=== PATIENT | female | born 1950 | race Two or more races ===

== ENCOUNTER 2017-09-06 08:00 | Emergency (ER) | payer SELFPAY ==
[2017-09-06] MEDS: IPRATRPIUM/ALBUTEROL 0.5/2.5MG 3 ML NEBU. NEB (09:14)
[2017-09-06] MEDS: predniSONE 20 MG TABLET PO (09:33)
== END 2017-09-06 09:36 | disposition home or self-care (01) ==
LOC: ER 09:36
DX: J20.9 Acute bronchitis, unspecified (principal); J45.909 Unspecified asthma, uncomplicated
CPT/HCPCS: 71046; 94640; 99285-25; J7512; J7620

== ENCOUNTER 2017-10-27 05:28 | Emergency (ER) | payer SELFPAY ==
[2017-10-27] MEDS: predniSONE 10 MG TABLET PO (06:15)
[2017-10-27] MEDS: IPRATRPIUM/ALBUTEROL 0.5/2.5MG 3 ML NEBU. NEB ×2 (06:28→07:46)
== END 2017-10-27 09:20 | disposition home or self-care (01) ==
LOC: ER 09:20
DX: J45.909 Unspecified asthma, uncomplicated (principal)
CPT/HCPCS: 71046; 94640; 99284; J7512; J7620

== ENCOUNTER 2017-11-21 09:33 | Emergency (ER) | payer SELFPAY ==
[2017-11-21 09:59] LABS: ADD MAN DIFF? NO
[2017-11-21] MEDS: methylPREDNISolone SOD SUCC PF 125 MG/2 ML VIAL. IV (10:04)
[2017-11-21 10:13] LABS: ANION GAP 9 (6-14); BLOOD UREA NITROGEN 22 mg/dL (7-20); BUN/CREATININE RATIO 24 (6-20); CALCIUM 8.7 mg/dL (8.5-10.1); CARBON DIOXIDE 30 mmol/L (21-32); CHLORIDE 103 mmol/L (98-107); CREATININE 0.9 mg/dL (0.6-1.0); GFR 62.1; GLUCOSE 157 mg/dL (70-99); POTASSIUM 3.5 mmol/L (3.5-5.1); SODIUM 142 mmol/L (136-145)
[2017-11-21 10:19] LABS: ALBUMIN 3.4 g/dL (3.4-5.0); ALBUMIN/GLOBULIN RATIO 0.8 (1.0-1.7); ALK PHOS 110 U/L (46-116); ALT (SGPT) 25 U/L (14-59); AST (SGOT) 23 U/L (15-37); TOTAL BILIRUBIN 0.3 mg/dL (0.2-1.0); TOTAL PROTEIN 7.8 g/dL (6.4-8.2)
[2017-11-21 10:20] LABS: BASO % 0 % (0-3); EOS # 0.6 x10^3/uL (0.0-0.7); EOS % 9 % (0-3); HEMATOCRIT 44.5 % (36.0-47.0); HEMOGLOBIN 14.6 g/dL (12.0-15.5); LYMPH # 1.2 x10^3/uL (1.0-4.8); LYMPH % 20 % (24-48); MEAN CORPUSCULAR HEMOGLOBIN 27 pg (25-35); MEAN CORPUSCULAR HGB CONC 33 g/dL (31-37); MEAN CORPUSCULAR VOLUME 82 fL (79-100); MONO # 0.3 x10^3/uL (0.0-1.1); MONO % 5 % (0-9); NEUT # 3.9 x10^3uL (1.8-7.7); NEUT % 66 % (31-73); PLATELET COUNT 284 x10^3/uL (140-400); RED BLOOD COUNT 5.42 x10^6/uL (3.50-5.40); RED CELL DISTRIBUTION WIDTH 14.4 % (11.5-14.5)
[2017-11-21 10:22] LABS: TROPONINI < 0.017 ng/mL (0.000-0.055)
[2017-11-21 10:25] LABS: CKMB INDEX 1.7 % (0-4); CKMB MASS 1.8 ng/mL (0.0-3.6); CREATINE KINASE 109 U/L (26-192)
[2017-11-21 10:31] LABS: BILIRUBIN,URINE NEGATIVE (NEG); CLARITY,URINE CLEAR; COLOR,URINE YELLOW; GLUCOSE,URINE NEGATIVE (NEG); NITRITE,URINE NEGATIVE (NEG); PROTEIN,URINE NEGATIVE (NEG-TRACE); UROBILINOGEN,URINE 0.2 mg/dL (0.2 mg/dL)
[2017-11-21 10:46] LABS: BACTERIA,URINE 0 /HPF (0-FEW); SQUAMOUS EPITHELIAL CELL,UR MOD /LPF
[2017-11-21] MEDS: IPRATRPIUM/ALBUTEROL 0.5/2.5MG 3 ML NEBU. NEB (11:49)
== END 2017-11-21 12:30 | disposition home or self-care (01) ==
LOC: ER 12:30
DX: J45.909 Unspecified asthma, uncomplicated (principal); J02.9 Acute pharyngitis, unspecified
CPT/HCPCS: 36415; 71045; 80053; 81001; 82553; 84484; 85025; 93005; 94640; 96374; 99285-25; J2930; J7620

== ENCOUNTER 2017-12-06 13:16 | Emergency (ER) | payer SELFPAY ==
[2017-12-06] MEDS: ACETAMINOPHEN 500 MG TABLET PO (14:31)
[2017-12-06 14:32] LABS: BASO % 0 % (0-3); EOS # 0.1 x10^3/uL (0.0-0.7); EOS % 1 % (0-3); HEMATOCRIT 43.3 % (36.0-47.0); HEMOGLOBIN 14.2 g/dL (12.0-15.5); LYMPH # 1.1 x10^3/uL (1.0-4.8); LYMPH % 7 % (24-48); MEAN CORPUSCULAR HEMOGLOBIN 27 pg (25-35); MEAN CORPUSCULAR HGB CONC 33 g/dL (31-37); MEAN CORPUSCULAR VOLUME 82 fL (79-100); MONO % 7 % (0-9); NEUT # 12.6 x10^3uL (1.8-7.7); NEUT % 85 % (31-73); PLATELET COUNT 279 x10^3/uL (140-400); RED BLOOD COUNT 5.28 x10^6/uL (3.50-5.40); RED CELL DISTRIBUTION WIDTH 13.9 % (11.5-14.5); WHITE BLOOD COUNT 14.7 x10^3/uL (4.0-11.0)
[2017-12-06 14:37] LABS: ADD MAN DIFF? YES
[2017-12-06 14:53] LABS: ANION GAP 8 (6-14); BLOOD UREA NITROGEN 18 mg/dL (7-20); CALCIUM 8.8 mg/dL (8.5-10.1); CARBON DIOXIDE 30 mmol/L (21-32); CHLORIDE 101 mmol/L (98-107); CREATININE 1.2 mg/dL (0.6-1.0); GFR 44.5; GLUCOSE 159 mg/dL (70-99); POTASSIUM 3.7 mmol/L (3.5-5.1); SODIUM 139 mmol/L (136-145)
[2017-12-06 15:01] LABS: LACTIC ACID 2.3 mmol/L (0.4-2.0)
[2017-12-06 15:01] LABS: BACTERIA,URINE MODERATE /HPF (0-FEW); BILIRUBIN,URINE NEGATIVE (NEG); CLARITY,URINE HAZY; COLOR,URINE YELLOW; GLUCOSE,URINE NEGATIVE (NEG); NITRITE,URINE POSITIVE (NEG); PROTEIN,URINE 100 mg/dL (NEG-TRACE); RBC,URINE OCC /HPF (0-2); SQUAMOUS EPITHELIAL CELL,UR FEW /LPF; WBC,URINE TNTC /HPF (0-4)
[2017-12-06 15:02] LABS: TROPONINI < 0.017 ng/mL (0.000-0.055)
[2017-12-06] MEDS: IPRATRPIUM/ALBUTEROL 0.5/2.5MG 3 ML NEBU. NEB (15:20)
[2017-12-06 15:41] LABS: PROCALCITONIN 0.12 ng/mL (0.00-0.10)
[2017-12-06 15:53] LABS: % LYMPHS 6 % (24-48); % MONOS 4 % (0-10); % SEGS 90 % (35-66)
[2017-12-06 15:58] LABS: PLT ESTIMATE ADEQUATE (ADEQUATE)
[2017-12-06 17:08] LABS: BILIRUBIN,URINE NEGATIVE (NEG); CLARITY,URINE CLOUDY; COLOR,URINE YELLOW; GLUCOSE,URINE NEGATIVE (NEG)
[2017-12-06 17:09] LABS: NITRITE,URINE POSITIVE (NEG); PROTEIN,URINE 100 mg/dL (NEG-TRACE)
[2017-12-06] MEDS: IV NORMAL SALINE 1000ML BAG 1,000 ML IV (17:20)
[2017-12-06 17:22] LABS: BACTERIA,URINE MODERATE /HPF (0-FEW); WBC,URINE TNTC /HPF (0-4)
[2017-12-06] MEDS: PHENAZOPYRIDINE 200 MG TABLET. PO (17:37)
[2017-12-06] MEDS: predniSONE 20 MG TABLET PO (17:38)
== END 2017-12-06 17:55 | disposition home or self-care (01) ==
LOC: ER 13:16
DX: N39.0 Urinary tract infection, site not specified (principal); R50.9 Fever, unspecified; R11.0 Nausea; R10.30 Lower abdominal pain, unspecified; J45.909 Unspecified asthma, uncomplicated
CPT/HCPCS: 36415; 71046; 80048; 81001; 83605; 84145; 84484; 85007; 85025; 87040; 87086; 87186; 94640; 99285-25; J7030; J7512; J7620; Q0111

== ENCOUNTER 2018-04-14 20:20 | Inpatient (IN) | payer SELFPAY ==
[~2018-04-14] VITALS: Ht 149.9 cm; Wt 74.4 kg
[~2018-04-14 20:20] MED LIST: AZIT250T6 PO; CEPH-264 PO; LEVO750T31 PO; PRED-220 PO; PRED20TA PO; PRED50TA PO; PROAIR HFA8.5 GM INH; VENTOLIN HFA18 GM INH
--- NOTE | 2018-04-14 21:30 | PHYS DOC ---
Past Medical History Past Medical History: Asthma, Bronchitis Past Surgical History: No Surgical History Alcohol Use: None Drug Use: None Adult General Chief Complaint Chief Complaint: ABDOMINAL PAIN HPI HPI Patient is a 67 year old Female who presents with upper abdomen and chest feeling tight and she states she has some shortness of air. She denies any chest pain. She does have a history of asthma and she has been having a cough recently with yellow sputum. She's been having use her inhaler at home. She denies any fevers but states that she's been having hot and cold chills. She denies any nausea, vomiting, diarrhea. Patient states she had a soft bowel movement today. Patient has been eating and drinking but doesn't drink she's been drinking enough fluids. She is allergic to no known drug allergies. She has a history of asthma and GERD. Her only medication is an albuterol inhaler. Heart rate is 92, 144/62, 95% on room air, 20 respirations. Alert and oriented. Review of Systems Review of Systems Constitutional: Denies fever or chills [] Eyes: Denies change in visual acuity, redness, or eye pain [] HENT: Denies nasal congestion or sore throat [] Respiratory: Denies cough or shortness of breath [] Cardiovascular: No additional information not addressed in HPI [] GI: Denies abdominal pain, nausea, vomiting, bloody stools or diarrhea [] : Denies dysuria or hematuria [] Musculoskeletal: Denies back pain or joint pain [] Integument: Denies rash or skin lesions [] Neurologic: Denies headache, focal weakness or sensory changes [] Endocrine: Denies polyuria or polydipsia [] All other systems were reviewed and found to be within normal limits, except as documented in this note. Current Medications Current Medications Current Medications Medications (Trade) Dose Ordered Sig/Nhan Start Time Stop Time Status Last Admin Dose Admin Acetaminophen (Tylenol) 650 mg PRN Q4HRS PRN 04/15/18 00:30 04/16/18 00:29 UNV Albuterol/ Ipratropium (Duoneb) 3 ml 1X ONCE 04/14/18 21:45 04/14/18 21:46 DC 04/14/18 21:52 3 ML Azithromycin (Zithromax) 500 mg 1X ONCE 04/15/18 00:30 04/15/18 00:31 UNV Ceftriaxone Sodium 50 ml @ 100 mls/hr 1X ONCE 04/15/18 00:30 04/15/18 00:59 UNV Info (CONTRAST GIVEN -- Rx MONITORING) 1 each PRN DAILY PRN 04/14/18 23:15 04/16/18 23:14 Iohexol (Omnipaque 300 Mg/ml) 75 ml 1X ONCE 04/14/18 23:30 04/14/18 23:31 DC 04/14/18 23:17 75 ML Ondansetron HCl (Zofran) 4 mg PRN Q8HRS PRN 04/15/18 00:30 04/16/18 00:29 UNV Sodium Chloride 500 ml @ 500 mls/hr 1X ONCE 04/14/18 22:00 04/14/18 22:59 DC 04/14/18 21:51 500 MLS/HR Allergies Allergies Allergies Coded Allergies Type Severity Reaction Last Updated Verified No Known Drug Allergies 01/27/16 No Physical Exam Physical Exam Constitutional: Well developed, well nourished, no acute distress, non-toxic appearance. [] HENT: Normocephalic, atraumatic, bilateral external ears normal, oropharynx moist, no oral exudates, nose normal. [] Eyes: PERRLA, EOMI, conjunctiva normal, no discharge. [] Neck: Normal range of motion, no tenderness, supple, no stridor. [] Cardiovascular:Heart rate regular rhythm, no murmur [] Lungs & Thorax: Bilateral breath sounds clear to auscultation [] Abdomen: Bowel sounds normal, soft, no tenderness, no masses, no pulsatile masses. [] Skin: Warm, dry, no erythema, no rash. [] Back: No tenderness, no CVA tenderness. [] Extremities: No tenderness, no cyanosis, no clubbing, ROM intact, no edema. [] Neurologic: Alert and oriented X 3, normal motor function, normal sensory function, no focal deficits noted. [] Psychologic: Affect normal, judgement normal, mood normal. [] Current Patient Data Vital Signs Vital Signs Date Time Temp Pulse Resp B/P (MAP) Pulse Ox O2 Delivery O2 Flow Rate FiO2 04/14/18 22:30 88 18 125/69 (87) 99 04/14/18 21:54 Room Air 04/14/18 21:00 98.2 98.2 Lab Values Laboratory Tests Test 04/14/18 21:44 04/14/18 22:30 White Blood Count 15.1 x10^3/uL (4.0-11.0) H Red Blood Count 5.32 x10^6/uL (3.50-5.40) Hemoglobin 14.3 g/dL (12.0-15.5) Hematocrit 43.3 % (36.0-47.0) Mean Corpuscular Volume 81 fL (79-100) Mean Corpuscular Hemoglobin 27 pg (25-35) Mean Corpuscular Hemoglobin Concent 33 g/dL (31-37) Red Cell Distribution Width 13.4 % (11.5-14.5) Platelet Count 269 x10^3/uL (140-400) Neutrophils (%) (Auto) 87 % (31-73) H Lymphocytes (%) (Auto) 5 % (24-48) L Monocytes (%) (Auto) 6 % (0-9) Eosinophils (%) (Auto) 1 % (0-3) Basophils (%) (Auto) 0 % (0-3) Neutrophils # (Auto) 13.1 x10^3uL (1.8-7.7) H Lymphocytes # (Auto) 0.8 x10^3/uL (1.0-4.8) L Monocytes # (Auto) 0.9 x10^3/uL (0.0-1.1) Eosinophils # (Auto) 0.2 x10^3/uL (0.0-0.7) Basophils # (Auto) 0.1 x10^3/uL (0.0-0.2) Segmented Neutrophils % 83 % (35-66) H Band Neutrophils % 4 % (0-9) Lymphocytes % 7 % (24-48) L Monocytes % 6 % (0-10) Platelet Estimate Adequate (ADEQUATE) Urine Collection Type Unknown Urine Color Yellow Urine Clarity Clear Urine pH 5.5 Urine Specific [place] 1.020 Urine Protein 30 mg/dL (NEG-TRACE) Urine Glucose (UA) 100 mg/dL (NEG) Urine Ketones (Stick) Negative mg/dL (NEG) Urine Blood Large (NEG) Urine Nitrite Positive (NEG) Urine Bilirubin Negative (NEG) Urine Urobilinogen Dipstick 0.2 mg/dL (0.2 mg/dL) Urine Leukocyte Esterase Moderate (NEG) Urine RBC 1-2 /HPF (0-2) Urine WBC 11-20 /HPF (0-4) Urine Squamous Epithelial Cells Few /LPF Urine Bacteria Many /HPF (0-FEW) Urine Mucus Slight /LPF Sodium Level 141 mmol/L (136-145) Potassium Level 3.8 mmol/L (3.5-5.1) Chloride Level 104 mmol/L (98-107) Carbon Dioxide Level 29 mmol/L (21-32) Anion Gap 8 (6-14) Blood Urea Nitrogen 16 mg/dL (7-20) Creatinine 0.9 mg/dL (0.6-1.0) Estimated GFR (Cockcroft-Gault) 62.1 BUN/Creatinine Ratio 18 (6-20) Glucose Level 119 mg/dL (70-99) H Calcium Level 8.9 mg/dL (8.5-10.1) Total Bilirubin 0.5 mg/dL (0.2-1.0) Aspartate Amino Transferase (AST) 25 U/L (15-37) Alanine Aminotransferase (ALT) 29 U/L (14-59) Alkaline Phosphatase 119 U/L (46-116) H Total Protein 7.7 g/dL (6.4-8.2) Albumin 3.0 g/dL (3.4-5.0) L Albumin/Globulin Ratio 0.6 (1.0-1.7) L Lipase 78 U/L (73-393) Laboratory Tests 04/14/18 21:44 Laboratory Tests 04/14/18 22:30 EKG EKG Sinus rhythm and no STEMI Interpretation Time: [address] Oliveira Radiology/Procedures Radiology/Procedures Chest x-ray Impressions: [facility] [address] [place] [address] IMAGING REPORT Signed PATIENT: MARLEY TUCKER ACCOUNT: [id number] : 1950 LOCATION: ER AGE: 67 SEX: F EXAM STATUS: REG ER ORD. PHYSICIAN: HOLLIE DESAI APRN REASON: cough PROCEDURE: CHEST PA & LATERAL EXAM: Chest, 2 views. HISTORY: Cough and short of breath. COMPARISON: 12/06/2017 FINDINGS: 2 views of the chest are obtained. There is bilateral lower lobe atelectasis or interstitial infiltrate superimposed on emphysema. There is no pleural effusion or pneumothorax. The heart is normal in size. IMPRESSION: Bilateral lower lobe atelectasis or interstitial infiltrate superimposed on emphysema. Electronically signed by: Skye Kincaid MD (04/14/2018 9:41 PM) [facility] DICTATED and SIGNED BY: SKYE KINCAID MD DATE: 04/14/182139 [facility] [address] [place] [address] IMAGING REPORT Signed PATIENT: MARLEY TUCKER ACCOUNT: [id number] : 1950 LOCATION: ER AGE: 67 SEX: F EXAM STATUS: REG ER ORD. PHYSICIAN: HOLLIE DESAI APRN REASON: diffuse abdominal pain and tenderness PROCEDURE: CT ABD PELV W/ IV CONTRST ONLY EXAM: Abdomen and pelvis CT with intravenous contrast. HISTORY: Pain. TECHNIQUE: Computed tomographic images of the abdomen and pelvis were obtained following the administration of 75 cc Omnipaque 300 intravenous contrast. Multiplanar reformatting was performed. *One or more of the following individualized dose reduction techniques were utilized for this examination: 1. Automated exposure control. 2. Adjustment of the mA and/or kV according to patient size. 3. Use of iterative reconstruction technique. COMPARISON: None. FINDINGS: Evaluation of the lower thorax demonstrates bilateral lower lobe atelectasis and pleural parenchymal scarring. There is central and lower lobe bronchial wall thickening likely due to the sequela of bronchitis. There is a calcified renal within the medial left lower lobe. There are few small nodular opacities within the left lower lobe, the largest of which measures 8 mm. There is a 1.4 cm hypodense lesion within the left hepatic lobe. There are few smaller hypodense lesions within the right hepatic lobe. These are too small to characterize. The gallbladder, pancreas, spleen and adrenal glands are unremarkable. There are few small renal cysts, some which are too small to characterize. There is no appendicitis. There is no bowel obstruction. There is distal colonic diverticulosis without evidence of diverticulitis. The uterus, ovaries and bladder are unremarkable. There is no lymphadenopathy. There is no suspicious osseous lesion. IMPRESSION: 1. Colonic diverticulosis without convincing diverticulitis. 2. Several hypodense lesions within the liver, the largest of which measures 1.4 cm within the left hepatic lobe. In the absence of known malignancy, these are likely cysts. The possibly of superimposed hemangiomas is not excluded. 3. Small renal cysts. 4. Bilateral lower lobe pleural plaque and intimal scarring and atelectasis. There is bronchial wall thickening likely due to the sequela of bronchitis. There are few small pulmonary nodules which may also be postinfectious or postinflammatory, the largest of which measures 8 mm within the left lower lobe. Follow-up can be performed according to Fleischner Society criteria. Fleischner Society recommendations (Radiology 2005; 237; 395-400): In a low risk patient: <4mm - No follow up required. >4-6mm- 12 month follow up, if unchanged, no further follow up. >6-8mm- 6-12 month follow up, then at 18-24 months if no change. >8mm- 3, 9, 24 month follow up or consideration of PET/CT. In a high risk patient: <4mm - 12 month follow up, if unchanged then no further follow up. >4-6mm- 6-12 month follow up, then at 18-24 months if no change. >6-8mm- 3-6 month follow up, then at 9-12 months and 24 months if no change >8mm- Same as for low risk patient. Electronically signed by: Skye Kincaid MD (04/14/2018 11:26 PM) [facility] DICTATED and SIGNED BY: SKYE KINCAID MD DATE: 04/14/18 3247 Course & Med Decision Making Course & Med Decision Making Patient is a 67 year old Female who presents with upper abdomen and chest feeling tight and she states she has some shortness of air. She denies any chest pain. She does have a history of asthma and she has been having a cough recently with yellow sputum. She's been having use her inhaler at home. She denies any fevers but states that she's been having hot and cold chills. She denies any nausea, vomiting, diarrhea. Patient states she had a soft bowel movement today. Patient has been eating and drinking but doesn't drink she's been drinking enough fluids. She is allergic to no known drug allergies. She has a history of asthma and GERD. Her only medication is an albuterol inhaler. Heart rate is 92, 144/62, 95% on room air, 20 respirations. Alert and oriented. Skin is pink warm and dry. Her daughters at bedside. Lungs are clear to pull lobes but seem diminished in lower lobes bilaterally. Heart rate is regular without murmur. EKG shows sinus rhythm and no STEMI. She is neurologically intact. Chest x-ray shows Bilateral lower lobe atelectasis or interstitial infiltrate superimposed on emphysema. CT abdomen pelvis shows 1. Colonic diverticulosis without convincing diverticulitis. 2. Several hypodense lesions within the liver, the largest of which measures 1.4 cm within the left hepatic lobe. In the absence of known malignancy, these are likely cysts. The possibly of superimposed hemangiomas is not excluded.3. Small renal cysts.4. Bilateral lower lobe pleural plaque and intimal scarring and atelectasis. There is bronchial wall thickening likely due to the sequela of bronchitis. There are few small pulmonary nodules which may also be postinfectious or postinflammatory, the largest of which measures 8 mm within the left lower lobe. Follow-up can be performed according to Fleischner Society criteria. Patient was taken on a desats study and she went down to 85% when walking. Patient to be admitted to the hospital for COPD and a uric tract infection. No draw blood cultures and lactic acid. She will be started on azithromycin and Rocephin. [] Dragon Disclaimer Dragon Disclaimer This electronic medical record was generated, in whole or in part, using a voice recognition dictation system. Departure Departure Impression: Primary Impression: Urinary tract infection Additional Impression: COPD (chronic obstructive pulmonary disease) Disposition: 01 HOME, SELF-CARE Admitting Physician: Eduardo Lopez Condition: STABLE Referrals: UNKNOWN PCP NAME (PCP) Problem Qualifiers Primary Impression: Urinary tract infection Urinary tract infection type: site unspecified Hematuria presence: with hematuria Qualified Codes: N39.0 - Urinary tract infection, site not specified ; R31.9 - Hematuria, unspecified Additional Impression: COPD (chronic obstructive pulmonary disease) COPD type: unspecified COPD Qualified Codes: J44.9 - Chronic obstructive pulmonary disease, unspecified BAFUS,HOLLIE M CT SCAN TECHNICIAN Apr 14, 2018 21:30
--- NOTE | 2018-04-14 21:44 | RAD ---
EXAM: Chest, 2 views. HISTORY: Cough and short of breath. COMPARISON: 12/06/2017 FINDINGS: 2 views of the chest are obtained. There is bilateral lower lobe atelectasis or interstitial infiltrate superimposed on emphysema. There is no pleural effusion or pneumothorax. The heart is normal in size. IMPRESSION: Bilateral lower lobe atelectasis or interstitial infiltrate superimposed on emphysema. Electronically signed by: Skye Spain MD (04/14/2018 9:41 PM) [facility]
[2018-04-14] MEDS ORDERED: IPRATRPIUM/ALBUTEROL 0.5/2.5MG 3 ML NEBU. NEB ONE (21:45)
[2018-04-14] MEDS ORDERED: IV NORMAL SALINE 500ML BAG 500 ML IV ONE (22:00)
[2018-04-14 22:09] LABS: BASO # 0.1 x10^3/uL (0.0-0.2); BASO % 0 % (0-3); BILIRUBIN,URINE NEGATIVE (NEG); CLARITY,URINE CLEAR; COLOR,URINE YELLOW; EOS # 0.2 x10^3/uL (0.0-0.7); EOS % 1 % (0-3); HEMATOCRIT 43.3 % (36.0-47.0); HEMOGLOBIN 14.3 g/dL (12.0-15.5); LYMPH # 0.8 x10^3/uL (1.0-4.8); LYMPH % 5 % (24-48); MEAN CORPUSCULAR HEMOGLOBIN 27 pg (25-35); MEAN CORPUSCULAR HGB CONC 33 g/dL (31-37); MEAN CORPUSCULAR VOLUME 81 fL (79-100); MONO # 0.9 x10^3/uL (0.0-1.1); MONO % 6 % (0-9); NEUT # 13.1 x10^3uL (1.8-7.7); NEUT % 87 % (31-73); NITRITE,URINE POSITIVE (NEG); PH,URINE 5.5; PLATELET COUNT 269 x10^3/uL (140-400); PROTEIN,URINE 30 mg/dL (NEG-TRACE); RED BLOOD COUNT 5.32 x10^6/uL (3.50-5.40); RED CELL DISTRIBUTION WIDTH 13.4 % (11.5-14.5); UROBILINOGEN,URINE 0.2 mg/dL (0.2 mg/dL); WHITE BLOOD COUNT 15.1 x10^3/uL (4.0-11.0)
[2018-04-14 22:15] LABS: BACTERIA,URINE MANY /HPF (0-FEW); SQUAMOUS EPITHELIAL CELL,UR FEW /LPF
[2018-04-14 22:37] LABS: % BANDS 4 % (0-9); % LYMPHS 7 % (24-48); % MONOS 6 % (0-10); % SEGS 83 % (35-66); PLT ESTIMATE ADEQUATE (ADEQUATE)
[2018-04-14 22:46] LABS: CALCIUM 8.9 mg/dL (8.5-10.1); CREATININE 0.9 mg/dL (0.6-1.0); GFR 62.1; POTASSIUM 3.8 mmol/L (3.5-5.1)
[2018-04-14 22:52] LABS: ALBUMIN/GLOBULIN RATIO 0.6 (1.0-1.7); TOTAL BILIRUBIN 0.5 mg/dL (0.2-1.0); TOTAL PROTEIN 7.7 g/dL (6.4-8.2)
[2018-04-14] MEDS ORDERED: CONTRAST GIVEN. MC PRN (23:15)
--- NOTE | 2018-04-14 23:29 | RAD ---
EXAM: Abdomen and pelvis CT with intravenous contrast. HISTORY: Pain. TECHNIQUE: Computed tomographic images of the abdomen and pelvis were obtained following the administration of 75 cc Omnipaque 300 intravenous contrast. Multiplanar reformatting was performed. *One or more of the following individualized dose reduction techniques were utilized for this examination: 1. Automated exposure control. 2. Adjustment of the mA and/or kV according to patient size. 3. Use of iterative reconstruction technique. COMPARISON: None. FINDINGS: Evaluation of the lower thorax demonstrates bilateral lower lobe atelectasis and pleural parenchymal scarring. There is central and lower lobe bronchial wall thickening likely due to the sequela of bronchitis. There is a calcified renal within the medial left lower lobe. There are few small nodular opacities within the left lower lobe, the largest of which measures 8 mm. There is a 1.4 cm hypodense lesion within the left hepatic lobe. There are few smaller hypodense lesions within the right hepatic lobe. These are too small to characterize. The gallbladder, pancreas, spleen and adrenal glands are unremarkable. There are few small renal cysts, some which are too small to characterize. There is no appendicitis. There is no bowel obstruction. There is distal colonic diverticulosis without evidence of diverticulitis. The uterus, ovaries and bladder are unremarkable. There is no lymphadenopathy. There is no suspicious osseous lesion. IMPRESSION: 1. Colonic diverticulosis without convincing diverticulitis. 2. Several hypodense lesions within the liver, the largest of which measures 1.4 cm within the left hepatic lobe. In the absence of known malignancy, these are likely cysts. The possibly of superimposed hemangiomas is not excluded. 3. Small renal cysts. 4. Bilateral lower lobe pleural plaque and intimal scarring and atelectasis. There is bronchial wall thickening likely due to the sequela of bronchitis. There are few small pulmonary nodules which may also be postinfectious or postinflammatory, the largest of which measures 8 mm within the left lower lobe. Follow-up can be performed according to Fleischner Society criteria. Fleischner Society recommendations (Radiology 2005; 237; 395-400): In a low risk patient: <4mm - No follow up required. >4-6mm- 12 month follow up, if unchanged, no further follow up. >6-8mm- 6-12 month follow up, then at 18-24 months if no change. >8mm- 3, 9, 24 month follow up or consideration of PET/CT. In a high risk patient: <4mm - 12 month follow up, if unchanged then no further follow up. >4-6mm- 6-12 month follow up, then at 18-24 months if no change. >6-8mm- 3-6 month follow up, then at 9-12 months and 24 months if no change >8mm- Same as for low risk patient. Electronically signed by: Skye Spain MD (04/14/2018 11:26 PM) [facility]
[2018-04-14] MEDS ORDERED: IOHEXOL 300 MG/ML 100ML VIAL. IV ONE (23:30)
[2018-04-15] MEDS ORDERED: NITR100C62 PO (00:02)
[2018-04-15] MEDS ORDERED: PRED50TA PO (00:03)
[2018-04-15] MEDS ORDERED: ACETAMINOPHEN 325 MG TABLET. PO PRN (00:30)
[2018-04-15] MEDS ORDERED: ONDANSETRON PF 4 MG/2 ML VIAL. IV PRN (00:30)
[2018-04-15] MEDS ORDERED: AZITHROMYCIN 250 MG TABLET. PO ONE (01:00)
[2018-04-15] MEDS ORDERED: methylPREDNISolone SOD SUCC PF 125 MG/2 ML VIAL. IV ONE (01:00)
--- NOTE | 2018-04-15 01:49 | EKG ---
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
[2018-04-15 01:59] VITALS: BP 114/71
[2018-04-15 07:40] VITALS: BP 116/61
[2018-04-15] MEDS ORDERED: predniSONE 10 MG TABLET PO ONE (09:30)
[2018-04-15] MEDS ORDERED: cefTRIAXone IV Push 1 GM VIAL. IVP ONE ×2 (09:45→21:00)
--- NOTE | 2018-04-15 10:23 | PDOC1 ---
History and Physical Date of Admission Date of Admission DATE: 04/15/18 TIME: 10:22 Identification/Chief Complaint Chief Complaint SEEN IN er presents with upper abdomen and chest feeling tight and she states she has some shortness of air. She denies any chest pain. She does have a history of asthma and she has been having a cough recently with yellow sputum. using inhaler at home. She denies any fevers but states that she's been having hot and cold chills. She denies any nausea, vomiting, diarrhea sHE DOES SMOKE DAILY, IS FROM [facility], DAUGHTER IS GOOD HISTORIAN Past Medical History Past Medical History Past Medical History Past Medical History: Asthma, Bronchitis Past Surgical History: No Surgical History Alcohol Use: None Drug Use: None Hepatobiliary: Other Past Surgical History Past Surgical History: No pertinent history Family History Family History: High Cholestrol Social History Smoke: 1 pack per day ALCOHOL: none Drugs: None Current Problem List Problem List Problems Medical Problems: (1) Acute bronchitis Status: Acute (2) COPD (chronic obstructive pulmonary disease) Status: Acute (3) Urinary tract infection Status: Acute Current Medications Current Medications Current Medications Sodium Chloride 500 ml @ 500 mls/hr 1X ONCE IV Last administered on at 21:51; Start 04/14/18 at 22:00; Stop 04/14/18 at 22:59; Status DC Albuterol/ Ipratropium (Duoneb) 3 ml 1X ONCE NEB Last administered on at 21:52; Start 04/14/18 at 21:45; Stop 04/14/18 at 21:46; Status DC Iohexol (Omnipaque 300 Mg/ml) 75 ml 1X ONCE IV Last administered on 04/14/18at 23:17; Start 04/14/18 at 23:30; Stop 04/14/18 at 23:31; Status DC Info (CONTRAST GIVEN -- Rx MONITORING) 1 each PRN DAILY PRN MC SEE COMMENTS; Start 04/14/18 at 23:15; Stop 04/16/18 at 23:14 Azithromycin (Zithromax) 500 mg 1X ONCE PO Last administered on 04/15/18at 01: 49; Start 04/15/18 at 01:00; Stop 04/15/18 at 01:01; Status DC Ceftriaxone Sodium 50 ml @ 100 mls/hr 1X ONCE IV Last administered on at 01:49; Start 04/15/18 at 01:00; Stop 04/15/18 at 01:29; Status DC Ondansetron HCl (Zofran) 4 mg PRN Q8HRS PRN IV NAUSEA/VOMITING 1ST CHOICE; Start 04/15/18 at 00:30; Stop 04/16/18 at 00:29 Acetaminophen (Tylenol) 650 mg PRN Q4HRS PRN PO FEVER; Start 04/15/18 at 00:30 ; Stop 04/16/18 at 00:29 Methylprednisolone Sodium Succinate (SOLU-Medrol 125MG VIAL) 125 mg 1X ONCE IV Last administered on 04/15/18at 00:35; Start 04/15/18 at 01:00; Stop 04/15/18 at 01:01; Status DC Prednisone (Prednisone) 30 mg 1X ONCE PO ; Start 04/15/18 at 09:30; Stop at 09:31; Status DC Prednisone (Prednisone) 30 mg DAILY PO ; Start 04/16/18 at 09:00 Ceftriaxone Sodium 50 ml @ 100 mls/hr 1X ONCE IV ; Start 04/15/18 at 09:30; Stop 04/15/18 at 09:59; Status Cancel Azithromycin (Zithromax) 250 mg DAILY PO ; Start 04/15/18 at 10:00 Ceftriaxone Sodium (Rocephin) 1 gm ONCE ONCE IVP ; Start 04/15/18 at 09:45; Stop 04/15/18 at 09:45; Status DC Ceftriaxone Sodium (Rocephin) 1 gm ONCE ONCE IVP ; Start 04/15/18 at 21:00; Stop 04/15/18 at 21:01 Lactobacillus Rhamnosus (Culturelle) 1 cap BID PO ; Start 04/15/18 at 21:00 Active Scripts Active Prednisone 50 Mg Tablet 1 Tab PO DAILY Levaquin (Levofloxacin) 750 Mg Tablet 1 Tab PO DAILY Azithromycin Tablet (Azithromycin) 250 Mg Tablet 1 Pkg PO UD Proair Hfa Inhaler (Albuterol Sulfate) 8.5 Gm Hfa.aer.ad 1 Puff INH PRN Q6HRS PRN Prednisone 20 Mg Tablet 2 Tab PO DAILY 5 Days Keflex (Cephalexin) 500 Mg Capsule 1 Cap PO TID Prednisone 50 Mg Tablet 1 Tab PO DAILY Proair Hfa Inhaler (Albuterol Sulfate) 8.5 Gm Hfa.aer.ad 1 Puff INH PRN Q6HRS PRN 10 Days Proair Hfa Inhaler (Albuterol Sulfate) 8.5 Gm Hfa.aer.ad 2 Puff INH Q4-6HRS PRN 2 Days Azithromycin Tablet (Azithromycin) 250 Mg Tablet 1 Pkg PO UD Prednisone (Prednisone) 10 Mg Tablet 50 Mg PO DAILY Ventolin Hfa Inhaler (Albuterol Sulfate) 18 Gm Hfa.aer.ad 2 Puff INH Q4HRS PRN Allergies Allergies: Coded Allergies: No Known Drug Allergies (Unverified , 01/27/16) ROS Review of System Review of Systems Review of Systems Constitutional: Denies fever or chills [] Eyes: Denies change in visual acuity, redness, or eye pain [] HENT: Denies nasal congestion or sore throat [] Respiratory: Denies cough or shortness of breath [] Cardiovascular: No additional information not addressed in HPI [] GI: Denies abdominal pain, nausea, vomiting, bloody stools or diarrhea [] : Denies dysuria or hematuria [] Musculoskeletal: Denies back pain or joint pain [] Integument: Denies rash or skin lesions [] Neurologic: Denies headache, focal weakness or sensory changes [] Endocrine: Denies polyuria or polydipsia [] 14 pt systems were reviewed and found to be within normal limits, except as documented . Respiratory: YES: Cough, Shortness of breath Physical Exam Physical Exam Physical Exam Physical Exam Constitutional: Well developed, well nourished, no acute distress, non-toxic appearance. [] HENT: Normocephalic, atraumatic, bilateral external ears normal, oropharynx moist, no oral exudates, nose normal. [] Eyes: PERRLA, EOMI, conjunctiva normal, no discharge. [] Neck: Normal range of motion, no tenderness, supple, no stridor. [] Cardiovascular:Heart rate regular rhythm, no murmur [] Lungs & Thorax: Bilateral breath sounds clear to auscultation [] Abdomen: Bowel sounds normal, soft, no tenderness, no masses, no pulsatile masses. [] Skin: Warm, dry, no erythema, no rash. [] Back: No tenderness, no CVA tenderness. [] Extremities: No tenderness, no cyanosis, no clubbing, ROM intact, no edema. [] Neurologic: Alert and oriented X 3, normal motor function, normal sensory function, no focal deficits noted. [] Psychologic: Affect normal, judgement normal, mood normal. [] General: Alert, Oriented X3, Cooperative HEENT: Atraumatic Heart: RRR Breasts: Not examined Abdomen: Normal bowel sounds, Soft Rectal Exam: not examined Extremities: No clubbing, No cyanosis, No edema Neuro: Cranial nerves 3-12 NL Psych/Mental Status: Mental status NL Vitals Vitals Vital Signs Date Time Temp Pulse Resp B/P (MAP) Pulse Ox O2 Delivery O2 Flow Rate FiO2 04/15/18 07:40 98.1 71 18 116/61 (79) 97 Nasal Cannula 2.0 98.1 Labs Labs Laboratory Tests Test 04/14/18 21:44 04/14/18 22:30 04/15/18 00:55 White Blood Count 15.1 x10^3/uL (4.0-11.0) Red Blood Count 5.32 x10^6/uL (3.50-5.40) Hemoglobin 14.3 g/dL (12.0-15.5) Hematocrit 43.3 % (36.0-47.0) Mean Corpuscular Volume 81 fL (79-100) Mean Corpuscular Hemoglobin 27 pg (25-35) Mean Corpuscular Hemoglobin Concent 33 g/dL (31-37) Red Cell Distribution Width 13.4 % (11.5-14.5) Platelet Count 269 x10^3/uL (140-400) Neutrophils (%) (Auto) 87 % (31-73) Lymphocytes (%) (Auto) 5 % (24-48) Monocytes (%) (Auto) 6 % (0-9) Eosinophils (%) (Auto) 1 % (0-3) Basophils (%) (Auto) 0 % (0-3) Neutrophils # (Auto) 13.1 x10^3uL (1.8-7.7) Lymphocytes # (Auto) 0.8 x10^3/uL (1.0-4.8) Monocytes # (Auto) 0.9 x10^3/uL (0.0-1.1) Eosinophils # (Auto) 0.2 x10^3/uL (0.0-0.7) Basophils # (Auto) 0.1 x10^3/uL (0.0-0.2) Segmented Neutrophils % 83 % (35-66) Band Neutrophils % 4 % (0-9) Lymphocytes % 7 % (24-48) Monocytes % 6 % (0-10) Platelet Estimate Adequate (ADEQUATE) Urine Collection Type Unknown Urine Color Yellow Urine Clarity Clear Urine pH 5.5 Urine Specific [place] 1.020 Urine Protein 30 mg/dL (NEG-TRACE) Urine Glucose (UA) 100 mg/dL (NEG) Urine Ketones (Stick) Negative mg/dL (NEG) Urine Blood Large (NEG) Urine Nitrite Positive (NEG) Urine Bilirubin Negative (NEG) Urine Urobilinogen Dipstick 0.2 mg/dL (0.2 mg/dL) Urine Leukocyte Esterase Moderate (NEG) Urine RBC 1-2 /HPF (0-2) Urine WBC 11-20 /HPF (0-4) Urine Squamous Epithelial Cells Few /LPF Urine Bacteria Many /HPF (0-FEW) Urine Mucus Slight /LPF Sodium Level 141 mmol/L (136-145) Potassium Level 3.8 mmol/L (3.5-5.1) Chloride Level 104 mmol/L (98-107) Carbon Dioxide Level 29 mmol/L (21-32) Anion Gap 8 (6-14) Blood Urea Nitrogen 16 mg/dL (7-20) Creatinine 0.9 mg/dL (0.6-1.0) Estimated GFR (Cockcroft-Gault) 62.1 BUN/Creatinine Ratio 18 (6-20) Glucose Level 119 mg/dL (70-99) Calcium Level 8.9 mg/dL (8.5-10.1) Total Bilirubin 0.5 mg/dL (0.2-1.0) Aspartate Amino Transf (AST/SGOT) 25 U/L (15-37) Alanine Aminotransferase (ALT/SGPT) 29 U/L (14-59) Alkaline Phosphatase 119 U/L (46-116) Total Protein 7.7 g/dL (6.4-8.2) Albumin 3.0 g/dL (3.4-5.0) Albumin/Globulin Ratio 0.6 (1.0-1.7) Lipase 78 U/L (73-393) Lactic Acid Level 1.2 mmol/L (0.4-2.0) Laboratory Tests Test 04/14/18 21:44 04/14/18 22:30 04/15/18 00:55 White Blood Count 15.1 x10^3/uL (4.0-11.0) Red Blood Count 5.32 x10^6/uL (3.50-5.40) Hemoglobin 14.3 g/dL (12.0-15.5) Hematocrit 43.3 % (36.0-47.0) Mean Corpuscular Volume 81 fL (79-100) Mean Corpuscular Hemoglobin 27 pg (25-35) Mean Corpuscular Hemoglobin Concent 33 g/dL (31-37) Red Cell Distribution Width 13.4 % (11.5-14.5) Platelet Count 269 x10^3/uL (140-400) Neutrophils (%) (Auto) 87 % (31-73) Lymphocytes (%) (Auto) 5 % (24-48) Monocytes (%) (Auto) 6 % (0-9) Eosinophils (%) (Auto) 1 % (0-3) Basophils (%) (Auto) 0 % (0-3) Neutrophils # (Auto) 13.1 x10^3uL (1.8-7.7) Lymphocytes # (Auto) 0.8 x10^3/uL (1.0-4.8) Monocytes # (Auto) 0.9 x10^3/uL (0.0-1.1) Eosinophils # (Auto) 0.2 x10^3/uL (0.0-0.7) Basophils # (Auto) 0.1 x10^3/uL (0.0-0.2) Segmented Neutrophils % 83 % (35-66) Band Neutrophils % 4 % (0-9) Lymphocytes % 7 % (24-48) Monocytes % 6 % (0-10) Platelet Estimate Adequate (ADEQUATE) Urine Collection Type Unknown Urine Color Yellow Urine Clarity Clear Urine pH 5.5 Urine Specific [place] 1.020 Urine Protein 30 mg/dL (NEG-TRACE) Urine Glucose (UA) 100 mg/dL (NEG) Urine Ketones (Stick) Negative mg/dL (NEG) Urine Blood Large (NEG) Urine Nitrite Positive (NEG) Urine Bilirubin Negative (NEG) Urine Urobilinogen Dipstick 0.2 mg/dL (0.2 mg/dL) Urine Leukocyte Esterase Moderate (NEG) Urine RBC 1-2 /HPF (0-2) Urine WBC 11-20 /HPF (0-4) Urine Squamous Epithelial Cells Few /LPF Urine Bacteria Many /HPF (0-FEW) Urine Mucus Slight /LPF Sodium Level 141 mmol/L (136-145) Potassium Level 3.8 mmol/L (3.5-5.1) Chloride Level 104 mmol/L (98-107) Carbon Dioxide Level 29 mmol/L (21-32) Anion Gap 8 (6-14) Blood Urea Nitrogen 16 mg/dL (7-20) Creatinine 0.9 mg/dL (0.6-1.0) Estimated GFR (Cockcroft-Gault) 62.1 BUN/Creatinine Ratio 18 (6-20) Glucose Level 119 mg/dL (70-99) Calcium Level 8.9 mg/dL (8.5-10.1) Total Bilirubin 0.5 mg/dL (0.2-1.0) Aspartate Amino Transf (AST/SGOT) 25 U/L (15-37) Alanine Aminotransferase (ALT/SGPT) 29 U/L (14-59) Alkaline Phosphatase 119 U/L (46-116) Total Protein 7.7 g/dL (6.4-8.2) Albumin 3.0 g/dL (3.4-5.0) Albumin/Globulin Ratio 0.6 (1.0-1.7) Lipase 78 U/L (73-393) Lactic Acid Level 1.2 mmol/L (0.4-2.0) Images Images PROCEDURE: CT CHEST WO CONTRAST CT chest without contrast 04/15/2018 CLINICAL INDICATION: Pneumonia. COMPARISON: Chest radiograph 04/14/2018, CT chest 01/27/2016 TECHNIQUE: Multiple CT images of the chest were obtained without contrast. *One or more of the following individualized dose reduction techniques were utilized for this examination: 1. Automated exposure control. 2. Adjustment of the mA and/or kV according to patient size. 3. Use of iterative reconstruction technique. FINDINGS: Heart size is normal without significant pericardial effusion. The thoracic aorta is normal in caliber with trace calcified atheromatous disease. No axillary, mediastinal or obvious hilar lymphadenopathy, though the evaluation is somewhat limited in the absence of intravenous contrast. There is a basilar predominant emphysema. Mild bibasilar bronchiolectasis with scattered areas of bronchiolar mucus impaction and tree-in-bud opacities. There is a stable noncalcified pulmonary nodule in the posterior left lower lobe measuring 0.6 cm without significant change since January 27, 2016 examination. Stable subpleural nodular opacity in the lateral right middle lobe measuring 1.0 cm series 3/image 47. There is stable linear scarring in the bilateral lower lobes. No new noncalcified pulmonary nodule. Chronic mild T11 compression deformity. There are no destructive osseous lesions. Limited images of the upper abdomen: 2 stable hepatic hypodensities and a stable left renal hypodensity. IMPRESSION: 1. Stable bibasilar bronchiolectasis, mucoid impaction and tree-in-bud opacities consistent with chronic infectious/inflammatory etiology. 2. Stable left lower lobe and right middle lobe noncalcified pulmonary nodules since the 27/06/2015. 3. Moderate bibasilar predominant emphysema. EXAM: Abdomen and pelvis CT with intravenous contrast. HISTORY: Pain. TECHNIQUE: Computed tomographic images of the abdomen and pelvis were obtained following the administration of 75 cc Omnipaque 300 intravenous contrast. Multiplanar reformatting was performed. *One or more of the following individualized dose reduction techniques were utilized for this examination: 1. Automated exposure control. 2. Adjustment of the mA and/or kV according to patient size. 3. Use of iterative reconstruction technique. COMPARISON: None. FINDINGS: Evaluation of the lower thorax demonstrates bilateral lower lobe atelectasis and pleural parenchymal scarring. There is central and lower lobe bronchial wall thickening likely due to the sequela of bronchitis. There is a calcified renal within the medial left lower lobe. There are few small nodular opacities within the left lower lobe, the largest of which measures 8 mm. There is a 1.4 cm hypodense lesion within the left hepatic lobe. There are few smaller hypodense lesions within the right hepatic lobe. These are too small to characterize. The gallbladder, pancreas, spleen and adrenal glands are unremarkable. There are few small renal cysts, some which are too small to characterize. There is no appendicitis. There is no bowel obstruction. There is distal colonic diverticulosis without evidence of diverticulitis. The uterus, ovaries and bladder are unremarkable. There is no lymphadenopathy. There is no suspicious osseous lesion. IMPRESSION: 1. Colonic diverticulosis without convincing diverticulitis. 2. Several hypodense lesions within the liver, the largest of which measures 1.4 cm within the left hepatic lobe. In the absence of known malignancy, these are likely cysts. The possibly of superimposed hemangiomas is not excluded. 3. Small renal cysts. 4. Bilateral lower lobe pleural plaque and intimal scarring and atelectasis. There is bronchial wall thickening likely due to the sequela of bronchitis. There are few small pulmonary nodules which may also be postinfectious or postinflammatory, the largest of which measures 8 mm within the left lower lobe. Follow-up can be performed according to Fleischner Society criteria. Fleischner Society recommendations (Radiology 2005; 237; 395-400): In a low risk patient: <4mm - No follow up required. >4-6mm- 12 month follow up, if unchanged, no further follow up. >6-8mm- 6-12 month follow up, then at 18-24 months if no change. >8mm- 3, 9, 24 month follow up or consideration of PET/CT. In a high risk patient: <4mm - 12 month follow up, if unchanged then no further follow up. >4-6mm- 6-12 month follow up, then at 18-24 months if no change. >6-8mm- 3-6 month follow up, then at 9-12 months and 24 months if no change >8mm- Same as for low risk patient. Electronically signed by: Skye Spain MD (04/14/2018 11:26 PM) [facility] VTE Prophylaxis Ordered VTE Prophylaxis Devices: Yes VTE Pharmacological Prophylaxi: Yes Assessment/Plan Assessment/Plan Impression: Urinary tract infection COPD (chronic obstructive pulmonary disease) exac, acute Stable bibasilar bronchiolectasis, mucoid impaction and tree-in-bud opacities consistent with chronic infectious/inflammatory etiology. Stable left lower lobe and right middle lobe noncalcified pulmonary nodules since the 27/06/2015. Moderate bibasilar predominant emphysema. acute hypoxic resp failure morbid obesity sirs plan o2 support iv antibiotics duonebs qid sq lovenox dvt prophylaxis gi prophylaxis URINE CULTURE education on smoking cessation provided BAL DIANA MD Apr 15, 2018 10:23
[2018-04-15 11:10] VITALS: BP 133/69
[2018-04-15] MEDS: AZITHROMYCIN 250 MG TABLET. PO SCH (11:50)
--- NOTE | 2018-04-15 11:54 | RAD ---
CT chest without contrast 04/15/2018 CLINICAL INDICATION: Pneumonia. COMPARISON: Chest radiograph 04/14/2018, CT chest 01/27/2016 TECHNIQUE: Multiple CT images of the chest were obtained without contrast. *One or more of the following individualized dose reduction techniques were utilized for this examination: 1. Automated exposure control. 2. Adjustment of the mA and/or kV according to patient size. 3. Use of iterative reconstruction technique. FINDINGS: Heart size is normal without significant pericardial effusion. The thoracic aorta is normal in caliber with trace calcified atheromatous disease. No axillary, mediastinal or obvious hilar lymphadenopathy, though the evaluation is somewhat limited in the absence of intravenous contrast. There is a basilar predominant emphysema. Mild bibasilar bronchiolectasis with scattered areas of bronchiolar mucus impaction and tree-in-bud opacities. There is a stable noncalcified pulmonary nodule in the posterior left lower lobe measuring 0.6 cm without significant change since January 27, 2016 examination. Stable subpleural nodular opacity in the lateral right middle lobe measuring 1.0 cm series 3/image 47. There is stable linear scarring in the bilateral lower lobes. No new noncalcified pulmonary nodule. Chronic mild T11 compression deformity. There are no destructive osseous lesions. Limited images of the upper abdomen: 2 stable hepatic hypodensities and a stable left renal hypodensity. IMPRESSION: 1. Stable bibasilar bronchiolectasis, mucoid impaction and tree-in-bud opacities consistent with chronic infectious/inflammatory etiology. 2. Stable left lower lobe and right middle lobe noncalcified pulmonary nodules since the 27/06/2015. 3. Moderate bibasilar predominant emphysema. Electronically signed by: Joey Dunn MD (04/15/2018 11:51 AM) [id number]
[2018-04-15] MEDS ORDERED: ENOXAPARIN 40 MG/0.4 ML SYRINGE. SQ SCH (13:00)
--- NOTE | 2018-04-15 13:19 | CONS ---
DATE OF CONSULTATION: 04/15/2018 ATTENDING PHYSICIAN: Dr. Berger. REASON FOR CONSULTATION: The patient seen in pulmonary consultation at the request of Dr. Berger for abnormal chest x-ray. HISTORY OF PRESENT ILLNESS: The patient is a 67-year-old non-Croatian speaking individual who presented with abdominal pain and chest discomfort. Her [id number] translated. She has a history of asthma; smoker, quit in 1969. In the past 12 months, she has been treated for acute bronchitis x 1 at [facility] [place]. She does use bronchodilators at home. She quit tobacco in 1969. She has a cough productive of yellow sputum. No fever or chills. Chest x-ray revealed some ill-defined infiltrates in the bases. She had a CT chest dated back to 2015, which I reviewed, there was an ill-defined infiltrates back then. PAST MEDICAL HISTORY: COPD with an asthma component; otherwise, no other significant past medical history. MEDICATIONS: Her medication list from [facility] [place] was reviewed. Apparently, she goes to [facility] to obtain her medications. Medication list was reviewed. She was on Zithromax, Levaquin, albuterol and prednisone taper. REVIEW OF SYSTEMS: As indicated above. Otherwise, no fever, chills, night sweats. PHYSICAL EXAMINATION: GENERAL: The patient was in no respiratory distress. VITAL SIGNS: Stable. O2 saturation was greater than 92%, currently on 2 liters. HEENT: Eyes, the sclerae were nonicteric. NECK: Jugular venous distention was not elevated. No lymphadenopathy. CHEST: Full expansion. LUNGS: Crackles throughout both lung garcia with no expiratory wheeze. CARDIOVASCULAR: Regular rate and rhythm with S1, S2, no S3. ABDOMEN: Soft, nontender, nondistended. EXTREMITIES: No clubbing, cyanosis or edema. LABORATORY DATA: White count was elevated. Hemoglobin and hematocrit were noted. Electrolytes were noted. Albumin was low. Chest x-ray as indicated above. IMPRESSION: 1. Acute exacerbation of chronic obstructive pulmonary disease. 2. Possible pneumonia, gram-negative. 3. Abnormal chest x-ray. 4. Previously abnormal CT chest. 5. Tobacco dependence, in remission. PLAN: 1. We will continue current IV antibiotics and steroids. 2. CT chest. 3. We will review CT and make further recommendations. KAVON GAMBINO MD DR: Manuel JOB#: [id number] / [id number]
[2018-04-15] MEDS ORDERED: IPRATRPIUM/ALBUTEROL 0.5/2.5MG 3 ML NEBU. ONE (14:29)
[2018-04-15] MEDS: IPRATRPIUM/ALBUTEROL 0.5/2.5MG 3 ML NEBU. NEB SCH ×2 (15:05→19:22)
[2018-04-15 15:21] VITALS: BP 151/80
[2018-04-15 19:45] VITALS: BP 104/58
[2018-04-15] MEDS ORDERED: cefTRIAXone IV Push 1 GM VIAL. IVP SCH (21:00)
[2018-04-15] MEDS: LACTOBACILLUS RHAMNOSUS GG 1 CAPSULE. PO SCH (21:10)
[2018-04-15 23:20] VITALS: BP 124/68
[2018-04-16 03:13] VITALS: BP 102/62
[2018-04-16 03:59] LABS: BASO % 0 % (0-3); EOS % 0 % (0-3); HEMATOCRIT 40.7 % (36.0-47.0); HEMOGLOBIN 13.4 g/dL (12.0-15.5); LYMPH % 8 % (24-48); MEAN CORPUSCULAR HEMOGLOBIN 27 pg (25-35); MEAN CORPUSCULAR HGB CONC 33 g/dL (31-37); MEAN CORPUSCULAR VOLUME 81 fL (79-100); MONO # 0.7 x10^3/uL (0.0-1.1); MONO % 5 % (0-9); NEUT # 11.5 x10^3uL (1.8-7.7); NEUT % 87 % (31-73); PLATELET COUNT 275 x10^3/uL (140-400); RED BLOOD COUNT 5.01 x10^6/uL (3.50-5.40); RED CELL DISTRIBUTION WIDTH 13.4 % (11.5-14.5); WHITE BLOOD COUNT 13.2 x10^3/uL (4.0-11.0)
[2018-04-16 04:20] LABS: ALBUMIN 2.6 g/dL (3.4-5.0); ALBUMIN/GLOBULIN RATIO 0.6 (1.0-1.7); CALCIUM 9.2 mg/dL (8.5-10.1); CREATININE 0.9 mg/dL (0.6-1.0); GFR 62.1; POTASSIUM 3.4 mmol/L (3.5-5.1); TOTAL BILIRUBIN 0.1 mg/dL (0.2-1.0)
[2018-04-16 07:00] VITALS: BP 119/70
[2018-04-16] MEDS: IPRATRPIUM/ALBUTEROL 0.5/2.5MG 3 ML NEBU. NEB SCH ×2 (07:03→10:42)
[2018-04-16] MEDS ORDERED: PANTOPRAZOLE 40 MG TABLET.DR. PO SCH (07:30)
--- NOTE | 2018-04-16 08:36 | PDOC ---
PULMONARY PROGRESS NOTES Subjective PT BETTER THRU INTERPRET Vitals Vital Signs Date Time Temp Pulse Resp B/P (MAP) Pulse Ox O2 Delivery O2 Flow Rate FiO2 04/16/18 07:05 96 Nasal Cannula 2.0 04/16/18 07:00 97.7 83 16 119/70 (86) 97.7 Lungs: Crackles Cardiovascular: S1, S2 Abdomen: Soft Neuro Exam: Alert Extremities: No Edema Skin: Warm Labs Laboratory Tests Test 04/14/18 21:44 04/14/18 22:30 04/15/18 00:55 04/16/18 03:00 White Blood Count 15.1 x10^3/uL (4.0-11.0) 13.2 x10^3/uL (4.0-11.0) Red Blood Count 5.32 x10^6/uL (3.50-5.40) 5.01 x10^6/uL (3.50-5.40) Hemoglobin 14.3 g/dL (12.0-15.5) 13.4 g/dL (12.0-15.5) Hematocrit 43.3 % (36.0-47.0) 40.7 % (36.0-47.0) Mean Corpuscular Volume 81 fL (79-100) 81 fL (79-100) Mean Corpuscular Hemoglobin 27 pg (25-35) 27 pg (25-35) Mean Corpuscular Hemoglobin Concent 33 g/dL (31-37) 33 g/dL (31-37) Red Cell Distribution Width 13.4 % (11.5-14.5) 13.4 % (11.5-14.5) Platelet Count 269 x10^3/uL (140-400) 275 x10^3/uL (140-400) Neutrophils (%) (Auto) 87 % (31-73) 87 % (31-73) Lymphocytes (%) (Auto) 5 % (24-48) 8 % (24-48) Monocytes (%) (Auto) 6 % (0-9) 5 % (0-9) Eosinophils (%) (Auto) 1 % (0-3) 0 % (0-3) Basophils (%) (Auto) 0 % (0-3) 0 % (0-3) Neutrophils # (Auto) 13.1 x10^3uL (1.8-7.7) 11.5 x10^3uL (1.8-7.7) Lymphocytes # (Auto) 0.8 x10^3/uL (1.0-4.8) 1.0 x10^3/uL (1.0-4.8) Monocytes # (Auto) 0.9 x10^3/uL (0.0-1.1) 0.7 x10^3/uL (0.0-1.1) Eosinophils # (Auto) 0.2 x10^3/uL (0.0-0.7) 0.0 x10^3/uL (0.0-0.7) Basophils # (Auto) 0.1 x10^3/uL (0.0-0.2) 0.0 x10^3/uL (0.0-0.2) Segmented Neutrophils % 83 % (35-66) Band Neutrophils % 4 % (0-9) Lymphocytes % 7 % (24-48) Monocytes % 6 % (0-10) Platelet Estimate Adequate (ADEQUATE) Urine Collection Type Unknown Urine Color Yellow Urine Clarity Clear Urine pH 5.5 Urine Specific [place] 1.020 Urine Protein 30 mg/dL (NEG-TRACE) Urine Glucose (UA) 100 mg/dL (NEG) Urine Ketones (Stick) Negative mg/dL (NEG) Urine Blood Large (NEG) Urine Nitrite Positive (NEG) Urine Bilirubin Negative (NEG) Urine Urobilinogen Dipstick 0.2 mg/dL (0.2 mg/dL) Urine Leukocyte Esterase Moderate (NEG) Urine RBC 1-2 /HPF (0-2) Urine WBC 11-20 /HPF (0-4) Urine Squamous Epithelial Cells Few /LPF Urine Bacteria Many /HPF (0-FEW) Urine Mucus Slight /LPF Sodium Level 141 mmol/L (136-145) 141 mmol/L (136-145) Potassium Level 3.8 mmol/L (3.5-5.1) 3.4 mmol/L (3.5-5.1) Chloride Level 104 mmol/L (98-107) 105 mmol/L (98-107) Carbon Dioxide Level 29 mmol/L (21-32) 24 mmol/L (21-32) Anion Gap 8 (6-14) 12 (6-14) Blood Urea Nitrogen 16 mg/dL (7-20) 23 mg/dL (7-20) Creatinine 0.9 mg/dL (0.6-1.0) 0.9 mg/dL (0.6-1.0) Estimated GFR (Cockcroft-Gault) 62.1 62.1 BUN/Creatinine Ratio 18 (6-20) 26 (6-20) Glucose Level 119 mg/dL (70-99) 198 mg/dL (70-99) Calcium Level 8.9 mg/dL (8.5-10.1) 9.2 mg/dL (8.5-10.1) Total Bilirubin 0.5 mg/dL (0.2-1.0) 0.1 mg/dL (0.2-1.0) Aspartate Amino Transf (AST/SGOT) 25 U/L (15-37) 22 U/L (15-37) Alanine Aminotransferase (ALT/SGPT) 29 U/L (14-59) 30 U/L (14-59) Alkaline Phosphatase 119 U/L (46-116) 112 U/L (46-116) Total Protein 7.7 g/dL (6.4-8.2) 7.0 g/dL (6.4-8.2) Albumin 3.0 g/dL (3.4-5.0) 2.6 g/dL (3.4-5.0) Albumin/Globulin Ratio 0.6 (1.0-1.7) 0.6 (1.0-1.7) Lipase 78 U/L (73-393) Lactic Acid Level 1.2 mmol/L (0.4-2.0) Laboratory Tests Test 04/16/18 03:00 White Blood Count 13.2 x10^3/uL (4.0-11.0) Red Blood Count 5.01 x10^6/uL (3.50-5.40) Hemoglobin 13.4 g/dL (12.0-15.5) Hematocrit 40.7 % (36.0-47.0) Mean Corpuscular Volume 81 fL (79-100) Mean Corpuscular Hemoglobin 27 pg (25-35) Mean Corpuscular Hemoglobin Concent 33 g/dL (31-37) Red Cell Distribution Width 13.4 % (11.5-14.5) Platelet Count 275 x10^3/uL (140-400) Neutrophils (%) (Auto) 87 % (31-73) Lymphocytes (%) (Auto) 8 % (24-48) Monocytes (%) (Auto) 5 % (0-9) Eosinophils (%) (Auto) 0 % (0-3) Basophils (%) (Auto) 0 % (0-3) Neutrophils # (Auto) 11.5 x10^3uL (1.8-7.7) Lymphocytes # (Auto) 1.0 x10^3/uL (1.0-4.8) Monocytes # (Auto) 0.7 x10^3/uL (0.0-1.1) Eosinophils # (Auto) 0.0 x10^3/uL (0.0-0.7) Basophils # (Auto) 0.0 x10^3/uL (0.0-0.2) Sodium Level 141 mmol/L (136-145) Potassium Level 3.4 mmol/L (3.5-5.1) Chloride Level 105 mmol/L (98-107) Carbon Dioxide Level 24 mmol/L (21-32) Anion Gap 12 (6-14) Blood Urea Nitrogen 23 mg/dL (7-20) Creatinine 0.9 mg/dL (0.6-1.0) Estimated GFR (Cockcroft-Gault) 62.1 BUN/Creatinine Ratio 26 (6-20) Glucose Level 198 mg/dL (70-99) Calcium Level 9.2 mg/dL (8.5-10.1) Total Bilirubin 0.1 mg/dL (0.2-1.0) Aspartate Amino Transf (AST/SGOT) 22 U/L (15-37) Alanine Aminotransferase (ALT/SGPT) 30 U/L (14-59) Alkaline Phosphatase 112 U/L (46-116) Total Protein 7.0 g/dL (6.4-8.2) Albumin 2.6 g/dL (3.4-5.0) Albumin/Globulin Ratio 0.6 (1.0-1.7) Medications Active Scripts Medications Dose Route/Sig Max Daily Dose Days Date Category Prednisone 50 Mg Tablet 1 Tab PO DAILY 12/06/17 Rx Levaquin (Levofloxacin) 750 Mg Tablet 1 Tab PO DAILY 12/06/17 Rx Azithromycin Tablet (Azithromycin) 250 Mg Tablet 1 Pkg PO UD 11/21/17 Rx Proair Hfa Inhaler (Albuterol Sulfate) 8.5 Gm Hfa.aer.ad 1 Puff INH PRN Q6HRS PRN 11/21/17 Rx Prednisone 20 Mg Tablet 2 Tab PO DAILY 5 11/21/17 Rx Keflex (Cephalexin) 500 Mg Capsule 1 Cap PO TID 10/27/17 Rx Prednisone 50 Mg Tablet 1 Tab PO DAILY 10/27/17 Rx Proair Hfa Inhaler (Albuterol Sulfate) 8.5 Gm Hfa.aer.ad 1 Puff INH PRN Q6HRS PRN 10 10/27/17 Rx Proair Hfa Inhaler (Albuterol Sulfate) 8.5 Gm Hfa.aer.ad 2 Puff INH Q4-6HRS PRN 2 09/06/17 Rx Azithromycin Tablet (Azithromycin) 250 Mg Tablet 1 Pkg PO UD 09/06/17 Rx Prednisone (Prednisone) 10 Mg Tablet 50 Mg PO DAILY 09/06/17 Rx Ventolin Hfa Inhaler (Albuterol Sulfate) 18 Gm Hfa.aer.ad 2 Puff INH Q4HRS PRN 01/27/16 Rx Impression . IMPRESSION: 1. Acute exacerbation of chronic obstructive pulmonary disease. 2. Possible pneumonia, gram-negative. 3. Abnormal chest x-ray. 4. Previously abnormal CT chest. 5. Tobacco dependence, in remission. IMPRESSION: 1. Stable bibasilar bronchiolectasis, mucoid impaction and tree-in-bud opacities consistent with chronic infectious/inflammatory etiology. 2. Stable left lower lobe and right middle lobe noncalcified pulmonary nodules since the 27/06/2015. 3. Moderate bibasilar predominant emphysema. Plan . HOME ON DOXY AND PRED FOLLOW UP AT PULMONARY CLINIC THANKS D/W KAVON JUNG MD Apr 16, 2018 08:36
[2018-04-16] MEDS ORDERED: predniSONE 20 MG TABLET PO SCH (09:00)
[2018-04-16] MEDS: LACTOBACILLUS RHAMNOSUS GG 1 CAPSULE. PO SCH (10:15)
[2018-04-16] MEDS: AZITHROMYCIN 250 MG TABLET. PO SCH (10:15)
[2018-04-16 11:00] VITALS: BP 131/70
--- NOTE | 2018-04-16 11:51 | PDOC ---
PROGRESS NOTES History of Present Illness History of Present Illness Assessment/Plan Assessment/Plan Impression: Urinary tract infection COPD (chronic obstructive pulmonary disease) exac, acute Stable bibasilar bronchiolectasis, mucoid impaction and tree-in-bud opacities consistent with chronic infectious/inflammatory etiology. Stable left lower lobe and right middle lobe noncalcified pulmonary nodules since the 27/06/2015. Moderate bibasilar predominant emphysema. acute hypoxic resp failure morbid obesity sirs plan o2 support po antibiotics doxy and prednisone duonebs qid sq lovenox dvt prophylaxis d/c gi prophylaxis URINE CULTURE education on smoking cessation provided f/u [facility] Vitals Vitals Vital Signs Date Time Temp Pulse Resp B/P (MAP) Pulse Ox O2 Delivery O2 Flow Rate FiO2 04/16/18 11:00 98.1 69 20 131/70 (90) 95 Nasal Cannula 2.0 98.1 Physical Exam General: Alert, Oriented X3, Cooperative, No acute distress Heart: Regular rate, Normal S1 Lungs: Clear, Crackles Abdomen: Normal bowel sounds, Soft, No tenderness, No hepatosplenomegaly Extremities: No clubbing, No cyanosis, No edema Skin: No significant lesion Labs LABS Laboratory Tests Test 04/16/18 03:00 White Blood Count 13.2 x10^3/uL (4.0-11.0) Red Blood Count 5.01 x10^6/uL (3.50-5.40) Hemoglobin 13.4 g/dL (12.0-15.5) Hematocrit 40.7 % (36.0-47.0) Mean Corpuscular Volume 81 fL (79-100) Mean Corpuscular Hemoglobin 27 pg (25-35) Mean Corpuscular Hemoglobin Concent 33 g/dL (31-37) Red Cell Distribution Width 13.4 % (11.5-14.5) Platelet Count 275 x10^3/uL (140-400) Neutrophils (%) (Auto) 87 % (31-73) Lymphocytes (%) (Auto) 8 % (24-48) Monocytes (%) (Auto) 5 % (0-9) Eosinophils (%) (Auto) 0 % (0-3) Basophils (%) (Auto) 0 % (0-3) Neutrophils # (Auto) 11.5 x10^3uL (1.8-7.7) Lymphocytes # (Auto) 1.0 x10^3/uL (1.0-4.8) Monocytes # (Auto) 0.7 x10^3/uL (0.0-1.1) Eosinophils # (Auto) 0.0 x10^3/uL (0.0-0.7) Basophils # (Auto) 0.0 x10^3/uL (0.0-0.2) Sodium Level 141 mmol/L (136-145) Potassium Level 3.4 mmol/L (3.5-5.1) Chloride Level 105 mmol/L (98-107) Carbon Dioxide Level 24 mmol/L (21-32) Anion Gap 12 (6-14) Blood Urea Nitrogen 23 mg/dL (7-20) Creatinine 0.9 mg/dL (0.6-1.0) Estimated GFR (Cockcroft-Gault) 62.1 BUN/Creatinine Ratio 26 (6-20) Glucose Level 198 mg/dL (70-99) Calcium Level 9.2 mg/dL (8.5-10.1) Total Bilirubin 0.1 mg/dL (0.2-1.0) Aspartate Amino Transf (AST/SGOT) 22 U/L (15-37) Alanine Aminotransferase (ALT/SGPT) 30 U/L (14-59) Alkaline Phosphatase 112 U/L (46-116) Total Protein 7.0 g/dL (6.4-8.2) Albumin 2.6 g/dL (3.4-5.0) Albumin/Globulin Ratio 0.6 (1.0-1.7) Assessment and Plan Assessmemt and Plan Problems Medical Problems: (1) Acute bronchitis Status: Acute (2) COPD (chronic obstructive pulmonary disease) Status: Acute (3) Urinary tract infection Status: Acute Comment Review of Relevant I have reviewed the following items floyd (where applicable) has been applied. Labs Laboratory Tests Test 04/14/18 21:44 04/14/18 22:30 04/15/18 00:55 04/16/18 03:00 White Blood Count 15.1 x10^3/uL (4.0-11.0) 13.2 x10^3/uL (4.0-11.0) Red Blood Count 5.32 x10^6/uL (3.50-5.40) 5.01 x10^6/uL (3.50-5.40) Hemoglobin 14.3 g/dL (12.0-15.5) 13.4 g/dL (12.0-15.5) Hematocrit 43.3 % (36.0-47.0) 40.7 % (36.0-47.0) Mean Corpuscular Volume 81 fL (79-100) 81 fL (79-100) Mean Corpuscular Hemoglobin 27 pg (25-35) 27 pg (25-35) Mean Corpuscular Hemoglobin Concent 33 g/dL (31-37) 33 g/dL (31-37) Red Cell Distribution Width 13.4 % (11.5-14.5) 13.4 % (11.5-14.5) Platelet Count 269 x10^3/uL (140-400) 275 x10^3/uL (140-400) Neutrophils (%) (Auto) 87 % (31-73) 87 % (31-73) Lymphocytes (%) (Auto) 5 % (24-48) 8 % (24-48) Monocytes (%) (Auto) 6 % (0-9) 5 % (0-9) Eosinophils (%) (Auto) 1 % (0-3) 0 % (0-3) Basophils (%) (Auto) 0 % (0-3) 0 % (0-3) Neutrophils # (Auto) 13.1 x10^3uL (1.8-7.7) 11.5 x10^3uL (1.8-7.7) Lymphocytes # (Auto) 0.8 x10^3/uL (1.0-4.8) 1.0 x10^3/uL (1.0-4.8) Monocytes # (Auto) 0.9 x10^3/uL (0.0-1.1) 0.7 x10^3/uL (0.0-1.1) Eosinophils # (Auto) 0.2 x10^3/uL (0.0-0.7) 0.0 x10^3/uL (0.0-0.7) Basophils # (Auto) 0.1 x10^3/uL (0.0-0.2) 0.0 x10^3/uL (0.0-0.2) Segmented Neutrophils % 83 % (35-66) Band Neutrophils % 4 % (0-9) Lymphocytes % 7 % (24-48) Monocytes % 6 % (0-10) Platelet Estimate Adequate (ADEQUATE) Urine Collection Type Unknown Urine Color Yellow Urine Clarity Clear Urine pH 5.5 Urine Specific [place] 1.020 Urine Protein 30 mg/dL (NEG-TRACE) Urine Glucose (UA) 100 mg/dL (NEG) Urine Ketones (Stick) Negative mg/dL (NEG) Urine Blood Large (NEG) Urine Nitrite Positive (NEG) Urine Bilirubin Negative (NEG) Urine Urobilinogen Dipstick 0.2 mg/dL (0.2 mg/dL) Urine Leukocyte Esterase Moderate (NEG) Urine RBC 1-2 /HPF (0-2) Urine WBC 11-20 /HPF (0-4) Urine Squamous Epithelial Cells Few /LPF Urine Bacteria Many /HPF (0-FEW) Urine Mucus Slight /LPF Sodium Level 141 mmol/L (136-145) 141 mmol/L (136-145) Potassium Level 3.8 mmol/L (3.5-5.1) 3.4 mmol/L (3.5-5.1) Chloride Level 104 mmol/L (98-107) 105 mmol/L (98-107) Carbon Dioxide Level 29 mmol/L (21-32) 24 mmol/L (21-32) Anion Gap 8 (6-14) 12 (6-14) Blood Urea Nitrogen 16 mg/dL (7-20) 23 mg/dL (7-20) Creatinine 0.9 mg/dL (0.6-1.0) 0.9 mg/dL (0.6-1.0) Estimated GFR (Cockcroft-Gault) 62.1 62.1 BUN/Creatinine Ratio 18 (6-20) 26 (6-20) Glucose Level 119 mg/dL (70-99) 198 mg/dL (70-99) Calcium Level 8.9 mg/dL (8.5-10.1) 9.2 mg/dL (8.5-10.1) Total Bilirubin 0.5 mg/dL (0.2-1.0) 0.1 mg/dL (0.2-1.0) Aspartate Amino Transf (AST/SGOT) 25 U/L (15-37) 22 U/L (15-37) Alanine Aminotransferase (ALT/SGPT) 29 U/L (14-59) 30 U/L (14-59) Alkaline Phosphatase 119 U/L (46-116) 112 U/L (46-116) Total Protein 7.7 g/dL (6.4-8.2) 7.0 g/dL (6.4-8.2) Albumin 3.0 g/dL (3.4-5.0) 2.6 g/dL (3.4-5.0) Albumin/Globulin Ratio 0.6 (1.0-1.7) 0.6 (1.0-1.7) Lipase 78 U/L (73-393) Lactic Acid Level 1.2 mmol/L (0.4-2.0) Laboratory Tests Test 04/16/18 03:00 White Blood Count 13.2 x10^3/uL (4.0-11.0) Red Blood Count 5.01 x10^6/uL (3.50-5.40) Hemoglobin 13.4 g/dL (12.0-15.5) Hematocrit 40.7 % (36.0-47.0) Mean Corpuscular Volume 81 fL (79-100) Mean Corpuscular Hemoglobin 27 pg (25-35) Mean Corpuscular Hemoglobin Concent 33 g/dL (31-37) Red Cell Distribution Width 13.4 % (11.5-14.5) Platelet Count 275 x10^3/uL (140-400) Neutrophils (%) (Auto) 87 % (31-73) Lymphocytes (%) (Auto) 8 % (24-48) Monocytes (%) (Auto) 5 % (0-9) Eosinophils (%) (Auto) 0 % (0-3) Basophils (%) (Auto) 0 % (0-3) Neutrophils # (Auto) 11.5 x10^3uL (1.8-7.7) Lymphocytes # (Auto) 1.0 x10^3/uL (1.0-4.8) Monocytes # (Auto) 0.7 x10^3/uL (0.0-1.1) Eosinophils # (Auto) 0.0 x10^3/uL (0.0-0.7) Basophils # (Auto) 0.0 x10^3/uL (0.0-0.2) Sodium Level 141 mmol/L (136-145) Potassium Level 3.4 mmol/L (3.5-5.1) Chloride Level 105 mmol/L (98-107) Carbon Dioxide Level 24 mmol/L (21-32) Anion Gap 12 (6-14) Blood Urea Nitrogen 23 mg/dL (7-20) Creatinine 0.9 mg/dL (0.6-1.0) Estimated GFR (Cockcroft-Gault) 62.1 BUN/Creatinine Ratio 26 (6-20) Glucose Level 198 mg/dL (70-99) Calcium Level 9.2 mg/dL (8.5-10.1) Total Bilirubin 0.1 mg/dL (0.2-1.0) Aspartate Amino Transf (AST/SGOT) 22 U/L (15-37) Alanine Aminotransferase (ALT/SGPT) 30 U/L (14-59) Alkaline Phosphatase 112 U/L (46-116) Total Protein 7.0 g/dL (6.4-8.2) Albumin 2.6 g/dL (3.4-5.0) Albumin/Globulin Ratio 0.6 (1.0-1.7) Microbiology 04/15/18 Blood Culture - Preliminary, Resulted NO GROWTH AFTER 1 DAY Medications Current Medications Sodium Chloride 500 ml @ 500 mls/hr 1X ONCE IV Last administered on at 21:51; Start 04/14/18 at 22:00; Stop 04/14/18 at 22:59; Status DC Albuterol/ Ipratropium (Duoneb) 3 ml 1X ONCE NEB Last administered on at 21:52; Start 04/14/18 at 21:45; Stop 04/14/18 at 21:46; Status DC Iohexol (Omnipaque 300 Mg/ml) 75 ml 1X ONCE IV Last administered on 04/14/18at 23:17; Start 04/14/18 at 23:30; Stop 04/14/18 at 23:31; Status DC Info (CONTRAST GIVEN -- Rx MONITORING) 1 each PRN DAILY PRN MC SEE COMMENTS; Start 04/14/18 at 23:15; Stop 04/16/18 at 23:14 Azithromycin (Zithromax) 500 mg 1X ONCE PO Last administered on 04/15/18at 01: 49; Start 04/15/18 at 01:00; Stop 04/15/18 at 01:01; Status DC Ceftriaxone Sodium 50 ml @ 100 mls/hr 1X ONCE IV Last administered on at 01:49; Start 04/15/18 at 01:00; Stop 04/15/18 at 01:29; Status DC Ondansetron HCl (Zofran) 4 mg PRN Q8HRS PRN IV NAUSEA/VOMITING 1ST CHOICE; Start 04/15/18 at 00:30; Stop 04/16/18 at 00:29; Status DC Acetaminophen (Tylenol) 650 mg PRN Q4HRS PRN PO FEVER; Start 04/15/18 at 00:30 ; Stop 04/16/18 at 00:29; Status DC Methylprednisolone Sodium Succinate (SOLU-Medrol 125MG VIAL) 125 mg 1X ONCE IV Last administered on 04/15/18at 00:35; Start 04/15/18 at 01:00; Stop 04/15/18 at 01:01; Status DC Prednisone (Prednisone) 30 mg 1X ONCE PO Last administered on 04/15/18at 11:50 ; Start 04/15/18 at 09:30; Stop 04/15/18 at 09:31; Status DC Prednisone (Prednisone) 30 mg DAILY PO Last administered on 04/16/18at 10:15; Start 04/16/18 at 09:00 Ceftriaxone Sodium 50 ml @ 100 mls/hr 1X ONCE IV ; Start 04/15/18 at 09:30; Stop 04/15/18 at 09:59; Status Cancel Azithromycin (Zithromax) 250 mg DAILY PO Last administered on 04/16/18at 10:15; Start 04/15/18 at 10:00 Ceftriaxone Sodium (Rocephin) 1 gm ONCE ONCE IVP ; Start 04/15/18 at 09:45; Stop 04/15/18 at 09:45; Status DC Ceftriaxone Sodium (Rocephin) 1 gm ONCE ONCE IVP ; Start 04/15/18 at 21:00; Stop 04/15/18 at 21:00; Status DC Lactobacillus Rhamnosus (Culturelle) 1 cap BID PO Last administered on at 10:15; Start 04/15/18 at 21:00 Albuterol/ Ipratropium (Duoneb) 3 ml RTQID NEB Last administered on 04/16/18at 10:42; Start 04/15/18 at 16:00 Levofloxacin/ Dextrose 100 ml @ 100 mls/hr Q24H IV Last administered on at 13:46; Start 04/15/18 at 13:00; Stop 04/15/18 at 15:29; Status DC Pantoprazole Sodium (Protonix) 40 mg DAILYAC PO Last administered on 04/16/18at 10:15; Start 04/16/18 at 07:30 Enoxaparin Sodium (Lovenox 40mg Syringe) 40 mg Q24H SQ Last administered on 04/15/18at 13:46; Start 04/15/18 at 13:00 Albuterol/ Ipratropium (Duoneb) 3 ml STK-MED ONCE .ROUTE ; Start 04/15/18 at 14: 29; Stop 04/15/18 at 14:30; Status DC Ceftriaxone Sodium (Rocephin) 1 gm QHS IVP Last administered on 04/15/18at 21:10 ; Start 04/15/18 at 21:00 Active Scripts Active Prednisone 50 Mg Tablet 1 Tab PO DAILY Levaquin (Levofloxacin) 750 Mg Tablet 1 Tab PO DAILY Azithromycin Tablet (Azithromycin) 250 Mg Tablet 1 Pkg PO UD Proair Hfa Inhaler (Albuterol Sulfate) 8.5 Gm Hfa.aer.ad 1 Puff INH PRN Q6HRS PRN Prednisone 20 Mg Tablet 2 Tab PO DAILY 5 Days Keflex (Cephalexin) 500 Mg Capsule 1 Cap PO TID Prednisone 50 Mg Tablet 1 Tab PO DAILY Proair Hfa Inhaler (Albuterol Sulfate) 8.5 Gm Hfa.aer.ad 1 Puff INH PRN Q6HRS PRN 10 Days Proair Hfa Inhaler (Albuterol Sulfate) 8.5 Gm Hfa.aer.ad 2 Puff INH Q4-6HRS PRN 2 Days Azithromycin Tablet (Azithromycin) 250 Mg Tablet 1 Pkg PO UD Prednisone (Prednisone) 10 Mg Tablet 50 Mg PO DAILY Ventolin Hfa Inhaler (Albuterol Sulfate) 18 Gm Hfa.aer.ad 2 Puff INH Q4HRS PRN Vitals/I & O Vital Sign - Last 24 Hours 04/15/18 04/15/18 04/15/18 11/8/18 15:07 15:21 19:23 19:45 Temp 97.5 97.7 97.5 97.7 Pulse 104 100 Resp 20 16 B/P (MAP) 151/80 (103) 104/58 (73) Pulse Ox 96 97 96 95 O2 Delivery Nasal Cannula Nasal Cannula Nasal Cannula Nasal Cannula O2 Flow Rate 2.0 2.0 2.0 23.0 04/15/18 04/15/18 04/16/18 04/16/18 20:00 23:20 03:13 07:00 Temp 97.9 97.7 97.7 97.9 97.7 97.7 Pulse 93 77 83 Resp 16 20 16 B/P (MAP) 124/68 (86) 102/62 (75) 119/70 (86) Pulse Ox 94 98 94 O2 Delivery Nasal Cannula Nasal Cannula Nasal Cannula Nasal Cannula O2 Flow Rate 2.0 2.0 2.0 2.0 04/16/18 04/16/18 04/16/18 04/16/18 07:05 08:00 10:43 11:00 Temp 98.1 98.1 Pulse 69 Resp 20 B/P (MAP) 131/70 (90) Pulse Ox 96 97 95 O2 Delivery Nasal Cannula Nasal Cannula Room Air Nasal Cannula O2 Flow Rate 2.0 2.0 2.0 Intake and Output 04/15/18 04/15/18 04/16/18 15:00 23:00 07:00 Intake Total 200 ml 200 ml 700 ml Balance 200 ml 200 ml 700 ml BAL DIANA MD Apr 16, 2018 11:51
--- NOTE | 2018-04-16 11:55 | PDOC3 ---
Discharge Summary Date of Admission: Apr 15, 2018 Date of Discharge: Apr 16, 2018 Follow-Up: 3-5 days Admitting Diagnosis comment: Assessment/Plan Assessment/Plan DISCHARGE DIAGNOSIS Urinary tract infection COPD (chronic obstructive pulmonary disease) exac, acute Stable bibasilar bronchiolectasis, mucoid impaction and tree-in-bud opacities consistent with chronic infectious/inflammatory etiology. Stable left lower lobe and right middle lobe noncalcified pulmonary nodules since the 27/06/2015. Moderate emphysema. acute hypoxic resp failure RESOLVED morbid obesity sirs plan o2 support po antibiotics doxy and prednisone duonebs qid sq lovenox dvt prophylaxis d/c gi prophylaxis URINE CULTURE education on smoking cessation provided f/u [facility] Vitals Vitals Vital Signs Date Time Temp Pulse Resp B/P (MAP) Pulse Ox O2 Delivery O2 Flow Rate FiO2 04/16/18 11:00 98.1 69 20 131/70 (90) 95 Nasal Cannula 2.0 98.1 Physical Exam General: Alert, Oriented X3, Cooperative, No acute distress ON ROOM AIR Heart: Regular rate, Normal S1 Lungs: Clear, Crackles Abdomen: Normal bowel sounds, Soft, No tenderness, No hepatosplenomegaly Extremities: No clubbing, No cyanosis, No edema Skin: No significant lesion Labs FINAL DIAGNOSIS Problems Medical Problems: (1) Acute bronchitis Status: Acute (2) COPD (chronic obstructive pulmonary disease) Status: Acute (3) Urinary tract infection Status: Acute Brief Hospital Course Ms. Clement is a 67 old [sex] who presented with [ UTI/ COPD] CONDITION AT DISCHARGE: Improved Discharge Medications Current Medications Sodium Chloride 500 ml @ 500 mls/hr 1X ONCE IV Last administered on at 21:51; Start 04/14/18 at 22:00; Stop 04/14/18 at 22:59; Status DC Albuterol/ Ipratropium (Duoneb) 3 ml 1X ONCE NEB Last administered on at 21:52; Start 04/14/18 at 21:45; Stop 04/14/18 at 21:46; Status DC Iohexol (Omnipaque 300 Mg/ml) 75 ml 1X ONCE IV Last administered on 04/14/18at 23:17; Start 04/14/18 at 23:30; Stop 04/14/18 at 23:31; Status DC Info (CONTRAST GIVEN -- Rx MONITORING) 1 each PRN DAILY PRN MC SEE COMMENTS; Start 04/14/18 at 23:15; Stop 04/16/18 at 23:14 Azithromycin (Zithromax) 500 mg 1X ONCE PO Last administered on 04/15/18at 01: 49; Start 04/15/18 at 01:00; Stop 04/15/18 at 01:01; Status DC Ceftriaxone Sodium 50 ml @ 100 mls/hr 1X ONCE IV Last administered on at 01:49; Start 04/15/18 at 01:00; Stop 04/15/18 at 01:29; Status DC Ondansetron HCl (Zofran) 4 mg PRN Q8HRS PRN IV NAUSEA/VOMITING 1ST CHOICE; Start 04/15/18 at 00:30; Stop 04/16/18 at 00:29; Status DC Acetaminophen (Tylenol) 650 mg PRN Q4HRS PRN PO FEVER; Start 04/15/18 at 00:30 ; Stop 04/16/18 at 00:29; Status DC Methylprednisolone Sodium Succinate (SOLU-Medrol 125MG VIAL) 125 mg 1X ONCE IV Last administered on 04/15/18at 00:35; Start 04/15/18 at 01:00; Stop 04/15/18 at 01:01; Status DC Prednisone (Prednisone) 30 mg 1X ONCE PO Last administered on 04/15/18at 11:50 ; Start 04/15/18 at 09:30; Stop 04/15/18 at 09:31; Status DC Prednisone (Prednisone) 30 mg DAILY PO Last administered on 04/16/18at 10:15; Start 04/16/18 at 09:00 Ceftriaxone Sodium 50 ml @ 100 mls/hr 1X ONCE IV ; Start 04/15/18 at 09:30; Stop 04/15/18 at 09:59; Status Cancel Azithromycin (Zithromax) 250 mg DAILY PO Last administered on 04/16/18at 10:15; Start 04/15/18 at 10:00 Ceftriaxone Sodium (Rocephin) 1 gm ONCE ONCE IVP ; Start 04/15/18 at 09:45; Stop 04/15/18 at 09:45; Status DC Ceftriaxone Sodium (Rocephin) 1 gm ONCE ONCE IVP ; Start 04/15/18 at 21:00; Stop 04/15/18 at 21:00; Status DC Lactobacillus Rhamnosus (Culturelle) 1 cap BID PO Last administered on at 10:15; Start 04/15/18 at 21:00 Albuterol/ Ipratropium (Duoneb) 3 ml RTQID NEB Last administered on 04/16/18at 10:42; Start 04/15/18 at 16:00 Levofloxacin/ Dextrose 100 ml @ 100 mls/hr Q24H IV Last administered on at 13:46; Start 04/15/18 at 13:00; Stop 04/15/18 at 15:29; Status DC Pantoprazole Sodium (Protonix) 40 mg DAILYAC PO Last administered on 04/16/18at 10:15; Start 04/16/18 at 07:30 Enoxaparin Sodium (Lovenox 40mg Syringe) 40 mg Q24H SQ Last administered on 04/15/18at 13:46; Start 04/15/18 at 13:00 Albuterol/ Ipratropium (Duoneb) 3 ml STK-MED ONCE .ROUTE ; Start 04/15/18 at 14: 29; Stop 04/15/18 at 14:30; Status DC Ceftriaxone Sodium (Rocephin) 1 gm QHS IVP Last administered on 04/15/18at 21:10 ; Start 04/15/18 at 21:00 Active Scripts Active Prednisone 50 Mg Tablet 1 Tab PO DAILY Levaquin (Levofloxacin) 750 Mg Tablet 1 Tab PO DAILY Azithromycin Tablet (Azithromycin) 250 Mg Tablet 1 Pkg PO UD Proair Hfa Inhaler (Albuterol Sulfate) 8.5 Gm Hfa.aer.ad 1 Puff INH PRN Q6HRS PRN Prednisone 20 Mg Tablet 2 Tab PO DAILY 5 Days Keflex (Cephalexin) 500 Mg Capsule 1 Cap PO TID Prednisone 50 Mg Tablet 1 Tab PO DAILY Proair Hfa Inhaler (Albuterol Sulfate) 8.5 Gm Hfa.aer.ad 1 Puff INH PRN Q6HRS PRN 10 Days Proair Hfa Inhaler (Albuterol Sulfate) 8.5 Gm Hfa.aer.ad 2 Puff INH Q4-6HRS PRN 2 Days Azithromycin Tablet (Azithromycin) 250 Mg Tablet 1 Pkg PO UD Prednisone (Prednisone) 10 Mg Tablet 50 Mg PO DAILY Ventolin Hfa Inhaler (Albuterol Sulfate) 18 Gm Hfa.aer.ad 2 Puff INH Q4HRS PRN Vital Signs Vital Signs Date Time Temp Pulse Resp B/P (MAP) Pulse Ox O2 Delivery O2 Flow Rate FiO2 04/16/18 11:00 98.1 69 20 131/70 (90) 95 Nasal Cannula 2.0 98.1 Labs Laboratory Tests Test 04/14/18 21:44 04/14/18 22:30 04/15/18 00:55 04/16/18 03:00 White Blood Count 15.1 x10^3/uL (4.0-11.0) 13.2 x10^3/uL (4.0-11.0) Red Blood Count 5.32 x10^6/uL (3.50-5.40) 5.01 x10^6/uL (3.50-5.40) Hemoglobin 14.3 g/dL (12.0-15.5) 13.4 g/dL (12.0-15.5) Hematocrit 43.3 % (36.0-47.0) 40.7 % (36.0-47.0) Mean Corpuscular Volume 81 fL (79-100) 81 fL (79-100) Mean Corpuscular Hemoglobin 27 pg (25-35) 27 pg (25-35) Mean Corpuscular Hemoglobin Concent 33 g/dL (31-37) 33 g/dL (31-37) Red Cell Distribution Width 13.4 % (11.5-14.5) 13.4 % (11.5-14.5) Platelet Count 269 x10^3/uL (140-400) 275 x10^3/uL (140-400) Neutrophils (%) (Auto) 87 % (31-73) 87 % (31-73) Lymphocytes (%) (Auto) 5 % (24-48) 8 % (24-48) Monocytes (%) (Auto) 6 % (0-9) 5 % (0-9) Eosinophils (%) (Auto) 1 % (0-3) 0 % (0-3) Basophils (%) (Auto) 0 % (0-3) 0 % (0-3) Neutrophils # (Auto) 13.1 x10^3uL (1.8-7.7) 11.5 x10^3uL (1.8-7.7) Lymphocytes # (Auto) 0.8 x10^3/uL (1.0-4.8) 1.0 x10^3/uL (1.0-4.8) Monocytes # (Auto) 0.9 x10^3/uL (0.0-1.1) 0.7 x10^3/uL (0.0-1.1) Eosinophils # (Auto) 0.2 x10^3/uL (0.0-0.7) 0.0 x10^3/uL (0.0-0.7) Basophils # (Auto) 0.1 x10^3/uL (0.0-0.2) 0.0 x10^3/uL (0.0-0.2) Segmented Neutrophils % 83 % (35-66) Band Neutrophils % 4 % (0-9) Lymphocytes % 7 % (24-48) Monocytes % 6 % (0-10) Platelet Estimate Adequate (ADEQUATE) Urine Collection Type Unknown Urine Color Yellow Urine Clarity Clear Urine pH 5.5 Urine Specific Padroni 1.020 Urine Protein 30 mg/dL (NEG-TRACE) Urine Glucose (UA) 100 mg/dL (NEG) Urine Ketones (Stick) Negative mg/dL (NEG) Urine Blood Large (NEG) Urine Nitrite Positive (NEG) Urine Bilirubin Negative (NEG) Urine Urobilinogen Dipstick 0.2 mg/dL (0.2 mg/dL) Urine Leukocyte Esterase Moderate (NEG) Urine RBC 1-2 /HPF (0-2) Urine WBC 11-20 /HPF (0-4) Urine Squamous Epithelial Cells Few /LPF Urine Bacteria Many /HPF (0-FEW) Urine Mucus Slight /LPF Sodium Level 141 mmol/L (136-145) 141 mmol/L (136-145) Potassium Level 3.8 mmol/L (3.5-5.1) 3.4 mmol/L (3.5-5.1) Chloride Level 104 mmol/L (98-107) 105 mmol/L (98-107) Carbon Dioxide Level 29 mmol/L (21-32) 24 mmol/L (21-32) Anion Gap 8 (6-14) 12 (6-14) Blood Urea Nitrogen 16 mg/dL (7-20) 23 mg/dL (7-20) Creatinine 0.9 mg/dL (0.6-1.0) 0.9 mg/dL (0.6-1.0) Estimated GFR (Cockcroft-Gault) 62.1 62.1 BUN/Creatinine Ratio 18 (6-20) 26 (6-20) Glucose Level 119 mg/dL (70-99) 198 mg/dL (70-99) Calcium Level 8.9 mg/dL (8.5-10.1) 9.2 mg/dL (8.5-10.1) Total Bilirubin 0.5 mg/dL (0.2-1.0) 0.1 mg/dL (0.2-1.0) Aspartate Amino Transf (AST/SGOT) 25 U/L (15-37) 22 U/L (15-37) Alanine Aminotransferase (ALT/SGPT) 29 U/L (14-59) 30 U/L (14-59) Alkaline Phosphatase 119 U/L (46-116) 112 U/L (46-116) Total Protein 7.7 g/dL (6.4-8.2) 7.0 g/dL (6.4-8.2) Albumin 3.0 g/dL (3.4-5.0) 2.6 g/dL (3.4-5.0) Albumin/Globulin Ratio 0.6 (1.0-1.7) 0.6 (1.0-1.7) Lipase 78 U/L (73-393) Lactic Acid Level 1.2 mmol/L (0.4-2.0) Laboratory Tests Test 04/16/18 03:00 White Blood Count 13.2 x10^3/uL (4.0-11.0) Red Blood Count 5.01 x10^6/uL (3.50-5.40) Hemoglobin 13.4 g/dL (12.0-15.5) Hematocrit 40.7 % (36.0-47.0) Mean Corpuscular Volume 81 fL (79-100) Mean Corpuscular Hemoglobin 27 pg (25-35) Mean Corpuscular Hemoglobin Concent 33 g/dL (31-37) Red Cell Distribution Width 13.4 % (11.5-14.5) Platelet Count 275 x10^3/uL (140-400) Neutrophils (%) (Auto) 87 % (31-73) Lymphocytes (%) (Auto) 8 % (24-48) Monocytes (%) (Auto) 5 % (0-9) Eosinophils (%) (Auto) 0 % (0-3) Basophils (%) (Auto) 0 % (0-3) Neutrophils # (Auto) 11.5 x10^3uL (1.8-7.7) Lymphocytes # (Auto) 1.0 x10^3/uL (1.0-4.8) Monocytes # (Auto) 0.7 x10^3/uL (0.0-1.1) Eosinophils # (Auto) 0.0 x10^3/uL (0.0-0.7) Basophils # (Auto) 0.0 x10^3/uL (0.0-0.2) Sodium Level 141 mmol/L (136-145) Potassium Level 3.4 mmol/L (3.5-5.1) Chloride Level 105 mmol/L (98-107) Carbon Dioxide Level 24 mmol/L (21-32) Anion Gap 12 (6-14) Blood Urea Nitrogen 23 mg/dL (7-20) Creatinine 0.9 mg/dL (0.6-1.0) Estimated GFR (Cockcroft-Gault) 62.1 BUN/Creatinine Ratio 26 (6-20) Glucose Level 198 mg/dL (70-99) Calcium Level 9.2 mg/dL (8.5-10.1) Total Bilirubin 0.1 mg/dL (0.2-1.0) Aspartate Amino Transf (AST/SGOT) 22 U/L (15-37) Alanine Aminotransferase (ALT/SGPT) 30 U/L (14-59) Alkaline Phosphatase 112 U/L (46-116) Total Protein 7.0 g/dL (6.4-8.2) Albumin 2.6 g/dL (3.4-5.0) Albumin/Globulin Ratio 0.6 (1.0-1.7) Allergies Allergies Coded Allergies Type Severity Reaction Last Updated Verified No Known Drug Allergies 01/27/16 No Disposition/Orders: D/C to Home Patient Instructions D/C PLANNING 32 MIN BAL DIANA MD Apr 16, 2018 11:55
--- NOTE | 2018-04-16 11:56 | DISCH ---
DISCHARGE INSTRUCTIONS Condition on Discharge Condition on Discharge: Stable Activity After Discharge Activity Instructions for Disc: Resume previous activity Lifting Instructions after Dis: No heavy lifting, No pulling or pushing Exercise Instruction after Dis: Walk 10 min, 3 x per day Driving Instructions after Dis: Do not drive today Weight Bearing Status after Di: Full weight bearing Diet after Discharge Diet after Discharge: Cardiac Contacting the DRMarixa after DC Call your doctor for: If your condition worsens Warfarin Follow-Up Warfarin Follow UP: NO SMOKING BAL DIANA MD Apr 16, 2018 11:56
[2018-04-16] MEDS ORDERED: [UNRECOGNIZED DRUG - REMARK] MC (11:59)
[2018-04-16] MEDS ORDERED: DOXY100C14 PO (11:59)
[2018-04-16] MEDS ORDERED: PRED20TA PO (12:01)
== END 2018-04-16 13:38 | disposition home or self-care (01) | DRG 189 ==
LOC: ER 20:20 → 6 SOUTH 04-15
PROVIDERS: ADMIT Family Medicine; ATTEND Family Medicine
DX: J96.01 Acute respiratory failure with hypoxia (principal); N39.0 Urinary tract infection, site not specified; J47.0 Bronchiectasis with acute lower respiratory infection; K21.9 Gastro-esophageal reflux disease without esophagitis; E66.01 Morbid (severe) obesity due to excess calories; F17.211 Nicotine dependence, cigarettes, in remission; J43.9 Emphysema, unspecified; J20.9 Acute bronchitis, unspecified; Z68.33 Body mass index [BMI] 33.0-33.9, adult; Z71.6 Tobacco abuse counseling
CPT/HCPCS: 36415; 71046; 71250; 74177; 80053; 81001; 83605; 83690; 85007; 85025; 87040; 87086; 93005; 94640; 94760; 96361; 96374; J0690; J0696; J1650; J1956; J2930; J7040; J7512; J7620; Q0144; Q9967; 99285-25

== ENCOUNTER 2018-06-05 16:58 | Emergency (ER) | payer SELFPAY ==
[~2018-06-05] VITALS: Ht 162.6 cm; Wt 70.3 kg
[~2018-06-05 16:58] MED LIST changes: +ALBU2.5V8 INH; +DOXY100C14 PO; +NITR100C62 PO; -PROAIR HFA8.5 GM INH; +[UNRECOGNIZED DRUG - REMARK] MC
[2018-06-05] MEDS ORDERED: ALBUTEROL SULFATE 2.5 MG/3 ML NEBU. NEB ONE (18:15)
[2018-06-05] MEDS ORDERED: IPRATROPIUM BROMIDE 0.5 MG/2.5 ML NEBU. NEB ONE (18:15)
--- NOTE | 2018-06-05 18:20 | PHYS DOC ---
Past Medical History Past Medical History: Asthma, Bronchitis Past Surgical History: No Surgical History Alcohol Use: None Drug Use: None Adult General Chief Complaint Chief Complaint: SHORTNESS OF BREATH HPI HPI Patient is a 67 year old female who presents with shortness of breath. This started approximately 1-2 days ago. Cough. No fever. No runny nose. No chest discomfort. Her home asthma medicines do not make the symptoms any better. Nothing really seems to make it worse.[] Review of Systems Review of Systems Constitutional: Denies fever or chills [] Eyes: Denies change in visual acuity, redness, or eye pain [] HENT: Denies nasal congestion or sore throat [] Respiratory: See history of present illness[] Cardiovascular: No chest pain or palpitation[] GI: Denies abdominal pain, nausea, vomiting, bloody stools or diarrhea [] : Denies dysuria or hematuria [] Musculoskeletal: Denies back pain or joint pain [] Integument: Denies rash or skin lesions [] Neurologic: Denies headache, focal weakness or sensory changes [] Endocrine: Denies polyuria or polydipsia [] All other systems were reviewed and found to be within normal limits, except as documented in this note. Current Medications Current Medications Current Medications Medications (Trade) Dose Ordered Sig/Nhan Start Time Stop Time Status Last Admin Dose Admin Albuterol Sulfate (Ventolin Neb Soln) 2.5 mg 1X ONCE 06/05/18 18:15 06/05/18 18:19 DC 06/05/18 18:31 2.5 MG Ipratropium [place] (Atrovent) 0.5 mg 1X ONCE 06/05/18 18:15 06/05/18 18:19 DC 06/05/18 18:31 0.5 MG Allergies Allergies Allergies Coded Allergies Type Severity Reaction Last Updated Verified No Known Drug Allergies 01/27/16 No Physical Exam Physical Exam Constitutional: Well developed, well nourished, no acute distress, non-toxic appearance. [] HENT: Normocephalic, atraumatic, bilateral external ears normal, oropharynx moist, no oral exudates, nose normal. [] Eyes: PERRLA, EOMI, conjunctiva normal, no discharge. [] Neck: Normal range of motion, no tenderness, supple, no stridor. [] Cardiovascular:Heart rate regular rhythm, no murmur [] Lungs & Thorax: Inspiratory expiratory wheezes present with decreased air movement[] Abdomen: Bowel sounds normal, soft, no tenderness, no masses, no pulsatile masses. [] Skin: Warm, dry, no erythema, no rash. [] Back: No tenderness, no CVA tenderness. [] Extremities: No tenderness, no cyanosis, no clubbing, ROM intact, no edema. [] Neurologic: Alert and oriented X 3, normal motor function, normal sensory function, no focal deficits noted. [] Psychologic: Affect normal, judgement normal, mood normal. [] Current Patient Data Vital Signs Vital Signs Date Time Temp Pulse Resp B/P (MAP) Pulse Ox O2 Delivery O2 Flow Rate FiO2 06/05/18 18:36 Room Air 06/05/18 17:43 98.1 77 20 139/73 (95) 96 98.1 Lab Values Laboratory Tests Test 06/05/18 18:05 06/05/18 18:15 White Blood Count 8.8 x10^3/uL (4.0-11.0) Red Blood Count 5.44 x10^6/uL (3.50-5.40) H Hemoglobin 14.9 g/dL (12.0-15.5) Hematocrit 44.7 % (36.0-47.0) Mean Corpuscular Volume 82 fL (79-100) Mean Corpuscular Hemoglobin 27 pg (25-35) Mean Corpuscular Hemoglobin Concent 33 g/dL (31-37) Red Cell Distribution Width 14.3 % (11.5-14.5) Platelet Count 269 x10^3/uL (140-400) Neutrophils (%) (Auto) 71 % (31-73) Lymphocytes (%) (Auto) 18 % (24-48) L Monocytes (%) (Auto) 5 % (0-9) Eosinophils (%) (Auto) 5 % (0-3) H Basophils (%) (Auto) 0 % (0-3) Neutrophils # (Auto) 6.3 x10^3uL (1.8-7.7) Lymphocytes # (Auto) 1.6 x10^3/uL (1.0-4.8) Monocytes # (Auto) 0.4 x10^3/uL (0.0-1.1) Eosinophils # (Auto) 0.5 x10^3/uL (0.0-0.7) Basophils # (Auto) 0.0 x10^3/uL (0.0-0.2) Sodium Level 142 mmol/L (136-145) Potassium Level 4.4 mmol/L (3.5-5.1) Chloride Level 104 mmol/L (98-107) Carbon Dioxide Level 27 mmol/L (21-32) Anion Gap 11 (6-14) Blood Urea Nitrogen 20 mg/dL (7-20) Creatinine 0.9 mg/dL (0.6-1.0) Estimated GFR (Cockcroft-Gault) 62.1 BUN/Creatinine Ratio 22 (6-20) H Glucose Level 93 mg/dL (70-99) Calcium Level 9.1 mg/dL (8.5-10.1) Total Bilirubin 0.2 mg/dL (0.2-1.0) Aspartate Amino Transferase (AST) 22 U/L (15-37) Alanine Aminotransferase (ALT) 30 U/L (14-59) Alkaline Phosphatase 120 U/L (46-116) H Troponin I Quantitative < 0.017 ng/mL (0.000-0.055) HW-Oul-B-Type Natriuretic Peptide 30 pg/mL (0-124) Total Protein 7.4 g/dL (6.4-8.2) Albumin 3.4 g/dL (3.4-5.0) Albumin/Globulin Ratio 0.9 (1.0-1.7) L Influenza Type A Antigen Negative (NEGATIVE) Influenza Type B Antigen Negative (NEGATIVE) Laboratory Tests 06/05/18 18:05 Laboratory Tests 06/05/18 18:05 EKG EKG EKG shows a sinus rhythm at 60 bpm, normal axis, QTC of 417 ms, no ST elevations , nonspecific ST-T wave changes.[] Radiology/Procedures Radiology/Procedures Chest x-ray shows no acute features when compared with previous[] Course & Med Decision Making Course & Med Decision Making Pertinent Labs and Imaging studies reviewed. (See chart for details) ED course: Patient arrived, was placed in bed, tolerated exam well. Patient received breathing treatment which significantly improved her lung sounds and patient reported feeling better after the breathing treatment. After the return of lab and imaging findings, these were discussed with the patient and family who voiced understanding. All questions were answered. Patient was discharged in improved condition. Medical decision making: There is no evidence of hypoxia, no evidence of pneumonia, pneumothorax, congestive heart failure, nor acute coronary syndrome.[ ] Dragon Disclaimer Dragon Disclaimer This electronic medical record was generated, in whole or in part, using a voice recognition dictation system. Departure Departure Impression: Primary Impression: COPD (chronic obstructive pulmonary disease) Disposition: 01 HOME, SELF-CARE Condition: GOOD Referrals: UNKNOWN PCP NAME (PCP) Patient Instructions: Chronic Obstructive Pulmonary Disease Exacerbation Additional Instructions: Follow-up with your regular doctor in 2 days. Return to the ER if worsening difficulty breathing or any other concerns. Scripts Azithromycin (ZITHROMAX) 250 Mg Tablet 1 PKG PO UD, #6 TAB Prov: ROCHELLE MAN DO 06/05/18 Ipratropium [place] (ATROVENT HFA) 12.9 Gm Hfa.aer.ad 2 PUFF IH QID, #12.9 GM 0 Refills Prov: ROCHELLE MAN DO 06/05/18 Albuterol Sulfate (VENTOLIN HFA INHALER) 18 Gm Hfa.aer.ad 2 PUFF INH Q4HRS for FOR ASTHMA, #1 INHALER 0 Refills Prov: ROCHELLE MAN DO 06/05/18 Prednisone (PREDNISONE) 50 Mg Tablet 50 MG PO DAILY for 7 Days, #7 TAB Prov: ROCHELLE MAN DO 06/05/18 Problem Qualifiers Primary Impression: COPD (chronic obstructive pulmonary disease) COPD type: COPD with acute exacerbation Qualified Codes: J44.1 - Chronic obstructive pulmonary disease with (acute) exacerbation ROCHELLE MAN DO Jun 05, 2018 18:20
[2018-06-05 18:52] LABS: INFLUENZA A PATIENT NEGATIVE (NEGATIVE); INFLUENZA B PATIENT NEGATIVE (NEGATIVE)
[2018-06-05 19:07] LABS: BASO % 0 % (0-3); EOS # 0.5 x10^3/uL (0.0-0.7); EOS % 5 % (0-3); HEMATOCRIT 44.7 % (36.0-47.0); HEMOGLOBIN 14.9 g/dL (12.0-15.5); LYMPH # 1.6 x10^3/uL (1.0-4.8); LYMPH % 18 % (24-48); MEAN CORPUSCULAR HEMOGLOBIN 27 pg (25-35); MEAN CORPUSCULAR HGB CONC 33 g/dL (31-37); MEAN CORPUSCULAR VOLUME 82 fL (79-100); MONO # 0.4 x10^3/uL (0.0-1.1); MONO % 5 % (0-9); NEUT # 6.3 x10^3uL (1.8-7.7); NEUT % 71 % (31-73); PLATELET COUNT 269 x10^3/uL (140-400); RED BLOOD COUNT 5.44 x10^6/uL (3.50-5.40); RED CELL DISTRIBUTION WIDTH 14.3 % (11.5-14.5); WHITE BLOOD COUNT 8.8 x10^3/uL (4.0-11.0)
[2018-06-05 19:52] LABS: CALCIUM 9.1 mg/dL (8.5-10.1); CREATININE 0.9 mg/dL (0.6-1.0); GFR 62.1; POTASSIUM 4.4 mmol/L (3.5-5.1)
[2018-06-05 19:58] LABS: ALBUMIN 3.4 g/dL (3.4-5.0); ALBUMIN/GLOBULIN RATIO 0.9 (1.0-1.7); TOTAL BILIRUBIN 0.2 mg/dL (0.2-1.0); TOTAL PROTEIN 7.4 g/dL (6.4-8.2)
[2018-06-05] MEDS ORDERED: methylPREDNISolone SOD SUCC PF 125 MG/2 ML VIAL. IV ONE (20:45)
[2018-06-05 20:48] VITALS: BP 124/62
[2018-06-05] MEDS ORDERED: AZIT250T PO (20:51)
[2018-06-05] MEDS ORDERED: PRED50TA PO (20:51)
[2018-06-05] MEDS ORDERED: VENTOLIN HFA18 GM INH (20:51)
[2018-06-05] MEDS ORDERED: ATROVENT HFA12.9 GM IH (20:51)
--- NOTE | 2018-06-05 21:07 | RAD ---
Chest, 2 views, 06/05/2018: HISTORY: Cough, shortness of breath Comparison is made to a study from 04/14/2018. The heart size is normal. Streaky right basilar opacities are unchanged suggesting scarring. No new pulmonary abnormality is seen. There is no evidence of pleural fluid. Mild spurring is present in the spine. IMPRESSION: 1. Unchanged streaky right basilar pulmonary opacities compatible with scarring and/or chronic pneumonitis. 2. No new abnormality is detected. Electronically signed by: Michael Sanz MD (06/05/2018 9:03 PM) [facility]
--- NOTE | 2018-06-07 06:24 | EKG ---
[facility] [address] [place] [address] Test Date: 2018-06-05 Test Time: 18:27:12 Pat Name: MARLEY TUCKER Department: Room: Gender: F Germ Drier: : 1950 Requested By: ROCHELLE MAN Order Number: [id number] Reading MD: Noel Reese Measurements Intervals Mcdonough Rate: 68 P: 54 WA: 160 QRS: 51 QRSD: 88 T: 62 QT: 392 QTc: 417 Interpretive Statements SINUS RHYTHM Electronically Signed On 06-11-2018 15:22:22 [employer]OUNT SUPERVISOR by Noel Reese
== END 2018-06-05 21:16 | disposition home or self-care (01) ==
LOC: ER 16:58
DX: J44.9 Chronic obstructive pulmonary disease, unspecified (principal)
CPT/HCPCS: 36415; 71046; 80053; 83880; 84484; 85025; 87804; 93005; 94640; 96374; 99284; J2930; J7613; J7644

== ENCOUNTER 2018-07-19 05:42 | Emergency (ER) | payer SELFPAY ==
[~2018-07-19] VITALS: Ht 167.6 cm; Wt 70.3 kg
[~2018-07-19 05:42] MED LIST changes: +ATROVENT HFA12.9 GM IH; +AZIT250T PO
[2018-07-19 05:53] VITALS: BP 123/72
[2018-07-19] MEDS ORDERED: IPRATRPIUM/ALBUTEROL 0.5/2.5MG 3 ML NEBU. NEB ONE (06:30)
--- NOTE | 2018-07-19 06:30 | PHYS DOC ---
Past Medical History Past Medical History: Asthma, Bronchitis Past Surgical History: No Surgical History Alcohol Use: None Drug Use: None Adult General Chief Complaint Chief Complaint: Congestion HPI HPI Patient is a 67-year-old female who presents with complaint of body aches, chills and just not feeling well since this morning. Patient has also had a cough and some wheezing. Patient had taken a breathing treatment at home but stated that that did not help. She denies any vomiting or diarrhea. Patient states that she feels like she's been running a fever but is afebrile here. Review of Systems Review of Systems Constitutional: Positive subjective fever and chills [] HENT: Positive congestion[] Respiratory: As of cough and wheezing without shortness of breath [] Cardiovascular: No additional information not addressed in HPI [] GI: Denies abdominal pain, nausea, vomiting or diarrhea [] Musculoskeletal: Positive body aches[] Current Medications Current Medications Current Medications Medications (Trade) Dose Ordered Sig/Nhan Start Time Stop Time Status Last Admin Dose Admin Albuterol/ Ipratropium (Duoneb) 3 ml 1X ONCE 07/19/18 06:30 07/19/18 06:31 DC 07/19/18 06:29 3 ML Allergies Allergies Allergies Coded Allergies Type Severity Reaction Last Updated Verified No Known Drug Allergies 01/27/16 No Physical Exam Physical Exam Constitutional: Well developed, well nourished, no acute distress, non-toxic appearance. [] HENT: Normocephalic, atraumatic, bilateral external ears normal, oropharynx moist, no oral exudates, nose normal. [] Neck: Normal range of motion, no tenderness, supple, no stridor. [] Cardiovascular: Regular rate and rhythm[] Lungs & Thorax: There are fine inspiratory and expiratory wheezes noted to auscultation [] Extremities: No tenderness, no cyanosis, no clubbing, ROM intact, no edema. [] Current Patient Data Vital Signs Vital Signs Date Time Temp Pulse Resp B/P (MAP) Pulse Ox O2 Delivery O2 Flow Rate FiO2 07/19/18 06:30 93 Room Air 07/19/18 05:53 98.1 75 16 123/72 (89) 98.1 Lab Values Laboratory Tests Test 07/19/18 06:26 Influenza Type A Antigen Negative (NEGATIVE) Influenza Type B Antigen Negative (NEGATIVE) EKG EKG [] Radiology/Procedures Radiology/Procedures [] Course & Med Decision Making Course & Med Decision Making Pertinent Labs and Imaging studies reviewed. (See chart for details) [] Dragon Disclaimer Dragon Disclaimer This electronic medical record was generated, in whole or in part, using a voice recognition dictation system. Departure Departure Impression: Primary Impression: Upper respiratory infection Disposition: HOME, SELF-CARE Condition: STABLE Referrals: UNKNOWN PCP NAME (PCP) Patient Instructions: Upper Respiratory Infection, Adult Scripts Azithromycin (ZITHROMAX) 250 Mg Tablet 1 PKG PO UD, #6 TAB Prov: ZACH FELTON Jr. DO 07/19/18 Problem Qualifiers Primary Impression: Upper respiratory infection URI type: unspecified URI Qualified Codes: J06.9 - Acute upper respiratory infection, unspecified ZACH FELTON Jr. DO Jul 19, 2018 06:30
[2018-07-19 07:04] LABS: INFLUENZA A PATIENT NEGATIVE (NEGATIVE); INFLUENZA B PATIENT NEGATIVE (NEGATIVE)
[2018-07-19] MEDS ORDERED: AZIT250T PO (07:34)
== END 2018-07-19 07:41 | disposition home or self-care (01) ==
LOC: MERGE 05:42 → ER 05:42 → UNMERGE 05:42 → ER 07:41
DX: J06.9 Acute upper respiratory infection, unspecified (principal); M79.18 Myalgia, other site; R50.9 Fever, unspecified; J45.909 Unspecified asthma, uncomplicated
CPT/HCPCS: 87804; 94640; 99283; J7620

== ENCOUNTER 2018-08-11 22:24 | Inpatient (IN) | payer SELFPAY ==
[~2018-08-11] VITALS: Ht 157.5 cm; Wt 74.4 kg
[2018-08-11] MEDS ORDERED: IPRATRPIUM/ALBUTEROL 0.5/2.5MG 3 ML NEBU. NEB ONE (23:00)
[2018-08-11] MEDS ORDERED: ALBUTEROL SULFATE 2.5 MG/3 ML NEBU. NEB ONE (23:00)
[2018-08-11] MEDS ORDERED: IV NORMAL SALINE 1000ML BAG 1,000 ML IV ONE (23:00)
[2018-08-11 23:08] LABS: BASO % 0 % (0-3); EOS # 0.3 x10^3/uL (0.0-0.7); EOS % 2 % (0-3); HEMATOCRIT 44.3 % (36.0-47.0); HEMOGLOBIN 14.3 g/dL (12.0-15.5); LYMPH # 1.6 x10^3/uL (1.0-4.8); LYMPH % 13 % (24-48); MEAN CORPUSCULAR HEMOGLOBIN 26 pg (25-35); MEAN CORPUSCULAR HGB CONC 32 g/dL (31-37); MEAN CORPUSCULAR VOLUME 82 fL (79-100); MONO # 0.8 x10^3/uL (0.0-1.1); MONO % 6 % (0-9); NEUT # 10.2 x10^3uL (1.8-7.7); NEUT % 79 % (31-73); PLATELET COUNT 301 x10^3/uL (140-400); RED BLOOD COUNT 5.42 x10^6/uL (3.50-5.40); RED CELL DISTRIBUTION WIDTH 13.8 % (11.5-14.5); WHITE BLOOD COUNT 12.9 x10^3/uL (4.0-11.0)
[2018-08-11] MEDS ORDERED: DEXAMETHASONE SOD PHOS 20 MG/5 ML VIAL. IV ONE (23:15)
[2018-08-11 23:20] LABS: POTASSIUM 3.7 mmol/L (3.5-5.1)
[2018-08-11 23:26] LABS: ALBUMIN 3.2 g/dL (3.4-5.0); ALBUMIN/GLOBULIN RATIO 0.6 (1.0-1.7); TOTAL BILIRUBIN 0.7 mg/dL (0.2-1.0); TOTAL PROTEIN 8.2 g/dL (6.4-8.2)
[2018-08-11] MEDS ORDERED: PIPERACILLIN/TAZOBACTAM 4.5 GM in IV NORMAL SALINE 100ML 100 ML IV ONE (23:45)
[2018-08-11] MEDS ORDERED: ONDANSETRON PF 4 MG/2 ML VIAL. IV PRN (23:45)
[2018-08-12] VITALS (7 sets, daily range): BP systolic 93–125; BP diastolic 51–64
--- NOTE | 2018-08-12 01:02 | PHYS DOC ---
Past Medical History Past Medical History: Asthma Past Surgical History: No Surgical History Smoking: Quit Greater Than 1 Year Alcohol Use: None Drug Use: None Adult General Chief Complaint Chief Complaint: SHORTNESS OF BREATH HPI HPI 67 y/o female with pmh of asthma and former smoking present presents with progressive dyspnea which became worse in the last hour. Denies fever/chills. Denies known trauma. Denies known sick contacts. Denies leg swelling or calve tenderness. Denies history of CAD or PE/DVT. Cardiac risk factors of former smoking. Review of Systems Review of Systems Constitutional: Denies fever or chills [] Eyes: Denies change in visual acuity, redness, or eye pain [] HENT: Reports nasal congestion; denies sore throat [] Respiratory: Reports cough and shortness of breath [] Cardiovascular: Denies chest pain or palpitations GI: Denies abdominal pain, nausea, vomiting, or diarrhea [] : Denies dysuria or hematuria [] Musculoskeletal: Denies back pain or joint pain [] Integument: Denies rash or skin lesions [] Neurologic: Denies headache, focal weakness or sensory changes [] Complete systems were reviewed and found to be within normal limits, except as documented in this note. Current Medications Current Medications Current Medications Medications (Trade) Dose Ordered Sig/Nhan Start Time Stop Time Status Last Admin Dose Admin Albuterol Sulfate (Ventolin Neb Soln) 2.5 mg 1X ONCE 08/11/18 23:00 08/11/18 23:05 DC 08/11/18 23:02 2.5 MG Albuterol/ Ipratropium (Duoneb) 3 ml 1X ONCE 08/11/18 23:00 08/11/18 23:05 DC 08/11/18 23:00 3 ML Dexamethasone Sodium Phosphate (Decadron) 10 mg 1X ONCE 08/11/18 23:15 08/11/18 23:16 DC 08/11/18 23:06 10 MG Ondansetron HCl (Zofran) 4 mg PRN Q8HRS PRN 08/11/18 23:45 08/12/18 23:44 DC Piperacillin Sod/ Tazobactam Sod 4.5 gm/Sodium Chloride 100 ml @ 200 mls/hr 1X ONCE 08/11/18 23:45 08/12/18 00:14 DC 08/12/18 00:16 200 MLS/HR Sodium Chloride 1,000 ml @ 1,000 mls/hr 1X ONCE 08/11/18 23:00 08/11/18 23:59 DC 08/11/18 23:06 1,000 MLS/HR Allergies Allergies Allergies Coded Allergies Type Severity Reaction Last Updated Verified No Known Drug Allergies 08/11/18 No Physical Exam Physical Exam Constitutional: Well developed, well nourished, ill appearing, moderate respiratory distress HENT: Normocephalic, atraumatic, oropharynx moist Eyes: Conjunctiva normal, no discharge. [] Neck: Normal range of motion, no tenderness, supple, no meningeal signs Cardiovascular: Heart rate regular rhythm, no murmur [] Lungs & Thorax: Diminished breath sounds, coarse and expiratory wheezes, moderate distress and increased work of breathing Abdomen: Soft, no tenderness Skin: Warm, dry, no erythema, no rash. [] Back: No tenderness, no CVA tenderness. [] Extremities: No tenderness, ROM intact, no edema. [] Neurologic: Alert and oriented X 3, normal motor function, normal sensory function, no focal deficits noted. [] Psychologic: Affect anxious, judgement normal Current Patient Data Vital Signs Vital Signs Date Time Temp Pulse Resp B/P (MAP) Pulse Ox O2 Delivery O2 Flow Rate FiO2 08/11/18 23:34 88 22 123/58 (79) 97 Nasal Cannula 2.0 08/11/18 22:24 98.7 98.7 Lab Values Laboratory Tests Test 08/11/18 22:40 White Blood Count 12.9 x10^3/uL (4.0-11.0) H Red Blood Count 5.42 x10^6/uL (3.50-5.40) H Hemoglobin 14.3 g/dL (12.0-15.5) Hematocrit 44.3 % (36.0-47.0) Mean Corpuscular Volume 82 fL (79-100) Mean Corpuscular Hemoglobin 26 pg (25-35) Mean Corpuscular Hemoglobin Concent 32 g/dL (31-37) Red Cell Distribution Width 13.8 % (11.5-14.5) Platelet Count 301 x10^3/uL (140-400) Neutrophils (%) (Auto) 79 % (31-73) H Lymphocytes (%) (Auto) 13 % (24-48) L Monocytes (%) (Auto) 6 % (0-9) Eosinophils (%) (Auto) 2 % (0-3) Basophils (%) (Auto) 0 % (0-3) Neutrophils # (Auto) 10.2 x10^3uL (1.8-7.7) H Lymphocytes # (Auto) 1.6 x10^3/uL (1.0-4.8) Monocytes # (Auto) 0.8 x10^3/uL (0.0-1.1) Eosinophils # (Auto) 0.3 x10^3/uL (0.0-0.7) Basophils # (Auto) 0.0 x10^3/uL (0.0-0.2) D-Dimer (Jesusita) 0.43 ug/mlFEU (0.00-0.50) Sodium Level 140 mmol/L (136-145) Potassium Level 3.7 mmol/L (3.5-5.1) Chloride Level 102 mmol/L (98-107) Carbon Dioxide Level 30 mmol/L (21-32) Anion Gap 8 (6-14) Blood Urea Nitrogen 21 mg/dL (7-20) H Creatinine 1.0 mg/dL (0.6-1.0) Estimated GFR (Cockcroft-Gault) 55.0 BUN/Creatinine Ratio 21 (6-20) H Glucose Level 131 mg/dL (70-99) H Lactic Acid Level 1.5 mmol/L (0.4-2.0) Calcium Level 9.0 mg/dL (8.5-10.1) Total Bilirubin 0.7 mg/dL (0.2-1.0) Aspartate Amino Transferase (AST) 24 U/L (15-37) Alanine Aminotransferase (ALT) 34 U/L (14-59) Alkaline Phosphatase 123 U/L (46-116) H Creatine Kinase 93 U/L (26-192) Creatine Kinase MB (Mass) 0.9 ng/mL (0.0-3.6) Creatine Kinase MB Relative Index 1.0 % (0-4) Troponin I Quantitative < 0.017 ng/mL (0.000-0.055) ZH-Yoc-Y-Type Natriuretic Peptide 78 pg/mL (0-124) Total Protein 8.2 g/dL (6.4-8.2) Albumin 3.2 g/dL (3.4-5.0) L Albumin/Globulin Ratio 0.6 (1.0-1.7) L Laboratory Tests 08/11/18 22:40 Laboratory Tests 08/11/18 22:40 EKG EKG @2234 NSR at 96bpm, NO ST elevation, wandering baseline Radiology/Procedures Radiology/Procedures PROCEDURE: PORTABLE CHEST 1V Single view chest dated 08/11/2018. No comparison available. CLINICAL INDICATION: Dyspnea. FINDINGS: Single upright portable exam performed. Heart and mediastinal contours within normal limits. There are coarsened linear markings throughout both lungs. No consolidation or significant pleural effusion. Blunting of the left costophrenic sulcus. No pneumothorax. IMPRESSION: 1. Diffuse interstitial changes, nonspecific. This could be chronic or related to low-grade. 2. Mild blunting of left costophrenic sulcus could represent a small pleural effusion or chronic pleural thickening. Electronically signed by: Rene Moore MD (08/12/2018 1:49 AM) [facility] [id number] Course & Med Decision Making Course & Med Decision Making Pertinent Labs and Imaging studies reviewed. (See chart for details) Patient with pmh of asthma and former smoking presents with progressive dyspnea over the last day. Increased work of breathing noted. SIRS positive. Patient noted to have initial O2 sat of 89% on RA. Improved with supplemental O2 and respiratory nebs. Labs obtained and posted to chart. Lactic acid WNL. Initial troponin WNL. EKG stable. CXR with some interstitial markings. Concern for possible pneumonia. Empiric antibiotics given. Patient requiring admission for further evaluation and treatment. Discussed with Dr. Fan ( hospitalist) who is in agreement with admit. Discussed findings and plan with patient and family, who acknowledges understanding and agreement. Dragon Disclaimer Dragon Disclaimer This electronic medical record was generated, in whole or in part, using a voice recognition dictation system. Departure Departure Impression: Primary Impression: Pneumonia Additional Impressions: Hypoxia Asthma Disposition: ADMITTED INPATIENT Admitting Physician: Other (RIFFEL) Condition: GUARDED Referrals: NO PCP (PCP) Scripts [Pantoprazole] 40 MG TABLET.DR Pearson Conflict Check 40 MG PO DAILYAC for 30 Days, #30 Prov: MINA FAN MD 08/13/18 Doxycycline Hyclate (DOXYCYCLINE HYCLATE) 100 Mg Tablet 100 MG PO BID for bronchitis for 5 Days, #10 TAB Prov: MINA FAN MD 08/13/18 Critical Care Time Critical care time was 30 minutes which includes time at bedside, spent in discussion of patient's care with specialists and/or family members, with interpretation of laboratory and/or radiological studies and is exclusive of procedures. Problem Qualifiers Primary Impression: Pneumonia Pneumonia type: due to unspecified organism Laterality: unspecified laterality Lung location: unspecified part of lung Qualified Codes: J18.9 - Pneumonia, unspecified organism Additional Impressions: Asthma Asthma severity: moderate Asthma persistence: persistent Asthma complication type: with acute exacerbation Qualified Codes: J45.41 - Moderate persistent asthma with (acute) exacerbation RENE PAUL DO Aug 12, 2018 01:02
[2018-08-12 01:33] LABS: BILIRUBIN,URINE NEGATIVE (NEG); CLARITY,URINE CLEAR; COLOR,URINE YELLOW; NITRITE,URINE POSITIVE (NEG); PH,URINE 6.5; PROTEIN,URINE NEGATIVE (NEG-TRACE); UROBILINOGEN,URINE 0.2 mg/dL (0.2 mg/dL)
[2018-08-12 01:39] LABS: BACTERIA,URINE MANY /HPF (0-FEW); RBC,URINE OCC /HPF (0-2); SQUAMOUS EPITHELIAL CELL,UR MOD /LPF
--- NOTE | 2018-08-12 01:52 | RAD ---
Single view chest dated 08/11/2018. No comparison available. CLINICAL INDICATION: Dyspnea. FINDINGS: Single upright portable exam performed. Heart and mediastinal contours within normal limits. There are coarsened linear markings throughout both lungs. No consolidation or significant pleural effusion. Blunting of the left costophrenic sulcus. No pneumothorax. IMPRESSION: 1. Diffuse interstitial changes, nonspecific. This could be chronic or related to low-grade. 2. Mild blunting of left costophrenic sulcus could represent a small pleural effusion or chronic pleural thickening. Electronically signed by: Rene Moore MD (08/12/2018 1:49 AM) [facility] [id number]
--- NOTE | 2018-08-12 02:34 | NUR ---
Patient arrived on unit at 0130 accompanied by ED RN. Both patient and family member speak only chuukese. According to the ED RN, the family member that speaks ukrainian went home and didn't leave a number to call back. Attempted to use the language line, but apparently there are limited resources for that language. Attempting to communicate basics to orient to bathroom and lights in room. Patient did not trigger sepsis.
--- NOTE | 2018-08-12 06:49 | EKG ---
[facility] [address] [place] [address] Test Date: 2018-08-11 Test Time: 22:34:10 Pat Name: MARLEY TUCKER Department: Room: 112 1 Gender: F Developmental Psychologist: : 1950 Requested By: SHOSHANA PAUL Order Number: [id number] Reading MD: Jerald Valencia MD Measurements Intervals Driscoll Rate: 96 P: 32 RI: 148 QRS: 46 QRSD: 86 T: 0 QT: 362 QTc: 464 Interpretive Statements SINUS RHYTHM NON-SPECIFIC ST/T CHANGES Electronically Signed On 08-12-2018 11:23:38 INFANTRYMAN by Jerald Valencia MD
[2018-08-12] MEDS: IPRATRPIUM/ALBUTEROL 0.5/2.5MG 3 ML NEBU. NEB SCH ×4 (08:36→20:02)
--- NOTE | 2018-08-12 08:50 | NUR ---
Called immigration case worker phone for [facility] patient. I was told "Limited resources for [employer] language and they do not have a immigration case worker at this time." Patient VVS, and is comfortable eating breakfast with family member at bedside.
--- NOTE | 2018-08-12 10:30 | NUR ---
The patient, MARLEY TUCKER, 67 y/o, F admitted by HUMERA YORK MD, was transferred from ICU. Patient given written information regarding hospital policies, unit procedures and contact persons. Report received from EMELINA Dugan Patient is resting comfortably in bed. Call light within reach, bed locked in low position, room assessed for safety risks.
[2018-08-12] MEDS: cefTRIAXone IV Push 1 GM VIAL. IVP SCH (12:51)
--- NOTE | 2018-08-12 16:29 | HP ---
ADMIT DATE: 08/11/2018 CHIEF COMPLAINT: Shortness of breath. HISTORY OF PRESENT ILLNESS: The patient is a pleasant 67-year-old female who speaks little [place] Islander. She put her family member on the phone for translation. Basically, she presented with shortness breath and cough. She has had a history of asthma that has been occurring for several days, worse with moving, better with sitting still, described as irritating, rated 7/10. I discussed the case with ER physician. We are going to admit the patient, give her IV steroids, breathing treatments and antibiotics. She does have pneumonia on chest x-ray. PAST MEDICAL HISTORY: COPD and asthma, previous pneumonia. ALLERGIES: None. FAMILY HISTORY: Diabetes. SOCIAL HISTORY: I do not think she drinks, smokes or take drugs. MEDICATIONS: Reviewed. She is on azithromycin, doxycycline, Atrovent, Ventolin, ProAir and prednisone. REVIEW OF SYSTEMS: GENERAL: No history of weight change, weakness or fevers. SKIN: No bruising, hair changes or rashes. EYES: No blurred, double or loss of vision. NOSE AND THROAT: No history of nosebleeds, hoarseness or sore throat. HEART: No history of palpitations, chest pain or shortness of breath on exertion. LUNGS: She complains of shortness of breath and cough. GASTROINTESTINAL: Denies changes in appetite, nausea, vomiting, diarrhea or constipation. GENITOURINARY: No history of frequency, urgency, hesitancy or nocturia. NEUROLOGIC: Denies history of numbness, tingling, tremor or weakness. PSYCHIATRIC: No history of panic, anxiety or depression. ENDOCRINE: No history of heat or cold intolerance, polyuria or polydipsia. EXTREMITIES: Denies muscle weakness, joint pain, pain on walking or stiffness. PHYSICAL EXAMINATION: VITAL SIGNS: Temperature is afebrile, pulse 80, respirations 18, blood pressure 107/53, O2 sat 93%. GENERAL: She is alert, cooperative. HEART: Normal S1, S2. LUNGS: Mostly clear. ABDOMEN: Soft. EXTREMITIES: No edema. SKIN: No rash. ENDOCRINE: No thyromegaly. LYMPHATICS: No cervical nodes. HEMATOPOIETIC: No bruising. PSYCHIATRIC: She is stable. LABORATORY DATA: White count is 12.9. Electrolytes are pending. Troponin is 0. Chest x-ray shows diffuse interstitial changes. ASSESSMENT AND PLAN: Shortness of breath and abnormal chest x-ray. We will start empiric IV antibiotics, breathing treatments, consult Pulmonary. Continue home medicines. Deep venous thrombosis prophylaxis, physical therapy, occupational therapy. ILIR LUND DO DR: Dusty JOB#: [id number] / [id number]
[2018-08-12] MEDS ORDERED: PANTOPRAZOLE 40 MG TABLET.DR. PO ONE (16:45)
--- NOTE | 2018-08-12 16:46 | PDOC ---
PULMONARY PROGRESS NOTES Vitals Vital Signs Date Time Temp Pulse Resp B/P (MAP) Pulse Ox O2 Delivery O2 Flow Rate FiO2 08/12/18 16:15 95 Room Air 08/12/18 15:00 97.3 101 18 118/60 (79) 97.3 08/11/18 23:34 2.0 Labs Laboratory Tests Test 08/11/18 22:40 08/12/18 01:08 08/12/18 02:45 08/12/18 05:40 White Blood Count 12.9 x10^3/uL (4.0-11.0) Red Blood Count 5.42 x10^6/uL (3.50-5.40) Hemoglobin 14.3 g/dL (12.0-15.5) Hematocrit 44.3 % (36.0-47.0) Mean Corpuscular Volume 82 fL (79-100) Mean Corpuscular Hemoglobin 26 pg (25-35) Mean Corpuscular Hemoglobin Concent 32 g/dL (31-37) Red Cell Distribution Width 13.8 % (11.5-14.5) Platelet Count 301 x10^3/uL (140-400) Neutrophils (%) (Auto) 79 % (31-73) Lymphocytes (%) (Auto) 13 % (24-48) Monocytes (%) (Auto) 6 % (0-9) Eosinophils (%) (Auto) 2 % (0-3) Basophils (%) (Auto) 0 % (0-3) Neutrophils # (Auto) 10.2 x10^3uL (1.8-7.7) Lymphocytes # (Auto) 1.6 x10^3/uL (1.0-4.8) Monocytes # (Auto) 0.8 x10^3/uL (0.0-1.1) Eosinophils # (Auto) 0.3 x10^3/uL (0.0-0.7) Basophils # (Auto) 0.0 x10^3/uL (0.0-0.2) D-Dimer (Jesusita) 0.43 ug/mlFEU (0.00-0.50) Sodium Level 140 mmol/L (136-145) Potassium Level 3.7 mmol/L (3.5-5.1) Chloride Level 102 mmol/L (98-107) Carbon Dioxide Level 30 mmol/L (21-32) Anion Gap 8 (6-14) Blood Urea Nitrogen 21 mg/dL (7-20) Creatinine 1.0 mg/dL (0.6-1.0) Estimated GFR (Cockcroft-Gault) 55.0 BUN/Creatinine Ratio 21 (6-20) Glucose Level 131 mg/dL (70-99) Lactic Acid Level 1.5 mmol/L (0.4-2.0) Calcium Level 9.0 mg/dL (8.5-10.1) Total Bilirubin 0.7 mg/dL (0.2-1.0) Aspartate Amino Transf (AST/SGOT) 24 U/L (15-37) Alanine Aminotransferase (ALT/SGPT) 34 U/L (14-59) Alkaline Phosphatase 123 U/L (46-116) Creatine Kinase 93 U/L (26-192) Creatine Kinase MB (Mass) 0.9 ng/mL (0.0-3.6) Creatine Kinase MB Relative Index 1.0 % (0-4) Troponin I Quantitative < 0.017 ng/mL (0.000-0.055) < 0.017 ng/mL (0.000-0.055) < 0.017 ng/mL (0.000-0.055) AQ-Ifq-O-Type Natriuretic Peptide 78 pg/mL (0-124) Total Protein 8.2 g/dL (6.4-8.2) Albumin 3.2 g/dL (3.4-5.0) Albumin/Globulin Ratio 0.6 (1.0-1.7) Urine Collection Type Unknown Urine Color Yellow Urine Clarity Clear Urine pH 6.5 Urine Specific [place] 1.020 Urine Protein Negative mg/dL (NEG-TRACE) Urine Glucose (UA) Negative mg/dL (NEG) Urine Ketones (Stick) Negative mg/dL (NEG) Urine Blood Moderate (NEG) Urine Nitrite Positive (NEG) Urine Bilirubin Negative (NEG) Urine Urobilinogen Dipstick 0.2 mg/dL (0.2 mg/dL) Urine Leukocyte Esterase Moderate (NEG) Urine RBC Occ /HPF (0-2) Urine WBC 11-20 /HPF (0-4) Urine Squamous Epithelial Cells Mod /LPF Urine Bacteria Many /HPF (0-FEW) Urine Mucus Mod /LPF Laboratory Tests Test 08/11/18 22:40 08/12/18 01:08 08/12/18 02:45 08/12/18 05:40 White Blood Count 12.9 x10^3/uL (4.0-11.0) Red Blood Count 5.42 x10^6/uL (3.50-5.40) Hemoglobin 14.3 g/dL (12.0-15.5) Hematocrit 44.3 % (36.0-47.0) Mean Corpuscular Volume 82 fL (79-100) Mean Corpuscular Hemoglobin 26 pg (25-35) Mean Corpuscular Hemoglobin Concent 32 g/dL (31-37) Red Cell Distribution Width 13.8 % (11.5-14.5) Platelet Count 301 x10^3/uL (140-400) Neutrophils (%) (Auto) 79 % (31-73) Lymphocytes (%) (Auto) 13 % (24-48) Monocytes (%) (Auto) 6 % (0-9) Eosinophils (%) (Auto) 2 % (0-3) Basophils (%) (Auto) 0 % (0-3) Neutrophils # (Auto) 10.2 x10^3uL (1.8-7.7) Lymphocytes # (Auto) 1.6 x10^3/uL (1.0-4.8) Monocytes # (Auto) 0.8 x10^3/uL (0.0-1.1) Eosinophils # (Auto) 0.3 x10^3/uL (0.0-0.7) Basophils # (Auto) 0.0 x10^3/uL (0.0-0.2) D-Dimer (Jesusita) 0.43 ug/mlFEU (0.00-0.50) Sodium Level 140 mmol/L (136-145) Potassium Level 3.7 mmol/L (3.5-5.1) Chloride Level 102 mmol/L (98-107) Carbon Dioxide Level 30 mmol/L (21-32) Anion Gap 8 (6-14) Blood Urea Nitrogen 21 mg/dL (7-20) Creatinine 1.0 mg/dL (0.6-1.0) Estimated GFR (Cockcroft-Gault) 55.0 BUN/Creatinine Ratio 21 (6-20) Glucose Level 131 mg/dL (70-99) Lactic Acid Level 1.5 mmol/L (0.4-2.0) Calcium Level 9.0 mg/dL (8.5-10.1) Total Bilirubin 0.7 mg/dL (0.2-1.0) Aspartate Amino Transf (AST/SGOT) 24 U/L (15-37) Alanine Aminotransferase (ALT/SGPT) 34 U/L (14-59) Alkaline Phosphatase 123 U/L (46-116) Creatine Kinase 93 U/L (26-192) Creatine Kinase MB (Mass) 0.9 ng/mL (0.0-3.6) Creatine Kinase MB Relative Index 1.0 % (0-4) Troponin I Quantitative < 0.017 ng/mL (0.000-0.055) < 0.017 ng/mL (0.000-0.055) < 0.017 ng/mL (0.000-0.055) EF-Vus-S-Type Natriuretic Peptide 78 pg/mL (0-124) Total Protein 8.2 g/dL (6.4-8.2) Albumin 3.2 g/dL (3.4-5.0) Albumin/Globulin Ratio 0.6 (1.0-1.7) Urine Collection Type Unknown Urine Color Yellow Urine Clarity Clear Urine pH 6.5 Urine Specific [place] 1.020 Urine Protein Negative mg/dL (NEG-TRACE) Urine Glucose (UA) Negative mg/dL (NEG) Urine Ketones (Stick) Negative mg/dL (NEG) Urine Blood Moderate (NEG) Urine Nitrite Positive (NEG) Urine Bilirubin Negative (NEG) Urine Urobilinogen Dipstick 0.2 mg/dL (0.2 mg/dL) Urine Leukocyte Esterase Moderate (NEG) Urine RBC Occ /HPF (0-2) Urine WBC 11-20 /HPF (0-4) Urine Squamous Epithelial Cells Mod /LPF Urine Bacteria Many /HPF (0-FEW) Urine Mucus Mod /LPF Medications Active Scripts Medications Dose Route/Sig Max Daily Dose Days Date Category Zithromax (Azithromycin) 250 Mg Tablet 1 Pkg PO UD 07/19/18 Rx Zithromax (Azithromycin) 250 Mg Tablet 1 Pkg PO UD 06/05/18 Rx Atrovent Hfa (Ipratropium [place]) 12.9 Gm Hfa.aer.ad 2 Puff IH QID 06/05/18 Rx Ventolin Hfa Inhaler (Albuterol Sulfate) 18 Gm Hfa.aer.ad 2 Puff INH Q4HRS 06/05/18 Rx Prednisone 50 Mg Tablet 50 Mg PO DAILY 7 06/05/18 Rx Prednisone 20 Mg Tablet 20 Mg PO DAILY 7 04/16/18 Rx Doxycycline Monohydrate 100 Mg Capsule 1 Cap PO BID 10 04/16/18 Rx [CONTRAST GIVEN -- Info Only] 1 EACH Each 1 Each MC PRN DAILY PRN 7 04/16/18 Rx Prednisone 50 Mg Tablet 1 Tab PO DAILY 12/06/17 Rx Azithromycin Tablet (Azithromycin) 250 Mg Tablet 1 Pkg PO UD 11/21/17 Rx Proair Hfa Inhaler (Albuterol Sulfate) 8.5 Gm Hfa.aer.ad 1 Puff INH PRN Q6HRS PRN 11/21/17 Rx Proair Hfa Inhaler (Albuterol Sulfate) 8.5 Gm Hfa.aer.ad 1 Puff INH PRN Q6HRS PRN 10 10/27/17 Rx Proair Hfa Inhaler (Albuterol Sulfate) 8.5 Gm Hfa.aer.ad 2 Puff INH Q4-6HRS PRN 2 09/06/17 Rx Ventolin Hfa Inhaler (Albuterol Sulfate) 18 Gm Hfa.aer.ad 2 Puff INH Q4HRS PRN 01/27/16 Rx Impression . NOTE DICTATED AECOPD GERD D/C IN KAVON CAT MD Aug 12, 2018 16:46
[2018-08-12] MEDS: DOXYCYCLINE HYCLATE 100 MG TABLET PO SCH (20:43)
[2018-08-12] MEDS ORDERED: ACETAMINOPHEN 325 MG TABLET. PO PRN (22:00)
[2018-08-13 03:00] VITALS: BP 105/64
[2018-08-13 04:20] LABS: BASO % 0 % (0-3); EOS % 0 % (0-3); HEMATOCRIT 42.1 % (36.0-47.0); HEMOGLOBIN 13.4 g/dL (12.0-15.5); LYMPH % 7 % (24-48); MEAN CORPUSCULAR HEMOGLOBIN 26 pg (25-35); MEAN CORPUSCULAR HGB CONC 32 g/dL (31-37); MEAN CORPUSCULAR VOLUME 83 fL (79-100); MONO # 0.7 x10^3/uL (0.0-1.1); MONO % 5 % (0-9); NEUT # 12.7 x10^3uL (1.8-7.7); NEUT % 88 % (31-73); PLATELET COUNT 299 x10^3/uL (140-400); RED CELL DISTRIBUTION WIDTH 13.7 % (11.5-14.5); WHITE BLOOD COUNT 14.4 x10^3/uL (4.0-11.0)
[2018-08-13 04:46] LABS: ALBUMIN 3.1 g/dL (3.4-5.0); ALBUMIN/GLOBULIN RATIO 0.7 (1.0-1.7); CALCIUM 9.1 mg/dL (8.5-10.1); POTASSIUM 4.1 mmol/L (3.5-5.1); TOTAL BILIRUBIN 0.2 mg/dL (0.2-1.0); TOTAL PROTEIN 7.6 g/dL (6.4-8.2)
[2018-08-13 07:00] VITALS: BP 102/56
[2018-08-13] MEDS ORDERED: PANTOPRAZOLE 40 MG TABLET.DR. PO SCH (07:30)
--- NOTE | 2018-08-13 07:34 | CONS ---
DATE OF CONSULTATION: 08/12/2018 ATTENDING PHYSICIAN: Dr. Ramirez REASON FOR CONSULTATION: The patient was seen in pulmonary consultation at the request of Dr. Ramirez for increasing shortness of air. HISTORY OF PRESENT ILLNESS: The patient is a non-Greenlandic speaking patient who had family members at the bedside that translated increasing shortness of breath, some reflux symptomatology, cough mostly nonproductive and some wheezing. She does drink lots of caffeinated beverages. She eats close to bedtime. She presented with the above. I was asked to see her in consultation. Chest x-ray revealed no acute infiltrates. The patient has never smoked. The x-ray itself reveals some diffuse interstitial changes. These are chronic. She had a previous CT of the chest, which confirmed the above. PAST MEDICAL AND PAST SURGICAL HISTORY: Otherwise remarkable for COPD with an asthma component and previously abnormal CT of the chest revealing some chronic changes. CURRENT MEDICATION: List was reviewed. REVIEW OF SYSTEMS: As indicated above, otherwise, a 10-point system was reviewed and negative. PHYSICAL EXAMINATION: VITAL SIGNS: Stable. O2 saturation was greater than 92%, currently on room air. LUNGS: With crackles, no wheezes. CARDIOVASCULAR: Regular rate and rhythm with S1, S2, no S3. ABDOMEN: Soft, nontender and nondistended. EXTREMITIES: No clubbing, cyanosis or edema. IMAGING: Chest x-ray revealed chronic changes. LABORATORY DATA: Reviewed. White count was elevated. Electrolytes were noted. ASSESSMENT: 1. Acute exacerbation of chronic obstructive pulmonary disease. 2. Acute nonspecific bronchitis. 3. Chronic interstitial lung disease. 4. Gastroesophageal reflux. PLAN: I went over the above findings with the family. I recommend no caffeine after the noon hour, prednisone taper, discharge home in the a.m. on prednisone taper and doxycycline. I do appreciate the privilege in sharing in the patient's care. KAVON GAMBINO MD DR: DENISSE/tabatha JOB#: [id number] / [id number]
[2018-08-13] MEDS: IPRATRPIUM/ALBUTEROL 0.5/2.5MG 3 ML NEBU. NEB SCH (07:56)
[2018-08-13 09:00] LABS: % BANDS 6 % (0-9); % LYMPHS 12 % (24-48); % MONOS 4 % (0-10); % SEGS 78 % (35-66); PLT ESTIMATE ADEQUATE (ADEQUATE)
[2018-08-13] MEDS ORDERED: predniSONE 20 MG TABLET PO SCH (09:00)
[2018-08-13] MEDS: DOXYCYCLINE HYCLATE 100 MG TABLET PO SCH (09:55)
--- NOTE | 2018-08-13 10:22 | PDOC ---
PULMONARY PROGRESS NOTES Subjective NOT MORE SOA Vitals Vital Signs Date Time Temp Pulse Resp B/P (MAP) Pulse Ox O2 Delivery O2 Flow Rate FiO2 08/13/18 08:01 96 Room Air 08/13/18 07:00 97.5 71 16 102/56 (71) 97.5 Lungs: Clear Cardiovascular: S1 Abdomen: Soft Neuro Exam: Alert Extremities: No Edema Skin: Warm Labs Laboratory Tests Test 08/11/18 22:40 08/12/18 01:08 08/12/18 02:45 08/12/18 05:40 White Blood Count 12.9 x10^3/uL (4.0-11.0) Red Blood Count 5.42 x10^6/uL (3.50-5.40) Hemoglobin 14.3 g/dL (12.0-15.5) Hematocrit 44.3 % (36.0-47.0) Mean Corpuscular Volume 82 fL (79-100) Mean Corpuscular Hemoglobin 26 pg (25-35) Mean Corpuscular Hemoglobin Concent 32 g/dL (31-37) Red Cell Distribution Width 13.8 % (11.5-14.5) Platelet Count 301 x10^3/uL (140-400) Neutrophils (%) (Auto) 79 % (31-73) Lymphocytes (%) (Auto) 13 % (24-48) Monocytes (%) (Auto) 6 % (0-9) Eosinophils (%) (Auto) 2 % (0-3) Basophils (%) (Auto) 0 % (0-3) Neutrophils # (Auto) 10.2 x10^3uL (1.8-7.7) Lymphocytes # (Auto) 1.6 x10^3/uL (1.0-4.8) Monocytes # (Auto) 0.8 x10^3/uL (0.0-1.1) Eosinophils # (Auto) 0.3 x10^3/uL (0.0-0.7) Basophils # (Auto) 0.0 x10^3/uL (0.0-0.2) D-Dimer (Jesusita) 0.43 ug/mlFEU (0.00-0.50) Sodium Level 140 mmol/L (136-145) Potassium Level 3.7 mmol/L (3.5-5.1) Chloride Level 102 mmol/L (98-107) Carbon Dioxide Level 30 mmol/L (21-32) Anion Gap 8 (6-14) Blood Urea Nitrogen 21 mg/dL (7-20) Creatinine 1.0 mg/dL (0.6-1.0) Estimated GFR (Cockcroft-Gault) 55.0 BUN/Creatinine Ratio 21 (6-20) Glucose Level 131 mg/dL (70-99) Lactic Acid Level 1.5 mmol/L (0.4-2.0) Calcium Level 9.0 mg/dL (8.5-10.1) Total Bilirubin 0.7 mg/dL (0.2-1.0) Aspartate Amino Transf (AST/SGOT) 24 U/L (15-37) Alanine Aminotransferase (ALT/SGPT) 34 U/L (14-59) Alkaline Phosphatase 123 U/L (46-116) Creatine Kinase 93 U/L (26-192) Creatine Kinase MB (Mass) 0.9 ng/mL (0.0-3.6) Creatine Kinase MB Relative Index 1.0 % (0-4) Troponin I Quantitative < 0.017 ng/mL (0.000-0.055) < 0.017 ng/mL (0.000-0.055) < 0.017 ng/mL (0.000-0.055) ER-Kgf-X-Type Natriuretic Peptide 78 pg/mL (0-124) Total Protein 8.2 g/dL (6.4-8.2) Albumin 3.2 g/dL (3.4-5.0) Albumin/Globulin Ratio 0.6 (1.0-1.7) Urine Collection Type Unknown Urine Color Yellow Urine Clarity Clear Urine pH 6.5 Urine Specific [place] 1.020 Urine Protein Negative mg/dL (NEG-TRACE) Urine Glucose (UA) Negative mg/dL (NEG) Urine Ketones (Stick) Negative mg/dL (NEG) Urine Blood Moderate (NEG) Urine Nitrite Positive (NEG) Urine Bilirubin Negative (NEG) Urine Urobilinogen Dipstick 0.2 mg/dL (0.2 mg/dL) Urine Leukocyte Esterase Moderate (NEG) Urine RBC Occ /HPF (0-2) Urine WBC 11-20 /HPF (0-4) Urine Squamous Epithelial Cells Mod /LPF Urine Bacteria Many /HPF (0-FEW) Urine Mucus Mod /LPF Test 08/13/18 03:10 White Blood Count 14.4 x10^3/uL (4.0-11.0) Red Blood Count 5.10 x10^6/uL (3.50-5.40) Hemoglobin 13.4 g/dL (12.0-15.5) Hematocrit 42.1 % (36.0-47.0) Mean Corpuscular Volume 83 fL (79-100) Mean Corpuscular Hemoglobin 26 pg (25-35) Mean Corpuscular Hemoglobin Concent 32 g/dL (31-37) Red Cell Distribution Width 13.7 % (11.5-14.5) Platelet Count 299 x10^3/uL (140-400) Neutrophils (%) (Auto) 88 % (31-73) Lymphocytes (%) (Auto) 7 % (24-48) Monocytes (%) (Auto) 5 % (0-9) Eosinophils (%) (Auto) 0 % (0-3) Basophils (%) (Auto) 0 % (0-3) Neutrophils # (Auto) 12.7 x10^3uL (1.8-7.7) Lymphocytes # (Auto) 1.0 x10^3/uL (1.0-4.8) Monocytes # (Auto) 0.7 x10^3/uL (0.0-1.1) Eosinophils # (Auto) 0.0 x10^3/uL (0.0-0.7) Basophils # (Auto) 0.0 x10^3/uL (0.0-0.2) Segmented Neutrophils % 78 % (35-66) Band Neutrophils % 6 % (0-9) Lymphocytes % 12 % (24-48) Monocytes % 4 % (0-10) Platelet Estimate Adequate (ADEQUATE) Sodium Level 140 mmol/L (136-145) Potassium Level 4.1 mmol/L (3.5-5.1) Chloride Level 103 mmol/L (98-107) Carbon Dioxide Level 25 mmol/L (21-32) Anion Gap 12 (6-14) Blood Urea Nitrogen 25 mg/dL (7-20) Creatinine 1.0 mg/dL (0.6-1.0) Estimated GFR (Cockcroft-Gault) 55.0 BUN/Creatinine Ratio 25 (6-20) Glucose Level 158 mg/dL (70-99) Calcium Level 9.1 mg/dL (8.5-10.1) Total Bilirubin 0.2 mg/dL (0.2-1.0) Aspartate Amino Transf (AST/SGOT) 23 U/L (15-37) Alanine Aminotransferase (ALT/SGPT) 33 U/L (14-59) Alkaline Phosphatase 105 U/L (46-116) Total Protein 7.6 g/dL (6.4-8.2) Albumin 3.1 g/dL (3.4-5.0) Albumin/Globulin Ratio 0.7 (1.0-1.7) Laboratory Tests Test 08/13/18 03:10 White Blood Count 14.4 x10^3/uL (4.0-11.0) Red Blood Count 5.10 x10^6/uL (3.50-5.40) Hemoglobin 13.4 g/dL (12.0-15.5) Hematocrit 42.1 % (36.0-47.0) Mean Corpuscular Volume 83 fL (79-100) Mean Corpuscular Hemoglobin 26 pg (25-35) Mean Corpuscular Hemoglobin Concent 32 g/dL (31-37) Red Cell Distribution Width 13.7 % (11.5-14.5) Platelet Count 299 x10^3/uL (140-400) Neutrophils (%) (Auto) 88 % (31-73) Lymphocytes (%) (Auto) 7 % (24-48) Monocytes (%) (Auto) 5 % (0-9) Eosinophils (%) (Auto) 0 % (0-3) Basophils (%) (Auto) 0 % (0-3) Neutrophils # (Auto) 12.7 x10^3uL (1.8-7.7) Lymphocytes # (Auto) 1.0 x10^3/uL (1.0-4.8) Monocytes # (Auto) 0.7 x10^3/uL (0.0-1.1) Eosinophils # (Auto) 0.0 x10^3/uL (0.0-0.7) Basophils # (Auto) 0.0 x10^3/uL (0.0-0.2) Segmented Neutrophils % 78 % (35-66) Band Neutrophils % 6 % (0-9) Lymphocytes % 12 % (24-48) Monocytes % 4 % (0-10) Platelet Estimate Adequate (ADEQUATE) Sodium Level 140 mmol/L (136-145) Potassium Level 4.1 mmol/L (3.5-5.1) Chloride Level 103 mmol/L (98-107) Carbon Dioxide Level 25 mmol/L (21-32) Anion Gap 12 (6-14) Blood Urea Nitrogen 25 mg/dL (7-20) Creatinine 1.0 mg/dL (0.6-1.0) Estimated GFR (Cockcroft-Gault) 55.0 BUN/Creatinine Ratio 25 (6-20) Glucose Level 158 mg/dL (70-99) Calcium Level 9.1 mg/dL (8.5-10.1) Total Bilirubin 0.2 mg/dL (0.2-1.0) Aspartate Amino Transf (AST/SGOT) 23 U/L (15-37) Alanine Aminotransferase (ALT/SGPT) 33 U/L (14-59) Alkaline Phosphatase 105 U/L (46-116) Total Protein 7.6 g/dL (6.4-8.2) Albumin 3.1 g/dL (3.4-5.0) Albumin/Globulin Ratio 0.7 (1.0-1.7) Medications Active Scripts Medications Dose Route/Sig Max Daily Dose Days Date Category Zithromax (Azithromycin) 250 Mg Tablet 1 Pkg PO UD 07/19/18 Rx Zithromax (Azithromycin) 250 Mg Tablet 1 Pkg PO UD 06/05/18 Rx Atrovent Hfa (Ipratropium [place]) 12.9 Gm Hfa.aer.ad 2 Puff IH QID 06/05/18 Rx Ventolin Hfa Inhaler (Albuterol Sulfate) 18 Gm Hfa.aer.ad 2 Puff INH Q4HRS 06/05/18 Rx Prednisone 50 Mg Tablet 50 Mg PO DAILY 7 06/05/18 Rx Prednisone 20 Mg Tablet 20 Mg PO DAILY 04/16/18 Rx Doxycycline Monohydrate 100 Mg Capsule 1 Cap PO BID 10 04/16/18 Rx [CONTRAST GIVEN -- Info Only] 1 EACH Each 1 Each MC PRN DAILY PRN 7 04/16/18 Rx Prednisone 50 Mg Tablet 1 Tab PO DAILY 12/06/17 Rx Azithromycin Tablet (Azithromycin) 250 Mg Tablet 1 Pkg PO UD 11/21/17 Rx Proair Hfa Inhaler (Albuterol Sulfate) 8.5 Gm Hfa.aer.ad 1 Puff INH PRN Q6HRS PRN 11/21/17 Rx Proair Hfa Inhaler (Albuterol Sulfate) 8.5 Gm Hfa.aer.ad 1 Puff INH PRN Q6HRS PRN 10 10/27/17 Rx Proair Hfa Inhaler (Albuterol Sulfate) 8.5 Gm Hfa.aer.ad 2 Puff INH Q4-6HRS PRN 2 09/06/17 Rx Ventolin Hfa Inhaler (Albuterol Sulfate) 18 Gm Hfa.aer.ad 2 Puff INH Q4HRS PRN 01/27/16 Rx Impression . ASSESSMENT: 1. Acute exacerbation of chronic obstructive pulmonary disease. 2. Acute nonspecific bronchitis. 3. Chronic interstitial lung disease. 4. Gastroesophageal reflux. e. Plan . D/C HOME STEROIDS AVOID CAFFEINE KAVON GAMBINO MD Aug 13, 2018 10:22
[2018-08-13 11:00] VITALS: BP 109/63
[2018-08-13] MEDS: cefTRIAXone IV Push 1 GM VIAL. IVP SCH (12:33)
--- NOTE | 2018-08-13 14:13 | NUR ---
SW following pt for anticipated dc needs. Chart reviewed. Pt lives at home with family. Pt was evaluated by PT/OT and does not has Skilled needs. No SW needs noted at this time. Will continue to follow.
[2018-08-13] MEDS ORDERED: DOXY100T PO (14:17)
[2018-08-13] MEDS ORDERED: Pantoprazole PO (14:17)
--- NOTE | 2018-08-13 14:42 | PDOC3 ---
Discharge Summary Visit Information Date of Admission: Aug 11, 2018 Date of Discharge: Aug 13, 2018 Admitting Diagnosis Comment: 1. Acute exacerbation of chronic obstructive pulmonary disease. 2. Acute nonspecific bronchitis. 3. Chronic interstitial lung disease. 4. Gastroesophageal reflux. Final Diagnosis 1. Acute exacerbation of chronic obstructive pulmonary disease. 2. Acute nonspecific bronchitis. 3. Chronic interstitial lung disease. 4. Gastroesophageal reflux. Brief Hospital Course Allergies Allergies Coded Allergies Type Severity Reaction Last Updated Verified No Known Drug Allergies 08/11/18 No Vital Signs Vital Signs Date Time Temp Pulse Resp B/P (MAP) Pulse Ox O2 Delivery O2 Flow Rate FiO2 08/13/18 11:32 98 Room Air 08/13/18 11:00 97.6 89 18 109/63 (78) 97.6 08/13/18 08:00 2.0 Lab Results Laboratory Tests Test 08/11/18 22:40 08/12/18 01:08 08/12/18 02:45 08/12/18 05:40 White Blood Count 12.9 x10^3/uL (4.0-11.0) Red Blood Count 5.42 x10^6/uL (3.50-5.40) Hemoglobin 14.3 g/dL (12.0-15.5) Hematocrit 44.3 % (36.0-47.0) Mean Corpuscular Volume 82 fL (79-100) Mean Corpuscular Hemoglobin 26 pg (25-35) Mean Corpuscular Hemoglobin Concent 32 g/dL (31-37) Red Cell Distribution Width 13.8 % (11.5-14.5) Platelet Count 301 x10^3/uL (140-400) Neutrophils (%) (Auto) 79 % (31-73) Lymphocytes (%) (Auto) 13 % (24-48) Monocytes (%) (Auto) 6 % (0-9) Eosinophils (%) (Auto) 2 % (0-3) Basophils (%) (Auto) 0 % (0-3) Neutrophils # (Auto) 10.2 x10^3uL (1.8-7.7) Lymphocytes # (Auto) 1.6 x10^3/uL (1.0-4.8) Monocytes # (Auto) 0.8 x10^3/uL (0.0-1.1) Eosinophils # (Auto) 0.3 x10^3/uL (0.0-0.7) Basophils # (Auto) 0.0 x10^3/uL (0.0-0.2) D-Dimer (Jesusita) 0.43 ug/mlFEU (0.00-0.50) Sodium Level 140 mmol/L (136-145) Potassium Level 3.7 mmol/L (3.5-5.1) Chloride Level 102 mmol/L (98-107) Carbon Dioxide Level 30 mmol/L (21-32) Anion Gap 8 (6-14) Blood Urea Nitrogen 21 mg/dL (7-20) Creatinine 1.0 mg/dL (0.6-1.0) Estimated GFR (Cockcroft-Gault) 55.0 BUN/Creatinine Ratio 21 (6-20) Glucose Level 131 mg/dL (70-99) Lactic Acid Level 1.5 mmol/L (0.4-2.0) Calcium Level 9.0 mg/dL (8.5-10.1) Total Bilirubin 0.7 mg/dL (0.2-1.0) Aspartate Amino Transf (AST/SGOT) 24 U/L (15-37) Alanine Aminotransferase (ALT/SGPT) 34 U/L (14-59) Alkaline Phosphatase 123 U/L (46-116) Creatine Kinase 93 U/L (26-192) Creatine Kinase MB (Mass) 0.9 ng/mL (0.0-3.6) Creatine Kinase MB Relative Index 1.0 % (0-4) Troponin I Quantitative < 0.017 ng/mL (0.000-0.055) < 0.017 ng/mL (0.000-0.055) < 0.017 ng/mL (0.000-0.055) TB-Xhz-K-Type Natriuretic Peptide 78 pg/mL (0-124) Total Protein 8.2 g/dL (6.4-8.2) Albumin 3.2 g/dL (3.4-5.0) Albumin/Globulin Ratio 0.6 (1.0-1.7) Urine Collection Type Unknown Urine Color Yellow Urine Clarity Clear Urine pH 6.5 Urine Specific [place] 1.020 Urine Protein Negative mg/dL (NEG-TRACE) Urine Glucose (UA) Negative mg/dL (NEG) Urine Ketones (Stick) Negative mg/dL (NEG) Urine Blood Moderate (NEG) Urine Nitrite Positive (NEG) Urine Bilirubin Negative (NEG) Urine Urobilinogen Dipstick 0.2 mg/dL (0.2 mg/dL) Urine Leukocyte Esterase Moderate (NEG) Urine RBC Occ /HPF (0-2) Urine WBC 11-20 /HPF (0-4) Urine Squamous Epithelial Cells Mod /LPF Urine Bacteria Many /HPF (0-FEW) Urine Mucus Mod /LPF Test 08/13/18 03:10 White Blood Count 14.4 x10^3/uL (4.0-11.0) Red Blood Count 5.10 x10^6/uL (3.50-5.40) Hemoglobin 13.4 g/dL (12.0-15.5) Hematocrit 42.1 % (36.0-47.0) Mean Corpuscular Volume 83 fL (79-100) Mean Corpuscular Hemoglobin 26 pg (25-35) Mean Corpuscular Hemoglobin Concent 32 g/dL (31-37) Red Cell Distribution Width 13.7 % (11.5-14.5) Platelet Count 299 x10^3/uL (140-400) Neutrophils (%) (Auto) 88 % (31-73) Lymphocytes (%) (Auto) 7 % (24-48) Monocytes (%) (Auto) 5 % (0-9) Eosinophils (%) (Auto) 0 % (0-3) Basophils (%) (Auto) 0 % (0-3) Neutrophils # (Auto) 12.7 x10^3uL (1.8-7.7) Lymphocytes # (Auto) 1.0 x10^3/uL (1.0-4.8) Monocytes # (Auto) 0.7 x10^3/uL (0.0-1.1) Eosinophils # (Auto) 0.0 x10^3/uL (0.0-0.7) Basophils # (Auto) 0.0 x10^3/uL (0.0-0.2) Segmented Neutrophils % 78 % (35-66) Band Neutrophils % 6 % (0-9) Lymphocytes % 12 % (24-48) Monocytes % 4 % (0-10) Platelet Estimate Adequate (ADEQUATE) Sodium Level 140 mmol/L (136-145) Potassium Level 4.1 mmol/L (3.5-5.1) Chloride Level 103 mmol/L (98-107) Carbon Dioxide Level 25 mmol/L (21-32) Anion Gap 12 (6-14) Blood Urea Nitrogen 25 mg/dL (7-20) Creatinine 1.0 mg/dL (0.6-1.0) Estimated GFR (Cockcroft-Gault) 55.0 BUN/Creatinine Ratio 25 (6-20) Glucose Level 158 mg/dL (70-99) Calcium Level 9.1 mg/dL (8.5-10.1) Total Bilirubin 0.2 mg/dL (0.2-1.0) Aspartate Amino Transf (AST/SGOT) 23 U/L (15-37) Alanine Aminotransferase (ALT/SGPT) 33 U/L (14-59) Alkaline Phosphatase 105 U/L (46-116) Total Protein 7.6 g/dL (6.4-8.2) Albumin 3.1 g/dL (3.4-5.0) Albumin/Globulin Ratio 0.7 (1.0-1.7) Laboratory Tests Test 08/13/18 03:10 White Blood Count 14.4 x10^3/uL (4.0-11.0) Red Blood Count 5.10 x10^6/uL (3.50-5.40) Hemoglobin 13.4 g/dL (12.0-15.5) Hematocrit 42.1 % (36.0-47.0) Mean Corpuscular Volume 83 fL (79-100) Mean Corpuscular Hemoglobin 26 pg (25-35) Mean Corpuscular Hemoglobin Concent 32 g/dL (31-37) Red Cell Distribution Width 13.7 % (11.5-14.5) Platelet Count 299 x10^3/uL (140-400) Neutrophils (%) (Auto) 88 % (31-73) Lymphocytes (%) (Auto) 7 % (24-48) Monocytes (%) (Auto) 5 % (0-9) Eosinophils (%) (Auto) 0 % (0-3) Basophils (%) (Auto) 0 % (0-3) Neutrophils # (Auto) 12.7 x10^3uL (1.8-7.7) Lymphocytes # (Auto) 1.0 x10^3/uL (1.0-4.8) Monocytes # (Auto) 0.7 x10^3/uL (0.0-1.1) Eosinophils # (Auto) 0.0 x10^3/uL (0.0-0.7) Basophils # (Auto) 0.0 x10^3/uL (0.0-0.2) Segmented Neutrophils % 78 % (35-66) Band Neutrophils % 6 % (0-9) Lymphocytes % 12 % (24-48) Monocytes % 4 % (0-10) Platelet Estimate Adequate (ADEQUATE) Sodium Level 140 mmol/L (136-145) Potassium Level 4.1 mmol/L (3.5-5.1) Chloride Level 103 mmol/L (98-107) Carbon Dioxide Level 25 mmol/L (21-32) Anion Gap 12 (6-14) Blood Urea Nitrogen 25 mg/dL (7-20) Creatinine 1.0 mg/dL (0.6-1.0) Estimated GFR (Cockcroft-Gault) 55.0 BUN/Creatinine Ratio 25 (6-20) Glucose Level 158 mg/dL (70-99) Calcium Level 9.1 mg/dL (8.5-10.1) Total Bilirubin 0.2 mg/dL (0.2-1.0) Aspartate Amino Transf (AST/SGOT) 23 U/L (15-37) Alanine Aminotransferase (ALT/SGPT) 33 U/L (14-59) Alkaline Phosphatase 105 U/L (46-116) Total Protein 7.6 g/dL (6.4-8.2) Albumin 3.1 g/dL (3.4-5.0) Albumin/Globulin Ratio 0.7 (1.0-1.7) Brief Hospital Course The patient is a pleasant 67-year-old female who speaks little Azeri. She put her family member on the phone for translation. Basically, she presented with shortness breath and cough. She has had a history of asthma that has been occurring for several days, worse with moving, better with sitting still, described as irritating, rated 7/10. I discussed the case with ER physician. We are going to admit the patient, give her IV steroids, breathing treatments and antibiotics. She does have pneumonia on chest x-ray ( copied from h and p) Ms. Clement is a 67 old female who was admitted for the above mentioned diagnosis. Patient was started on antibiotics asteroids and PPI with improvement in her symptoms, she still complained of discomfort over the epigastrium which is most likely a consequence of her cough effort. Patient hsitory was taken with the aid of family members at bedside since there was a language barrier. PAtient is hemodynamically stable and in no apparent distress on the day of discharge. She was seen in consultation by pulmonology recommendations greatly appreciated. No new complaints voiced during my interview. and she felt better compared to admission. Sings and symptoms of alarm were discussed prior to discharge Cardiovascular S1-S2 regular rhythm no murmurs gallops or rubs Lungs clear to auscultation bilaterally with good inspiratory effort Abdomen soft nontender bowel sounds present no hepatosplenomegaly appreciated no rebound or guarding elicited Discharge Information Condition at Discharge: Improved Disposition/Orders: D/C to Home Scheduled Albuterol Sulfate (Ventolin Hfa Inhaler) 18 Gm Hfa.aer.ad, 2 PUFF INH Q4HRS for FOR ASTHMA, #1 Ref 0 Prescribed by: ROCHELLE MAN DO on 06/05/182050 Doxycycline Hyclate (Doxycycline Hyclate) 100 Mg Tablet, 100 MG PO BID for bronchitis for 5 Days, #10 Prescribed by: MINA FAN MD on 08/13/18 1417 Doxycycline Monohydrate (Doxycycline Monohydrate) 100 Mg Capsule, 1 CAP PO BID for COPD for 10 Days, #20 Prescribed by: BAL DIANA MD on 04/16/18 1159 Ipratropium [place] (Atrovent Hfa) 12.9 Gm Hfa.aer.ad, 2 PUFF IH QID, #12.9 Ref 0 Prescribed by: ROCHELLE MAN DO on 06/05/182050 Prednisone (Prednisone) 50 Mg Tablet, 1 TAB PO DAILY, #4 Prescribed by: OANH ANGEL D.O. on 12/06/17 1738 Prednisone (Prednisone) 20 Mg Tablet, 20 MG PO DAILY for COPD for 7 Days, #7 Prescribed by: BAL DIANA MD on 04/16/18 1201 Prednisone (Prednisone) 50 Mg Tablet, 50 MG PO DAILY for 7 Days, #7 Prescribed by: ROCHELLE MAN DO on 06/05/182050 [Pantoprazole] 40 MG TABLET.DR, 40 MG PO DAILYAC for 30 Days, #30 Prescribed by: MINA FAN MD on 08/13/18 1417 Scheduled PRN Albuterol Sulfate (Ventolin Hfa Inhaler) 18 Gm Hfa.aer.ad, 2 PUFF INH Q4HRS PRN for WHEEZING, #1 Ref 0 Prescribed by: JUDY GARDINER on 01/27/16 1154 Albuterol Sulfate (Proair Hfa Inhaler) 8.5 Gm Hfa.aer.ad, 2 PUFF INH Q4-6HRS PRN for SHORTNESS OF BREATH for 2 Days, #1 Ref 0 Prescribed by: VLAD FRANCO on 09/06/17 0847 Albuterol Sulfate (Proair Hfa Inhaler) 8.5 Gm Hfa.aer.ad, 1 PUFF INH PRN Q6HRS PRN for SHORTNESS OF BREATH for 10 Days, #1 Ref 0 Prescribed by: HARVEY KAUFMAN MD on 10/27/17 0732 Albuterol Sulfate (Proair Hfa Inhaler) 8.5 Gm Hfa.aer.ad, 1 PUFF INH PRN Q6HRS PRN for SHORTNESS OF BREATH, #1 Ref 0 Prescribed by: QI SANFORD PA-C on 11/21/17 1215 [CONTRAST GIVEN -- Info Only] 1 EACH EACH, 1 EACH MC PRN DAILY PRN for SEE COMMENTS for 7 Days, #7 Prescribed by: BAL DIANA MD on 04/16/18 1159 Discontinued Medications Azithromycin (Azithromycin Tablet) 250 Mg Tablet, 1 PKG PO UD, #6 Prescribed by: QI SANFORD PA-C on 11/21/17 1215 Azithromycin (Zithromax) 250 Mg Tablet, 1 PKG PO UD, #6 Prescribed by: ROCHELLE MAN DO on 06/05/18 205 Azithromycin (Zithromax) 250 Mg Tablet, 1 PKG PO UD, #6 Prescribed by: ZACH FELTON D.O. on 07/19/18 0734 MINA FAN MD Aug 13, 2018 14:42
--- NOTE | 2018-08-13 15:30 | NUR ---
Discharge Note: MOLLY TUCKER [place] Discharge instructions and discharge home medications reviewed with patient and family; and a copy given. All questions have been answered and understanding verbalized. The following instructions and handouts were given: COPD handout To ff up with PCP/clinic in a week. Discontinued lines: peripheral IV intact, patient tolerated removal, no complications noted. Patient discharged to home accompanied by family members.
== END 2018-08-13 16:17 | disposition home or self-care (01) | DRG 190 ==
LOC: ER 22:24 → 1 WEST ICU 23:45 → MERGE 23:45 → 5 NORTH 08-12 09:57
PROVIDERS: ADMIT Internal Medicine; ATTEND Internal Medicine
DX: J44.1 Chronic obstructive pulmonary disease with (acute) exacerbation (principal); J18.9 Pneumonia, unspecified organism; J44.0 Chronic obstructive pulmonary disease with (acute) lower respiratory infection; J20.9 Acute bronchitis, unspecified; K21.9 Gastro-esophageal reflux disease without esophagitis; R09.02 Hypoxemia; Z83.3 Family history of diabetes mellitus; Z79.899 Other long term (current) drug therapy; Z87.01 Personal history of pneumonia (recurrent)
CPT/HCPCS: 36415; 71045; 80053; 81001; 82553; 83605; 83880; 84484; 85007; 85025; 85379; 87040; 87086; 93005; 94640; 96361; 96365; 99291; J0696; J1100; J2543; J7030; J7512; J7613; J7620

== ENCOUNTER 2018-10-14 21:15 | Emergency (ER) | payer SELFPAY ==
[~2018-10-14] VITALS: Ht 162.6 cm; Wt 68.0 kg
[~2018-10-14 21:15] MED LIST changes: +DOXY100T PO; +Pantoprazole PO
[2018-10-14 21:48] LABS: BASO # 0.1 x10^3/uL (0.0-0.2); BASO % 1 % (0-3); EOS # 0.7 x10^3/uL (0.0-0.7); EOS % 6 % (0-3); HEMATOCRIT 43.4 % (36.0-47.0); HEMOGLOBIN 13.8 g/dL (12.0-15.5); LYMPH # 1.5 x10^3/uL (1.0-4.8); LYMPH % 13 % (24-48); MEAN CORPUSCULAR HEMOGLOBIN 26 pg (25-35); MEAN CORPUSCULAR HGB CONC 32 g/dL (31-37); MEAN CORPUSCULAR VOLUME 80 fL (79-100); MONO # 0.6 x10^3/uL (0.0-1.1); MONO % 6 % (0-9); NEUT # 8.5 x10^3uL (1.8-7.7); NEUT % 74 % (31-73); PLATELET COUNT 316 x10^3/uL (140-400); WHITE BLOOD COUNT 11.4 x10^3/uL (4.0-11.0)
[2018-10-14] MEDS ORDERED: IPRATRPIUM/ALBUTEROL 0.5/2.5MG 3 ML NEBU. NEB ONE (22:00)
--- NOTE | 2018-10-14 22:03 | PHYS DOC ---
Past Medical History Past Medical History: Asthma Past Surgical History: No Surgical History Additional Information: QUIT 3 YRS AGO Alcohol Use: None Drug Use: None Adult General Chief Complaint Chief Complaint: SHORTNESS OF BREATH HPI HPI Patient is a 67 year old female who presents with cough and shortness of breath. Patient does not speak Burmese but per report of the patient's daughter and daughter in law, she had a cough throughout the day that acutely worsened around 1800 this evening with a coughing spell and shortness of breath. The last time she used her albuterol MDI was this afternoon with mild improvement of her symptoms. Patient has had multiple hospitalizations for asthma exacerbations and sometimes requires BiPAP but has never required intubation. Patient denies chest pain, fever, URI symptoms, sick contacts, leg swelling, hemoptysis at this time. History obtained with help from patient's daughter and [id number]. Review of Systems Review of Systems Constitutional: Denies fever or chills [] HENT: Denies nasal congestion or sore throat [] Respiratory: Reports cough and shortness of breath, dyspnea [] Cardiovascular: Denies chest pain or palpitations. [] GI: Denies abdominal pain, nausea, vomiting, or diarrhea [] : Denies dysuria or hematuria [] Neurologic: Denies headache, focal weakness or sensory changes [] Complete review of systems found to be within normal limits, except as documented in this note. Current Medications Current Medications Current Medications Medications (Trade) Dose Ordered Sig/Nhan Start Time Stop Time Status Last Admin Dose Admin Albuterol/ Ipratropium (Duoneb) 3 ml 1X ONCE 10/14/18 22:00 10/14/18 22:01 DC 10/14/18 21:47 3 ML Azithromycin (Zithromax) 500 mg 1X ONCE 10/14/18 23:00 10/14/18 23:01 DC 10/14/18 23:08 500 MG Dexamethasone Sodium Phosphate (Decadron) 10 mg 1X ONCE 10/14/18 23:00 10/14/18 23:01 DC 10/14/18 23:08 10 MG Potassium Chloride (Klor-Con) 40 meq 1X ONCE 10/14/18 23:00 10/14/18 23:01 DC 10/14/18 23:07 40 MEQ Allergies Allergies Allergies Coded Allergies Type Severity Reaction Last Updated Verified No Known Drug Allergies 01/27/16 No Physical Exam Physical Exam Constitutional: Well developed, well nourished, receiving breathing treatment with obvious dyspnea. [] HENT: Normocephalic, atraumatic, nares patent without congestion or rhinorrhea. [] Eyes: EOMI, conjunctiva normal, no discharge. [] Neck: Supple without tenderness or lymphadenopathy. [] Cardiovascular:Heart rate regular rhythm, no murmur [] Lungs & Thorax: Breath sounds diminished b/l, expiratory wheezing present in b/l lower lung garcia. [] Abdomen: Soft and nontender. [] Skin: Warm, dry, no erythema, no rash. [] Extremities: No calf tenderness or LE swelling, dorsalis pedis pulses +2 b/l [] Current Patient Data Vital Signs Vital Signs Date Time Temp Pulse Resp B/P (MAP) Pulse Ox O2 Delivery O2 Flow Rate FiO2 10/14/18 22:15 70 18 134/97 (109) 95 Nasal Cannula 2.0 10/14/18 21:32 98.3 98.3 Lab Values Laboratory Tests Test 10/14/18 21:38 White Blood Count 11.4 x10^3/uL (4.0-11.0) H Red Blood Count 5.40 x10^6/uL (3.50-5.40) Hemoglobin 13.8 g/dL (12.0-15.5) Hematocrit 43.4 % (36.0-47.0) Mean Corpuscular Volume 80 fL (79-100) Mean Corpuscular Hemoglobin 26 pg (25-35) Mean Corpuscular Hemoglobin Concent 32 g/dL (31-37) Red Cell Distribution Width 13.0 % (11.5-14.5) Platelet Count 316 x10^3/uL (140-400) Neutrophils (%) (Auto) 74 % (31-73) H Lymphocytes (%) (Auto) 13 % (24-48) L Monocytes (%) (Auto) 6 % (0-9) Eosinophils (%) (Auto) 6 % (0-3) H Basophils (%) (Auto) 1 % (0-3) Neutrophils # (Auto) 8.5 x10^3uL (1.8-7.7) H Lymphocytes # (Auto) 1.5 x10^3/uL (1.0-4.8) Monocytes # (Auto) 0.6 x10^3/uL (0.0-1.1) Eosinophils # (Auto) 0.7 x10^3/uL (0.0-0.7) Basophils # (Auto) 0.1 x10^3/uL (0.0-0.2) Sodium Level 139 mmol/L (136-145) Potassium Level 3.0 mmol/L (3.5-5.1) L Chloride Level 102 mmol/L (98-107) Carbon Dioxide Level 26 mmol/L (21-32) Anion Gap 11 (6-14) Blood Urea Nitrogen 20 mg/dL (7-20) Creatinine 0.9 mg/dL (0.6-1.0) Estimated GFR (Cockcroft-Gault) 62.1 BUN/Creatinine Ratio 22 (6-20) H Glucose Level 118 mg/dL (70-99) H Calcium Level 8.8 mg/dL (8.5-10.1) Magnesium Level 2.0 mg/dL (1.8-2.4) Total Bilirubin 0.4 mg/dL (0.2-1.0) Aspartate Amino Transferase (AST) 20 U/L (15-37) Alanine Aminotransferase (ALT) 20 U/L (14-59) Alkaline Phosphatase 121 U/L (46-116) H Creatine Kinase 86 U/L (26-192) Creatine Kinase MB (Mass) 1.5 ng/mL (0.0-3.6) Creatine Kinase MB Relative Index 1.7 % (0-4) Troponin I Quantitative < 0.017 ng/mL (0.000-0.055) OL-Lio-H-Type Natriuretic Peptide 78 pg/mL (0-124) Total Protein 7.7 g/dL (6.4-8.2) Albumin 3.4 g/dL (3.4-5.0) Albumin/Globulin Ratio 0.8 (1.0-1.7) L Laboratory Tests 10/14/18 21:38 Laboratory Tests 10/14/18 21:38 EKG EKG @ 2205 NSR at 70bpm, NO ST elevation, non specific t wave inversion V4-V5 Radiology/Procedures Radiology/Procedures []PROCEDURE: CHEST AP ONLY EXAM: Chest, single view. HISTORY: Dyspnea. Cough. COMPARISON: 06/05/2018 FINDINGS: A frontal view of the chest is obtained. There is mild diffuse increased interstitial opacity suggesting interstitial infiltrate. There is suspected superimposed lower lobe atelectasis or scarring. There is no consolidation, pleural effusion or pneumothorax. There is a stable prominent cardiac silhouette. IMPRESSION: Slight interval increase diffuse interstitial prominence suggesting interstitial infiltrate with superimposed lower lobe atelectasis. Electronically signed by: Skye Spain MD (10/14/2018 10:26 PM) [facility] Course & Med Decision Making Course & Med Decision Making Pertinent Labs and Imaging studies reviewed. (See chart for details) Patient is a 67 year old female who presented to the ED after acute onset shortness of breath this evening. Patient has a history of hospitalization for asthma exacerbation but has never required intubation. X-ray showed possible left lower lobe atelectasis without consolidation, pleural effusion or pneumotho rax. Patient afebrile. CBC, CMP, Mg, Troponin and CK-MB unremarkable aside for potassium of 3.0. Patient received Duoneb treatment and steroids with improvement in respiratory effort. Patient maintained SpO2 above 95% on RA following treatment. Discussed with patient the possible benefits of admission but patient and family members feel that she is stable and breathing well enough to be discharged home. Patient was given instructions regarding diet for management of her low potassium this evening. She will be discharged home with Rx for prophylactic antibiotics given chest X-ray finding. Patient stable for discharge with outpatient follow-up with PCP. Discussed findings and plan with patient and family, who acknowledge understanding and agreement. [] Dragon Disclaimer Dragon Disclaimer This electronic medical record was generated, in whole or in part, using a voice recognition dictation system. Departure Departure Impression: Primary Impression: Asthmatic bronchitis Additional Impression: Hypokalemia Disposition: 01 HOME, SELF-CARE Condition: STABLE Referrals: UNKNOWN PCP NAME (PCP) Patient Instructions: Asthma, Acute Bronchospasm, Hypokalemia, Potassium Content of Foods Scripts Azithromycin (ZITHROMAX) 250 Mg Tablet 1 PKG PO UD for bronchitis, #6 TAB Take 2 tablets on day 1 and then 1 tablet each day for the next 4 days as directed Prov: SHOSHANA PAUL DO 10/14/18 Benzonatate (TESSALON PERLE) 100 Mg Capsule 100 MG PO TID PRN for COUGH, #30 CAP Prov: SHOSHANA PAUL DO 10/14/18 Prednisone (PREDNISONE) 20 Mg Tablet 2 TAB PO DAILY, #8 TAB Prov: SHOSHANA PAUL DO 10/14/18 Albuterol Sulfate (Proair Hfa) 8.5 Gm Hfa.aer.ad 1 PUFF INH PRN Q6HRS PRN for WHEEZING, #1 INHALER Prov: SHOSHANA PAUL DO 10/14/18 Problem Qualifiers Primary Impression: Asthmatic bronchitis Asthma severity: mild Asthma persistence: intermittent Asthma complicat ion type: with acute exacerbation Qualified Codes: J45.21 - Mild i ntermittent asthma with (acute) exacerbation SHOSHANA PAUL DO October 14, 2018 22:03
[2018-10-14 22:05] LABS: ALBUMIN 3.4 g/dL (3.4-5.0); ALBUMIN/GLOBULIN RATIO 0.8 (1.0-1.7); CALCIUM 8.8 mg/dL (8.5-10.1); CREATININE 0.9 mg/dL (0.6-1.0); GFR 62.1; TOTAL BILIRUBIN 0.4 mg/dL (0.2-1.0); TOTAL PROTEIN 7.7 g/dL (6.4-8.2)
--- NOTE | 2018-10-14 22:28 | RAD ---
EXAM: Chest, single view. HISTORY: Dyspnea. Cough. COMPARISON: 06/05/2018 FINDINGS: A frontal view of the chest is obtained. There is mild diffuse increased interstitial opacity suggesting interstitial infiltrate. There is suspected superimposed lower lobe atelectasis or scarring. There is no consolidation, pleural effusion or pneumothorax. There is a stable prominent cardiac silhouette. IMPRESSION: Slight interval increase diffuse interstitial prominence suggesting interstitial infiltrate with superimposed lower lobe atelectasis. Electronically signed by: Skye Spain MD (10/14/2018 10:26 PM) [facility]
[2018-10-14] MEDS ORDERED: DEXAMETHASONE SOD PHOS 20 MG/5 ML VIAL. IV ONE (22:30)
[2018-10-14] MEDS ORDERED: ALBU2.5V8 INH (22:47)
[2018-10-14] MEDS ORDERED: PRED20TA PO (22:47)
[2018-10-14] MEDS ORDERED: BENZ100C PO (22:47)
[2018-10-14] MEDS ORDERED: AZIT250T PO (22:47)
[2018-10-14] MEDS ORDERED: POTASSIUM CHLORIDE 20 MEQ TABLET.ER. PO ONE (23:00)
[2018-10-14] MEDS ORDERED: AZITHROMYCIN 250 MG TABLET. PO ONE (23:00)
[2018-10-14] MEDS ORDERED: DEXAMETHASONE SOD PHOS 4 MG/ML VIAL IV ONE (23:00)
[2018-10-14 23:15] VITALS: BP 145/72
--- NOTE | 2018-10-15 07:00 | EKG ---
[facility] [address] [place] [address] Test Date: 2018-10-14 Test Time: 22:05:56 Pat Name: MARLEY TUCKER Department: Room: Gender: F Cna Gna: : 1950 Requested By: SHOSHANA PAUL Order Number: [id number] Reading MD: Noel Reese Measurements Intervals [place] Rate: 70 P: 52 CO: 160 QRS: 51 QRSD: 86 T: 46 QT: 396 QTc: 430 Interpretive Statements SINUS RHYTHM T ABNORMALITY IN ANTERIOR LEADS Electronically Signed On 11-11-2018 13:16:25 CDT by Noel Reese
== END 2018-10-14 22:55 | disposition home or self-care (01) ==
LOC: ER 21:15
DX: J45.21 Mild intermittent asthma with (acute) exacerbation (principal); E87.6 Hypokalemia; Z87.891 Personal history of nicotine dependence
CPT/HCPCS: 36415; 71045; 80053; 82553; 83735; 83880; 84484; 85025; 93005; 94640; 96374; 99285; J1100; J7620; Q0144

== ENCOUNTER 2019-01-30 22:11 | Emergency (ER) | payer SELFPAY ==
[~2019-01-30] VITALS: Ht 157.5 cm; Wt 72.6 kg
[~2019-01-30 22:11] MED LIST changes: +BENZ100C PO
[2019-01-30] MEDS ORDERED: DEXAMETHASONE 4 MG TABLET PO ONE (23:00)
[2019-01-30] MEDS ORDERED: IPRATRPIUM/ALBUTEROL 0.5/2.5MG 3 ML NEBU. NEB ONE (23:00)
[2019-01-30] MEDS ORDERED: AZIT250T PO (23:17)
[2019-01-30] MEDS ORDERED: ALBU2.5V8 INH (23:17)
[2019-01-30] MEDS ORDERED: BENZ100C PO (23:17)
[2019-01-30] MEDS ORDERED: PRED20TA PO (23:17)
--- NOTE | 2019-01-30 23:17 | PHYS DOC ---
Past Medical History Past Medical History: Asthma Past Surgical History: No Surgical History Alcohol Use: None Drug Use: None Adult General Chief Complaint Chief Complaint: SHORTNESS OF BREATH HPI HPI Patient is a 68 year old [f__sex] who presents with [] Review of Systems Review of Systems Constitutional: Denies fever or chills [] Eyes: Denies change in visual acuity, redness, or eye pain [] HENT: Denies nasal congestion or sore throat [] Respiratory: Denies cough or shortness of breath [] Cardiovascular: No additional information not addressed in HPI [] GI: Denies abdominal pain, nausea, vomiting, bloody stools or diarrhea [] : Denies dysuria or hematuria [] Musculoskeletal: Denies back pain or joint pain [] Integument: Denies rash or skin lesions [] Neurologic: Denies headache, focal weakness or sensory changes [] Endocrine: Denies polyuria or polydipsia [] All other systems were reviewed and found to be within normal limits, except as documented in this note. Current Medications Current Medications Current Medications Medications (Trade) Dose Ordered Sig/Nhan Start Time Stop Time Status Last Admin Dose Admin Albuterol/ Ipratropium (Duoneb) 3 ml 1X ONCE 01/30/19 23:00 01/30/19 23:01 DC 01/30/19 23:09 3 ML Dexamethasone (Decadron) 10 mg 1X ONCE 01/30/19 23:00 01/30/19 23:01 DC Allergies Allergies Allergies Coded Allergies Type Severity Reaction Last Updated Verified No Known Drug Allergies 01/27/16 No Physical Exam Physical Exam Constitutional: Well developed, well nourished, no acute distress, non-toxic appearance. [] HENT: Normocephalic, atraumatic, bilateral external ears normal, oropharynx mo ist, no oral exudates, nose normal. [] Eyes: PERRLA, EOMI, conjunctiva normal, no discharge. [] Neck: Normal range of motion, no tenderness, supple, no stridor. [] Cardiovascular:Heart rate regular rhythm, no murmur [] Lungs & Thorax: Bilateral breath sounds clear to auscultation [] Abdomen: Bowel sounds normal, soft, no tenderness, no masses, no pulsatile masses. [] Skin: Warm, dry, no erythema, no rash. [] Back: No tenderness, no CVA tenderness. [] Extremities: No tenderness, no cyanosis, no clubbing, ROM intact, no edema. [] Neurologic: Alert and oriented X 3, normal motor function, normal sensory function, no focal deficits noted. [] Psychologic: Affect normal, judgement normal, mood normal. [] Current Patient Data Vital Signs Vital Signs Date Time Temp Pulse Resp B/P (MAP) Pulse Ox O2 Delivery O2 Flow Rate FiO2 01/30/19 23:09 97 Room Air EKG EKG [] Radiology/Procedures Radiology/Procedures [] Course & Med Decision Making Course & Med Decision Making Pertinent Labs and Imaging studies reviewed. (See chart for details) [] Dragon Disclaimer Dragon Disclaimer This electronic medical record was generated, in whole or in part, using a voice recognition dictation system. Departure Departure Impression: Primary Impression: Acute bronchitis Disposition: 01 HOME, SELF-CARE Condition: STABLE Referrals: UNKNOWN PCP NAME (PCP) Patient Instructions: Acute Bronchitis, Vump-pr-Mhmv Scripts Benzonatate (TESSALON PERLE) 100 Mg Capsule 100 MG PO TID PRN for COUGH, #20 CAP Prov: SHOSHANA PAUL DO 01/30/19 Azithromycin (ZITHROMAX) 250 Mg Tablet 1 PKG PO UD, #6 TAB Take 2 tablets on day 1 and then 1 tablet each day for the next 4 days as directed Prov: SHOSHANA PAUL DO 01/30/19 Prednisone (PREDNISONE) 20 Mg Tablet 2 TAB PO DAILY, #8 TAB Start this medication tomorrow, Thursday01/31/19 Prov: SHOSHANA PAUL DO 01/30/19 Albuterol Sulfate (PROAIR HFA INHALER) 8.5 Gm Hfa.aer.ad 1 PUFF INH PRN Q6HRS PRN for WHEEZING, #1 INHALER 0 Refills Prov: SHOSHANA PAUL DO 01/30/19 Problem Qualifiers Primary Impression: Acute bronchitis Bronchitis organism: unspecified organism Qualified Codes: J20.9 - Acute bronchitis, unspecified SHOSHANA PAUL DO Jan 30, 2019 23:17
[2019-01-30 23:43] VITALS: BP 154/81
--- NOTE | 2019-01-30 23:43 | RAD ---
Exam: Chest 2 views INDICATION: Cough TECHNIQUE: Frontal and lateral views of the chest Comparisons: 10/14/2018 FINDINGS: The cardiomediastinal silhouette and pulmonary vessels are within normal limits. Patchy basilar airspace disease. Remaining lungs are clear. No pleural effusion. IMPRESSION: Patchy right basilar airspace disease may represent profound atelectasis. Superimposed infectious process difficult to exclude. Electronically signed by: Jean Louise MD (01/30/2019 11:40 PM) [facility]
== END 2019-01-30 23:24 | disposition home or self-care (01) ==
LOC: ER 22:11
DX: J20.9 Acute bronchitis, unspecified (principal); J45.909 Unspecified asthma, uncomplicated
CPT/HCPCS: 71046; 94640; 99284; J7620; J8540

== ENCOUNTER 2019-04-12 04:32 | Emergency (ER) | payer SELFPAY ==
[~2019-04-12] VITALS: Ht 154.9 cm; Wt 72.6 kg
--- NOTE | 2019-04-12 05:12 | PHYS DOC ---
Past Medical History Past Medical History: Asthma Past Surgical History: No Surgical History Alcohol Use: None Drug Use: None Adult General Chief Complaint Chief Complaint: SHORTNESS OF BREATH HPI HPI Patient is a 68 year old non-Belarusian speaking female with history of asthma who presents with complaining of shortness of breath. Patient complaining of episode of shortness of breath and dry cough since last night and back pain during episodes of cough without fever and chills, nausea and vomiting, nasal congestion or sore throat, dizziness, sick contact, chest pain. Patient had episodes of the same problem with asthma exacerbation. She had O2 sat of 90% at room air at arrival to ER. Review of Systems Review of Systems Constitutional: Denies fever or chills [] Eyes: Denies change in visual acuity, redness, or eye pain [] HENT: Denies nasal congestion or sore throat [] Respiratory: Reports cough and shortness of breath Cardiovascular: No additional information not addressed in HPI [] GI: Denies abdominal pain, nausea, vomiting, bloody stools or diarrhea [] : Denies dysuria or hematuria [] Musculoskeletal: Denies back pain or joint pain [] Integument: Denies rash or skin lesions [] Neurologic: Denies headache, focal weakness or sensory changes [] Endocrine: Denies polyuria or polydipsia [] All other systems were reviewed and found to be within normal limits, except as documented in this note. Current Medications Current Medications Current Medications Medications (Trade) Dose Ordered Sig/Nhan Start Time Stop Time Status Last Admin Dose Admin Albuterol/ Ipratropium (Duoneb) 3 ml 1X ONCE 04/12/19 05:15 04/12/19 05:41 DC 04/12/19 05:20 3 ML Methylprednisolone Sodium Succinate (SOLU-Medrol 125MG VIAL) 125 mg 1X ONCE 04/12/19 05:30 04/12/19 05:41 DC 04/12/19 05:42 125 MG Allergies Allergies Allergies Coded Allergies Type Severity Reaction Last Updated Verified No Known Drug Allergies 01/27/16 No Physical Exam Physical Exam Constitutional: Well developed, well nourished, mild distress, non-toxic appearance. [] HENT: Normocephalic, atraumatic, bilateral external ears normal, oropharynx moist, no oral exudates, nose normal. [] Eyes: PERRLA, EOMI, conjunctiva normal, no discharge. [] Neck: Normal range of motion, no tenderness, supple, no stridor. [] Cardiovascular:Heart rate regular rhythm, no murmur [] Lungs & Thorax: Mild respiratory distress, decrease of bilateral air movement, no wheezing or rhonchi . Abdomen: Bowel sounds normal, soft, no tenderness, no masses, no pulsatile mas ses. [] Skin: Warm, dry, no erythema, no rash. [] Back: No tenderness, no CVA tenderness. [] Extremities: No tenderness, no cyanosis, no clubbing, ROM intact, no edema. [] Neurologic: Alert and oriented X 3, normal motor function, normal sensory function, no focal deficits noted. [] Psychologic: Affect normal, judgement normal, mood normal. [] Current Patient Data Vital Signs Vital Signs Date Time Temp Pulse Resp B/P (MAP) Pulse Ox O2 Delivery O2 Flow Rate FiO2 04/12/19 05:25 Room Air 04/12/19 04:35 97.7 62 22 129/62 (84) 95 97.7 Lab Values Laboratory Tests Test 04/12/19 05:20 04/12/19 05:21 White Blood Count 6.7 x10^3/uL (4.0-11.0) Red Blood Count 5.49 x10^6/uL (3.50-5.40) H Hemoglobin 14.6 g/dL (12.0-15.5) Hematocrit 44.9 % (36.0-47.0) Mean Corpuscular Volume 82 fL (79-100) Mean Corpuscular Hemoglobin 27 pg (25-35) Mean Corpuscular Hemoglobin Concent 33 g/dL (31-37) Red Cell Distribution Width 14.0 % (11.5-14.5) Platelet Count 264 x10^3/uL (140-400) Neutrophils (%) (Auto) 66 % (31-73) Lymphocytes (%) (Auto) 21 % (24-48) L Monocytes (%) (Auto) 6 % (0-9) Eosinophils (%) (Auto) 7 % (0-3) H Basophils (%) (Auto) 1 % (0-3) Neutrophils # (Auto) 4.4 x10^3/uL (1.8-7.7) Lymphocytes # (Auto) 1.4 x10^3/uL (1.0-4.8) Monocytes # (Auto) 0.4 x10^3/uL (0.0-1.1) Eosinophils # (Auto) 0.5 x10^3/uL (0.0-0.7) Basophils # (Auto) 0.0 x10^3/uL (0.0-0.2) Sodium Level 144 mmol/L (136-145) Potassium Level 3.6 mmol/L (3.5-5.1) Chloride Level 106 mmol/L (98-107) Carbon Dioxide Level 26 mmol/L (21-32) Anion Gap 12 (6-14) Blood Urea Nitrogen 18 mg/dL (7-20) Creatinine 0.8 mg/dL (0.6-1.0) Estimated GFR (Cockcroft-Gault) 70.9 BUN/Creatinine Ratio 23 (6-20) H Glucose Level 103 mg/dL (70-99) H Calcium Level 9.1 mg/dL (8.5-10.1) Total Bilirubin Pending Aspartate Amino Transferase (AST) Pending Alanine Aminotransferase (ALT) Pending Alkaline Phosphatase Pending Creatine Kinase Pending Total Protein Pending Albumin Pending Albumin/Globulin Ratio Pending O2 Saturation 92 % (92-99) Arterial Blood pH 7.40 (7.35-7.45) Arterial Blood pCO2 at Patient Temp 43 mmHg (35-46) Arterial Blood pO2 at Patient Temp 63 mmHg (65-108) L Arterial Blood HCO3 26 mmol/L (21-28) Arterial Blood Base Excess 1 mmol/L (-3-3) FiO2 21 Laboratory Tests 04/12/19 05:20 Laboratory Tests 04/12/19 05:20 EKG EKG EKG interpreted by me. EKG at 0535 showed normal sinus rhythm at rate of 62, no acute ST and T-wave abnormalities. Radiology/Procedures Radiology/Procedures [][facility] [address] [place] [address] IMAGING REPORT Signed PATIENT: MARLEY TUCKER ACCOUNT: [id number] : 1950 LOCATION: ER AGE: 68 SEX: F EXAM STATUS: REG ER ORD. PHYSICIAN: OJ COLEMAN MD REASON: shortness of breath PROCEDURE: CHEST PA & LATERAL PA and lateral chest. HISTORY: Short of breath PA and lateral views the chest show the heart is normal in size without heart failure. There is chronic calcification the first costal cartilage. There is atelectasis or scarring along the diaphragm on the right without change. No new infiltrates are noted. There is no effusion. IMPRESSION: 1. Right basilar linear scarring or atelectasis without change. 2. No new infiltrates. Electronically signed by: Gerry Rodarte MD (04/12/2019 5:48 AM) [facility] DICTATED and SIGNED BY: GERRY RODARTE MD DATE: 04/12/19 0548 Course & Med Decision Making Course & Med Decision Making Pertinent Labs and Imaging studies reviewed. (See chart for details) discharge: I've spoken with the patient and/or caregivers. I've explained the patient's condition, diagnosis and treatment plan based on information available to me at this time. I've answered the patient's and/or caregivers questions and addressed any concerns. The patient and/or caregivers have a good understanding the patient's diagnosis, condition and treatment plan as can be expected at this point. Vital signs have been stabilized. The patient's condition is stable for discharge from the emergency department. The patient will pursue further outpatient evaluation with her primary care provider or other designated consulting physician as outlined in the discharge instructions. Patient and/or caregivers are agreeable to this plan of care and follow-up instructions have been explained in detail. The patient and/or caregivers have received these instructions in written format and expressed understanding of these discharge instructions. The patient and her caregivers are aware that if any significant change in condition or worsening of symptoms should prompt him to immediately return to this of the closest emergency department. If an emergent department is not readily available I would encourage him to call 911. Parmjit Disclaimer Dragon Disclaimer This electronic medical record was generated, in whole or in part, using a voice recognition dictation system. Departure Departure Impression: Primary Impression: Acute bronchitis Additional Impression: Hypoxia Disposition: HOME, SELF-CARE (at 0600) Condition: IMPROVED Referrals: NO PCP (PCP) Patient Instructions: Acute Bronchitis Additional Instructions: Drink plenty of liquids Follow-up with your primary care physician in 3-5 days Return to ER if not getting better Scripts Azithromycin (ZITHROMAX) 250 Mg Tablet 1 PKG PO UD for infection, #1 PKG Prov: OJ COLEMAN MD 04/12/19 Benzonatate (TESSALON PERLE) 100 Mg Capsule 1 CAP PO TID for cough, #21 CAP Prov: OJ COLEMAN MD 04/12/19 Albuterol Sulfate (PROAIR HFA INHALER) 8.5 Gm Hfa.aer.ad 2 PUFF IH PRN Q4-6HRS PRN for wheezing for 21 Days, #1 INHALER 0 Refills Prov: OJ COLEMAN MD 04/12/19 Methylprednisolone (MEDROL) 4 Mg Tab.ds.pk 1 PKG PO UD for inflammation, #1 PKG Prov: OJ COLEMAN MD 04/12/19 Problem Qualifiers Primary Impression: Acute bronchitis Bronchitis organism: unspecified organism Qualified Codes: J20.9 - Acute bronchitis, unspecified OJ COLEMAN MD Apr 12, 2019 05:12
[2019-04-12] MEDS ORDERED: IPRATRPIUM/ALBUTEROL 0.5/2.5MG 3 ML NEBU. NEB ONE (05:15)
[2019-04-12 05:26] LABS: BASE EXCESS ABG 1 mmol/L (-3-3); FIO2 ABG 21; HCO3 ABG 26 mmol/L (21-28); PCO2 ABG 43 mmHg (35-46); PO2 ABG 63 mmHg (65-108); SAT O2 ABG 92 % (92-99)
[2019-04-12] MEDS ORDERED: methylPREDNISolone SOD SUCC PF 125 MG/2 ML VIAL. IV ONE (05:30)
[2019-04-12 05:39] LABS: BASO % 1 % (0-3); EOS # 0.5 x10^3/uL (0.0-0.7); EOS % 7 % (0-3); HEMATOCRIT 44.9 % (36.0-47.0); HEMOGLOBIN 14.6 g/dL (12.0-15.5); LYMPH # 1.4 x10^3/uL (1.0-4.8); LYMPH % 21 % (24-48); MEAN CORPUSCULAR HEMOGLOBIN 27 pg (25-35); MEAN CORPUSCULAR HGB CONC 33 g/dL (31-37); MEAN CORPUSCULAR VOLUME 82 fL (79-100); MONO # 0.4 x10^3/uL (0.0-1.1); MONO % 6 % (0-9); NEUT # 4.4 x10^3/uL (1.8-7.7); NEUT % 66 % (31-73); PLATELET COUNT 264 x10^3/uL (140-400); RED BLOOD COUNT 5.49 x10^6/uL (3.50-5.40); WHITE BLOOD COUNT 6.7 x10^3/uL (4.0-11.0)
--- NOTE | 2019-04-12 05:51 | RAD ---
PA and lateral chest. HISTORY: Short of breath PA and lateral views the chest show the heart is normal in size without heart failure. There is chronic calcification the first costal cartilage. There is atelectasis or scarring along the diaphragm on the right without change. No new infiltrates are noted. There is no effusion. IMPRESSION: 1. Right basilar linear scarring or atelectasis without change. 2. No new infiltrates. Electronically signed by: Gerry Be MD (04/12/2019 5:48 AM) [facility]
[2019-04-12 05:52] LABS: CALCIUM 9.1 mg/dL (8.5-10.1); CREATININE 0.8 mg/dL (0.6-1.0); GFR 70.9; POTASSIUM 3.6 mmol/L (3.5-5.1)
[2019-04-12 05:54] LABS: ALBUMIN 3.6 g/dL (3.4-5.0); ALBUMIN/GLOBULIN RATIO 0.9 (1.0-1.7); TOTAL BILIRUBIN 0.6 mg/dL (0.2-1.0); TOTAL PROTEIN 7.4 g/dL (6.4-8.2)
[2019-04-12] MEDS ORDERED: ALBU2.5V8 IH (06:01)
[2019-04-12] MEDS ORDERED: AZIT250T PO (06:01)
[2019-04-12] MEDS ORDERED: METH4TAB2 PO (06:01)
[2019-04-12] MEDS ORDERED: BENZ100C PO (06:01)
[2019-04-12 06:17] VITALS: BP 130/66
--- NOTE | 2019-04-12 07:22 | EKG ---
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
== END 2019-04-12 06:17 | disposition home or self-care (01) ==
LOC: ER 04:32
DX: J20.9 Acute bronchitis, unspecified (principal); R09.02 Hypoxemia; J45.909 Unspecified asthma, uncomplicated
CPT/HCPCS: 36415; 36600; 71046; 80053; 82550; 82805; 83605; 83880; 84484; 85025; 93005; 94640; 96374; 99285; J2930; J7620

== ENCOUNTER 2019-06-11 06:51 | Inpatient (IN) | payer SELFPAY ==
[~2019-06-11] VITALS: Ht 167.6 cm; Wt 73.5 kg
[~2019-06-11 06:51] MED LIST changes: +ALBU2.5V8 IH; +METH4TAB2 PO
[2019-06-11] MEDS ORDERED: IPRATRPIUM/ALBUTEROL 0.5/2.5MG 3 ML NEBU. NEB ONE ×2 (07:30→09:00)
[2019-06-11] MEDS ORDERED: DEXAMETHASONE 4 MG TABLET PO ONE (07:30)
--- NOTE | 2019-06-11 07:33 | PHYS DOC ---
Past Medical History Past Medical History: Asthma Past Surgical History: No Surgical History Smoking: Quit Greater Than 1 Year Alcohol Use: None Drug Use: None Adult General Chief Complaint Chief Complaint: ASTHMA HPI HPI Patient is a 68 year old female with past medical history of asthma who presents today with 2 days of fever, cough, congestion, body aches, and increasing shortness of breath. She reports that she ran out of her inhaler 2 days ago and has not been able to get relief for shortness of breath. She denies any nausea, vomiting, diarrhea, chest pain, or ear pain. She has a mild headache at this time, but states that it is due to her congestion. She has not been taking anyth ing for the fever at this time. Review of Systems Review of Systems Constitutional: Reports fever and chills Eyes: Denies redness or eye pain HENT: Reports nasal congestion but no sore throat Respiratory: Reports cough and shortness of breath Cardiovascular: Denies chest pain or palpitations GI: Denies abdominal pain, nausea, or vomiting : Denies dysuria or hematuria Musculoskeletal: Denies back pain or joint pain Integument: Denies rash or skin lesions Neurologic: Reports headache, but no focal weakness or sensory changes Complete systems were reviewed and found to be within normal limits, except as documented in this note. Current Medications Current Medications Current Medications Medications (Trade) Dose Ordered Sig/Nhan Start Time Stop Time Status Last Admin Dose Admin Acetaminophen (Tylenol) 650 mg PRN Q4HRS PRN 06/11/19 09:15 06/12/19 09:14 Albuterol/ Ipratropium (Duoneb) 3 ml Q4HRS 06/11/19 12:00 06/12/19 11:59 Dexamethasone (Decadron) 10 mg 1X ONCE 06/11/19 07:30 06/11/19 07:31 DC 06/11/19 07:37 10 MG Ondansetron HCl (Zofran) 4 mg PRN Q8HRS PRN 06/11/19 09:15 06/12/19 09:14 Allergies Allergies Allergies Coded Allergies Type Severity Reaction Last Updated Verified No Known Drug Allergies 01/27/16 No Physical Exam Physical Exam Constitutional: 68yo female in respiratory distress. HENT: oropharynx mildly erythematous, no exudates. Right TM perforated, likely chronic. Left TM inflamed. Nasal turbinates inflamed. Eyes: conjunctiva normal, no discharge Neck: Normal range of motion, no tenderness, supple Cardiovascular: Heart rate normal, regular rhythm Lungs & Thorax: Diffuse wheezing b/l. Faint crackles in left, lower lung base Skin: Warm, dry, no erythema, no rash Extremities: No tenderness, ROM intact, no edema Neurologic: Alert and oriented X 3, normal motor function, normal sensory function, no focal deficits noted Psychologic: Affect normal, judgement normal Current Patient Data Vital Signs Vital Signs Date Time Temp Pulse Resp B/P (MAP) Pulse Ox O2 Delivery O2 Flow Rate FiO2 06/11/19 07:28 90 Room Air 06/11/19 07:02 100.9 89 18 139/80 (99) 100.9 Lab Values Laboratory Tests Test 06/11/19 07:13 Influenza Type A Antigen Negative (NEGATIVE) Influenza Type B Antigen Negative (NEGATIVE) EKG EKG @0920 NSR at 87bpm, NO ST elevation, t wave inversion noted to V3-V5 Radiology/Procedures Radiology/Procedures PROCEDURE: CHEST PA & LATERAL EXAM: CHEST 2 VIEWS. HISTORY: Cough, fever, asthma. COMPARISON: 04/12/2019. 04/15/2018. FINDINGS: Frontal and lateral views of the chest are obtained. A 9 mm nodule in the right apex corresponds with a bone island in the first rib on prior CT. Hyperinflation is consistent with chronic obstructive pulmonary disease. Interstitial opacities in the bases are consistent with interstitial lung disease or chronic infiltrates on comparison with prior CT. These are better aerated than on the prior study. A mass along the left hemidiaphragm medially consistent with a small diaphragmatic hernia on prior CT. There is no pneumothorax or pleural effusion. The heart is not enlarged. IMPRESSION: 1. Bibasilar scarring or chronic infiltrates are better aerated than on the prior study. 2. Chronic obstructive pulmonary disease. Electronically signed by: Augie Agudelo MD (06/11/2019 8:06 AM) [facility] [] Course & Med Decision Making Course & Med Decision Making Patient is a 68-year-old female with history of asthma and possible chronic bronchitis who presents to the emergency department today with 2 days of cough, congestion, body aches, and increasing shortness of breath. The patient was satting around 88-90% on room air upon arrival. She received one breathing treatment which caused her oxygen saturations to increase to normal levels. In addition, she was given dexamethasone for inflammation and Tylenol for body aches and fever. Patient was swabbed for influenza which came back negative. Chest x-ray was unremarkable. Patient with subsequent decrease in O2 sat back down to 88-90% on RA. Additional duoneb provided without improvement of O2 sat. Patient requiring supplemental O2 at 4L. Now 92% on 4L NC. Labs obtained and posted to chart. EKG stable. Patient requiring admission for further evaluation and treatment. Discussed with Dr. Berger (hospitalist) who is in agreement with admission. Discussed findings and plan with patient and family, who acknowledge understanding and agreement. Dragon Disclaimer Dragon Disclaimer This electronic medical record was generated, in whole or in part, using a voice recognition dictation system. Departure Departure Impression: Primary Impression: Bronchitis Additional Impression: Hypoxia Disposition: ADMITTED INPATIENT Admitting Physician: RENETTA (Celine) Condition: GUARDED Referrals: NO PCP (PCP) Critical Care Time Critical care time was 30 minutes which includes time at bedside, spent in discussion of patient's care with specialists and/or family members, with interpretation of laboratory and/or radiological studies and is exclusive of procedures. Problem Qualifiers SHOSHANA PAUL DO Jun 11, 2019 07:33
[2019-06-11 07:55] LABS: INFLUENZA A PATIENT NEGATIVE (NEGATIVE); INFLUENZA B PATIENT NEGATIVE (NEGATIVE)
[2019-06-11] MEDS ORDERED: ACETAMINOPHEN 500 MG TABLET PO ONE (08:00)
--- NOTE | 2019-06-11 08:09 | RAD ---
EXAM: CHEST 2 VIEWS. HISTORY: Cough, fever, asthma. COMPARISON: 04/12/2019. 04/15/2018. FINDINGS: Frontal and lateral views of the chest are obtained. A 9 mm nodule in the right apex corresponds with a bone island in the first rib on prior CT. Hyperinflation is consistent with chronic obstructive pulmonary disease. Interstitial opacities in the bases are consistent with interstitial lung disease or chronic infiltrates on comparison with prior CT. These are better aerated than on the prior study. A mass along the left hemidiaphragm medially consistent with a small diaphragmatic hernia on prior CT. There is no pneumothorax or pleural effusion. The heart is not enlarged. IMPRESSION: 1. Bibasilar scarring or chronic infiltrates are better aerated than on the prior study. 2. Chronic obstructive pulmonary disease. Electronically signed by: Augie Agudelo MD (06/11/2019 8:06 AM) [facility]
[2019-06-11] MEDS ORDERED: ALBU2.5V8 IH (08:33)
[2019-06-11] MEDS ORDERED: PRED20TA PO (08:33)
[2019-06-11] MEDS ORDERED: ONDANSETRON PF 4 MG/2 ML VIAL. IV PRN ×2 (09:15→10:30)
[2019-06-11] MEDS ORDERED: ACETAMINOPHEN 325 MG TABLET. PO PRN ×2 (09:15→10:30)
--- NOTE | 2019-06-11 09:26 | PDOC1 ---
History and Physical Date of Admission Date of Admission DATE: 06/11/19 TIME: 09:26 Identification/Chief Complaint Chief Complaint 68 year old female with past medical history of asthma who presents today with 2 days of fever, cough, congestion, body aches, and increasing shortness of breath. She reports that she ran out of her inhaler 2 days ago and has not been able to get relief for shortness of breath. She denies any nausea, vomiting, diarrhea, chest pain, or ear pain. She has a mild headache at this time, but states that it is due to her congestion REMOTE SMOKER SPO2 89% ON ROOM AIR Past Medical History Past Medical History Past Medical History Past Medical History Past Medical History: Asthma Past Surgical History: No Surgical History Smoking: Quit Greater Than 1 Year Alcohol Use: None Drug Use: None Pulmonary: COPD Hepatobiliary: Other Infectious disease: No pertinent hx Endocrine: No pertinent hx Past Surgical History Past Surgical History: No pertinent history Family History Family History: High Cholestrol Social History Smoke: Quit ALCOHOL: none Drugs: None Current Medications Current Medications Current Medications Albuterol/ Ipratropium (Duoneb) 3 ml 1X ONCE NEB Last administered on 06/11/19at 07:26; Start 06/11/19 at 07:30; Stop 06/11/19 at 07:31; Status DC Dexamethasone (Decadron) 10 mg 1X ONCE PO Last administered on 06/11/19at 07:37; Start 06/11/19 at 07:30; Stop 06/11/19 at 07:31; Status DC Acetaminophen (Tylenol) 500 mg 1X ONCE PO Last administered on 06/11/19at 07:37; Start 06/11/19 at 08:00; Stop 06/11/19 at 08:01; Status DC Albuterol/ Ipratropium (Duoneb) 3 ml 1X ONCE NEB Last administered on 06/11/19at 08:44; Start 06/11/19 at 09:00; Stop 06/11/19 at 09:01; Status DC Ondansetron HCl (Zofran) 4 mg PRN Q8HRS PRN IV NAUSEA/VOMITING; Start 06/11/19 at 09:15; Stop 06/12/19 at 09:14 Acetaminophen (Tylenol) 650 mg PRN Q4HRS PRN PO FEVER; Start 06/11/19 at 09:15; Stop 06/12/19 at 09:14 Albuterol/ Ipratropium (Duoneb) 3 ml Q4HRS NEB ; Start 06/11/19 at 12:00; Stop 06/12/19 at 11:59 Active Scripts Active Prednisone 20 Mg Tablet 2 Tab PO DAILY Start medication tomorrow on Thursday. Proair Hfa Inhaler (Albuterol Sulfate) 8.5 Gm Hfa.aer.ad 2 Puff IH PRN Q4-6HRS PRN 21 Days Zithromax (Azithromycin) 250 Mg Tablet 1 Pkg PO UD Tessalon Perle (Benzonatate) 100 Mg Capsule 1 Cap PO TID Proair Hfa Inhaler (Albuterol Sulfate) 8.5 Gm Hfa.aer.ad 2 Puff IH PRN Q4-6HRS PRN 21 Days Medrol (Methylprednisolone) 4 Mg Tab.ds.pk 1 Pkg PO UD Tessalon Perle (Benzonatate) 100 Mg Capsule 100 Mg PO TID PRN Zithromax (Azithromycin) 250 Mg Tablet 1 Pkg PO UD Take 2 tablets on day 1 and then 1 tablet each day for the next 4 days as directed Prednisone 20 Mg Tablet 2 Tab PO DAILY Start this medication tomorrow, Thursday01/31/19 Proair Hfa Inhaler (Albuterol Sulfate) 8.5 Gm Hfa.aer.ad 1 Puff INH PRN Q6HRS PRN Zithromax (Azithromycin) 250 Mg Tablet 1 Pkg PO UD Take 2 tablets on day 1 and then 1 tablet each day for the next 4 days as directed Tessalon Perle (Benzonatate) 100 Mg Capsule 100 Mg PO TID PRN Prednisone 20 Mg Tablet 2 Tab PO DAILY Proair Hfa (Albuterol Sulfate) 8.5 Gm Hfa.aer.ad 1 Puff INH PRN Q6HRS PRN [Pantoprazole] 40 MG Tablet.dr 40 Mg PO DAILYAC 30 Days Doxycycline Hyclate 100 Mg Tablet 100 Mg PO BID 5 Days Atrovent Hfa (Ipratropium [place]) 12.9 Gm Hfa.aer.ad 2 Puff IH QID Ventolin Hfa Inhaler (Albuterol Sulfate) 18 Gm Hfa.aer.ad 2 Puff INH Q4HRS Prednisone 50 Mg Tablet 50 Mg PO DAILY 7 Days Prednisone 20 Mg Tablet 20 Mg PO DAILY 7 Days Doxycycline Monohydrate 100 Mg Capsule 1 Cap PO BID 10 Days [CONTRAST GIVEN -- Info Only] 1 EACH Each 1 Each MC PRN DAILY PRN 7 Days Prednisone 50 Mg Tablet 1 Tab PO DAILY Proair Hfa Inhaler (Albuterol Sulfate) 8.5 Gm Hfa.aer.ad 1 Puff INH PRN Q6HRS PRN Proair Hfa Inhaler (Albuterol Sulfate) 8.5 Gm Hfa.aer.ad 1 Puff INH PRN Q6HRS PRN 10 Days Proair Hfa Inhaler (Albuterol Sulfate) 8.5 Gm Hfa.aer.ad 2 Puff INH Q4-6HRS PRN 2 Days Ventolin Hfa Inhaler (Albuterol Sulfate) 18 Gm Hfa.aer.ad 2 Puff INH Q4HRS PRN Allergies Allergies: Coded Allergies: No Known Drug Allergies (Unverified , 01/27/16) ROS Review of System Review of Systems Review of Systems Constitutional: Reports fever and chills Eyes: Denies redness or eye pain HENT: Reports nasal congestion but no sore throat Respiratory: Reports cough and shortness of breath Cardiovascular: Denies chest pain or palpitations GI: Denies abdominal pain, nausea, or vomiting : Denies dysuria or hematuria Musculoskeletal: Denies back pain or joint pain Integument: Denies rash or skin lesions Neurologic: Reports headache, but no focal weakness or sensory changes 14 pt systems were reviewed and found to be within normal limits, except as documented General: YES: Chills Hematological and Lymphatic: No: Bleeding Problems, Blood Clots, Blood Transfusions, Brusing, Night Sweats, Pallor, Swollen Lymph Nodes, Other Respiratory: YES: Cough, Shortness of breath, SOB with excertion, Sputum Changes Physical Exam Physical Exam Physical Exam Physical Exam Constitutional: 68yo female in respiratory distress. HENT: oropharynx mildly erythematous, no exudates. Right TM perforated, likely chronic. Left TM inflamed. Nasal turbinates inflamed. Eyes: conjunctiva normal, no discharge Neck: Normal range of motion, no tenderness, supple Cardiovascular: Heart rate normal, regular rhythm Lungs & Thorax: Diffuse wheezing b/l. crackles in left, lower lung base Skin: Warm, dry, no erythema, no rash Extremities: No tenderness, ROM intact, no edema Neurologic: Alert and oriented X 3, normal motor function, normal sensory function, no focal deficits noted Psychologic: Affect normal, judgment normal General: Alert, Oriented X3, Cooperative, mild distress HEENT: EOMI, Mucous membr. moist/pink Heart: RRR Breasts: Not examined Abdomen: Normal bowel sounds, Soft PELVIC: Examination not indicated Extremities: No edema Neuro: Normal speech, Cranial nerves 3-12 NL Psych/Mental Status: Mental status NL, Mood NL Vitals Vitals Vital Signs Date Time Temp Pulse Resp B/P (MAP) Pulse Ox O2 Delivery O2 Flow Rate FiO2 06/11/19 07:28 90 Room Air 06/11/19 07:02 100.9 89 18 139/80 (99) 100.9 Labs Labs Laboratory Tests Test 06/11/19 07:13 Influenza Type A Antigen Negative (NEGATIVE) Influenza Type B Antigen Negative (NEGATIVE) Laboratory Tests Test 06/11/19 07:13 Influenza Type A Antigen Negative (NEGATIVE) Influenza Type B Antigen Negative (NEGATIVE) Images Images EXAM: CHEST 2 VIEWS. HISTORY: Cough, fever, asthma. COMPARISON: 04/12/2019. 04/15/2018. FINDINGS: Frontal and lateral views of the chest are obtained. A 9 mm nodule in the right apex corresponds with a bone island in the first rib on prior CT. Hyperinflation is consistent with chronic obstructive pulmonary disease. Interstitial opacities in the bases are consistent with interstitial lung disease or chronic infiltrates on comparison with prior CT. These are better aerated than on the prior study. A mass along the left hemidiaphragm medially consistent with a small diaphragmatic hernia on prior CT. There is no pneumothorax or pleural effusion. The heart is not enlarged. IMPRESSION: 1. Bibasilar scarring or chronic infiltrates are better aerated than on the prior study. 2. Chronic obstructive pulmonary disease. Electronically signed by: Augie Agudelo MD (06/11/2019 8:06 AM) [facility] DICTATED and SIGNED BY: YEFRI AGUDELO MD DATE: 06/11/19 08 VTE Prophylaxis Ordered VTE Prophylaxis Devices: No VTE Pharmacological Prophylaxi: Yes Assessment/Plan Assessment/Plan IMPRESSION: 1. Bibasilar scarring or chronic infiltrates 2. Chronic obstructive pulmonary disease., WITH ACUTE EXACERBATION 3. Acute hypoxic resp failure 4. remote tobacco abuse plan admit duonebs qid iv steroid taper consult pulmonary med o2 support dvt prophylaxis gi prophylaxis iv zosyn iv zithromax BAL DIANA MD Jun 11, 2019 09:26
[2019-06-11 09:27] LABS: BASO % 0 % (0-3); EOS # 0.2 x10^3/uL (0.0-0.7); EOS % 2 % (0-3); HEMOGLOBIN 13.6 g/dL (12.0-15.5); LYMPH # 1.2 x10^3/uL (1.0-4.8); LYMPH % 11 % (24-48); MEAN CORPUSCULAR HEMOGLOBIN 26 pg (25-35); MEAN CORPUSCULAR HGB CONC 32 g/dL (31-37); MEAN CORPUSCULAR VOLUME 82 fL (79-100); MONO # 0.3 x10^3/uL (0.0-1.1); MONO % 3 % (0-9); NEUT # 9.5 x10^3/uL (1.8-7.7); NEUT % 85 % (31-73); PLATELET COUNT 238 x10^3/uL (140-400); RED BLOOD COUNT 5.14 x10^6/uL (3.50-5.40); RED CELL DISTRIBUTION WIDTH 13.6 % (11.5-14.5); WHITE BLOOD COUNT 11.2 x10^3/uL (4.0-11.0)
[2019-06-11 09:46] LABS: CALCIUM 8.6 mg/dL (8.5-10.1); CREATININE 0.9 mg/dL (0.6-1.0); GFR 61.9; POTASSIUM 3.4 mmol/L (3.5-5.1)
[2019-06-11 09:51] LABS: ALBUMIN 3.3 g/dL (3.4-5.0); ALBUMIN/GLOBULIN RATIO 0.8 (1.0-1.7); MAGNESIUM 2.1 mg/dL (1.8-2.4); TOTAL BILIRUBIN 0.5 mg/dL (0.2-1.0); TOTAL PROTEIN 7.4 g/dL (6.4-8.2)
[2019-06-11 10:00] LABS: CREATINE KINASE 68 U/L (26-192)
[2019-06-11 10:30] VITALS: BP 110/62
[2019-06-11] MEDS ORDERED: MAG HYDROX/ALUMINUM HYD/SIMETH 30 ML ORAL.SUSP PO PRN (10:30)
[2019-06-11] MEDS ORDERED: 0.9 % SODIUM CHLORIDE 10 ML DISP.SYRIN. IV PRN (10:30)
[2019-06-11] MEDS ORDERED: LORazepam 0.5 MG TABLET PO PRN (10:30)
[2019-06-11] MEDS ORDERED: DOCUSATE SODIUM 100 MG CAPSULE. PO PRN (10:30)
[2019-06-11] MEDS ORDERED: cloNIDine HCL 0.1 MG TABLET PO PRN (10:30)
--- NOTE | 2019-06-11 10:30 | NUR ---
Patient brought to room 210 by wheelchair. patients daughter and daughter in law at bedside. patient speaks chuukese and speaks no [place] citizen. vital signs obtained. patient stable at this time with no complaints of pain. will continue to monitor patient.
[2019-06-11] MEDS: PANTOPRAZOLE 40 MG TABLET.DR. PO SCH (11:19)
[2019-06-11] MEDS: AZITHROMYCIN 250 MG TABLET. PO SCH (11:19)
[2019-06-11] MEDS: PIPERACILLIN/TAZOBACTAM 3.375 GM in IV NORMAL SALINE 50ML 50 ML IV SCH ×3 (11:20→23:36)
[2019-06-11] MEDS: IV NORMAL SALINE 1000ML BAG 1,000 ML IV SCH (11:21)
[2019-06-11] MEDS ORDERED: IPRATRPIUM/ALBUTEROL 0.5/2.5MG 3 ML NEBU. NEB SCH (12:00)
[2019-06-11] MEDS: guaiFENesin ORAL 200 MG/10 ML LIQUID. PO PRN ×2 (12:02→17:02)
[2019-06-11] MEDS: IPRATRPIUM/ALBUTEROL 0.5/2.5MG 3 ML NEBU. NEB SCH ×3 (12:27→20:43)
[2019-06-11] MEDS: ENOXAPARIN 40 MG/0.4 ML SYRINGE. SQ SCH (13:00)
[2019-06-11] MEDS: methylPREDNISolone SOD SUCC PF 125 MG/2 ML VIAL. IV SCH ×2 (13:31→22:15)
[2019-06-11] MEDS: BENZONATATE 100 MG CAPSULE. PO PRN (13:33)
--- NOTE | 2019-06-11 13:34 | PDOC ---
PULMONARY PROGRESS NOTES Vitals Vital Signs Date Time Temp Pulse Resp B/P (MAP) Pulse Ox O2 Delivery O2 Flow Rate FiO2 06/11/19 12:27 99 Nasal Cannula 2.0 06/11/19 10:30 98.1 96 18 110/62 (78) 98.1 Lungs: Clear, Crackles Cardiovascular: S1, S2 Abdomen: Soft Extremities: No Edema Labs Laboratory Tests Test 06/11/19 07:13 06/11/19 09:13 06/11/19 12:23 Influenza Type A Antigen Negative (NEGATIVE) Influenza Type B Antigen Negative (NEGATIVE) White Blood Count 11.2 x10^3/uL (4.0-11.0) Red Blood Count 5.14 x10^6/uL (3.50-5.40) Hemoglobin 13.6 g/dL (12.0-15.5) Hematocrit 42.0 % (36.0-47.0) Mean Corpuscular Volume 82 fL (79-100) Mean Corpuscular Hemoglobin 26 pg (25-35) Mean Corpuscular Hemoglobin Concent 32 g/dL (31-37) Red Cell Distribution Width 13.6 % (11.5-14.5) Platelet Count 238 x10^3/uL (140-400) Neutrophils (%) (Auto) 85 % (31-73) Lymphocytes (%) (Auto) 11 % (24-48) Monocytes (%) (Auto) 3 % (0-9) Eosinophils (%) (Auto) 2 % (0-3) Basophils (%) (Auto) 0 % (0-3) Neutrophils # (Auto) 9.5 x10^3/uL (1.8-7.7) Lymphocytes # (Auto) 1.2 x10^3/uL (1.0-4.8) Monocytes # (Auto) 0.3 x10^3/uL (0.0-1.1) Eosinophils # (Auto) 0.2 x10^3/uL (0.0-0.7) Basophils # (Auto) 0.0 x10^3/uL (0.0-0.2) Sodium Level 141 mmol/L (136-145) Potassium Level 3.4 mmol/L (3.5-5.1) Chloride Level 103 mmol/L (98-107) Carbon Dioxide Level 28 mmol/L (21-32) Anion Gap 10 (6-14) Blood Urea Nitrogen 16 mg/dL (7-20) Creatinine 0.9 mg/dL (0.6-1.0) Estimated GFR (Cockcroft-Gault) 61.9 BUN/Creatinine Ratio 18 (6-20) Glucose Level 147 mg/dL (70-99) Lactic Acid Level 1.2 mmol/L (0.4-2.0) Calcium Level 8.6 mg/dL (8.5-10.1) Magnesium Level 2.1 mg/dL (1.8-2.4) Total Bilirubin 0.5 mg/dL (0.2-1.0) Aspartate Amino Transf (AST/SGOT) 18 U/L (15-37) Alanine Aminotransferase (ALT/SGPT) 15 U/L (14-59) Alkaline Phosphatase 94 U/L (46-116) Creatine Kinase 68 U/L (26-192) Creatine Kinase MB (Mass) 0.9 ng/mL (0.0-3.6) Creatine Kinase MB Relative Index % (0-4) Troponin I Quantitative < 0.017 ng/mL (0.000-0.055) < 0.017 ng/mL (0.000-0.055) UN-Pab-G-Type Natriuretic Peptide 103 pg/mL (0-124) Total Protein 7.4 g/dL (6.4-8.2) Albumin 3.3 g/dL (3.4-5.0) Albumin/Globulin Ratio 0.8 (1.0-1.7) Laboratory Tests Test 06/11/19 07:13 06/11/19 09:13 06/11/19 12:23 Influenza Type A Antigen Negative (NEGATIVE) Influenza Type B Antigen Negative (NEGATIVE) White Blood Count 11.2 x10^3/uL (4.0-11.0) Red Blood Count 5.14 x10^6/uL (3.50-5.40) Hemoglobin 13.6 g/dL (12.0-15.5) Hematocrit 42.0 % (36.0-47.0) Mean Corpuscular Volume 82 fL (79-100) Mean Corpuscular Hemoglobin 26 pg (25-35) Mean Corpuscular Hemoglobin Concent 32 g/dL (31-37) Red Cell Distribution Width 13.6 % (11.5-14.5) Platelet Count 238 x10^3/uL (140-400) Neutrophils (%) (Auto) 85 % (31-73) Lymphocytes (%) (Auto) 11 % (24-48) Monocytes (%) (Auto) 3 % (0-9) Eosinophils (%) (Auto) 2 % (0-3) Basophils (%) (Auto) 0 % (0-3) Neutrophils # (Auto) 9.5 x10^3/uL (1.8-7.7) Lymphocytes # (Auto) 1.2 x10^3/uL (1.0-4.8) Monocytes # (Auto) 0.3 x10^3/uL (0.0-1.1) Eosinophils # (Auto) 0.2 x10^3/uL (0.0-0.7) Basophils # (Auto) 0.0 x10^3/uL (0.0-0.2) Sodium Level 141 mmol/L (136-145) Potassium Level 3.4 mmol/L (3.5-5.1) Chloride Level 103 mmol/L (98-107) Carbon Dioxide Level 28 mmol/L (21-32) Anion Gap 10 (6-14) Blood Urea Nitrogen 16 mg/dL (7-20) Creatinine 0.9 mg/dL (0.6-1.0) Estimated GFR (Cockcroft-Gault) 61.9 BUN/Creatinine Ratio 18 (6-20) Glucose Level 147 mg/dL (70-99) Lactic Acid Level 1.2 mmol/L (0.4-2.0) Calcium Level 8.6 mg/dL (8.5-10.1) Magnesium Level 2.1 mg/dL (1.8-2.4) Total Bilirubin 0.5 mg/dL (0.2-1.0) Aspartate Amino Transf (AST/SGOT) 18 U/L (15-37) Alanine Aminotransferase (ALT/SGPT) 15 U/L (14-59) Alkaline Phosphatase 94 U/L (46-116) Creatine Kinase 68 U/L (26-192) Creatine Kinase MB (Mass) 0.9 ng/mL (0.0-3.6) Creatine Kinase MB Relative Index % (0-4) Troponin I Quantitative < 0.017 ng/mL (0.000-0.055) < 0.017 ng/mL (0.000-0.055) VV-Rdc-F-Type Natriuretic Peptide 103 pg/mL (0-124) Total Protein 7.4 g/dL (6.4-8.2) Albumin 3.3 g/dL (3.4-5.0) Albumin/Globulin Ratio 0.8 (1.0-1.7) Medications Active Scripts Medications Dose Route/Sig Max Daily Dose Days Date Category Dose Instructions Zithromax (Azithromycin) 250 Mg Tablet 1 Pkg PO UD 04/12/19 Rx Tessalon Perle (Benzonatate) 100 Mg Capsule 1 Cap PO TID 04/12/19 Rx Proair Hfa Inhaler (Albuterol Sulfate) 8.5 Gm Hfa.aer.ad 2 Puff IH PRN Q4-6HRS PRN 21 04/12/19 Rx Medrol (Methylprednisolone) 4 Mg Tab.ds.pk 1 Pkg PO UD 04/12/19 Rx Tessalon Perle (Benzonatate) 100 Mg Capsule 100 Mg PO TID PRN 01/30/19 Rx Zithromax (Azithromycin) 250 Mg Tablet 1 Pkg PO UD 01/30/19 Rx Take 2 tablets on day 1 and then 1 tablet each day for the next 4 days as directed Prednisone 20 Mg Tablet 2 Tab PO DAILY 01/30/19 Rx Start this medication tomorrow, Thursday01/31/19 Proair Hfa Inhaler (Albuterol Sulfate) 8.5 Gm Hfa.aer.ad 1 Puff INH PRN Q6HRS PRN 01/30/19 Rx Zithromax (Azithromycin) 250 Mg Tablet 1 Pkg PO UD 10/14/18 Rx Take 2 tablets on day 1 and then 1 tablet each day for the next 4 days as directed Tessalon Perle (Benzonatate) 100 Mg Capsule 100 Mg PO TID PRN 10/14/18 Rx Prednisone 20 Mg Tablet 2 Tab PO DAILY 10/14/18 Rx Proair Hfa (Albuterol Sulfate) 8.5 Gm Hfa.aer.ad 1 Puff INH PRN Q6HRS PRN 10/14/18 Rx [Pantoprazole] 40 MG Tablet.dr 40 Mg PO DAILYAC 30 08/13/18 Rx Doxycycline Hyclate 100 Mg Tablet 100 Mg PO BID 5 08/13/18 Rx Atrovent Hfa (Ipratropium [place]) 12.9 Gm Hfa.aer.ad 2 Puff IH QID 06/05/18 Rx Ventolin Hfa Inhaler (Albuterol Sulfate) 18 Gm Hfa.aer.ad 2 Puff INH Q4HRS 06/05/18 Rx Prednisone 50 Mg Tablet 50 Mg PO DAILY 7 06/05/18 Rx Prednisone 20 Mg Tablet 20 Mg PO DAILY 7 04/16/18 Rx Doxycycline Monohydrate 100 Mg Capsule 1 Cap PO BID 10 04/16/18 Rx [CONTRAST GIVEN -- Info Only] 1 EACH Each 1 Each MC PRN DAILY PRN 7 04/16/18 Rx Prednisone 50 Mg Tablet 1 Tab PO DAILY 12/06/17 Rx Proair Hfa Inhaler (Albuterol Sulfate) 8.5 Gm Hfa.aer.ad 1 Puff INH PRN Q6HRS PRN 11/21/17 Rx Proair Hfa Inhaler (Albuterol Sulfate) 8.5 Gm Hfa.aer.ad 1 Puff INH PRN Q6HRS PRN 10 10/27/17 Rx Proair Hfa Inhaler (Albuterol Sulfate) 8.5 Gm Hfa.aer.ad 2 Puff INH Q4-6HRS PRN 2 09/06/17 Rx Ventolin Hfa Inhaler (Albuterol Sulfate) 18 Gm Hfa.aer.ad 2 Puff INH Q4HRS PRN 01/27/16 Rx Impression . dictated hme in KAVON GAMBINO MD Jun 11, 2019 13:34
[2019-06-11] MEDS ORDERED: FLU VAX QS 2019-20 (36MOS+)/PF 0.5 ML SYRINGE. VAX IM ONE (14:00)
[2019-06-11 15:00] VITALS: BP 99/49
[2019-06-11] MEDS: METHYL SALICYLATE/MENTHOL TOPICAL CREAM 57GM TUBE. TP PRN (16:58)
[2019-06-11 19:45] VITALS: BP 121/56
[2019-06-11] MEDS ORDERED: BENZOCAINE/MENTHOL LOZENGE. PO PRN (22:15)
[2019-06-11 23:30] VITALS: BP 119/58
--- NOTE | 2019-06-12 00:02 | CONS ---
DATE OF CONSULTATION: 06/11/2019 ATTENDING PHYSICIAN: Eduardo Berger M.D. CONSULTING PHYSICIAN: Kavon Gambino M.D. REASON FOR CONSULTATION: The patient is seen in pulmonary consultation at the request of Dr. Berger for respiratory distress. HISTORY OF PRESENT ILLNESS: The patient is a 68-year-old with a history of asthma, ran out of her Advair at home, presented with increasing shortness of breath, wheeze, and cough. She was admitted. I was asked to see her in consultation. No fever, chills, or night sweats. PAST MEDICAL HISTORY: Asthma. PAST SURGICAL HISTORY: None. SOCIAL HISTORY: She does not smoke. REVIEW OF SYSTEMS: As indicated above, otherwise, a 10-point system was reviewed and negative. PHYSICAL EXAMINATION: VITAL SIGNS: Stable. O2 saturation was greater than 92%. LUNGS: Clear. No wheezes. CARDIOVASCULAR: Regular rate and rhythm with S1, S2. No S3. ABDOMEN: Soft, nontender. EXTREMITIES: No pitting edema. IMAGING STUDIES: Chest x-ray reviewed. No acute infiltrates. LABORATORY DATA: Reviewed. White count was slightly elevated. Serology for influenza was negative. IMPRESSION: 1. Acute exacerbation of asthma. 2. Acute nonspecific bronchitis. 3. Chronic interstitial lung disease seen on chest x-ray. PLAN: 1. Continue current support. 2. Discharge in the a.m. with a prescription for steroid metered-dose inhaler. 3. I will look in my office and see if I have samples, the patient is self-insured. She would greatly benefit from samples of either Dulera or Advair. KAVON GAMBINO MD DR: DENISSE/tabatha JOB#: [id number] / [id number]
[2019-06-12 03:15] VITALS: BP 142/67
[2019-06-12] MEDS: IV NORMAL SALINE 1000ML BAG 1,000 ML IV SCH (03:24)
[2019-06-12] MEDS: IPRATRPIUM/ALBUTEROL 0.5/2.5MG 3 ML NEBU. NEB SCH ×5 (04:00→16:03)
[2019-06-12] MEDS: methylPREDNISolone SOD SUCC PF 125 MG/2 ML VIAL. IV SCH ×2 (05:37→14:39)
[2019-06-12] MEDS: PIPERACILLIN/TAZOBACTAM 3.375 GM in IV NORMAL SALINE 50ML 50 ML IV SCH ×2 (05:38→11:46)
[2019-06-12 07:00] VITALS: BP 107/56
[2019-06-12] MEDS: guaiFENesin ORAL 200 MG/10 ML LIQUID. PO PRN ×2 (07:45→11:46)
[2019-06-12] MEDS: AZITHROMYCIN 250 MG TABLET. PO SCH (07:45)
[2019-06-12] MEDS: BENZONATATE 100 MG CAPSULE. PO PRN ×2 (07:45→14:39)
[2019-06-12] MEDS: PANTOPRAZOLE 40 MG TABLET.DR. PO SCH (07:45)
[2019-06-12] MEDS: METHYL SALICYLATE/MENTHOL TOPICAL CREAM 57GM TUBE. TP PRN (07:49)
[2019-06-12] MEDS: ENOXAPARIN 40 MG/0.4 ML SYRINGE. SQ SCH (07:51)
--- NOTE | 2019-06-12 09:47 | PDOC ---
PROGRESS NOTES History of Present Illness History of Present Illness VTE Prophylaxis Ordered VTE Prophylaxis Devices: No VTE Pharmacological Prophylaxi: Yes discharge dx Assessment/Plan IMPRESSION: 1. Bibasilar scarring or chronic infiltrates 2. Chronic obstructive pulmonary disease., WITH ACUTE EXACERBATION 3. Acute hypoxic resp failure 4. remote tobacco abuse plan admit duonebs qid prednisone 30mg po daily x 5 days d/c today consult pulmonary med o2 support dvt prophylaxis gi prophylaxis iv zosyn d/c iv zithromax d/c Vitals Vitals Vital Signs Date Time Temp Pulse Resp B/P (MAP) Pulse Ox O2 Delivery O2 Flow Rate FiO2 06/12/19 07:40 Nasal Cannula 1.0 06/12/19 07:00 98.0 99 21 107/56 (73) 98 98.0 Physical Exam General: Alert, Oriented X3, Cooperative, No acute distress Heart: Regular rate Lungs: Clear Abdomen: Normal bowel sounds, Soft, No tenderness Extremities: No cyanosis, No edema Labs LABS Laboratory Tests Test 06/11/19 12:23 06/11/19 16:05 Troponin I Quantitative < 0.017 ng/mL (0.000-0.055) < 0.017 ng/mL (0.000-0.055) Assessment and Plan Assessmemt and Plan Problems Medical Problems: (1) Bronchitis Status: Acute Comment Review of Relevant I have reviewed the following items floyd (where applicable) has been applied. Labs Laboratory Tests Test 06/11/19 07:13 06/11/19 09:13 06/11/19 12:23 06/11/19 16:05 Influenza Type A Antigen Negative (NEGATIVE) Influenza Type B Antigen Negative (NEGATIVE) White Blood Count 11.2 x10^3/uL (4.0-11.0) Red Blood Count 5.14 x10^6/uL (3.50-5.40) Hemoglobin 13.6 g/dL (12.0-15.5) Hematocrit 42.0 % (36.0-47.0) Mean Corpuscular Volume 82 fL (79-100) Mean Corpuscular Hemoglobin 26 pg (25-35) Mean Corpuscular Hemoglobin Concent 32 g/dL (31-37) Red Cell Distribution Width 13.6 % (11.5-14.5) Platelet Count 238 x10^3/uL (140-400) Neutrophils (%) (Auto) 85 % (31-73) Lymphocytes (%) (Auto) 11 % (24-48) Monocytes (%) (Auto) 3 % (0-9) Eosinophils (%) (Auto) 2 % (0-3) Basophils (%) (Auto) 0 % (0-3) Neutrophils # (Auto) 9.5 x10^3/uL (1.8-7.7) Lymphocytes # (Auto) 1.2 x10^3/uL (1.0-4.8) Monocytes # (Auto) 0.3 x10^3/uL (0.0-1.1) Eosinophils # (Auto) 0.2 x10^3/uL (0.0-0.7) Basophils # (Auto) 0.0 x10^3/uL (0.0-0.2) Sodium Level 141 mmol/L (136-145) Potassium Level 3.4 mmol/L (3.5-5.1) Chloride Level 103 mmol/L (98-107) Carbon Dioxide Level 28 mmol/L (21-32) Anion Gap 10 (6-14) Blood Urea Nitrogen 16 mg/dL (7-20) Creatinine 0.9 mg/dL (0.6-1.0) Estimated GFR (Cockcroft-Gault) 61.9 BUN/Creatinine Ratio 18 (6-20) Glucose Level 147 mg/dL (70-99) Lactic Acid Level 1.2 mmol/L (0.4-2.0) Calcium Level 8.6 mg/dL (8.5-10.1) Magnesium Level 2.1 mg/dL (1.8-2.4) Total Bilirubin 0.5 mg/dL (0.2-1.0) Aspartate Amino Transf (AST/SGOT) 18 U/L (15-37) Alanine Aminotransferase (ALT/SGPT) 15 U/L (14-59) Alkaline Phosphatase 94 U/L (46-116) Creatine Kinase 68 U/L (26-192) Creatine Kinase MB (Mass) 0.9 ng/mL (0.0-3.6) Creatine Kinase MB Relative Index % (0-4) Troponin I Quantitative < 0.017 ng/mL (0.000-0.055) < 0.017 ng/mL (0.000-0.055) < 0.017 ng/mL (0.000-0.055) WG-Tdd-B-Type Natriuretic Peptide 103 pg/mL (0-124) Total Protein 7.4 g/dL (6.4-8.2) Albumin 3.3 g/dL (3.4-5.0) Albumin/Globulin Ratio 0.8 (1.0-1.7) Laboratory Tests Test 06/11/19 12:23 06/11/19 16:05 Troponin I Quantitative < 0.017 ng/mL (0.000-0.055) < 0.017 ng/mL (0.000-0.055) Microbiology 06/11/19 Blood Culture - Preliminary, Resulted NO GROWTH AFTER 1 DAY Medications Current Medications Albuterol/ Ipratropium (Duoneb) 3 ml 1X ONCE NEB Last administered on 06/11/19at 07:26; Start 06/11/19 at 07:30; Stop 06/11/19 at 07:31; Status DC Dexamethasone (Decadron) 10 mg 1X ONCE PO Last administered on 06/11/19at 07:37; Start 06/11/19 at 07:30; Stop 06/11/19 at 07:31; Status DC Acetaminophen (Tylenol) 500 mg 1X ONCE PO Last administered on 06/11/19at 07:37; Start 06/11/19 at 08:00; Stop 06/11/19 at 08:01; Status DC Albuterol/ Ipratropium (Duoneb) 3 ml 1X ONCE NEB Last administered on 06/11/19at 08:44; Start 06/11/19 at 09:00; Stop 06/11/19 at 09:01; Status DC Ondansetron HCl (Zofran) 4 mg PRN Q8HRS PRN IV NAUSEA/VOMITING; Start 06/11/19 at 09:15; Stop 06/11/19 at 10:31; Status DC Acetaminophen (Tylenol) 650 mg PRN Q4HRS PRN PO FEVER; Start 06/11/19 at 09:15; Stop 06/11/19 at 10:31; Status DC Albuterol/ Ipratropium (Duoneb) 3 ml Q4HRS NEB ; Start 06/11/19 at 12:00; Stop 06/11/19 at 10:31; Status DC Piperacillin Sod/ Tazobactam Sod 3.375 gm/Sodium Chloride 50 ml @ 100 mls/hr Q6HRS IV Last administered on 06/12/19at 05:38; Start 06/11/19 at 12:00 Methylprednisolone Sodium Succinate (SOLU-Medrol 125MG VIAL) 100 mg Q8HRS IV Last administered on 06/12/19at 05:37; Start 06/11/19 at 14:00 Azithromycin (Zithromax) 250 mg DAILY PO Last administered on 06/12/19at 07:45; Start 06/11/19 at 11:00 Benzonatate (Tessalon Perle) 100 mg PRN TID PRN PO COUGH, 2ND CHOICE Last administered on 06/12/19at 07:45; Start 06/11/19 at 10:15 Pantoprazole Sodium (Protonix) 40 mg DAILYAC PO Last administered on 06/12/19at 07:45; Start 06/11/19 at 11:30 Sodium Chloride (Normal Saline Flush) 3 ml QSHIFT PRN IV AFTER MEDS AND BLOOD DRAWS; Start 06/11/19 at 10:30 Sodium Chloride 1,000 ml @ 65 mls/hr [id number] IV Last administered on 06/12/19at 03:24; Start 06/11/19 at 12:00 Ondansetron HCl (Zofran) 4 mg PRN Q4HRS PRN IV NAUSEA/VOMITING; Start 06/11/19 at 10:30 Acetaminophen (Tylenol) 650 mg PRN Q4HRS PRN PO TEMP OVER 100.4F OR MILD PAIN; Start 06/11/19 at 10:30 Al Hydroxide/Mg Hydroxide (Mylanta Plus Xs) 30 ml PRN DAILY PRN PO HEARTBURN / GAS; Start 06/11/19 at 10:30 Clonidine HCl (Catapres) 0.1 mg PRN Q6HRS PRN PO SBP>160 OR DBP>90; Start 06/11 at 10:30 Docusate Sodium (Colace) 100 mg PRN BID PRN PO CONSTIPATION; Start 06/11/19 at 10:30 Albuterol/ Ipratropium (Duoneb) 3 ml Q4H NEB Last administered on 06/12/19at 06:22; Start 06/11/19 at 12:00 Guaifenesin (Robitussin) 200 mg PRN Q4HRS PRN PO COUGH, 1ST CHOICE Last administered on 06/12/19at 07:45; Start 06/11/19 at 10:30 Lorazepam (Ativan) 0.5 mg PRN Q4HRS PRN PO ANXIETY / AGITATION; Start 06/11/19 at 10:30 Enoxaparin Sodium (Lovenox 40mg Syringe) 40 mg DAILY SQ ; Start 06/11/19 at 13:00 Influenza Virus Vaccine Quadrival (Afluria Quad 2019-20 (3yr Up) Syringe) 0.5 ml ONCE ONCE VAX IM Last administered on 06/11/19at 13:33; Start 06/11/19 at 14:00; Stop 06/11/19 at 14:01; Status DC Menthol/Methyl Salicylate (Bengay Greaseless Cream) 1 amos PRN QID PRN TP MUSCLE PAIN Last administered on 06/12/19at 07:49; Start 06/11/19 at 16:45 Throat Lozenges (Cepacol Sore Throat Lozenge) 1 joanne PRN Q2HRS PRN PO SORE THROAT Last administered on 06/11/19at 22:13; Start 06/11/19 at 22:15 Active Scripts Active Zithromax (Azithromycin) 250 Mg Tablet 1 Pkg PO UD Tessalon Perle (Benzonatate) 100 Mg Capsule 1 Cap PO TID Proair Hfa Inhaler (Albuterol Sulfate) 8.5 Gm Hfa.aer.ad 2 Puff IH PRN Q4-6HRS PRN 21 Days Medrol (Methylprednisolone) 4 Mg Tab.ds.pk 1 Pkg PO UD Tessalon Perle (Benzonatate) 100 Mg Capsule 100 Mg PO TID PRN Zithromax (Azithromycin) 250 Mg Tablet 1 Pkg PO UD Take 2 tablets on day 1 and then 1 tablet each day for the next 4 days as directed Prednisone 20 Mg Tablet 2 Tab PO DAILY Start this medication tomorrow, Thursday01/31/19 Proair Hfa Inhaler (Albuterol Sulfate) 8.5 Gm Hfa.aer.ad 1 Puff INH PRN Q6HRS PRN Zithromax (Azithromycin) 250 Mg Tablet 1 Pkg PO UD Take 2 tablets on day 1 and then 1 tablet each day for the next 4 days as directed Tessalon Perle (Benzonatate) 100 Mg Capsule 100 Mg PO TID PRN Prednisone 20 Mg Tablet 2 Tab PO DAILY Proair Hfa (Albuterol Sulfate) 8.5 Gm Hfa.aer.ad 1 Puff INH PRN Q6HRS PRN [Pantoprazole] 40 MG Tablet.dr 40 Mg PO DAILYAC 30 Days Doxycycline Hyclate 100 Mg Tablet 100 Mg PO BID 5 Days Atrovent Hfa (Ipratropium [place]) 12.9 Gm Hfa.aer.ad 2 Puff IH QID Ventolin Hfa Inhaler (Albuterol Sulfate) 18 Gm Hfa.aer.ad 2 Puff INH Q4HRS Prednisone 50 Mg Tablet 50 Mg PO DAILY 7 Days Prednisone 20 Mg Tablet 20 Mg PO DAILY 7 Days Doxycycline Monohydrate 100 Mg Capsule 1 Cap PO BID 10 Days [CONTRAST GIVEN -- Info Only] 1 EACH Each 1 Each MC PRN DAILY PRN 7 Days Prednisone 50 Mg Tablet 1 Tab PO DAILY Proair Hfa Inhaler (Albuterol Sulfate) 8.5 Gm Hfa.aer.ad 1 Puff INH PRN Q6HRS PRN Proair Hfa Inhaler (Albuterol Sulfate) 8.5 Gm Hfa.aer.ad 1 Puff INH PRN Q6HRS PRN 10 Days Proair Hfa Inhaler (Albuterol Sulfate) 8.5 Gm Hfa.aer.ad 2 Puff INH Q4-6HRS PRN 2 Days Ventolin Hfa Inhaler (Albuterol Sulfate) 18 Gm Hfa.aer.ad 2 Puff INH Q4HRS PRN Vitals/I & O Vital Sign - Last 24 Hours 06/11/19 06/11/19 06/11/19 06/11/19 10:17 10:27 10:30 12:04 Temp 99.3 98.1 99.3 98.1 Pulse 92 96 Resp 18 18 B/P (MAP) 128/75 (92) 110/62 (78) Pulse Ox 96 100 O2 Delivery Nasal Cannula Room Air Nasal Cannula O2 Flow Rate 3.0 3.0 1/4/20 1/4/20 1/4/20 1/4/20 12:27 15:00 15:58 17:21 Temp 96.2 98.3 96.2 98.3 Pulse 102 Resp 20 B/P (MAP) 99/49 (66) Pulse Ox 99 100 O2 Delivery Nasal Cannula Room Air Nasal Cannula O2 Flow Rate 2.0 2.0 06/11/19 06/11/19 06/11/19 06/11/19 19:21 19:45 20:44 23:30 Temp 98.2 98.1 98.2 98.1 Pulse 104 104 Resp B/P (MAP) 121/56 (77) 119/58 (78) Pulse Ox 97 98 96 O2 Delivery Nasal Cannula Nasal Cannula Nasal Cannula Nasal Cannula O2 Flow Rate 2.0 2.0 2.0 2.0 06/12/19 06/12/19 06/12/19 06/12/19 03:15 06:22 07:00 07:40 Temp 98.1 98.0 98.1 98.0 Pulse 95 99 Resp B/P (MAP) 142/67 (92) 107/56 (73) Pulse Ox 98 98 O2 Delivery Nasal Cannula Nasal Cannula Nasal Cannula Nasal Cannula O2 Flow Rate 2.0 2.0 2.0 1.0 Intake and Output 06/11/19 06/11/19 06/12/19 14:59 22:59 06:59 Intake Total 240 ml 880 ml Output Total 150 ml 100 ml Balance 240 ml -150 ml 780 ml BAL DIANA MD Jun 12, 2019 09:47
[2019-06-12 11:00] VITALS: BP 113/59
--- NOTE | 2019-06-12 11:41 | PDOC ---
PULMONARY PROGRESS NOTES Subjective doing well, denies SOB or increased cough Vitals Vital Signs Date Time Temp Pulse Resp B/P (MAP) Pulse Ox O2 Delivery O2 Flow Rate FiO2 06/12/19 11:00 98.0 93 21 113/59 (77) 96 Nasal Cannula 2.0 98.0 ROS: No Nausea, No Chest Pain, No Abdominal Pain, No Increase Cough General: Alert, Oriented X4 Lungs: Clear Cardiovascular: S1, S2 Abdomen: Soft Neuro Exam: Alert, Oriented Extremities: No Edema Skin: Warm, Dry Labs Laboratory Tests Test 06/11/19 07:13 06/11/19 09:13 06/11/19 12:23 06/11/19 16:05 Influenza Type A Antigen Negative (NEGATIVE) Influenza Type B Antigen Negative (NEGATIVE) White Blood Count 11.2 x10^3/uL (4.0-11.0) Red Blood Count 5.14 x10^6/uL (3.50-5.40) Hemoglobin 13.6 g/dL (12.0-15.5) Hematocrit 42.0 % (36.0-47.0) Mean Corpuscular Volume 82 fL (79-100) Mean Corpuscular Hemoglobin 26 pg (25-35) Mean Corpuscular Hemoglobin Concent 32 g/dL (31-37) Red Cell Distribution Width 13.6 % (11.5-14.5) Platelet Count 238 x10^3/uL (140-400) Neutrophils (%) (Auto) 85 % (31-73) Lymphocytes (%) (Auto) 11 % (24-48) Monocytes (%) (Auto) 3 % (0-9) Eosinophils (%) (Auto) 2 % (0-3) Basophils (%) (Auto) 0 % (0-3) Neutrophils # (Auto) 9.5 x10^3/uL (1.8-7.7) Lymphocytes # (Auto) 1.2 x10^3/uL (1.0-4.8) Monocytes # (Auto) 0.3 x10^3/uL (0.0-1.1) Eosinophils # (Auto) 0.2 x10^3/uL (0.0-0.7) Basophils # (Auto) 0.0 x10^3/uL (0.0-0.2) Sodium Level 141 mmol/L (136-145) Potassium Level 3.4 mmol/L (3.5-5.1) Chloride Level 103 mmol/L (98-107) Carbon Dioxide Level 28 mmol/L (21-32) Anion Gap 10 (6-14) Blood Urea Nitrogen 16 mg/dL (7-20) Creatinine 0.9 mg/dL (0.6-1.0) Estimated GFR (Cockcroft-Gault) 61.9 BUN/Creatinine Ratio 18 (6-20) Glucose Level 147 mg/dL (70-99) Lactic Acid Level 1.2 mmol/L (0.4-2.0) Calcium Level 8.6 mg/dL (8.5-10.1) Magnesium Level 2.1 mg/dL (1.8-2.4) Total Bilirubin 0.5 mg/dL (0.2-1.0) Aspartate Amino Transf (AST/SGOT) 18 U/L (15-37) Alanine Aminotransferase (ALT/SGPT) 15 U/L (14-59) Alkaline Phosphatase 94 U/L (46-116) Creatine Kinase 68 U/L (26-192) Creatine Kinase MB (Mass) 0.9 ng/mL (0.0-3.6) Creatine Kinase MB Relative Index % (0-4) Troponin I Quantitative < 0.017 ng/mL (0.000-0.055) < 0.017 ng/mL (0.000-0.055) < 0.017 ng/mL (0.000-0.055) VZ-Mmd-O-Type Natriuretic Peptide 103 pg/mL (0-124) Total Protein 7.4 g/dL (6.4-8.2) Albumin 3.3 g/dL (3.4-5.0) Albumin/Globulin Ratio 0.8 (1.0-1.7) Laboratory Tests Test 06/11/19 12:23 06/11/19 16:05 Troponin I Quantitative < 0.017 ng/mL (0.000-0.055) < 0.017 ng/mL (0.000-0.055) Medications Active Scripts Medications Dose Route/Sig Max Daily Dose Days Date Category Dose Instructions Zithromax (Azithromycin) 250 Mg Tablet 1 Pkg PO UD 04/12/19 Rx Tessalon Perle (Benzonatate) 100 Mg Capsule 1 Cap PO TID 04/12/19 Rx Proair Hfa Inhaler (Albuterol Sulfate) 8.5 Gm Hfa.aer.ad 2 Puff IH PRN Q4-6HRS PRN 21 04/12/19 Rx Medrol (Methylprednisolone) 4 Mg Tab.ds.pk 1 Pkg PO UD 04/12/19 Rx Tessalon Perle (Benzonatate) 100 Mg Capsule 100 Mg PO TID PRN 01/30/19 Rx Zithromax (Azithromycin) 250 Mg Tablet 1 Pkg PO UD 01/30/19 Rx Take 2 tablets on day 1 and then 1 tablet each day for the next 4 days as directed Prednisone 20 Mg Tablet 2 Tab PO DAILY 01/30/19 Rx Start this medication tomorrow, Thursday01/31/19 Proair Hfa Inhaler (Albuterol Sulfate) 8.5 Gm Hfa.aer.ad 1 Puff INH PRN Q6HRS PRN 01/30/19 Rx Zithromax (Azithromycin) 250 Mg Tablet 1 Pkg PO UD 10/14/18 Rx Take 2 tablets on day 1 and then 1 tablet each day for the next 4 days as directed Tessalon Perle (Benzonatate) 100 Mg Capsule 100 Mg PO TID PRN 10/14/18 Rx Prednisone 20 Mg Tablet 2 Tab PO DAILY 10/14/18 Rx Proair Hfa (Albuterol Sulfate) 8.5 Gm Hfa.aer.ad 1 Puff INH PRN Q6HRS PRN 10/14/18 Rx [Pantoprazole] 40 MG Tablet.dr 40 Mg PO DAILYAC 30 08/13/18 Rx Doxycycline Hyclate 100 Mg Tablet 100 Mg PO BID 5 08/13/18 Rx Atrovent Hfa (Ipratropium [place]) 12.9 Gm Hfa.aer.ad 2 Puff IH QID 06/05/18 Rx Ventolin Hfa Inhaler (Albuterol Sulfate) 18 Gm Hfa.aer.ad 2 Puff INH Q4HRS 06/05/18 Rx Prednisone 50 Mg Tablet 50 Mg PO DAILY 7 06/05/18 Rx Prednisone 20 Mg Tablet 20 Mg PO DAILY 7 04/16/18 Rx Doxycycline Monohydrate 100 Mg Capsule 1 Cap PO BID 10 04/16/18 Rx [CONTRAST GIVEN -- Info Only] 1 EACH Each 1 Each MC PRN DAILY PRN 7 04/16/18 Rx Prednisone 50 Mg Tablet 1 Tab PO DAILY 12/06/17 Rx Proair Hfa Inhaler (Albuterol Sulfate) 8.5 Gm Hfa.aer.ad 1 Puff INH PRN Q6HRS PRN 11/21/17 Rx Proair Hfa Inhaler (Albuterol Sulfate) 8.5 Gm Hfa.aer.ad 1 Puff INH PRN Q6HRS PRN 10 10/27/17 Rx Proair Hfa Inhaler (Albuterol Sulfate) 8.5 Gm Hfa.aer.ad 2 Puff INH Q4-6HRS PRN 2 09/06/17 Rx Ventolin Hfa Inhaler (Albuterol Sulfate) 18 Gm Hfa.aer.ad 2 Puff INH Q4HRS PRN 01/27/16 Rx Impression . IMPRESSION: 1. Acute exacerbation of asthma. 2. Acute nonspecific bronchitis. 3. Chronic interstitial lung disease seen on chest x-ray. CXR 06/11/2019 IMPRESSION: 1. Bibasilar scarring or chronic infiltrates are better aerated than on the prior study. 2. Chronic obstructive pulmonary disease. Plan . PLAN: ok to D/C today steroids for 5 days at 30mg q day no need abx on D/C Instruction pt. she may stop by office in am to receive samples thank you D/W KAVON BRAUN MD Jun 12, 2019 11:41
[2019-06-12] MEDS ORDERED: LACTOBACILLUS RHAMNOSUS GG 1 CAPSULE. PO SCH (12:00)
[2019-06-12 15:00] VITALS: BP 105/59
--- NOTE | 2019-06-12 18:08 | PDOC3 ---
Discharge Summary Date of Admission: Jun 11, 2019 Date of Discharge: Jun 12, 2019 Follow-Up: 3-5 days Admitting Diagnosis comment: discharge dx Assessment/Plan IMPRESSION: 1. Bibasilar scarring or chronic infiltrates 2. Chronic obstructive pulmonary disease., WITH ACUTE EXACERBATION 3. Acute hypoxic resp failure 4. remote tobacco abuse plan admit duonebs qid prednisone 30mg po daily x 5 days d/c today consult pulmonary med o2 support dvt prophylaxis gi prophylaxis iv zosyn d/c iv zithromax d/c Vitals Vitals Vital Signs on room air Date Time Temp Pulse Resp B/P (MAP) Pulse Ox O2 Delivery O2 Flow Rate FiO2 06/12/19 07:40 Nasal Cannula 1.0 06/12/19 07:00 98.0 99 21 107/56 (73) 98 98.0 Physical Exam General: Alert, Oriented X3, Cooperative, No acute distress Heart: Regular rate Lungs: Clear Abdomen: Normal bowel sounds, Soft, No tenderness Extremities: No cyanosis, No edema FINAL DIAGNOSIS Problems Medical Problems: (1) Bronchitis Status: Acute Brief Hospital Course Ms. Clement is a 68 old [sex] who presented with [ acute asthma ] CONDITION AT DISCHARGE: Improved Discharge Medications Current Medications Albuterol/ Ipratropium (Duoneb) 3 ml 1X ONCE NEB Last administered on 06/11/19at 07:26; Start 06/11/19 at 07:30; Stop 06/11/19 at 07:31; Status DC Dexamethasone (Decadron) 10 mg 1X ONCE PO Last administered on 06/11/19at 07:37; Start 06/11/19 at 07:30; Stop 06/11/19 at 07:31; Status DC Acetaminophen (Tylenol) 500 mg 1X ONCE PO Last administered on 06/11/19at 07:37; Start 06/11/19 at 08:00; Stop 06/11/19 at 08:01; Status DC Albuterol/ Ipratropium (Duoneb) 3 ml 1X ONCE NEB Last administered on 06/11/19at 08:44; Start 06/11/19 at 09:00; Stop 06/11/19 at 09:01; Status DC Ondansetron HCl (Zofran) 4 mg PRN Q8HRS PRN IV NAUSEA/VOMITING; Start 06/11/19 at 09:15; Stop 06/11/19 at 10:31; Status DC Acetaminophen (Tylenol) 650 mg PRN Q4HRS PRN PO FEVER; Start 06/11/19 at 09:15; Stop 06/11/19 at 10:31; Status DC Albuterol/ Ipratropium (Duoneb) 3 ml Q4HRS NEB ; Start 06/11/19 at 12:00; Stop 06/11/19 at 10:31; Status DC Piperacillin Sod/ Tazobactam Sod 3.375 gm/Sodium Chloride 50 ml @ 100 mls/hr Q6HRS IV Last administered on 06/12/19at 11:46; Start 06/11/19 at 12:00 Methylprednisolone Sodium Succinate (SOLU-Medrol 125MG VIAL) 100 mg Q8HRS IV Last administered on 06/12/19at 14:39; Start 06/11/19 at 14:00 Azithromycin (Zithromax) 250 mg DAILY PO Last administered on 06/12/19at 07:45; Start 06/11/19 at 11:00 Benzonatate (Tessalon Perle) 100 mg PRN TID PRN PO COUGH, 2ND CHOICE Last administered on 06/12/19at 14:39; Start 06/11/19 at 10:15 Pantoprazole Sodium (Protonix) 40 mg DAILYAC PO Last administered on 06/12/19at 07:45; Start 06/11/19 at 11:30 Sodium Chloride (Normal Saline Flush) 3 ml QSHIFT PRN IV AFTER MEDS AND BLOOD DRAWS; Start 06/11/19 at 10:30 Sodium Chloride 1,000 ml @ 65 mls/hr [id number] IV Last administered on 06/12/19at 03:24; Start 06/11/19 at 12:00 Ondansetron HCl (Zofran) 4 mg PRN Q4HRS PRN IV NAUSEA/VOMITING; Start 06/11/19 at 10:30 Acetaminophen (Tylenol) 650 mg PRN Q4HRS PRN PO TEMP OVER 100.4F OR MILD PAIN; Start 06/11/19 at 10:30 Al Hydroxide/Mg Hydroxide (Mylanta Plus Xs) 30 ml PRN DAILY PRN PO HEARTBURN / GAS; Start 06/11/19 at 10:30 Clonidine HCl (Catapres) 0.1 mg PRN Q6HRS PRN PO SBP>160 OR DBP>90; Start 06/11/19 at 10:30 Docusate Sodium (Colace) 100 mg PRN BID PRN PO CONSTIPATION; Start 06/11/19 at 10:30 Albuterol/ Ipratropium (Duoneb) 3 ml Q4H NEB Last administered on 06/12/19at 16:03; Start 06/11/19 at 12:00 Guaifenesin (Robitussin) 200 mg PRN Q4HRS PRN PO COUGH, 1ST CHOICE Last administered on 06/12/19at 11:46; Start 06/11/19 at 10:30 Lorazepam (Ativan) 0.5 mg PRN Q4HRS PRN PO ANXIETY / AGITATION; Start 06/11/19 at 10:30 Enoxaparin Sodium (Lovenox 40mg Syringe) 40 mg DAILY SQ ; Start 06/11/19 at 13:00 Influenza Virus Vaccine Quadrival (Afluria Quad 2019-20 (3yr Up) Syringe) 0.5 ml ONCE ONCE VAX IM Last administered on 06/11/19at 13:33; Start 06/11/19 at 14:00; Stop 06/11/19 at 14:01; Status DC Menthol/Methyl Salicylate (Bengay Greaseless Cream) 1 amos PRN QID PRN TP MUSCLE PAIN Last administered on 06/12/19at 07:49; Start 06/11/19 at 16:45 Throat Lozenges (Cepacol Sore Throat Lozenge) 1 joanne PRN Q2HRS PRN PO SORE THROAT Last administered on 06/11/19at 22:13; Start 06/11/19 at 22:15 Lactobacillus Rhamnosus (Culturelle) 1 cap BID PO Last administered on 06/12/19at 11:46; Start 06/12/19 at 12:00 Active Scripts Active Zithromax (Azithromycin) 250 Mg Tablet 1 Pkg PO UD Tessalon Perle (Benzonatate) 100 Mg Capsule 1 Cap PO TID Proair Hfa Inhaler (Albuterol Sulfate) 8.5 Gm Hfa.aer.ad 2 Puff IH PRN Q4-6HRS PRN 21 Days Medrol (Methylprednisolone) 4 Mg Tab.ds.pk 1 Pkg PO UD Tessalon Perle (Benzonatate) 100 Mg Capsule 100 Mg PO TID PRN Zithromax (Azithromycin) 250 Mg Tablet 1 Pkg PO UD Take 2 tablets on day 1 and then 1 tablet each day for the next 4 days as directed Prednisone 20 Mg Tablet 2 Tab PO DAILY Start this medication tomorrow, Thursday01/31/19 Proair Hfa Inhaler (Albuterol Sulfate) 8.5 Gm Hfa.aer.ad 1 Puff INH PRN Q6HRS PRN Zithromax (Azithromycin) 250 Mg Tablet 1 Pkg PO UD Take 2 tablets on day 1 and then 1 tablet each day for the next 4 days as directed Tessalon Perle (Benzonatate) 100 Mg Capsule 100 Mg PO TID PRN Prednisone 20 Mg Tablet 2 Tab PO DAILY Proair Hfa (Albuterol Sulfate) 8.5 Gm Hfa.aer.ad 1 Puff INH PRN Q6HRS PRN [Pantoprazole] 40 MG Tablet.dr 40 Mg PO DAILYAC 30 Days Doxycycline Hyclate 100 Mg Tablet 100 Mg PO BID 5 Days Atrovent Hfa (Ipratropium [place]) 12.9 Gm Hfa.aer.ad 2 Puff IH QID Ventolin Hfa Inhaler (Albuterol Sulfate) 18 Gm Hfa.aer.ad 2 Puff INH Q4HRS Prednisone 50 Mg Tablet 50 Mg PO DAILY 7 Days Prednisone 20 Mg Tablet 20 Mg PO DAILY 7 Days Doxycycline Monohydrate 100 Mg Capsule 1 Cap PO BID 10 Days [CONTRAST GIVEN -- Info Only] 1 EACH Each 1 Each MC PRN DAILY PRN 7 Days Prednisone 50 Mg Tablet 1 Tab PO DAILY Proair Hfa Inhaler (Albuterol Sulfate) 8.5 Gm Hfa.aer.ad 1 Puff INH PRN Q6HRS PRN Proair Hfa Inhaler (Albuterol Sulfate) 8.5 Gm Hfa.aer.ad 1 Puff INH PRN Q6HRS PRN 10 Days Proair Hfa Inhaler (Albuterol Sulfate) 8.5 Gm Hfa.aer.ad 2 Puff INH Q4-6HRS PRN 2 Days Ventolin Hfa Inhaler (Albuterol Sulfate) 18 Gm Hfa.aer.ad 2 Puff INH Q4HRS PRN Vital Signs Vital Signs Date Time Temp Pulse Resp B/P (MAP) Pulse Ox O2 Delivery O2 Flow Rate FiO2 06/12/19 16:55 95 Room Air 06/12/19 15:00 98.1 98 18 105/59 (74) 2.0 98.1 Labs Laboratory Tests Test 06/11/19 07:13 06/11/19 09:13 06/11/19 12:23 06/11/19 16:05 Influenza Type A Antigen Negative (NEGATIVE) Influenza Type B Antigen Negative (NEGATIVE) White Blood Count 11.2 x10^3/uL (4.0-11.0) Red Blood Count 5.14 x10^6/uL (3.50-5.40) Hemoglobin 13.6 g/dL (12.0-15.5) Hematocrit 42.0 % (36.0-47.0) Mean Corpuscular Volume 82 fL (79-100) Mean Corpuscular Hemoglobin 26 pg (25-35) Mean Corpuscular Hemoglobin Concent 32 g/dL (31-37) Red Cell Distribution Width 13.6 % (11.5-14.5) Platelet Count 238 x10^3/uL (140-400) Neutrophils (%) (Auto) 85 % (31-73) Lymphocytes (%) (Auto) 11 % (24-48) Monocytes (%) (Auto) 3 % (0-9) Eosinophils (%) (Auto) 2 % (0-3) Basophils (%) (Auto) 0 % (0-3) Neutrophils # (Auto) 9.5 x10^3/uL (1.8-7.7) Lymphocytes # (Auto) 1.2 x10^3/uL (1.0-4.8) Monocytes # (Auto) 0.3 x10^3/uL (0.0-1.1) Eosinophils # (Auto) 0.2 x10^3/uL (0.0-0.7) Basophils # (Auto) 0.0 x10^3/uL (0.0-0.2) Sodium Level 141 mmol/L (136-145) Potassium Level 3.4 mmol/L (3.5-5.1) Chloride Level 103 mmol/L (98-107) Carbon Dioxide Level 28 mmol/L (21-32) Anion Gap 10 (6-14) Blood Urea Nitrogen 16 mg/dL (7-20) Creatinine 0.9 mg/dL (0.6-1.0) Estimated GFR (Cockcroft-Gault) 61.9 BUN/Creatinine Ratio 18 (6-20) Glucose Level 147 mg/dL (70-99) Lactic Acid Level 1.2 mmol/L (0.4-2.0) Calcium Level 8.6 mg/dL (8.5-10.1) Magnesium Level 2.1 mg/dL (1.8-2.4) Total Bilirubin 0.5 mg/dL (0.2-1.0) Aspartate Amino Transf (AST/SGOT) 18 U/L (15-37) Alanine Aminotransferase (ALT/SGPT) 15 U/L (14-59) Alkaline Phosphatase 94 U/L (46-116) Creatine Kinase 68 U/L (26-192) Creatine Kinase MB (Mass) 0.9 ng/mL (0.0-3.6) Creatine Kinase MB Relative Index % (0-4) Troponin I Quantitative < 0.017 ng/mL (0.000-0.055) < 0.017 ng/mL (0.000-0.055) < 0.017 ng/mL (0.000-0.055) NV-Odp-N-Type Natriuretic Peptide 103 pg/mL (0-124) Total Protein 7.4 g/dL (6.4-8.2) Albumin 3.3 g/dL (3.4-5.0) Albumin/Globulin Ratio 0.8 (1.0-1.7) Allergies Allergies Coded Allergies Type Severity Reaction Last Updated Verified No Known Drug Allergies 01/27/16 No Disposition/Orders: D/C to Home Patient Instructions d/c planning 20 min BAL DIANA MD Jun 12, 2019 18:08
[2019-06-12] MEDS ORDERED: PRED20TA PO (18:10)
--- NOTE | 2019-06-12 18:12 | DISCH ---
DISCHARGE INSTRUCTIONS Condition on Discharge Condition on Discharge: Stable Activity After Discharge Activity Instructions for Disc: Resume previous activity Lifting Instructions after Dis: No heavy lifting, No pulling or pushing Exercise Instruction after Dis: Walk 10 min, 3 x per day Driving Instructions after Dis: Do not drive today Weight Bearing Status after Di: Full weight bearing Diet after Discharge Diet after Discharge: Cardiac Contacting the DRMarixa after DC Call your doctor for: If your condition worsens BAL DIANA MD Jun 12, 2019 18:12
--- NOTE | 2019-06-12 18:33 | NUR ---
discharge instructions discussed with patient. patients iv out and tele monitor off. patient given prednisone prescription. patient informed to go see Dr olivas in morning for samples of asthma medication. patient informed to follow up with pcp in 1 week. patent has no questions at time of discharge. patient stable at time of discharge with no complaints. patient escorted to [employer] personal vehicle per wheelchair by demarcus de león.
--- NOTE | 2019-06-13 06:48 | EKG ---
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
== END 2019-06-12 18:36 | disposition home or self-care (01) | DRG 189 ==
LOC: ER 06:51 → 2 NORTH 09:00
PROVIDERS: ADMIT Family Medicine; ATTEND Family Medicine
DX: J96.01 Acute respiratory failure with hypoxia (principal); J44.0 Chronic obstructive pulmonary disease with (acute) lower respiratory infection; J45.901 Unspecified asthma with (acute) exacerbation; J84.9 Interstitial pulmonary disease, unspecified; J44.1 Chronic obstructive pulmonary disease with (acute) exacerbation; J20.9 Acute bronchitis, unspecified; K44.9 Diaphragmatic hernia without obstruction or gangrene; Z87.891 Personal history of nicotine dependence
CPT/HCPCS: 36415; 71046; 80053; 82553; 83605; 83735; 83880; 84484; 85025; 87040; 87804; 90471; 90686; 93005; 94640; 94760; J2543; J2930; J7030; J7620; J8540; Q0144; G0378

== ENCOUNTER 2021-02-21 10:54 | Inpatient (IN) | payer SELFPAY ==
[~2021-02-21] VITALS: Ht 165.1 cm; Wt 72.1 kg
[~2021-02-21 10:54] MED LIST changes: +AMOX1TAB58 PO; +DOXY-181 PO; -DOXY100C14 PO; +GUAI120L35 PO
[2021-02-21] MEDS ORDERED: methylPREDNISolone SOD SUCC PF 125 MG/2 ML VIAL. IV ONE (11:30)
[2021-02-21] MEDS ORDERED: IPRATRPIUM/ALBUTEROL 0.5/2.5MG 3 ML NEBU. NEB ONE ×2 (11:30→13:00)
--- NOTE | 2021-02-21 11:30 | PHYS DOC ---
Past Medical History Past Medical History: Asthma, COPD Past Surgical History: No Surgical History Smoking Status: Former Smoker Alcohol Use: None Drug Use: None General Adult EDM: Chief Complaint: SHORTNESS OF BREATH HPI: HPI: Patient is a 70 year old female with history of COPD, presented to ER due to trouble breathing started this morning. Patient denies any chest pain. Patient denies cough or fever. Patient was not vaccinated for COVID-19. Patient has used her inhaler at home but did not get better so her family brought her here for evaluation. Upon arrival to room patient was in mild respiratory distress, her saturation was 88% on room air, she was breathing faster than normal, she had wheezing throughout her lungs, decreased air movement, speaking few word sentences. Review of Systems: Review of Systems: Constitutional: Denies fever or chills. [] Eyes: Denies change in visual acuity. [] HENT: Denies nasal congestion or sore throat. [] Respiratory: Denies any cough, positive for trouble breathing. [] Cardiovascular: Denies chest pain or edema. [] GI: Denies abdominal pain, nausea, vomiting, bloody stools or diarrhea. [] : Denies dysuria. [] Musculoskeletal: Denies back pain or joint pain. [] Integument: Denies rash. [] Neurologic: Denies headache, focal weakness or sensory changes. [] Endocrine: Denies polyuria or polydipsia. [] Lymphatic: Denies swollen glands. [] Psychiatric: Denies depression or anxiety. [] Heart Score: C/O Chest Pain: N/A Risk Factors: Risk Factors: DM, Current or recent (<one month) smoker, HTN, HLP, family history of CAD, obesity. Risk Scores: Score 0 - 3: 2.5% MACE over next 6 weeks - Discharge Home Score 4 - 6: 20.3% MACE over next 6 weeks - Admit for Clinical Observation Score 7 - 10: 72.7% MACE over next 6 weeks - Early Invasive Strategies Allergies: Allergies: Allergies Coded Allergies Type Severity Reaction Last Updated Verified No Known Drug Allergies 01/27/16 No Physical Exam: PE: Constitutional: Well developed, well nourished, mild acute distress, non-toxic appearance. [] HENT: Normocephalic, atraumatic, bilateral external ears normal, oropharynx moist, no oral exudates, nose normal. [] Eyes: PERRLA, EOMI, conjunctiva normal, no discharge. [] Neck: Normal range of motion, no tenderness, supple, no stridor. [] Cardiovascular sinus tachycardia, regular rhythm, no murmur [] Lungs & Thorax: Mild respiratory distress, tachypnea, increased work of breathing, decreased air movement throughout the lung garcia, diffuse wheezing. Abdomen: Bowel sounds normal, soft, no tenderness, no masses, no pulsatile kervin s. [] Skin: Warm, dry, no erythema, no rash. [] Back: No tenderness, no CVA tenderness. [] Extremities: No tenderness, no cyanosis, no clubbing, ROM intact, no edema. [] Neurologic: Alert and oriented X 3, normal motor function, normal sensory function, no focal deficits noted. [] Psychologic: Affect normal, judgement normal, mood normal. [] Current Patient Data: Labs: Laboratory Tests Test 02/21/21 11:38 02/21/21 11:45 02/21/21 11:48 Urine Collection Type Void Urine Color Yellow Urine Clarity Clear Urine pH 6.5 Urine Specific [place] 1.010 Urine Protein Negative mg/dL Urine Glucose (UA) Negative mg/dL Urine Ketones (Stick) Negative mg/dL Urine Blood Small Urine Nitrite Positive Urine Bilirubin Negative Urine Urobilinogen Dipstick 0.2 mg/dL Urine Leukocyte Esterase Trace Urine RBC 1-2 /HPF Urine WBC 5-10 /HPF Urine Squamous Epithelial Cells Few /LPF Urine Bacteria Many /HPF White Blood Count 14.6 x10^3/uL Red Blood Count 5.52 x10^6/uL Hemoglobin 14.9 g/dL Hematocrit 45.1 % Mean Corpuscular Volume 82 fL Mean Corpuscular Hemoglobin 27 pg Mean Corpuscular Hemoglobin Concent 33 g/dL Red Cell Distribution Width 13.7 % Platelet Count 307 x10^3/uL Neutrophils (%) (Auto) 90 % Lymphocytes (%) (Auto) 5 % Monocytes (%) (Auto) 4 % Eosinophils (%) (Auto) 1 % Basophils (%) (Auto) 0 % Neutrophils # (Auto) 13.1 x10^3/uL Lymphocytes # (Auto) 0.7 x10^3/uL Monocytes # (Auto) 0.5 x10^3/uL Eosinophils # (Auto) 0.2 x10^3/uL Basophils # (Auto) 0.0 x10^3/uL Sodium Level 137 mmol/L Potassium Level 4.1 mmol/L Chloride Level 99 mmol/L Carbon Dioxide Level 30 mmol/L Anion Gap 8 Blood Urea Nitrogen 15 mg/dL Creatinine 1.0 mg/dL Estimated GFR (Cockcroft-Gault) 54.5 BUN/Creatinine Ratio 15 Glucose Level 117 mg/dL Calcium Level 9.0 mg/dL Magnesium Level 2.3 mg/dL Total Bilirubin 0.5 mg/dL Aspartate Amino Transf (AST/SGOT) 26 U/L Alanine Aminotransferase (ALT/SGPT) 20 U/L Alkaline Phosphatase 104 U/L Troponin I Quantitative < 0.017 ng/mL ZJ-Ifn-P-Type Natriuretic Peptide 82 pg/mL Total Protein 8.6 g/dL Albumin 3.7 g/dL Albumin/Globulin Ratio 0.8 SARS-CoV-2 Antigen (Rapid) Negative Current Medications Medications (Trade) Dose Ordered Sig/Nhan Route PRN Reason Start Time Stop Time Status Last Admin Dose Admin Methylprednisolone Sodium Succinate (SOLU-Medrol 125MG VIAL) 125 mg 1X ONCE IV 02/21/21 11:30 02/21/21 11:31 DC 02/21/21 11:51 Albuterol/ Ipratropium (Duoneb) 3 ml 1X ONCE NEB 02/21/21 11:30 02/21/21 11:31 DC 02/21/21 11:53 Albuterol/ Ipratropium (Duoneb) 3 ml 1X ONCE NEB 02/21/21 13:00 02/21/21 13:01 DC 02/21/21 13:07 Vital Signs: Vital Signs Date Time Temp Pulse Resp B/P (MAP) Pulse Ox O2 Delivery O2 Flow Rate FiO2 02/21/21 11:05 98.5 104 32 165/138 (147) 91 Room Air 98.5 EKG: EKG: EKG was done at 1109, heart rate 103 bpm, sinus tachycardia, no ST segment elevation Radiology/Procedures: Radiology/Procedures: [][facility] [address] [place] [address] IMAGING REPORT Signed PATIENT: MARLEY TUCKER ACCOUNT: [id number] : 1950 LOCATION: ER AGE: 70 SEX: F EXAM STATUS: REG ER ORD. PHYSICIAN: ADELE FISCHER DO REASON: soa PROCEDURE: CHEST AP ONLY EXAM: Chest, single view. HISTORY: Shortness of air. COMPARISON: 06/20/2019 FINDINGS: A frontal view of the chest is obtained. There is stable right lower lobe predominant interstitial opacity superimposed on diffuse interstitial prominence. There is a stable prominent cardiac silhouette. There is no pneumothorax. There may be trace right pleural effusion or basilar pleural thickening. IMPRESSION: Right lower lobe interstitial infiltrate or scarring superimposed on chronic diffuse interstitial changes. Electronically signed by: Skye Kincaid MD (02/21/2021 11:32 AM) [id number] DICTATED and SIGNED BY: SKYE KINCAID MD DATE: 02/21/21 [id number] Course & Med Decision Making: Course & Med Decision Making Pertinent Labs and Imaging studies reviewed. (See chart for details) Patient is a 70-year-old female who present to ER due to trouble breathing. Patient has COPD, she has COPD exacerbation. Patient was given steroids and DuoNeb treatment in ER, she continues to be hypoxic, her sats was 80% on room air, improved to 92% on 2 L. Patient was tested negative for COVID-19. Patient will need to be admitted to hospital for further evaluation and treatment. Discussed with hospitalist on-call Dr. Paiz who agreed to admit the patient. Dragon Disclaimer: Dragdutch Disclaimer: This electronic medical record was generated, in whole or in part, using a voice recognition dictation system. Departure Departure Impression: Primary Impression: COPD exacerbation Additional Impression: Person under investigation for COVID-19 Disposition: ADMITTED INPATIENT Admitting Physician: RENETTA (Dr. Paiz) Condition: STABLE Referrals: BRIDGETTE KATZ APRN (PCP) ADELE FISCHER DO Feb 21, 2021 11:30
--- NOTE | 2021-02-21 11:34 | RAD ---
EXAM: Chest, single view. HISTORY: Shortness of air. COMPARISON: 06/20/2019 FINDINGS: A frontal view of the chest is obtained. There is stable right lower lobe predominant inter stitial opacity superimposed on diffuse interstitial prominence. There is a stable prominent cardiac silhouette. There is no pneumothorax. There may be trace right pleural effusion or basilar pleural th ickening. IMPRESSION: Right lower lobe interstitial infiltrate or scarring superimposed on chronic diffuse inte rstitial changes. Electronically signed by: Skye Spain MD (02/21/2021 11:32 AM) [id number]
--- NOTE | 2021-02-21 11:52 | EKG ---
[facility] [address] [place] [address] Test Date: 2021-02-21 Test Time: 11:09:32 Pat Name: MARLEY TUCKER Department: Room: Gender: F Medical Affairs Leader: : 1950 Requested By: ADELE FISCHER Order Number: [id number] Reading MD: Measurements Intervals [place] Rate: 103 P: 49 AK: 148 QRS: 72 QRSD: 86 T: 48 QT: 354 QTc: 466 Interpretive Statements SINUS TACHYCARDIA NO SPECIFIC ECG ABNORMALITIES RI6.02 No previous ECG available for comparison
[2021-02-21 11:58] LABS: BASO % 0 % (0-3); EOS # 0.2 x10^3/uL (0.0-0.7); EOS % 1 % (0-3); HEMATOCRIT 45.1 % (36.0-47.0); HEMOGLOBIN 14.9 g/dL (12.0-15.5); LYMPH # 0.7 x10^3/uL (1.0-4.8); LYMPH % 5 % (24-48); MEAN CORPUSCULAR HEMOGLOBIN 27 pg (25-35); MEAN CORPUSCULAR HGB CONC 33 g/dL (31-37); MEAN CORPUSCULAR VOLUME 82 fL (79-100); MONO # 0.5 x10^3/uL (0.0-1.1); MONO % 4 % (0-9); NEUT # 13.1 x10^3/uL (1.8-7.7); NEUT % 90 % (31-73); PLATELET COUNT 307 x10^3/uL (140-400); RED BLOOD COUNT 5.52 x10^6/uL (3.50-5.40); RED CELL DISTRIBUTION WIDTH 13.7 % (11.5-14.5); WHITE BLOOD COUNT 14.6 x10^3/uL (4.0-11.0)
[2021-02-21 12:13] LABS: GFR 54.5; POTASSIUM 4.1 mmol/L (3.5-5.1)
[2021-02-21 12:19] LABS: ALBUMIN 3.7 g/dL (3.4-5.0); ALBUMIN/GLOBULIN RATIO 0.8 (1.0-1.7); MAGNESIUM 2.3 mg/dL (1.8-2.4); TOTAL BILIRUBIN 0.5 mg/dL (0.2-1.0); TOTAL PROTEIN 8.6 g/dL (6.4-8.2)
[2021-02-21 12:22] LABS: BILIRUBIN,URINE NEGATIVE (NEG); CLARITY,URINE CLEAR; COLOR,URINE YELLOW; NITRITE,URINE POSITIVE (NEG); PH,URINE 6.5 (<5.0-8.0); PROTEIN,URINE NEGATIVE (NEG-TRACE); UROBILINOGEN,URINE 0.2 mg/dL (0.2 mg/dL)
[2021-02-21 12:41] LABS: BACTERIA,URINE MANY /HPF (0-FEW)
[2021-02-21] MEDS ORDERED: ONDANSETRON PF 4 MG/2 ML VIAL. IVP PRN (14:00)
[2021-02-21] MEDS ORDERED: cefTRIAXone IV Push 1 GM VIAL. IVP ONE (14:00)
--- NOTE | 2021-02-21 14:01 | PDOC1 ---
History and Physical Date of Admission Date of Admission DATE: 02/21/21 TIME: 13:55 Identification/Chief Complaint Chief Complaint Cough Source Source: Patient History of Present Illness History of Present Illness Ms Clement is a 70 year old female with PMHX COPD, Chukese speaking only with daughter present as snout puller as [employer] snout puller services were not av ailable, comes to ED c/o sudden onset shortness of breath this morning, difficulty getting a deep breath. Patient denies any chest pain. Patient denies cough or fever. Patient was not vaccinated for COVID-19. Patient has used her inhaler at home but did not get better so her family brought her here for evaluation. Cough sputum productive of brownish sputum, on further review she has been coughing for the past 4 days. O2 saturations less than 80% placed on nasal cannula O2 with some improvement. WBC 14.6, Hb 14.9, platelets 307, NA 137, K4.9, BUN 15, CR 1, glucose 115, LFTs within normal laboratory limits NT proBNP 22, troponin normal 0, albumin 3.7, urinalysis trace leuk esterase positive nitrates small amount of blood, rapid COVID-19 negative. EKG sinus tachycardia rate of 103 bpm normal axis and intervals, QTC 466 Chest radiograph with right lower lobe infiltrate. Admitted for further care Past Medical History Pulmonary: Asthma, Bronchitis Hepatobiliary: Other Infectious disease: No pertinent hx Endocrine: No pertinent hx Past Surgical History Past Surgical History: No pertinent history Family History Family History: High Cholestrol Social History Smoke: Quit ALCOHOL: none Drugs: None Current Problem List Problem List Problems Medical Problems: (1) COPD exacerbation Status: Acute (2) Person under investigation for COVID-19 Status: Acute Current Medications Current Medications Current Medications Methylprednisolone Sodium Succinate (SOLU-Medrol 125MG VIAL) 125 mg 1X ONCE IV Last administered on 02/21/21at 11:51; Start 02/21/21 at 11:30; Stop 02/21/21 at 11:31; Status DC Albuterol/ Ipratropium (Duoneb) 3 ml 1X ONCE NEB Last administered on 02/21/21at 11:53; Start 02/21/21 at 11:30; Stop 02/21/21 at 11:31; Status DC Albuterol/ Ipratropium (Duoneb) 3 ml 1X ONCE NEB Last administered on 02/21/21at 13:07; Start 02/21/21 at 13:00; Stop 02/21/21 at 13:01; Status DC Active Scripts Active Doxycycline Hyclate 100 Mg Tablet 1 Tab PO BID Codeine-Guaifen 10-100 mg/5 ml (Guaifenesin/Codeine Phosphate) 120 Ml Liquid 10- May Ml PO PRN Q4HRS PRN MDD 60 Milliliter(s) 4 Days Proair Hfa Inhaler (Albuterol Sulfate) 8.5 Gm Hfa.aer.ad 2 Puff IH PRN Q4-6HRS PRN 21 Days Augmentin 500-125 Tablet (Amoxicillin/Potassium Clav) 1 Each Tablet 1 Tab PO BID 7 Days Prednisone 20 Mg Tablet 1 Tab PO DAILY Tessalon Perle (Benzonatate) 100 Mg Capsule 1 Cap PO TID [Pantoprazole] 40 MG Tablet.dr 40 Mg PO DAILYAC 30 Days Atrovent Hfa (Ipratropium [place]) 12.9 Gm Hfa.aer.ad 2 Puff IH QID Allergies Allergies: Coded Allergies: No Known Drug Allergies (Unverified , 01/27/16) ROS General: YES: Chills, Fatigue, Malaise; No: Night Sweats, Appetite, Other PSYCHOLOGICAL ROS: No: Anxiety, Behavioral Disorder, Concentration difficultie, Decreased libido, Depression, Disorientation, Hallucinations, Hostility, Irritablity, Memory difficulties, Mood Swings, Obsessive thoughts, Physical abuse, Sexual abuse, Sleep disturbances, Suicidal ideation, Other Eyes: No Blurry vision, No Decreased vision, No Double vision, No Dry eyes, No Excessive tearing, No Eye Pain, No Itchy Eyes, No Loss of vision, No Photophobia, No Scotomata, No Uses contacts, No Uses glasses, No Other HEENT: No: Heacaches, Visual Changes, Hearing change, Nasal congestion, Nasal discharge, Oral lesions, Sinus pain, Sore Throat, Epistaxis, Sneezing, Snoring, Tinnitus, Vertigo, Vocal changes, Other ALLERGY AND IMMUNOLOGY: No: Hives, Insect Bite Sensitivity, Itchy/Watery Eyes, Nasal Congestion, Post Nasal Drip, Seasonal Allergies, Other Hematological and Lymphatic: No: Bleeding Problems, Blood Clots, Blood Transfusions, Brusing, Night Sweats, Pallor, Swollen Lymph Nodes, Other ENDOCRINE: No: Breast Changes, Galactorrhea, Hair Pattern Changes, Hot Flashes, Malaise/lethargy, Mood Swings, Palpitations, Polydipsia/polyuria, Skin Changes, Temperature Intolerance, Unexpected Weight Changes, Other Breast: No New/Changing Breast Lumps, No Nipple changes, No Nipple discharge, No Other Respiratory: YES: Cough, Shortness of breath, SOB with excertion, Sputum Changes, Tachypnea, Wheezing; No: Hemoptysis, Orthopnea, Pleuritic Pain, Stridor, Other Cardiovascular: No Chest Pain, No Palpitations, No Orthopnea, No Paroxysmal Noc. Dyspnea, No Edema, No Lt Headedness, No Other Gastrointestinal: No Nausea, No Vomiting, No Abdominal Pain, No Diarrhea, No Constipation, No Melena, No Hematochezia, No Other Genitourinary: No Dysuria, No Frequency, No Incontinence, No Hematuria, No Retention, No Discharge, No Urgency, No Pain, No Flank Pain, No Other, No , No , No , No , No , No , No Musculoskeletal: No Gait Disturbance, No Joint Pain, No Joint Stiffness, No Joint Swelling, No Muscle Pain, No Muscular Weakness, No Pain In:, No Swelling In:, No Other Neurological: No Behavorial Changes, No Bowel/Bladder ControlChng, No Confusion, No Dizziness, No Gait Disturbance, No Headaches, No Impaired Coord/balance, No Memory Loss, No Numbness/Tingling, No Seizures, No Speech Problems, No Tremors, No Visual Changes, No Weakness, No Other Skin: No Dry Skin, No Eczema, No Hair Changes, No Lumps, No Mole Changes, No Mottling, No Nail Changes, No Pruritus, No Rash, No Skin Lesion Changes, No Other, No Acne Physical Exam General: Alert, Oriented X3, Cooperative, moderate distress HEENT: Atraumatic, PERRLA, EOMI, Mucous membr. moist/pink Lungs: Other (Bilateral crackles and diffuse wheezing) Heart: S1S2, RRR, no thrills, no rubs, no gallops, no murmurs Abdomen: Normal bowel sounds, Soft, No tenderness, No hepatosplenomegaly, No masses Rectal Exam: not examined Extremities: No clubbing, No cyanosis, No edema, Normal pulses, No tenderness/swelling Skin: No rashes, No breakdown, No significant lesion Neuro: Normal gait, Normal speech, Strength at 5/5 X4 ext, Normal tone, Sensation intact, Cranial nerves 3-12 NL, Reflexes 2+ Psych/Mental Status: Mental status NL, Mood NL Vitals Vitals Vital Signs Date Time Temp Pulse Resp B/P (MAP) Pulse Ox O2 Delivery O2 Flow Rate FiO2 02/21/21 13:07 90 Room Air 02/21/21 13:00 102 39 143/80 (101) 02/21/21 11:05 98.5 98.5 Labs Labs Laboratory Tests Test 02/21/21 11:38 02/21/21 11:45 02/21/21 11:48 Urine Collection Type Void Urine Color Yellow Urine Clarity Clear Urine pH 6.5 (<5.0-8.0) Urine Specific [place] 1.010 (1.000-1.030) Urine Protein Negative mg/dL (NEG-TRACE) Urine Glucose (UA) Negative mg/dL (NEG) Urine Ketones (Stick) Negative mg/dL (NEG) Urine Blood Small (NEG) Urine Nitrite Positive (NEG) Urine Bilirubin Negative (NEG) Urine Urobilinogen Dipstick 0.2 mg/dL (0.2 mg/dL) Urine Leukocyte Esterase Trace (NEG) Urine RBC 1-2 /HPF (0-2) Urine WBC 5-10 /HPF (0-4) Urine Squamous Epithelial Cells Few /LPF Urine Bacteria Many /HPF (0-FEW) White Blood Count 14.6 x10^3/uL (4.0-11.0) Red Blood Count 5.52 x10^6/uL (3.50-5.40) Hemoglobin 14.9 g/dL (12.0-15.5) Hematocrit 45.1 % (36.0-47.0) Mean Corpuscular Volume 82 fL (79-100) Mean Corpuscular Hemoglobin 27 pg (25-35) Mean Corpuscular Hemoglobin Concent 33 g/dL (31-37) Red Cell Distribution Width 13.7 % (11.5-14.5) Platelet Count 307 x10^3/uL (140-400) Neutrophils (%) (Auto) 90 % (31-73) Lymphocytes (%) (Auto) 5 % (24-48) Monocytes (%) (Auto) 4 % (0-9) Eosinophils (%) (Auto) 1 % (0-3) Basophils (%) (Auto) 0 % (0-3) Neutrophils # (Auto) 13.1 x10^3/uL (1.8-7.7) Lymphocytes # (Auto) 0.7 x10^3/uL (1.0-4.8) Monocytes # (Auto) 0.5 x10^3/uL (0.0-1.1) Eosinophils # (Auto) 0.2 x10^3/uL (0.0-0.7) Basophils # (Auto) 0.0 x10^3/uL (0.0-0.2) Sodium Level 137 mmol/L (136-145) Potassium Level 4.1 mmol/L (3.5-5.1) Chloride Level 99 mmol/L (98-107) Carbon Dioxide Level 30 mmol/L (21-32) Anion Gap 8 (6-14) Blood Urea Nitrogen 15 mg/dL (7-20) Creatinine 1.0 mg/dL (0.6-1.0) Estimated GFR (Cockcroft-Gault) 54.5 BUN/Creatinine Ratio 15 (6-20) Glucose Level 117 mg/dL (70-99) Calcium Level 9.0 mg/dL (8.5-10.1) Magnesium Level 2.3 mg/dL (1.8-2.4) Total Bilirubin 0.5 mg/dL (0.2-1.0) Aspartate Amino Transf (AST/SGOT) 26 U/L (15-37) Alanine Aminotransferase (ALT/SGPT) 20 U/L (14-59) Alkaline Phosphatase 104 U/L (46-116) Troponin I Quantitative < 0.017 ng/mL (0.000-0.055) RM-Gco-A-Type Natriuretic Peptide 82 pg/mL (0-124) Total Protein 8.6 g/dL (6.4-8.2) Albumin 3.7 g/dL (3.4-5.0) Albumin/Globulin Ratio 0.8 (1.0-1.7) SARS-CoV-2 Antigen (Rapid) Negative (NEGATIVE) Laboratory Tests Test 02/21/21 11:38 02/21/21 11:45 02/21/21 11:48 Urine Collection Type Void Urine Color Yellow Urine Clarity Clear Urine pH 6.5 (<5.0-8.0) Urine Specific [place] 1.010 (1.000-1.030) Urine Protein Negative mg/dL (NEG-TRACE) Urine Glucose (UA) Negative mg/dL (NEG) Urine Ketones (Stick) Negative mg/dL (NEG) Urine Blood Small (NEG) Urine Nitrite Positive (NEG) Urine Bilirubin Negative (NEG) Urine Urobilinogen Dipstick 0.2 mg/dL (0.2 mg/dL) Urine Leukocyte Esterase Trace (NEG) Urine RBC 1-2 /HPF (0-2) Urine WBC 5-10 /HPF (0-4) Urine Squamous Epithelial Cells Few /LPF Urine Bacteria Many /HPF (0-FEW) White Blood Count 14.6 x10^3/uL (4.0-11.0) Red Blood Count 5.52 x10^6/uL (3.50-5.40) Hemoglobin 14.9 g/dL (12.0-15.5) Hematocrit 45.1 % (36.0-47.0) Mean Corpuscular Volume 82 fL (79-100) Mean Corpuscular Hemoglobin 27 pg (25-35) Mean Corpuscular Hemoglobin Concent 33 g/dL (31-37) Red Cell Distribution Width 13.7 % (11.5-14.5) Platelet Count 307 x10^3/uL (140-400) Neutrophils (%) (Auto) 90 % (31-73) Lymphocytes (%) (Auto) 5 % (24-48) Monocytes (%) (Auto) 4 % (0-9) Eosinophils (%) (Auto) 1 % (0-3) Basophils (%) (Auto) 0 % (0-3) Neutrophils # (Auto) 13.1 x10^3/uL (1.8-7.7) Lymphocytes # (Auto) 0.7 x10^3/uL (1.0-4.8) Monocytes # (Auto) 0.5 x10^3/uL (0.0-1.1) Eosinophils # (Auto) 0.2 x10^3/uL (0.0-0.7) Basophils # (Auto) 0.0 x10^3/uL (0.0-0.2) Sodium Level 137 mmol/L (136-145) Potassium Level 4.1 mmol/L (3.5-5.1) Chloride Level 99 mmol/L (98-107) Carbon Dioxide Level 30 mmol/L (21-32) Anion Gap 8 (6-14) Blood Urea Nitrogen 15 mg/dL (7-20) Creatinine 1.0 mg/dL (0.6-1.0) Estimated GFR (Cockcroft-Gault) 54.5 BUN/Creatinine Ratio 15 (6-20) Glucose Level 117 mg/dL (70-99) Calcium Level 9.0 mg/dL (8.5-10.1) Magnesium Level 2.3 mg/dL (1.8-2.4) Total Bilirubin 0.5 mg/dL (0.2-1.0) Aspartate Amino Transf (AST/SGOT) 26 U/L (15-37) Alanine Aminotransferase (ALT/SGPT) 20 U/L (14-59) Alkaline Phosphatase 104 U/L (46-116) Troponin I Quantitative < 0.017 ng/mL (0.000-0.055) PJ-Qfi-V-Type Natriuretic Peptide 82 pg/mL (0-124) Total Protein 8.6 g/dL (6.4-8.2) Albumin 3.7 g/dL (3.4-5.0) Albumin/Globulin Ratio 0.8 (1.0-1.7) SARS-CoV-2 Antigen (Rapid) Negative (NEGATIVE) Images Images Chest radiograph: A frontal view of the chest is obtained. There is stable right lower lobe predominant interstitial opacity superimposed on diffuse interstitial prominence. There is a stable prominent cardiac silhouette. There is no pneumothorax. There may be trace right pleural effusion or basilar pleural thickening. IMPRESSION: Right lower lobe interstitial infiltrate or scarring superimposed on chronic diffuse interstitial changes. VTE Prophylaxis Ordered VTE Prophylaxis Devices: No VTE Pharmacological Prophylaxi: Yes Assessment/Plan Assessment/Plan A/P: Acute respiratory failure with hypoxia - due to COPD and pneumonia. Wean O2 as tolerated. F/u COVID 19 results Right lower lobe pneumonia - no history of aspiration, with brown sputum. Likely gram negative given structural lung disease with COPD history Acute COPD exacerbation - aggressive nebs and pulm toileting. Given steroids, will likely not need to continue them. Sepsis - due to pneumonia, given empiric fluids, antibiotics FEN - General diet PPX - lovenox FULL Code Dispo - inpatient Justifications for Admission Other Justification RIFFEL,CHRISTOPHER S MD Feb 21, 2021 14:01
[2021-02-21] MEDS ORDERED: IPRATRPIUM/ALBUTEROL 0.5/2.5MG 3 ML NEBU. NEB SCH (16:00)
[2021-02-21 17:20] VITALS: BP 115/68
[2021-02-21 19:00] VITALS: BP 106/64
[2021-02-21] MEDS ORDERED: ACETAMINOPHEN 325 MG TABLET. PO PRN (19:00)
[2021-02-21] MEDS ORDERED: NITROGLYCERIN SUBLINGUAL 0.4 MG BOTTLE OF 25. SL PRN (19:00)
[2021-02-21] MEDS ORDERED: ALBUTEROL SULFATE 2.5 MG/3 ML NEBU. NEB PRN (19:00)
[2021-02-21] MEDS: ENOXAPARIN 40 MG/0.4 ML SYRINGE. SQ SCH ×2 (21:00→21:23)
[2021-02-21] MEDS: DOXYCYCLINE HYCLATE 100 MG in IV DEXTROSE 5% 100ML 100 ML IV SCH (21:22)
[2021-02-21] MEDS: LACTOBACILLUS RHAMNOSUS GG 1 CAPSULE. PO SCH (21:23)
[2021-02-21] MEDS: IPRATRPIUM/ALBUTEROL 0.5/2.5MG 3 ML NEBU. NEB SCH (21:37)
[2021-02-21] MEDS: BUDESONIDE 0.5 MG/2 ML NEBU. NEB SCH (21:37)
[2021-02-21 23:00] VITALS: BP 111/64
[2021-02-21] MEDS: guaiFENesin DM 200MG/20MG 10 ML SYRUP PO PRN (23:30)
[2021-02-22 03:00] VITALS: BP 109/63
[2021-02-22 07:00] VITALS: BP 113/64
[2021-02-22] MEDS: IPRATRPIUM/ALBUTEROL 0.5/2.5MG 3 ML NEBU. NEB SCH ×4 (08:02→20:33)
[2021-02-22] MEDS: BUDESONIDE 0.5 MG/2 ML NEBU. NEB SCH ×2 (08:02→20:33)
[2021-02-22] MEDS: guaiFENesin DM 200MG/20MG 10 ML SYRUP PO PRN (08:16)
[2021-02-22] MEDS: LACTOBACILLUS RHAMNOSUS GG 1 CAPSULE. PO SCH ×2 (08:16→20:27)
[2021-02-22] MEDS: DOXYCYCLINE HYCLATE 100 MG in IV DEXTROSE 5% 100ML 100 ML IV SCH ×2 (08:17→20:27)
[2021-02-22 08:19] LABS: BASO % 0 % (0-3); EOS % 0 % (0-3); HEMATOCRIT 43.8 % (36.0-47.0); HEMOGLOBIN 14.5 g/dL (12.0-15.5); LYMPH # 0.8 x10^3/uL (1.0-4.8); LYMPH % 7 % (24-48); MEAN CORPUSCULAR HEMOGLOBIN 27 pg (25-35); MEAN CORPUSCULAR HGB CONC 33 g/dL (31-37); MEAN CORPUSCULAR VOLUME 82 fL (79-100); MONO # 0.3 x10^3/uL (0.0-1.1); MONO % 3 % (0-9); NEUT # 9.8 x10^3/uL (1.8-7.7); NEUT % 90 % (31-73); PLATELET COUNT 297 x10^3/uL (140-400); RED BLOOD COUNT 5.32 x10^6/uL (3.50-5.40); RED CELL DISTRIBUTION WIDTH 13.6 % (11.5-14.5); WHITE BLOOD COUNT 10.9 x10^3/uL (4.0-11.0)
[2021-02-22 08:24] LABS: ALBUMIN 3.1 g/dL (3.4-5.0); ALBUMIN/GLOBULIN RATIO 0.7 (1.0-1.7); CREATININE 0.9 mg/dL (0.6-1.0); GFR 61.5; POTASSIUM 4.2 mmol/L (3.5-5.1); TOTAL BILIRUBIN 0.3 mg/dL (0.2-1.0); TOTAL PROTEIN 7.8 g/dL (6.4-8.2)
--- NOTE | 2021-02-22 08:36 | PDOC ---
[employer] PROGRESS NOTE Date of Service DOS: DATE: 02/22/21 TIME: 08:35 Chief Complaint Chief Complaint A/P: Acute respiratory failure with hypoxia - due to COPD and pneumonia. Wean O2 as tolerated. Negative COVID 19 results Right lower lobe pneumonia - no history of aspiration, with brown sputum. Likely gram negative given structural lung disease with COPD history Acute COPD exacerbation - aggressive nebs and pulm toileting. Given steroids, will likely not need to continue them. Sepsis - due to pneumonia, given empiric fluids, antibiotics UTI - 100,000 cfu GNR, cont IV rocephin FEN - General diet PPX - lovenox FULL Code Dispo - inpatient History of Present Illness History of Present Illness Ms Clement is a 70 year old female with PMHX COPD, Chuukese speaking only with daughter present as flower arranger as [employer] flower arranger services were not available, comes to ED c/o sudden onset shortness of breath this morning, difficulty getting a deep breath. Patient denies any chest pain. Patient denies cough or fever. Patient was not vaccinated for COVID-19. Patient has used her inhaler at home but did not get better so her family brought her here for evaluation. Cough sputum productive of brownish sputum, on further review she has been coughing for the past 4 days. O2 saturations less than 80% placed on nasal cannula O2 with some improvement. WBC 14.6, Hb 14.9, platelets 307, NA 137, K4.9, BUN 15, CR 1, glucose 115, LFTs within normal laboratory limits NT proBNP 22, troponin normal 0, albumin 3.7, urinalysis trace leuk esterase positive nitrates small amount of blood, rapid COVID-19 negative. EKG sinus tachycardia rate of 103 bpm normal axis and intervals, QTC 466 Chest radiograph with right lower lobe infiltrate. Admitted for further care Afebrile overnight. Still requiring 3 L nasal cannula oxygen. Cough is productive. Urine with greater than 100,000 colony-forming units of gram- negative rods. Discussed with daughter continue community-acquired pneumonia treatment. [place] flower arranger not available for ilustrum. Vitals/I&O Vitals/I&O: Vital Signs Date Time Temp Pulse Resp B/P (MAP) Pulse Ox O2 Delivery O2 Flow Rate FiO2 02/22/21 08:06 94 Nasal Cannula 3.0 9/17/21 07:00 98.0 71 17 113/64 (80) 98.0 I & O 02/21/21 02/21/21 02/22/21 15:00 23:00 07:00 Intake Total 300 ml 120 ml Balance 300 ml 120 ml Physical Exam General: Alert, Oriented X3, Cooperative, moderate distress Lungs: Clear Abdomen: Normal bowel sounds, Soft, No tenderness, No hepatosplenomegaly, No masses Extremities: No clubbing, No cyanosis, No edema, Normal pulses, No tenderness/swelling Skin: No rashes, No breakdown, No significant lesion Labs Labs: Laboratory Tests Test 02/21/21 11:38 02/21/21 11:45 02/21/21 11:48 02/22/21 06:45 Urine Collection Type Void Urine Color Yellow Urine Clarity Clear Urine pH 6.5 (<5.0-8.0) Urine Specific [place] 1.010 (1.000-1.030) Urine Protein Negative mg/dL (NEG-TRACE) Urine Glucose (UA) Negative mg/dL (NEG) Urine Ketones (Stick) Negative mg/dL (NEG) Urine Blood Small (NEG) Urine Nitrite Positive (NEG) Urine Bilirubin Negative (NEG) Urine Urobilinogen Dipstick 0.2 mg/dL (0.2 mg/dL) Urine Leukocyte Esterase Trace (NEG) Urine RBC 1-2 /HPF (0-2) Urine WBC 5-10 /HPF (0-4) Urine Squamous Epithelial Cells Few /LPF Urine Bacteria Many /HPF (0-FEW) White Blood Count 14.6 x10^3/uL (4.0-11.0) 10.9 x10^3/uL (4.0-11.0) Red Blood Count 5.52 x10^6/uL (3.50-5.40) 5.32 x10^6/uL (3.50-5.40) Hemoglobin 14.9 g/dL (12.0-15.5) 14.5 g/dL (12.0-15.5) Hematocrit 45.1 % (36.0-47.0) 43.8 % (36.0-47.0) Mean Corpuscular Volume 82 fL (79-100) 82 fL (79-100) Mean Corpuscular Hemoglobin 27 pg (25-35) 27 pg (25-35) Mean Corpuscular Hemoglobin Concent 33 g/dL (31-37) 33 g/dL (31-37) Red Cell Distribution Width 13.7 % (11.5-14.5) 13.6 % (11.5-14.5) Platelet Count 307 x10^3/uL (140-400) 297 x10^3/uL (140-400) Neutrophils (%) (Auto) 90 % (31-73) 90 % (31-73) Lymphocytes (%) (Auto) 5 % (24-48) 7 % (24-48) Monocytes (%) (Auto) 4 % (0-9) 3 % (0-9) Eosinophils (%) (Auto) 1 % (0-3) 0 % (0-3) Basophils (%) (Auto) 0 % (0-3) 0 % (0-3) Neutrophils # (Auto) 13.1 x10^3/uL (1.8-7.7) 9.8 x10^3/uL (1.8-7.7) Lymphocytes # (Auto) 0.7 x10^3/uL (1.0-4.8) 0.8 x10^3/uL (1.0-4.8) Monocytes # (Auto) 0.5 x10^3/uL (0.0-1.1) 0.3 x10^3/uL (0.0-1.1) Eosinophils # (Auto) 0.2 x10^3/uL (0.0-0.7) 0.0 x10^3/uL (0.0-0.7) Basophils # (Auto) 0.0 x10^3/uL (0.0-0.2) 0.0 x10^3/uL (0.0-0.2) Sodium Level 137 mmol/L (136-145) 140 mmol/L (136-145) Potassium Level 4.1 mmol/L (3.5-5.1) 4.2 mmol/L (3.5-5.1) Chloride Level 99 mmol/L (98-107) 103 mmol/L (98-107) Carbon Dioxide Level 30 mmol/L (21-32) 30 mmol/L (21-32) Anion Gap 8 (6-14) 7 (6-14) Blood Urea Nitrogen 15 mg/dL (7-20) 21 mg/dL (7-20) Creatinine 1.0 mg/dL (0.6-1.0) 0.9 mg/dL (0.6-1.0) Estimated GFR (Cockcroft-Gault) 54.5 61.5 BUN/Creatinine Ratio 15 (6-20) 23 (6-20) Glucose Level 117 mg/dL (70-99) 119 mg/dL (70-99) Calcium Level 9.0 mg/dL (8.5-10.1) 9.0 mg/dL (8.5-10.1) Magnesium Level 2.3 mg/dL (1.8-2.4) Total Bilirubin 0.5 mg/dL (0.2-1.0) 0.3 mg/dL (0.2-1.0) Aspartate Amino Transf (AST/SGOT) 26 U/L (15-37) 14 U/L (15-37) Alanine Aminotransferase (ALT/SGPT) 20 U/L (14-59) 20 U/L (14-59) Alkaline Phosphatase 104 U/L (46-116) 89 U/L (46-116) Troponin I Quantitative < 0.017 ng/mL (0.000-0.055) HU-Vjn-B-Type Natriuretic Peptide 82 pg/mL (0-124) Total Protein 8.6 g/dL (6.4-8.2) 7.8 g/dL (6.4-8.2) Albumin 3.7 g/dL (3.4-5.0) 3.1 g/dL (3.4-5.0) Albumin/Globulin Ratio 0.8 (1.0-1.7) 0.7 (1.0-1.7) SARS-CoV-2 RNA (CONOR) Negative (Negative) SARS-CoV-2 Antigen (Rapid) Negative (NEGATIVE) Assessment and Plan Assessmemt and Plan Problems Medical Problems: (1) COPD exacerbation Status: Acute (2) Person under investigation for COVID-19 Status: Acute Comment Review of Relevant I have reviewed the following items floyd (where applicable) has been applied. Medications: Current Medications Medications (Trade) Dose Ordered Sig/Nhan Route PRN Reason Start Time Stop Time Status Last Admin Dose Admin Methylprednisolone Sodium Succinate (SOLU-Medrol 125MG VIAL) 125 mg 1X ONCE IV 02/21/21 11:30 02/21/21 11:31 DC 02/21/21 11:51 Albuterol/ Ipratropium (Duoneb) 3 ml 1X ONCE NEB 02/21/21 11:30 02/21/21 11:31 DC 02/21/21 11:53 Albuterol/ Ipratropium (Duoneb) 3 ml 1X ONCE NEB 02/21/21 13:00 02/21/21 13:01 DC 02/21/21 13:07 Ceftriaxone Sodium (Rocephin) 1 gm 1X ONCE IVP 02/21/21 14:00 02/21/21 14:01 DC 02/21/21 15:31 Ondansetron HCl (Zofran) 4 mg PRN Q8HRS PRN IVP NAUSEA/VOMITING 02/21/21 14:00 02/23/21 13:59 02/21/21 15:48 Budesonide (Pulmicort) 0.5 mg RTBID NEB 02/21/21 20:00 02/22/21 08:02 Guaifenesin (Robitussin Dm) 10 ml PRN Q6HRS PRN PO COUGH 02/21/21 19:00 02/22/21 08:16 Albuterol/ Ipratropium (Duoneb) 3 ml RTQID NEB 02/21/21 20:00 02/22/21 08:02 Doxycycline Hyclate 100 mg/ Dextrose 100 ml @ 50 mls/hr Q12HR IV 02/21/21 21:00 02/22/21 08:17 Lactobacillus Rhamnosus (Culturelle) 1 cap BID PO 02/21/21 21:00 02/22/21 08:16 Justifications for Admission Other Justification HUMERA OYRK MD Feb 22, 2021 08:36
[2021-02-22 10:58] VITALS: BP 125/70
[2021-02-22] MEDS ORDERED: BENZOCAINE/MENTHOL LOZENGE. PO PRN (12:00)
--- NOTE | 2021-02-22 12:05 | NUR ---
SW following. Discussed with RN, pt from home with family, 3L (does not use oxygen at home), regular diet. Pt is Chuukese speaking only. COVID-19 negative. Med Assist following for self pay status. SW will continue to follow.
[2021-02-22] MEDS: BENZONATATE 100 MG CAPSULE. PO SCH ×3 (12:29→20:27)
[2021-02-22 15:00] VITALS: BP 116/63
[2021-02-22] MEDS ORDERED: cefTRIAXone IV Push 1 GM VIAL. IVP SCH (16:00)
[2021-02-22 19:00] VITALS: BP 108/62
[2021-02-22] MEDS: ENOXAPARIN 40 MG/0.4 ML SYRINGE. SQ SCH (20:28)
[2021-02-22 23:00] VITALS: BP 123/72
[2021-02-23 00:08] LABS: HEMOGLOBIN A1C 6.4 % (4.8-5.6)
[2021-02-23 03:16] VITALS: BP 123/75
[2021-02-23 07:00] VITALS: BP 113/65
[2021-02-23] MEDS: IPRATRPIUM/ALBUTEROL 0.5/2.5MG 3 ML NEBU. NEB SCH ×3 (07:20→21:12)
[2021-02-23] MEDS: BUDESONIDE 0.5 MG/2 ML NEBU. NEB SCH ×2 (07:20→21:12)
[2021-02-23] MEDS: LACTOBACILLUS RHAMNOSUS GG 1 CAPSULE. PO SCH ×2 (09:03→21:23)
[2021-02-23] MEDS: BENZONATATE 100 MG CAPSULE. PO SCH ×3 (09:03→21:23)
[2021-02-23 11:03] VITALS: BP 102/56
[2021-02-23] MEDS ORDERED: predniSONE 10 MG TABLET PO ONE (11:30)
[2021-02-23] MEDS ORDERED: BENZ-8 PO (11:31)
[2021-02-23] MEDS ORDERED: GUAI5SYR PO (11:31)
[2021-02-23] MEDS ORDERED: DOXY100T PO (11:31)
[2021-02-23] MEDS ORDERED: LEVO500T8 PO (11:35)
--- NOTE | 2021-02-23 11:41 | PDOC ---
GENERAL General: Discharge summary [id number] VITAL SIGNS Vital Signs/I&O: Vital Signs Date Time Temp Pulse Resp B/P (MAP) Pulse Ox O2 Delivery O2 Flow Rate FiO2 02/23/21 11:29 95 Nasal Cannula 2.0 02/23/21 11:03 97.7 85 20 102/56 (71) 97.7 I & O 02/22/21 02/22/21 02/23/21 15:00 23:00 07:00 Intake Total 420 ml 180 ml 240 ml Balance 420 ml 180 ml 240 ml ALLERGIES Allergies: Allergies Coded Allergies Type Severity Reaction Last Updated Verified No Known Drug Allergies 01/27/16 No MEDS Medications: Current Medications Medications (Trade) Dose Ordered Sig/Nhan Route PRN Reason Start Time Stop Time Status Last Admin Dose Admin Ceftriaxone Sodium (Rocephin) 1 gm Q24H IVP 02/22/21 16:00 02/23/21 11:25 DC 02/22/21 17:03 Benzonatate (Tessalon Perle) 100 mg [id number] PO 02/22/21 12:30 02/23/21 09:03 Justifications for Admission Other Justification PARK COBOS MD Feb 23, 2021 11:41
--- NOTE | 2021-02-23 14:29 | DS ---
DATE OF DISCHARGE: 02/23/2021 HOSPITAL COURSE: This patient is a 70-year-old woman who emigrated from [facility] about 6 years ago. She is only Chuukese speaking. She is accompanied by her cousin at bedside today. There is not an available loss prevention detective for this language and thus, her daughter is translating on the phone. The patient was admitted 2 days ago with cough, congestion, diagnosed with acute bronchitis and potentially superimposed pneumonia on chronic interstitial lung changes. She carries a diagnosis of COPD, but is not oxygen dependent at home. She has responded well to antibiotics here and feels ready for discharge. She is still coughing significantly, but is tolerating the oxygen well and is willing to discharge home with oxygen if deemed eligible. She has required 2-3 liters of oxygen here to keep her saturation up over 90%. She has also been found to have a multidrug resistant urinary tract infection. The patient is otherwise without new complaints this morning except her IV is bothering her and gives her pain whenever it is used. All other systems reviewed and negative. PHYSICAL EXAMINATION: VITAL SIGNS: This morning is notable for that the patient has been afebrile. Blood pressure has been in the one-teens to 120s/70s, heart rate is in the 80s and regular. She is breathing comfortably and saturating 92-98% on 3 liters. GENERAL: She is a pleasant, comfortable 70-year-old woman Chuukese speaking only, but interacts appropriately, in no acute distress. HEENT: Unremarkable. CHEST: Bilateral equal air entry, though diminished throughout. She does have fine inspiratory and expiratory crackles at her right base, suggesting chronic interstitial lung disease. No wheezing is noted. HEART: S1, S2 normal. Regular rate and rhythm. No murmurs or gallops are noted. ABDOMEN: Obese, soft, nontender, nondistended. No masses or organomegaly noted. EXTREMITIES: Unremarkable for acute abnormality. Greater than 35 minutes were spent in coordinating this discharge, most of which in discussion with the team, patient and family. FINAL DIAGNOSES: 1. Acute bronchitis. Note the patient is negative PCR COVID-19 here. She is also fully vaccinated for COVID-19 finished several months ago. 2. Chronic lung disease for which she has not required oxygen. She is being assessed for oxygen at home, currently and is willing and able to take that. 3. Multidrug resistant urinary tract infection. We will use Levaquin for that along with her doxycycline for her bronchitis. 4. Chronic multimorbidity, otherwise as outlined in the history and physical. TATI/ERNST/MACHO LEE: Bo TID: [id number] CC: MTDD
--- NOTE | 2021-02-23 14:55 | NUR ---
PATIENT COMPLETED 6MIN. WALK AND WILL REQUIRE OXYGEN WHEN UP AND AMBULATING AT 3 LITERS PER N/C AND NONE AT REST, PATIENT AND FAMILY INFORMED WELL NURSING TOWER SUPERVISOR, PRESCRIPTION IN CHART FOR [address] COBOS.
[2021-02-23 15:07] VITALS: BP 110/62
[2021-02-23 19:00] VITALS: BP 159/84
[2021-02-23] MEDS: DOXYCYCLINE HYCLATE 100 MG TABLET PO SCH (21:23)
[2021-02-23] MEDS: ENOXAPARIN 40 MG/0.4 ML SYRINGE. SQ SCH (21:24)
--- NOTE | 2021-02-23 21:43 | NUR ---
Abmer Bower [phone] called and stated that their subway train driver was at the patient's home setting up oxygen and that the patient has been ok'd. Amber stated they will call the family on Thursday and arrange payments and that the subway train driver could take the "waite payment" tonight. A full oxygen tank was taken to [facility] on [address] who was preparing her discharge paperwork. Tionita, the patient's daughter was called and updated and was transferred up to speak with Monica to make pickle maker arrangements.
[2021-02-23 23:07] VITALS: BP 118/71
[2021-02-24 02:44] VITALS: BP 118/71
[2021-02-24 07:00] VITALS: BP 132/87
[2021-02-24] MEDS: BUDESONIDE 0.5 MG/2 ML NEBU. NEB SCH (07:44)
[2021-02-24] MEDS: IPRATRPIUM/ALBUTEROL 0.5/2.5MG 3 ML NEBU. NEB SCH ×2 (07:44→11:45)
[2021-02-24] MEDS: LACTOBACILLUS RHAMNOSUS GG 1 CAPSULE. PO SCH (09:17)
[2021-02-24] MEDS: DOXYCYCLINE HYCLATE 100 MG TABLET PO SCH (09:17)
[2021-02-24] MEDS: BENZONATATE 100 MG CAPSULE. PO SCH (09:17)
--- NOTE | 2021-02-24 09:29 | PDOC ---
PROGRESS NOTES Date of Service: DATE: 02/24/21 TIME: 09:29 Chief Complaint Chief Complaint IMPRESSION Acute respiratory failure with hypoxia - due to COPD and pneumonia. Wean O2 as tolerated. Negative COVID 19 results Right lower lobe pneumonia - no history of aspiration, with brown sputum. Likely gram negative given structural lung disease with COPD history Acute COPD exacerbation - aggressive nebs and pulm toileting. Given steroids, will likely not need to continue them. 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 Patient denies any chest pain. Patient denies cough or fever. Patient was not vaccinated for COVID-19. Patient has used her inhaler at home but did not get better so her family brought her here for evaluation. Cough sputum productive of brownish sputum, on further review she has been coughing for the past 4 days. O2 saturations less than 80% placed on nasal cannula O2 with some improvement. WBC 14.6, Hb 14.9, platelets 307, NA 137, K4.9, BUN 15, CR 1, glucose 115, LFTs within normal laboratory limits NT proBNP 22, troponin normal 0, albumin 3.7, urinalysis trace leuk esterase positive nitrates small amount of blood, rapid COVID-19 negative. EKG sinus tachycardia rate of 103 bpm normal axis and intervals, QTC 466 Chest radiograph with right lower lobe infiltrate. Admitted for further care Afebrile overnight. Still requiring 3 L nasal cannula oxygen. Cough is productive. Urine with greater than 100,000 colony-forming units of gram- negative rods. Discussed with daughter continue community-acquired pneumonia treatment. SMS Assist cold press operator not available for [facility] Vitals Vitals Vital Signs Date Time Temp Pulse Resp B/P (MAP) Pulse Ox O2 Delivery O2 Flow Rate FiO2 02/24/21 07:45 100 Nasal Cannula 3.0 02/24/21 07:00 98.0 82 20 132/87 (102) 98.0 Physical Exam General: Alert, Oriented X3, Cooperative, No acute distress Heart: Regular rate, Normal S1 Lungs: Clear Abdomen: Normal bowel sounds, Soft, No tenderness, No hepatosplenomegaly, No masses Extremities: No clubbing, No cyanosis, No edema, Normal pulses, No tenderness/swelling Skin: No rashes, No breakdown, No significant lesion Assessment and Plan Assessmemt and Plan Problems Medical Problems: (1) COPD exacerbation Status: Acute (2) Person under investigation for COVID-19 Status: Acute Comment Review of Relevant I have reviewed the following items floyd (where applicable) has been applied. Labs Microbiology 02/21/21 Urine Culture - Final, Complete 02/21/21 Antimicrobic Susceptibility - Final, Complete Medications Current Medications Methylprednisolone Sodium Succinate (SOLU-Medrol 125MG VIAL) 125 mg 1X ONCE IV Last administered on 02/21/21at 11:51; Start 02/21/21 at 11:30; Stop 02/21/21 at 11:31; Status DC Albuterol/ Ipratropium (Duoneb) 3 ml 1X ONCE NEB Last administered on 02/21/21at 11:53; Start 02/21/21 at 11:30; Stop 02/21/21 at 11:31; Status DC Albuterol/ Ipratropium (Duoneb) 3 ml 1X ONCE NEB Last administered on 02/21/21at 13:07; Start 02/21/21 at 13:00; Stop 02/21/21 at 13:01; Status DC Ceftriaxone Sodium (Rocephin) 1 gm 1X ONCE IVP Last administered on 02/21/21at 15:31; Start 02/21/21 at 14:00; Stop 02/21/21 at 14:01; Status DC Ondansetron HCl (Zofran) 4 mg PRN Q8HRS PRN IVP NAUSEA/VOMITING Last administered on 02/21/21at 15:48; Start 02/21/21 at 14:00; Stop 02/23/21 at 13:59; Status DC Albuterol/ Ipratropium (Duoneb) 3 ml RTQID NEB ; Start 02/21/21 at 16:00; Stop 02/21/21 at 17:53; Status DC Budesonide (Pulmicort) 0.5 mg RTBID NEB Last administered on 02/24/21at 07:44; Start 02/21/21 at 20:00 Albuterol Sulfate (Ventolin Neb Soln) 2.5 mg PRN Q4HRS PRN NEB SHORTNESS OF BREATH; Start 02/21/21 at 19:00 Enoxaparin Sodium (Lovenox 40mg Syringe) 40 mg Q24H SQ Last administered on 02/23/21at 21:24; Start 02/21/21 at 21:00 Guaifenesin (Robitussin Dm) 10 ml PRN Q6HRS PRN PO COUGH Last administered on 02/22/21at 08:16; Start 02/21/21 at 19:00 Nitroglycerin (Nitrostat) 0.4 mg PRN Q5MIN PRN SL CHEST PAIN; Start 02/21/21 at 19:00 Albuterol/ Ipratropium (Duoneb) 3 ml RTQID NEB Last administered on 02/24/21at 07:44; Start 02/21/21 at 20:00 Acetaminophen (Tylenol) 650 mg PRN Q6HRS PRN PO MILD PAIN / TEMP > 100.3'F; Start 02/21/21 at 19:00 Doxycycline Hyclate 100 mg/ Dextrose 100 ml @ 50 mls/hr Q12HR IV Last administered on 02/22/21at 20:27; Start 02/21/21 at 21:00; Stop 02/23/21 at 11:25; Status DC Ceftriaxone Sodium (Rocephin) 1 gm Q24H IVP Last administered on 02/22/21at 17:03; Start 02/22/21 at 16:00; Stop 02/23/21 at 11:25; Status DC Lactobacillus Rhamnosus (Culturelle) 1 cap BID PO Last administered on 02/24/21 at 09:17; Start 02/21/21 at 21:00 Throat Lozenges (Cepacol Sore Throat Lozenge) 1 joanne PRN Q2HRS PRN PO SORE THROAT; Start 02/22/21 at 12:00 Benzonatate (Tessalon Perle) 100 mg [id number] PO Last administered on 02/24/21at 09:17; Start 02/22/21 at 12:30 Doxycycline Hyclate (Vibra-Tab) 100 mg BID PO Last administered on 02/24/21at 09:17; Start 02/23/21 at 21:00 Prednisone (Prednisone) 50 mg 1X ONCE PO Last administered on 02/23/21at 12:59; Start 02/23/21 at 11:30; Stop 02/23/21 at 11:31; Status DC Active Scripts Active Proair Hfa Inhaler (Albuterol Sulfate) 8.5 Gm Hfa.aer.ad 2 Puff IH PRN Q4-6HRS PRN 21 Days Atrovent Hfa (Ipratropium [place]) 12.9 Gm Hfa.aer.ad 2 Puff IH QID Vitals/I & O Vital Sign - Last 24 Hours 02/23/21 02/23/21 02/23/21 02/23/21 11:03 11:29 15:07 19:00 Temp 97.7 97.7 98.2 97.7 97.7 98.2 Pulse 85 78 101 Resp 20 20 20 B/P (MAP) 102/56 (71) 110/62 (78) 159/84 (109) Pulse Ox 92 95 94 91 O2 Delivery Nasal Cannula Nasal Cannula Nasal Cannula Room Air O2 Flow Rate 3.0 2.0 3.0 02/23/21 02/23/21 02/23/21 02/24/21 20:00 21:14 23:07 02:44 Temp 98.2 97.6 98.2 97.6 Pulse 91 82 Resp 18 16 B/P (MAP) 118/71 (87) 118/71 (87) Pulse Ox 94 91 93 O2 Delivery Nasal Cannula Room Air Room Air Room Air O2 Flow Rate 2.0 02/24/21 02/24/21 07:00 07:45 Temp 98.0 98.0 Pulse 82 Resp 20 B/P (MAP) 132/87 (102) Pulse Ox 91 100 O2 Delivery Nasal Cannula Nasal Cannula O2 Flow Rate 3.0 3.0 Intake and Output 02/23/21 02/23/21 02/24/21 15:00 23:00 07:00 Intake Total 500 ml 250 ml Balance 500 ml 250 ml Justicifation of Admission Dx: Justifications for Admission: Justification of Admission Dx: Yes Sepsis: Hypoxemia BAL DIANA MD Feb 24, 2021 09:29
[2021-02-24 11:00] VITALS: BP 127/76
[2021-02-24] MEDS ORDERED: PRED20TA PO ×2 (11:42→12:17)
--- NOTE | 2021-02-24 13:00 | NUR ---
DISCHARGE INSTRUCTIONS GIVEN TO PATIENT AND CITIZEN OF [place] SPEAKING FAMILY MEMBER AT THE BEDSIDE, QUESTIONS AND CONCERNS ANSWERED, PATIENTS' FAMILY MEMBER VERBALIZED UNDERSTANDING OF DISCHARGE INFORMATION INCLUDING TAKING ALL MEDICATIONS INSTRUCTED AND FOLLOWING UP WITH HER PRIMARY PROVIDER IN 1-2 WEEKS, PATIENT ENCOURAGED TO UTILIZE OXYGEN AT 3 LITERS WITH EXERTION, OXYGEN TANK PROVIDED TO PATIENT AT TIME OF DISCHARGE.
--- NOTE | 2021-02-24 13:20 | NUR ---
PATIENT LEAVES THE UNIT PER W/C AND ACCOMPANIED BY THIS GRE[employer] OR GROUNDS SUPERINTENDENT, EMOTIONAL SUPPORT GIVEN, FOLLOW UP APPOINTMENTS ENCOURAGED.
== END 2021-02-24 13:20 | disposition home or self-care (01) | DRG 871 ==
LOC: ER 10:54 → 5 SOUTH 14:10
PROVIDERS: ADMIT Internal Medicine; ATTEND Internal Medicine
DX: A41.9 Sepsis, unspecified organism (principal); J18.9 Pneumonia, unspecified organism; J96.01 Acute respiratory failure with hypoxia; J44.0 Chronic obstructive pulmonary disease with (acute) lower respiratory infection; J44.1 Chronic obstructive pulmonary disease with (acute) exacerbation; N39.0 Urinary tract infection, site not specified; Z16.24 Resistance to multiple antibiotics; J20.9 Acute bronchitis, unspecified; Z20.822 Contact with and (suspected) exposure to COVID-19; Z87.891 Personal history of nicotine dependence
CPT/HCPCS: 36415; 71045; 80053; 81001; 83036; 83735; 83880; 84484; 85025; 87077; 87086; 87186; 87426; 93005; 94618; 94640; 94760; 96374; J0696; J1650; J2405; J2930; J3490; J7060; J7512; U0003; U0005; 99285-25; G0378; J7626

== ENCOUNTER 2021-07-22 18:22 | Inpatient (IN) | payer SELFPAY ==
[~2021-07-22] VITALS: Ht 152.4 cm; Wt 65.1 kg
[~2021-07-22 18:22] MED LIST changes: +BENZ-8 PO; +GUAI5SYR PO; +LEVO500T9 PO
--- NOTE | 2021-07-22 19:04 | ED.ADGEN ---
Past Medical History Past Medical History: Asthma, COPD Past Surgical History: No Surgical History Smoking Status: Never Smoker Alcohol Use: None Drug Use: None General Adult HPI: HPI: Patient is a 70 year old female brought in by family for shortness of breath and cough. Patient is also had fevers and difficulty breathing since yesterday. Patient has a history of asthma and only uses a ProAir inhaler. Patient has previous history of tobacco use. Patient denies any other medical history. Has not had her Covid or influenza vaccines. Denies any GI complaint Review of Systems: Review of Systems: All other systems within normal limits except for as noted in the HPI Current Medications: Current Medications Medications (Trade) Dose Ordered Sig/Nhan Start Time Stop Time Status Last Admin Dose Admin Info (CONTRAST GIVEN -- Rx MONITORING) 1 each PRN DAILY PRN 07/22/21 21:15 07/24/21 21:14 Oseltamivir Phosphate (Tamiflu) 30 mg BID 07/22/21 21:00 07/27/21 20:59 07/22/21 20:51 30 MG Allergies: Allergies: Allergies Coded Allergies Type Severity Reaction Last Updated Verified No Known Drug Allergies 01/27/16 No Physical Exam: PE: Constitutional: Well developed, well nourished, no acute distress, non-toxic appearance. [] HENT: Normocephalic, atraumatic, bilateral external ears normal, nose normal. [] Eyes: PERRLA, conjunctiva normal, no discharge. [] Neck: No rigidity, supple, no stridor. [] Cardiovascular: Regular rate and rhythm, brisk cap refill [] Lungs & Thorax: Non labored symmetric respirations, mild tachypnea, no accessory muscle use Abdomen: Soft, nondistended. Skin: Warm, dry, no erythema, no rash. Diaphoretic Back: Unremarkable Extremities: No deformities, range of motion grossly intact, no lower extremity edema [] Neurologic: Alert and oriented X 3, no focal deficits noted. [] Psychologic: Affect normal, judgement normal, mood normal. [] Current Patient Data: Labs: Laboratory Tests Test 07/22/21 19:00 07/22/21 20:49 White Blood Count 15.3 x10^3/uL (4.0-11.0) H Red Blood Count 5.72 x10^6/uL (3.50-5.40) H Hemoglobin 14.5 g/dL (12.0-15.5) Hematocrit 45.3 % (36.0-47.0) Mean Corpuscular Volume 79 fL (79-100) Mean Corpuscular Hemoglobin 25 pg (25-35) Mean Corpuscular Hemoglobin Concent 32 g/dL (31-37) Red Cell Distribution Width 14.7 % (11.5-14.5) H Platelet Count 261 x10^3/uL (140-400) Neutrophils (%) (Auto) 94 % (31-73) H Lymphocytes (%) (Auto) 2 % (24-48) L Monocytes (%) (Auto) 3 % (0-9) Eosinophils (%) (Auto) 0 % (0-3) Basophils (%) (Auto) 0 % (0-3) Neutrophils # (Auto) 14.4 x10^3/uL (1.8-7.7) H Lymphocytes # (Auto) 0.4 x10^3/uL (1.0-4.8) L Monocytes # (Auto) 0.5 x10^3/uL (0.0-1.1) Eosinophils # (Auto) 0.0 x10^3/uL (0.0-0.7) Basophils # (Auto) 0.0 x10^3/uL (0.0-0.2) Segmented Neutrophils % 77 % (35-66) H Band Neutrophils % 14 % (0-9) H Lymphocytes % 3 % (24-48) L Monocytes % 5 % (0-10) Basophils % 1 % (0-3) Toxic Granulation Slight Toxic Vacuolation Slight Platelet Estimate Adequate (ADEQUATE) D-Dimer (Jesusita) 1.89 ug/mlFEU (0.00-0.50) H Sodium Level 137 mmol/L (136-145) Potassium Level 4.5 mmol/L (3.5-5.1) Chloride Level 99 mmol/L (98-107) Carbon Dioxide Level 27 mmol/L (21-32) Anion Gap 11 (6-14) Blood Urea Nitrogen 21 mg/dL (7-20) H Creatinine 1.0 mg/dL (0.6-1.0) Estimated GFR (Cockcroft-Gault) 54.5 BUN/Creatinine Ratio 21 (6-20) H Glucose Level 148 mg/dL (70-99) H Lactic Acid Level 1.5 mmol/L (0.4-2.0) Calcium Level 7.5 mg/dL (8.5-10.1) L Phosphorus Level 3.0 mg/dL (2.6-4.7) Magnesium Level 2.1 mg/dL (1.8-2.4) Total Bilirubin 0.5 mg/dL (0.2-1.0) Aspartate Amino Transferase (AST) 28 U/L (15-37) Alanine Aminotransferase (ALT) 21 U/L (14-59) Alkaline Phosphatase 93 U/L (46-116) Troponin I High Sensitivity 19 ng/L (4-50) OR-Ebl-D-Type Natriuretic Peptide 416 pg/mL (0-124) H Total Protein 8.1 g/dL (6.4-8.2) Albumin 3.4 g/dL (3.4-5.0) Albumin/Globulin Ratio 0.7 (1.0-1.7) L Influenza Type A Antigen Positive (NEGATIVE) *A Influenza Type B Antigen Negative (NEGATIVE) SARS-CoV-2 Antigen (Rapid) Negative (NEGATIVE) Urine Color Yellow Urine Clarity Cloudy Urine pH 6.0 (<5.0-8.0) Urine Specific [place] 1.020 (1.000-1.030) Urine Protein 100 mg/dL (NEG-TRACE) Urine Glucose (UA) Negative mg/dL (NEG) Urine Ketones (Stick) Negative mg/dL (NEG) Urine Blood Moderate (NEG) Urine Nitrite Positive (NEG) Urine Bilirubin Negative (NEG) Urine Urobilinogen Dipstick 1.0 mg/dL (0.2 mg/dL) Urine Leukocyte Esterase Small (NEG) Urine RBC 3-5 /HPF (0-2) Urine WBC 20-40 /HPF (0-4) Urine Squamous Epithelial Cells Many /LPF Urine Bacteria Many /HPF (0-FEW) Urine Cellular Casts Occ /HPF Urine Hyaline Casts Occasional /HPF Urine Mucus Slight /LPF Laboratory Tests 07/22/21 19:00 Laboratory Tests 07/22/21 19:00 Vital Signs: Vital Signs Date Time Temp Pulse Resp B/P (MAP) Pulse Ox O2 Delivery O2 Flow Rate FiO2 07/22/21 18:57 101.6 110 38 182/73 (109) 80 Room Air 101.6 EKG: EKG: Sinus tachycardia, heart rate 100 use minute, normal axis, no ST elevation or depression [] Heart Score: C/O Chest Pain: No HEART Score for Chest Pain: HEART Score for Chest Pain Response (Comments) Value History Slighlty/Non-Suspicious 0 ECG Nonspecific Repolarizatio 1 Age > 65 2 Risk Factors 1 or 2 Risk Factors 1 Troponin < Normal Limit 0 Total 4 Risk Factors: Risk Factors: DM, Current or recent (<one month) smoker, HTN, HLP, family history of CAD, obesity. Risk Scores: Score 0 - 3: 2.5% MACE over next 6 weeks - Discharge Home Score 4 - 6: 20.3% MACE over next 6 weeks - Admit for Clinical Observation Score 7 - 10: 72.7% MACE over next 6 weeks - Early Invasive Strategies Radiology/Procedures: Radiology/Procedures: [facility] [address] [place] [address] IMAGING REPORT Signed PATIENT: MARLEY TUCKER ACCOUNT: [id number] : 1950 LOCATION: ER AGE: 70 SEX: F EXAM STATUS: REG ER ORD. PHYSICIAN: SHEILA CHRISTY MD REASON: dyspnea, pe PROCEDURE: CT ANGIOGRAPHY CHEST CTA CHEST History: Dyspnea, rule out PE. Comparison: CT chest 04/15/2018. Technique: CTA of the pulmonary arteries with intravenous contrast. 3-D postprocessing was performed. Findings: Pulmonary arteries: No pulmonary embolism identified. There is increased diameter of the right and left pulmonary artery which may represent pulmonary arterial hypertension. Aorta and great vessels: No aneurysm or dissection of the aortic arch or thoracic aorta. Thyroid: No significant abnormalities. Mediastinum and lia: Shotty mediastinal lymph nodes. Esophagus: The visualized esophagus is normal. Heart: The heart is normal in size. There is no pericardial effusion. Airways, Lungs, Pleura: Diffuse bronchial wall thickening. Severe emphysematous changes. Bilateral lower lobe, right middle lobe and lingular tree-in-bud nodular opacities. No pleural effusion or pneumothorax. Upper abdomen: Limited evaluation of the upper abdomen is unremarkable. Osseous structures and soft tissues: Within normal limits for age. Impression: 1. No pulmonary embolism, aortic aneurysm or aortic dissection. 2. Severe emphysematous change with evidence of chronic bronchitis and diffuse bilateral lower lobe nodular tree-in-bud opacities, similar, but increased compared to 2018 consistent with chronic infectious/inflammatory process. Superimposed acute bronchitis/bronchiolitis is not excluded. ------ Exposure: One or more of the following individualized dose reduction techniques were utilized for this examination: 1. Automated exposure control 2. Adjustment of the mA and/or kV according to patient size 3. Use of iterative reconstruction technique. Electronically signed by: Garcia Butler MD (07/22/2021 9:34 PM) [facility] DICTATED and SIGNED BY: GARCIA BUTLER MD DATE: 07/22/21 [id number] [] Course & Med Decision Making: Course & Med Decision Making Pertinent Labs and Imaging studies reviewed. (See chart for details) [] Dragon Disclaimer: Dragon Disclaimer: This electronic medical record was generated, in whole or in part, using a voice recognition dictation system. Departure Departure Impression: Primary Impression: COPD (chronic obstructive pulmonary disease) Additional Impression: Influenza A Disposition: 09 ADMITTED INPATIENT Admitting Physician: HIMS Condition: STABLE Referrals: BRIDGETTE KATZ APRN (PCP) Problem Qualifiers SHEILA CHRISTY MD Jul 22, 2021 19:04
[2021-07-22 19:28] LABS: BASO % 0 % (0-3); EOS % 0 % (0-3); HEMATOCRIT 45.3 % (36.0-47.0); HEMOGLOBIN 14.5 g/dL (12.0-15.5); LYMPH # 0.4 x10^3/uL (1.0-4.8); LYMPH % 2 % (24-48); MEAN CORPUSCULAR HEMOGLOBIN 25 pg (25-35); MEAN CORPUSCULAR HGB CONC 32 g/dL (31-37); MEAN CORPUSCULAR VOLUME 79 fL (79-100); MONO # 0.5 x10^3/uL (0.0-1.1); MONO % 3 % (0-9); NEUT # 14.4 x10^3/uL (1.8-7.7); NEUT % 94 % (31-73); PLATELET COUNT 261 x10^3/uL (140-400); RED BLOOD COUNT 5.72 x10^6/uL (3.50-5.40); RED CELL DISTRIBUTION WIDTH 14.7 % (11.5-14.5); WHITE BLOOD COUNT 15.3 x10^3/uL (4.0-11.0)
[2021-07-22 19:40] LABS: CALCIUM 7.5 mg/dL (8.5-10.1); GFR 54.5; POTASSIUM 4.5 mmol/L (3.5-5.1)
[2021-07-22 19:45] LABS: ALBUMIN 3.4 g/dL (3.4-5.0); ALBUMIN/GLOBULIN RATIO 0.7 (1.0-1.7); INFLUENZA B PATIENT NEGATIVE (NEGATIVE); MAGNESIUM 2.1 mg/dL (1.8-2.4); TOTAL BILIRUBIN 0.5 mg/dL (0.2-1.0); TOTAL PROTEIN 8.1 g/dL (6.4-8.2)
[2021-07-22 20:00] LABS: INFLUENZA A PATIENT POSITIVE (NEGATIVE)
[2021-07-22 20:10] LABS: % BANDS 14 % (0-9); % BASOS 1 % (0-3); % LYMPHS 3 % (24-48); % MONOS 5 % (0-10); % SEGS 77 % (35-66); PLT ESTIMATE ADEQUATE (ADEQUATE); TOXIC GRANULATION SLIGHT; TOXIC VACUOLATION SLIGHT
[2021-07-22] MEDS: OSELTAMIVIR 30 MG CAPSULE PO SCH (20:51)
--- NOTE | 2021-07-22 20:57 | RAD ---
EXAM: XR CHEST 1V 07/22/2021 7:24 PM CLINICAL INDICATION: Cough COMPARISON: Chest radiograph 02/21/2021 TECHNIQUE: AP upright view of the chest FINDINGS: The heart is normal in size. Lungs are adequately expanded. There is calcified granuloma i n the right apex. Peripheral and basilar interstitial and alveolar opacities in the right lung are un changed. Mild interstitial opacities in the left lung base are unchanged. There is bronchial wall thi ckening. No pleural effusion or pneumothorax. IMPRESSION: Stable chronic pulmonary opacities, greater on the right. Electronically signed by: Olivia Bets MD (07/22/2021 8:54 PM) [id number]
[2021-07-22 21:01] LABS: BILIRUBIN,URINE NEGATIVE (NEG); CLARITY,URINE CLOUDY; COLOR,URINE YELLOW; NITRITE,URINE POSITIVE (NEG); PROTEIN,URINE 100 mg/dL (NEG-TRACE)
[2021-07-22 21:10] LABS: BACTERIA,URINE MANY /HPF (0-FEW); WBC,URINE 20-40 /HPF (0-4)
[2021-07-22 21:11] LABS: HYALINE CASTS, URINE OCCASIONAL /HPF
[2021-07-22] MEDS ORDERED: CONTRAST GIVEN. MC PRN (21:15)
[2021-07-22] MEDS ORDERED: IOHEXOL 350 MG/ML 100 ML VIAL. IV ONE (21:30)
--- NOTE | 2021-07-22 21:36 | RAD ---
CTA CHEST History: Dyspnea, rule out PE. Comparison: CT chest 04/15/2018. Technique: CTA of the pulmonary arteries with intravenous contrast. 3-D postprocessing was performed. Findings: Pulmonary arteries: No pulmonary embolism identified. There is increased diameter of the right and le ft pulmonary artery which may represent pulmonary arterial hypertension. Aorta and great vessels: No aneurysm or dissection of the aortic arch or thoracic aorta. Thyroid: No significant abnormalities. Mediastinum and lia: Shotty mediastinal lymph nodes. Esophagus: The visualized esophagus is normal. Heart: The heart is normal in size. There is no pericardial effusion. Airways, Lungs, Pleura: Diffuse bronchial wall thickening. Severe emphysematous changes. Bilateral lo wer lobe, right middle lobe and lingular tree-in-bud nodular opacities. No pleural effusion or pneumo thorax. Upper abdomen: Limited evaluation of the upper abdomen is unremarkable. Osseous structures and soft tissues: Within normal limits for age. Impression: 1. No pulmonary embolism, aortic aneurysm or aortic dissection. 2. Severe emphysematous change with evidence of chronic bronchitis and diffuse bilateral lower lobe nodular tree-in-bud opacities, similar, but increased compared to 2018 consistent with chronic infect ious/inflammatory process. Superimposed acute bronchitis/bronchiolitis is not excluded. ------ Exposure: One or more of the following individualized dose reduction techniques were utilized for thi s examination: 1. Automated exposure control 2. Adjustment of the mA and/or kV according to patient size 3. Use of iterative reconstruction technique. Electronically signed by: Garcia Gibbs MD (07/22/2021 9:34 PM) [facility]
--- NOTE | 2021-07-22 21:42 | PDOC1 ---
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 Patient denies any chest pain. Has had cough and fever as well. Patient was not vaccinated for COVID-19 or influenza this year. Patient has used her pro-air inhaler at home with no relief. Her family brought her here for further treatment. Patient does continue to smoke. O2 saturations 84% on room air improved with 2 L/min nasal cannula O2 91%. Chest radiograph with chronic pulmonary opacities right greater than left With elevated d dimer underwent CTPA which was negative for pulmonary embolism shows severe emphysematous changes with evidence of chronic bronchitis worse since 2018. Labs with WBC 15.3, Hb 14.5, platelets 261, NA 137, K4.5, BUN 21, CR 1, glucose 148, calcium 7.5, lactic acid 1.5, phosphorus 3, mag 2.1, LFTs within normal laboratory limits, high-sensitivity troponin is 19, NT proBNP is 416, urinalysis with positive leuk esterase and nitrites, rapid COVID-19 negative, rapid influenza positive for flu a. Admitted for further care. Past Medical History Pulmonary: Asthma, Bronchitis Hepatobiliary: Other Infectious disease: No pertinent hx Endocrine: No pertinent hx Past Surgical History Past Surgical History: No pertinent history Family History Family History: High Cholestrol Social History Smoke: 1 pack per day ALCOHOL: none Drugs: None Current Medications Current Medications Current Medications Oseltamivir Phosphate (Tamiflu) 30 mg BID PO Last administered on 07/22/21at 20:51; Start 07/22/21 at 21:00; Stop 07/27/21 at 20:59 Iohexol (Omnipaque 350 Mg/ml) 90 ml 1X ONCE IV ; Start 07/22/21 at 21:30; Stop 07/22/21 at 21:31; Status DC Info (CONTRAST GIVEN -- Rx MONITORING) 1 each PRN DAILY PRN MC SEE COMMENTS; Start 07/22/21 at 21:15; Stop 07/24/21 at 21:14 Dexamethasone Sodium Phosphate (Decadron) 10 mg 1X ONCE IV ; Start 07/22/21 at 22:00; Stop 07/22/21 at 22:01 Active Scripts Active Levofloxacin 500 Mg Tablet 1 Tab PO DAILY Guaifenesin Dm Syrup (Guaifenesin/Dextromethorphan) 5 Ml Syrup 10 Ml PO PRN Q6HRS PRN 10 Days Benzonatate 100 Mg Capsule 100 Mg PO TID 10 Days Doxycycline Hyclate 100 Mg Tablet 100 Mg PO BID 10 Days Proair Hfa Inhaler (Albuterol Sulfate) 8.5 Gm Hfa.aer.ad 2 Puff IH PRN Q4-6HRS PRN 21 Days Atrovent Hfa (Ipratropium [place]) 12.9 Gm Hfa.aer.ad 2 Puff IH QID Reported Prednisone 20 Mg Tablet 20 Mg PO DAILY 7 Days Allergies Allergies: Coded Allergies: No Known Drug Allergies (Unverified , 01/27/16) ROS General: YES: Chills, Fatigue, Malaise; No: Night Sweats, Appetite, Other PSYCHOLOGICAL ROS: No: Anxiety, Behavioral Disorder, Concentration difficultie, Decreased libido, Depression, Disorientation, Hallucinations, Hostility, Irritablity, Memory difficulties, Mood Swings, Obsessive thoughts, Physical abuse, Sexual abuse, Sleep disturbances, Suicidal ideation, Other Eyes: No Blurry vision, No Decreased vision, No Double vision, No Dry eyes, No Excessive tearing, No Eye Pain, No Itchy Eyes, No Loss of vision, No Photophobia, No Scotomata, No Uses contacts, No Uses glasses, No Other HEENT: No: Heacaches, Visual Changes, Hearing change, Nasal congestion, Nasal discharge, Oral lesions, Sinus pain, Sore Throat, Epistaxis, Sneezing, Snoring, Tinnitus, Vertigo, Vocal changes, Other ALLERGY AND IMMUNOLOGY: No: Hives, Insect Bite Sensitivity, Itchy/Watery Eyes, Nasal Congestion, Post Nasal Drip, Seasonal Allergies, Other Hematological and Lymphatic: No: Bleeding Problems, Blood Clots, Blood Transfusions, Brusing, Night Sweats, Pallor, Swollen Lymph Nodes, Other ENDOCRINE: No: Breast Changes, Galactorrhea, Hair Pattern Changes, Hot Flashes, Malaise/lethargy, Mood Swings, Palpitations, Polydipsia/polyuria, Skin Changes, Temperature Intolerance, Unexpected Weight Changes, Other Breast: No New/Changing Breast Lumps, No Nipple changes, No Nipple discharge, No Other Respiratory: YES: Cough, Shortness of breath, SOB with excertion, Sputum Changes, Tachypnea, Wheezing; No: Hemoptysis, Orthopnea, Pleuritic Pain, Stridor, Other Cardiovascular: No Chest Pain, No Palpitations, No Orthopnea, No Paroxysmal Noc. Dyspnea, No Edema, No Lt Headedness, No Other Gastrointestinal: Yes Nausea; No Vomiting, No Abdominal Pain, No Diarrhea, No Constipation, No Melena, No Hematochezia, No Other Genitourinary: No Dysuria, No Frequency, No Incontinence, No Hematuria, No Retention, No Discharge, No Urgency, No Pain, No Flank Pain, No Other, No , No , No , No , No , No , No Musculoskeletal: No Gait Disturbance, No Joint Pain, No Joint Stiffness, No Joint Swelling, No Muscle Pain, No Muscular Weakness, No Pain In:, No Swelling In:, No Other Neurological: No Behavorial Changes, No Bowel/Bladder ControlChng, No Confusion, No Dizziness, No Gait Disturbance, No Headaches, No Impaired Coord/balance, No Memory Loss, No Numbness/Tingling, No Seizures, No Speech Problems, No Tremors, No Visual Changes, No Weakness, No Other Skin: No Dry Skin, No Eczema, No Hair Changes, No Lumps, No Mole Changes, No Mottling, No Nail Changes, No Pruritus, No Rash, No Skin Lesion Changes, No Other, No Acne Physical Exam General: Alert, Oriented X3, Cooperative, moderate distress HEENT: Atraumatic, PERRLA, EOMI, Mucous membr. moist/pink Lungs: Other (Bilateral wheezes and basilar rhonchi) Heart: S1S2, RRR, no thrills, no rubs, no gallops, no murmurs Abdomen: Normal bowel sounds, Soft, No tenderness, No hepatosplenomegaly, No masses Rectal Exam: not examined Extremities: No clubbing, No cyanosis, No edema, Normal pulses, No tenderness/swelling Skin: No rashes, No breakdown, No significant lesion Neuro: Normal gait, Normal speech, Strength at 5/5 X4 ext, Normal tone, Sensation intact, Cranial nerves 3-12 NL, Reflexes 2+ Psych/Mental Status: Mental status NL, Mood NL Vitals Vitals Vital Signs Date Time Temp Pulse Resp B/P (MAP) Pulse Ox O2 Delivery O2 Flow Rate FiO2 07/22/21 18:57 101.6 110 38 182/73 (109) 80 Room Air 101.6 Labs Labs Laboratory Tests Test 07/22/21 19:00 07/22/21 20:49 White Blood Count 15.3 x10^3/uL (4.0-11.0) Red Blood Count 5.72 x10^6/uL (3.50-5.40) Hemoglobin 14.5 g/dL (12.0-15.5) Hematocrit 45.3 % (36.0-47.0) Mean Corpuscular Volume 79 fL (79-100) Mean Corpuscular Hemoglobin 25 pg (25-35) Mean Corpuscular Hemoglobin Concent 32 g/dL (31-37) Red Cell Distribution Width 14.7 % (11.5-14.5) Platelet Count 261 x10^3/uL (140-400) Neutrophils (%) (Auto) 94 % (31-73) Lymphocytes (%) (Auto) 2 % (24-48) Monocytes (%) (Auto) 3 % (0-9) Eosinophils (%) (Auto) 0 % (0-3) Basophils (%) (Auto) 0 % (0-3) Neutrophils # (Auto) 14.4 x10^3/uL (1.8-7.7) Lymphocytes # (Auto) 0.4 x10^3/uL (1.0-4.8) Monocytes # (Auto) 0.5 x10^3/uL (0.0-1.1) Eosinophils # (Auto) 0.0 x10^3/uL (0.0-0.7) Basophils # (Auto) 0.0 x10^3/uL (0.0-0.2) Segmented Neutrophils % 77 % (35-66) Band Neutrophils % 14 % (0-9) Lymphocytes % 3 % (24-48) Monocytes % 5 % (0-10) Basophils % 1 % (0-3) Toxic Granulation Slight Toxic Vacuolation Slight Platelet Estimate Adequate (ADEQUATE) D-Dimer (Jesusita) 1.89 ug/mlFEU (0.00-0.50) Sodium Level 137 mmol/L (136-145) Potassium Level 4.5 mmol/L (3.5-5.1) Chloride Level 99 mmol/L (98-107) Carbon Dioxide Level 27 mmol/L (21-32) Anion Gap 11 (6-14) Blood Urea Nitrogen 21 mg/dL (7-20) Creatinine 1.0 mg/dL (0.6-1.0) Estimated GFR (Cockcroft-Gault) 54.5 BUN/Creatinine Ratio 21 (6-20) Glucose Level 148 mg/dL (70-99) Lactic Acid Level 1.5 mmol/L (0.4-2.0) Calcium Level 7.5 mg/dL (8.5-10.1) Phosphorus Level 3.0 mg/dL (2.6-4.7) Magnesium Level 2.1 mg/dL (1.8-2.4) Total Bilirubin 0.5 mg/dL (0.2-1.0) Aspartate Amino Transf (AST/SGOT) 28 U/L (15-37) Alanine Aminotransferase (ALT/SGPT) 21 U/L (14-59) Alkaline Phosphatase 93 U/L (46-116) Troponin I High Sensitivity 19 ng/L (4-50) GS-Uyq-T-Type Natriuretic Peptide 416 pg/mL (0-124) Total Protein 8.1 g/dL (6.4-8.2) Albumin 3.4 g/dL (3.4-5.0) Albumin/Globulin Ratio 0.7 (1.0-1.7) Influenza Type A Antigen Positive (NEGATIVE) Influenza Type B Antigen Negative (NEGATIVE) SARS-CoV-2 Antigen (Rapid) Negative (NEGATIVE) Urine Color Yellow Urine Clarity Cloudy Urine pH 6.0 (<5.0-8.0) Urine Specific [place] 1.020 (1.000-1.030) Urine Protein 100 mg/dL (NEG-TRACE) Urine Glucose (UA) Negative mg/dL (NEG) Urine Ketones (Stick) Negative mg/dL (NEG) Urine Blood Moderate (NEG) Urine Nitrite Positive (NEG) Urine Bilirubin Negative (NEG) Urine Urobilinogen Dipstick 1.0 mg/dL (0.2 mg/dL) Urine Leukocyte Esterase Small (NEG) Urine RBC 3-5 /HPF (0-2) Urine WBC 20-40 /HPF (0-4) Urine Squamous Epithelial Cells Many /LPF Urine Bacteria Many /HPF (0-FEW) Urine Cellular Casts Occ /HPF Urine Hyaline Casts Occasional /HPF Urine Mucus Slight /LPF Laboratory Tests Test 07/22/21 19:00 07/22/21 20:49 White Blood Count 15.3 x10^3/uL (4.0-11.0) Red Blood Count 5.72 x10^6/uL (3.50-5.40) Hemoglobin 14.5 g/dL (12.0-15.5) Hematocrit 45.3 % (36.0-47.0) Mean Corpuscular Volume 79 fL (79-100) Mean Corpuscular Hemoglobin 25 pg (25-35) Mean Corpuscular Hemoglobin Concent 32 g/dL (31-37) Red Cell Distribution Width 14.7 % (11.5-14.5) Platelet Count 261 x10^3/uL (140-400) Neutrophils (%) (Auto) 94 % (31-73) Lymphocytes (%) (Auto) 2 % (24-48) Monocytes (%) (Auto) 3 % (0-9) Eosinophils (%) (Auto) 0 % (0-3) Basophils (%) (Auto) 0 % (0-3) Neutrophils # (Auto) 14.4 x10^3/uL (1.8-7.7) Lymphocytes # (Auto) 0.4 x10^3/uL (1.0-4.8) Monocytes # (Auto) 0.5 x10^3/uL (0.0-1.1) Eosinophils # (Auto) 0.0 x10^3/uL (0.0-0.7) Basophils # (Auto) 0.0 x10^3/uL (0.0-0.2) Segmented Neutrophils % 77 % (35-66) Band Neutrophils % 14 % (0-9) Lymphocytes % 3 % (24-48) Monocytes % 5 % (0-10) Basophils % 1 % (0-3) Toxic Granulation Slight Toxic Vacuolation Slight Platelet Estimate Adequate (ADEQUATE) D-Dimer (Jesusita) 1.89 ug/mlFEU (0.00-0.50) Sodium Level 137 mmol/L (136-145) Potassium Level 4.5 mmol/L (3.5-5.1) Chloride Level 99 mmol/L (98-107) Carbon Dioxide Level 27 mmol/L (21-32) Anion Gap 11 (6-14) Blood Urea Nitrogen 21 mg/dL (7-20) Creatinine 1.0 mg/dL (0.6-1.0) Estimated GFR (Cockcroft-Gault) 54.5 BUN/Creatinine Ratio 21 (6-20) Glucose Level 148 mg/dL (70-99) Lactic Acid Level 1.5 mmol/L (0.4-2.0) Calcium Level 7.5 mg/dL (8.5-10.1) Phosphorus Level 3.0 mg/dL (2.6-4.7) Magnesium Level 2.1 mg/dL (1.8-2.4) Total Bilirubin 0.5 mg/dL (0.2-1.0) Aspartate Amino Transf (AST/SGOT) 28 U/L (15-37) Alanine Aminotransferase (ALT/SGPT) 21 U/L (14-59) Alkaline Phosphatase 93 U/L (46-116) Troponin I High Sensitivity 19 ng/L (4-50) YG-Dfj-E-Type Natriuretic Peptide 416 pg/mL (0-124) Total Protein 8.1 g/dL (6.4-8.2) Albumin 3.4 g/dL (3.4-5.0) Albumin/Globulin Ratio 0.7 (1.0-1.7) Influenza Type A Antigen Positive (NEGATIVE) Influenza Type B Antigen Negative (NEGATIVE) SARS-CoV-2 Antigen (Rapid) Negative (NEGATIVE) Urine Color Yellow Urine Clarity Cloudy Urine pH 6.0 (<5.0-8.0) Urine Specific [place] 1.020 (1.000-1.030) Urine Protein 100 mg/dL (NEG-TRACE) Urine Glucose (UA) Negative mg/dL (NEG) Urine Ketones (Stick) Negative mg/dL (NEG) Urine Blood Moderate (NEG) Urine Nitrite Positive (NEG) Urine Bilirubin Negative (NEG) Urine Urobilinogen Dipstick 1.0 mg/dL (0.2 mg/dL) Urine Leukocyte Esterase Small (NEG) Urine RBC 3-5 /HPF (0-2) Urine WBC 20-40 /HPF (0-4) Urine Squamous Epithelial Cells Many /LPF Urine Bacteria Many /HPF (0-FEW) Urine Cellular Casts Occ /HPF Urine Hyaline Casts Occasional /HPF Urine Mucus Slight /LPF Images Images Chest radiograph: The heart is normal in size. Lungs are adequately expanded. There is calcified granuloma in the right apex. Peripheral and basilar interstitial and alveolar opacities in the right lung are unchanged. Mild interstitial opacities in the left lung base are unchanged. There is bronchial wall thickening. No pleural effusion or pneumothorax. IMPRESSION: Stable chronic pulmonary opacities, greater on the right. Pulmonary arteries: No pulmonary embolism identified. There is increased diameter of the right and left pulmonary artery which may represent pulmonary arterial hypertension. Aorta and great vessels: No aneurysm or dissection of the aortic arch or thoracic aorta. Thyroid: No significant abnormalities. Mediastinum and lia: Shotty mediastinal lymph nodes. Esophagus: The visualized esophagus is normal. Heart: The heart is normal in size. There is no pericardial effusion. Airways, Lungs, Pleura: Diffuse bronchial wall thickening. Severe emphysematous changes. Bilateral lower lobe, right middle lobe and lingular tree-in-bud nodular opacities. No pleural effusion or pneumothorax. Upper abdomen: Limited evaluation of the upper abdomen is unremarkable. Osseous structures and soft tissues: Within normal limits for age. Impression: 1. No pulmonary embolism, aortic aneurysm or aortic dissection. 2. Severe emphysematous change with evidence of chronic bronchitis and diffuse bilateral lower lobe nodular tree-in-bud opacities, similar, but increased compared to 2018 consistent with chronic infectious/inflammatory process. Superimposed acute bronchitis/bronchiolitis is not excluded. VTE Prophylaxis Ordered VTE Prophylaxis Devices: No VTE Pharmacological Prophylaxi: Yes Assessment/Plan Assessment/Plan A/P: Acute respiratory failure with hypoxia - due to COPD and influenza A and likely gram negative pneumonia given lung disease. Wean O2 as tolerated. F/u COVID 19 results Influenza A - 30mg tamiflu BID, is within 24 hours of symptom onset Abnormal chest CT - chronic bronchiectasis changes and pneumonia - with Greenish-brown sputum. Likely gram negative given structural lung disease with COPD history Acute COPD exacerbation - aggressive nebs and pulm toileting. IV steroids Sepsis - due to pneumonia, given empiric fluids, antibiotics Abnormal UA - will f/u culture results Smoker - counseled on cessation, offered nicotine replacement therapy FEN - General diet PPX - Heparin FULL Code Dispo - inpatient Justifications for Admission Other Justification HUMERA YORK MD Jul 22, 2021 21:42
[2021-07-22] MEDS ORDERED: ACETAMINOPHEN 325 MG TABLET. PO PRN ×2 (21:45→22:30)
[2021-07-22] MEDS ORDERED: fentaNYL PF VIAL 100 MCG/2 ML VIAL IVP PRN (21:45)
[2021-07-22] MEDS ORDERED: ALBUTEROL SULFATE 2.5 MG/3 ML NEBU. INH PRN (21:45)
[2021-07-22] MEDS ORDERED: ONDANSETRON PF 4 MG/2 ML VIAL. IVP PRN ×2 (21:45→22:30)
[2021-07-22] MEDS ORDERED: DEXAMETHASONE SOD PHOS 20 MG/5 ML VIAL. IV ONE (22:00)
[2021-07-22] MEDS ORDERED: cefTRIAXone IV Push 1 GM VIAL. IVP ONE (23:00)
[2021-07-23] VITALS (7 sets, daily range): BP systolic 100–154; BP diastolic 53–77
[2021-07-23] MEDS: BENZONATATE 100 MG CAPSULE. PO SCH ×4 (01:11→21:03)
[2021-07-23] MEDS: DOXYCYCLINE HYCLATE 100 MG TABLET PO SCH ×3 (01:11→21:03)
[2021-07-23] MEDS: IV NORMAL SALINE 1000ML BAG 1,000 ML IV SCH ×3 (01:15→21:03)
[2021-07-23] MEDS: guaiFENesin DM 200MG/20MG 10 ML SYRUP PO PRN ×2 (05:00→14:08)
[2021-07-23] MEDS ORDERED: ALBUTEROL SULFATE 8GM INHALER. INH PRN (05:30)
[2021-07-23] MEDS: methylPREDNISolone SOD SUCC PF 40 MG/ML VIAL. IV SCH ×3 (05:31→21:54)
[2021-07-23] MEDS: HEPARIN for SUB-Q USE 5,000 UNIT/ML VIAL. SQ SCH ×4 (05:35→21:59)
[2021-07-23] MEDS ORDERED: BUDESONIDE 0.5 MG/2 ML NEBU. NEB SCH (08:00)
[2021-07-23] MEDS: IPRATROPIUM/ALBUTEROL 20/100mcg/INH INHALER. INH SCH ×4 (08:00→21:03)
[2021-07-23] MEDS ORDERED: IPRATRPIUM/ALBUTEROL 0.5/2.5MG 3 ML NEBU. NEB SCH (08:00)
[2021-07-23] MEDS: FLUTICASONE/VILANTEROL 100/25 INHALER. INH SCH (09:00)
[2021-07-23] MEDS: OSELTAMIVIR 30 MG CAPSULE PO SCH ×2 (10:18→21:03)
[2021-07-23] MEDS: NICOTINE 21MG PATCH. TD PRN (10:18)
[2021-07-23 11:14] LABS: BASO % 0 % (0-3); EOS % 0 % (0-3); HEMATOCRIT 43.7 % (36.0-47.0); HEMOGLOBIN 13.5 g/dL (12.0-15.5); LYMPH # 0.4 x10^3/uL (1.0-4.8); LYMPH % 3 % (24-48); MEAN CORPUSCULAR HEMOGLOBIN 25 pg (25-35); MEAN CORPUSCULAR HGB CONC 31 g/dL (31-37); MEAN CORPUSCULAR VOLUME 81 fL (79-100); MONO # 0.1 x10^3/uL (0.0-1.1); MONO % 1 % (0-9); NEUT # 13.2 x10^3/uL (1.8-7.7); NEUT % 96 % (31-73); PLATELET COUNT 233 x10^3/uL (140-400); RED BLOOD COUNT 5.43 x10^6/uL (3.50-5.40); RED CELL DISTRIBUTION WIDTH 14.9 % (11.5-14.5); WHITE BLOOD COUNT 13.7 x10^3/uL (4.0-11.0)
--- NOTE | 2021-07-23 11:29 | PDOC ---
[employer] PROGRESS NOTE Date of Service DOS: DATE: 07/23/21 TIME: 11:29 Chief Complaint Chief Complaint Acute respiratory failure with hypoxia - due to COPD and influenza A and likely gram negative pneumonia given lung disease. Wean O2 as tolerated. F/u COVID 19 results Influenza A - 30mg tamiflu BID, is within 24 hours of symptom onset Abnormal chest CT - chronic bronchiectasis changes and pneumonia - with Greenish-brown sputum. Likely gram negative given structural lung disease with COPD history Acute COPD exacerbation - aggressive nebs and pulm toileting. 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 Patient denies any chest pain. Has had cough and fever as well. Patient was not vaccinated for COVID-19 or influenza this year. Patient has used her pro-air inhaler at home with no relief. Her family brought her here for further treatment. Patient does continue to smoke. O2 saturations 84% on room air improved with 2 L/min nasal cannula O2 91%. Chest radiograph with chronic pulmonary opacities right greater than left With elevated d dimer underwent CTPA which was negative for pulmonary embolism shows severe emphysematous changes with evidence of chronic bronchitis worse since 2018. Labs with WBC 15.3, Hb 14.5, platelets 261, NA 137, K4.5, BUN 21, CR 1, glucose 148, calcium 7.5, lactic acid 1.5, phosphorus 3, mag 2.1, LFTs within normal laboratory limits, high-sensitivity troponin is 19, NT proBNP is 416, urinalysis with positive leuk esterase and nitrites, rapid COVID-19 negative, rapid influenza positive for flu a. Admitted for further care. 07/23: Still hypoxic. Breathing is little improved today. Labs stable. No ches t pain. Cough is productive of greenish-brown sputum Vitals/I&O Vitals/I&O: Vital Signs Date Time Temp Pulse Resp B/P (MAP) Pulse Ox O2 Delivery O2 Flow Rate FiO2 07/23/21 08:18 96 Room Air 07/23/21 07:00 98.2 81 18 121/62 (81) 98.2 07/23/21 03:00 2.0 I & O 07/22/21 07/22/21 07/23/21 15:00 23:00 07:00 Intake Total 120 ml Balance 120 ml Physical Exam General: Alert, Oriented X3, Cooperative, moderate distress Lungs: Clear Abdomen: Normal bowel sounds, Soft, No tenderness, No hepatosplenomegaly, No masses Extremities: No clubbing, No cyanosis, No edema, Normal pulses, No tenderness/swelling Skin: No rashes, No breakdown, No significant lesion Labs Labs: Laboratory Tests Test 07/22/21 19:00 07/22/21 20:49 07/23/21 10:05 White Blood Count 15.3 x10^3/uL (4.0-11.0) 13.7 x10^3/uL (4.0-11.0) Red Blood Count 5.72 x10^6/uL (3.50-5.40) 5.43 x10^6/uL (3.50-5.40) Hemoglobin 14.5 g/dL (12.0-15.5) 13.5 g/dL (12.0-15.5) Hematocrit 45.3 % (36.0-47.0) 43.7 % (36.0-47.0) Mean Corpuscular Volume 79 fL (79-100) 81 fL (79-100) Mean Corpuscular Hemoglobin 25 pg (25-35) 25 pg (25-35) Mean Corpuscular Hemoglobin Concent 32 g/dL (31-37) 31 g/dL (31-37) Red Cell Distribution Width 14.7 % (11.5-14.5) 14.9 % (11.5-14.5) Platelet Count 261 x10^3/uL (140-400) 233 x10^3/uL (140-400) Neutrophils (%) (Auto) 94 % (31-73) 96 % (31-73) Lymphocytes (%) (Auto) 2 % (24-48) 3 % (24-48) Monocytes (%) (Auto) 3 % (0-9) 1 % (0-9) Eosinophils (%) (Auto) 0 % (0-3) 0 % (0-3) Basophils (%) (Auto) 0 % (0-3) 0 % (0-3) Neutrophils # (Auto) 14.4 x10^3/uL (1.8-7.7) 13.2 x10^3/uL (1.8-7.7) Lymphocytes # (Auto) 0.4 x10^3/uL (1.0-4.8) 0.4 x10^3/uL (1.0-4.8) Monocytes # (Auto) 0.5 x10^3/uL (0.0-1.1) 0.1 x10^3/uL (0.0-1.1) Eosinophils # (Auto) 0.0 x10^3/uL (0.0-0.7) 0.0 x10^3/uL (0.0-0.7) Basophils # (Auto) 0.0 x10^3/uL (0.0-0.2) 0.0 x10^3/uL (0.0-0.2) Segmented Neutrophils % 77 % (35-66) Band Neutrophils % 14 % (0-9) Lymphocytes % 3 % (24-48) Monocytes % 5 % (0-10) Basophils % 1 % (0-3) Toxic Granulation Slight Toxic Vacuolation Slight Platelet Estimate Adequate (ADEQUATE) D-Dimer (Jesusita) 1.89 ug/mlFEU (0.00-0.50) Sodium Level 137 mmol/L (136-145) Potassium Level 4.5 mmol/L (3.5-5.1) Chloride Level 99 mmol/L (98-107) Carbon Dioxide Level 27 mmol/L (21-32) Anion Gap 11 (6-14) Blood Urea Nitrogen 21 mg/dL (7-20) Creatinine 1.0 mg/dL (0.6-1.0) Estimated GFR (Cockcroft-Gault) 54.5 BUN/Creatinine Ratio 21 (6-20) Glucose Level 148 mg/dL (70-99) Lactic Acid Level 1.5 mmol/L (0.4-2.0) Calcium Level 7.5 mg/dL (8.5-10.1) Phosphorus Level 3.0 mg/dL (2.6-4.7) Magnesium Level 2.1 mg/dL (1.8-2.4) Total Bilirubin 0.5 mg/dL (0.2-1.0) Aspartate Amino Transf (AST/SGOT) 28 U/L (15-37) Alanine Aminotransferase (ALT/SGPT) 21 U/L (14-59) Alkaline Phosphatase 93 U/L (46-116) Troponin I High Sensitivity 19 ng/L (4-50) HE-Ngz-P-Type Natriuretic Peptide 416 pg/mL (0-124) Total Protein 8.1 g/dL (6.4-8.2) Albumin 3.4 g/dL (3.4-5.0) Albumin/Globulin Ratio 0.7 (1.0-1.7) Procalcitonin 0.67 ng/mL (0.00-0.10) Influenza Type A Antigen Positive (NEGATIVE) Influenza Type B Antigen Negative (NEGATIVE) SARS-CoV-2 Antigen (Rapid) Negative (NEGATIVE) Urine Color Yellow Urine Clarity Cloudy Urine pH 6.0 (<5.0-8.0) Urine Specific [place] 1.020 (1.000-1.030) Urine Protein 100 mg/dL (NEG-TRACE) Urine Glucose (UA) Negative mg/dL (NEG) Urine Ketones (Stick) Negative mg/dL (NEG) Urine Blood Moderate (NEG) Urine Nitrite Positive (NEG) Urine Bilirubin Negative (NEG) Urine Urobilinogen Dipstick 1.0 mg/dL (0.2 mg/dL) Urine Leukocyte Esterase Small (NEG) Urine RBC 3-5 /HPF (0-2) Urine WBC 20-40 /HPF (0-4) Urine Squamous Epithelial Cells Many /LPF Urine Bacteria Many /HPF (0-FEW) Urine Cellular Casts Occ /HPF Urine Hyaline Casts Occasional /HPF Urine Mucus Slight /LPF Assessment and Plan Assessmemt and Plan Problems Medical Problems: (1) COPD (chronic obstructive pulmonary disease) Status: Acute (2) Influenza A Status: Acute Comment Review of Relevant I have reviewed the following items floyd (where applicable) has been applied. Medications: Current Medications Medications (Trade) Dose Ordered Sig/Nhan Route PRN Reason Start Time Stop Time Status Last Admin Dose Admin Oseltamivir Phosphate (Tamiflu) 30 mg BID PO 07/22/21 21:00 07/27/21 20:59 07/23/21 10:18 Dexamethasone Sodium Phosphate (Decadron) 10 mg 1X ONCE IV 07/22/21 22:00 07/22/21 22:01 DC 07/23/21 01:33 Sodium Chloride 1,000 ml @ 100 mls/hr Q10H IV 07/22/21 22:00 07/23/21 21:59 07/23/21 01:15 Benzonatate (Tessalon Perle) 100 mg TID PO 07/22/21 22:00 07/23/21 10:18 Guaifenesin (Robitussin Dm) 10 ml PRN Q6HRS PRN PO COUGH 07/22/21 21:45 07/23/21 05:00 Nicotine (Nicoderm Cq 21mg) 1 patch PRN DAILY PRN TD SMOKING CESSATION 07/22/21 22:30 07/23/21 10:18 Methylprednisolone Sodium Succinate (SOLU-Medrol 40MG VIAL) 80 mg Q8HRS IV 07/23/21 06:00 07/23/21 05:31 Doxycycline Hyclate (Vibra-Tab) 100 mg BID PO 07/22/21 23:00 07/27/21 22:59 07/23/21 10:18 Ceftriaxone Sodium (Rocephin) 1 gm 1X ONCE IVP 07/22/21 23:00 07/22/21 23:01 DC 07/23/21 01:34 Fluticasone/ Vilanterol (Breo Ellipta 100-25 Mcg) 1 puff DAILY INH 07/23/21 09:00 07/23/21 09:00 Albuterol/ Ipratropium (Combivent Respimat 20-100 Mcg) 1 puff RTQID INH 07/23/21 08:00 07/23/21 08:00 Justifications for Admission Other Justification HUMERA YORK MD Jul 23, 2021 11:29
[2021-07-23 11:49] LABS: ALBUMIN 2.9 g/dL (3.4-5.0); ALBUMIN/GLOBULIN RATIO 0.5 (1.0-1.7); CALCIUM 8.4 mg/dL (8.5-10.1); GFR 54.5; POTASSIUM 4.6 mmol/L (3.5-5.1); TOTAL BILIRUBIN 0.3 mg/dL (0.2-1.0); TOTAL PROTEIN 8.3 g/dL (6.4-8.2)
[2021-07-23] MEDS ORDERED: DEXTROSE 50% 25 GM / 50ML DISP.SYRIN. IV PRN (12:30)
[2021-07-23] MEDS ORDERED: IV DEXTROSE 5% 250 ML BAG. IV PRN (12:30)
[2021-07-23] MEDS: INSULIN LISPRO 300 UNITS/3 ML VIAL. SQ SCH ×2 (12:30→17:42)
--- NOTE | 2021-07-23 12:54 | NUR ---
SW following. Discussed with RN, pt from home with family, room air, regular diet, Flu A positive, Rapid COVID-19 negative. Pt is Chuukese speaking. Granddaughter, Umberto ph: [phone]. Med Assist following for self pay status. SW will continue to follow.
[2021-07-23] MEDS: LACTOBACILLUS RHAMNOSUS GG 1 CAPSULE. PO SCH ×2 (13:48→21:04)
--- NOTE | 2021-07-24 04:04 | EKG ---
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
[2021-07-24] MEDS: methylPREDNISolone SOD SUCC PF 40 MG/ML VIAL. IV SCH ×3 (06:08→21:20)
[2021-07-24] MEDS: HEPARIN for SUB-Q USE 5,000 UNIT/ML VIAL. SQ SCH ×3 (06:09→21:19)
[2021-07-24 07:00] VITALS: BP 104/58
[2021-07-24] MEDS: IPRATROPIUM/ALBUTEROL 20/100mcg/INH INHALER. INH SCH ×4 (08:00→21:21)
[2021-07-24] MEDS: INSULIN LISPRO 300 UNITS/3 ML VIAL. SQ SCH ×3 (08:00→17:00)
[2021-07-24 08:23] LABS: CREATININE 0.9 mg/dL (0.6-1.0); GFR 61.5; POTASSIUM 4.2 mmol/L (3.5-5.1)
[2021-07-24] MEDS: FLUTICASONE/VILANTEROL 100/25 INHALER. INH SCH (09:00)
[2021-07-24] MEDS: guaiFENesin DM 200MG/20MG 10 ML SYRUP PO PRN (10:12)
[2021-07-24] MEDS: DOXYCYCLINE HYCLATE 100 MG TABLET PO SCH ×2 (10:12→21:20)
[2021-07-24] MEDS: LACTOBACILLUS RHAMNOSUS GG 1 CAPSULE. PO SCH ×2 (10:12→21:20)
[2021-07-24] MEDS: OSELTAMIVIR 30 MG CAPSULE PO SCH ×2 (10:12→21:20)
[2021-07-24] MEDS: NICOTINE 21MG PATCH. TD PRN (10:13)
[2021-07-24] MEDS: BENZONATATE 100 MG CAPSULE. PO SCH ×3 (10:13→21:20)
[2021-07-24 11:00] VITALS: BP 102/53
--- NOTE | 2021-07-24 11:57 | PDOC ---
[facility] [facility] PROGRESS NOTE Date of Service DOS: DATE: 07/24/21 TIME: 11:52 Chief Complaint Chief Complaint Acute respiratory failure with hypoxia - due to COPD, COVID19 and influenza A and likely gram negative pneumonia given lung disease. Wean O2 as tolerated Influenza A - 30mg tamiflu BID, is within 24 hours of symptom onset Abnormal chest CT - chronic bronchiectasis changes and pneumonia - with Greenish-brown sputum. Likely gram negative given structural lung disease with COPD history Acute COPD exacerbation - aggressive nebs and pulm toileting. IV steroids Sepsis - due to pneumonia, given empiric fluids, antibiotics Abnormal UA - will f/u culture results Smoker - counseled on cessation, offered nicotine replacement therapy COVID 19 - early dx, will start remdesivir, cont steroids. May be prudent to observe given her early symptoms may progress UTI - E. 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 Patient denies any chest pain. Has had cough and fever as well. Patient was not vaccinated for COVID-19 or influenza this year. Patient has used her pro-air inhaler at home with no relief. Her family brought her here for further treatment. Patient does continue to smoke. O2 saturations 84% on room air improved with 2 L/min nasal cannula O2 91%. Chest radiograph with chronic pulmonary opacities right greater than left With elevated d dimer underwent CTPA which was negative for pulmonary embolism shows severe emphysematous changes with evidence of chronic bronchitis worse since 2018. Labs with WBC 15.3, Hb 14.5, platelets 261, NA 137, K4.5, BUN 21, CR 1, glucose 148, calcium 7.5, lactic acid 1.5, phosphorus 3, mag 2.1, LFTs within normal laboratory limits, high-sensitivity troponin is 19, NT proBNP is 416, urinalysis with positive leuk esterase and nitrites, rapid COVID-19 negative, rapid influenza positive for flu a. Admitted for further care. 07/23: Still hypoxic. Breathing is little improved today. Labs stable. No chest pain. Cough is productive of greenish-brown sputum 07/24: COVID-19 returned positive. Requiring 2 L/min on exertion and at rest on 6 minute walk. Discussed with pharmacy to initiate remdesivir. Patient and granddaughter asking about discharge timing, but patient states she is feeling worse today, more short of breath, decreased appetite. Vitals/I&O Vitals/I&O: Vital Signs Date Time Temp Pulse Resp B/P (MAP) Pulse Ox O2 Delivery O2 Flow Rate FiO2 07/24/21 08:00 Nasal Cannula 2.0 07/24/21 07:00 97.5 69 20 104/58 (73) 90 97.5 I & O 07/23/21 07/23/21 07/24/21 15:00 23:00 07:00 Intake Total 0 ml 300 ml Balance 0 ml 300 ml Physical Exam General: Alert, Oriented X3, Cooperative, moderate distress Lungs: Clear Abdomen: Normal bowel sounds, Soft, No tenderness, No hepatosplenomegaly, No masses Extremities: No clubbing, No cyanosis, No edema, Normal pulses, No tenderness/swelling Skin: No rashes, No breakdown, No significant lesion Labs Labs: Laboratory Tests Test 07/23/21 16:48 07/23/21 19:53 07/24/21 07:50 07/24/21 07:52 Glucose (Fingerstick) 175 mg/dL (70-99) 151 mg/dL (70-99) 148 mg/dL (70-99) Sodium Level 142 mmol/L (136-145) Potassium Level 4.2 mmol/L (3.5-5.1) Chloride Level 107 mmol/L (98-107) Carbon Dioxide Level 30 mmol/L (21-32) Anion Gap 5 (6-14) Blood Urea Nitrogen 24 mg/dL (7-20) Creatinine 0.9 mg/dL (0.6-1.0) Estimated GFR (Cockcroft-Gault) 61.5 Glucose Level 144 mg/dL (70-99) Calcium Level 8.0 mg/dL (8.5-10.1) Test 07/24/21 11:42 Glucose (Fingerstick) 161 mg/dL (70-99) Assessment and Plan Assessmemt and Plan Problems Medical Problems: (1) COPD (chronic obstructive pulmonary disease) Status: Acute (2) Influenza A Status: Acute Comment Review of Relevant I have reviewed the following items floyd (where applicable) has been applied. Medications: Current Medications Medications (Trade) Dose Ordered Sig/Nhan Route PRN Reason Start Time Stop Time Status Last Admin Dose Admin Insulin Human Lispro (HumaLOG) 0-9 UNITS TIDWMEALS SQ 07/23/21 12:30 07/23/21 17:42 Lactobacillus Rhamnosus (Culturelle) 1 cap BID PO 07/23/21 12:00 07/24/21 10:12 Justifications for Admission Other Justification HUMERA YORK MD Jul 24, 2021 11:57
[2021-07-24] MEDS ORDERED: REMDESIVIR LOAD in IV NORMAL SALINE 250ML TV IV ONE (13:00)
[2021-07-24] MEDS: cefTRIAXone IV Push 1 GM VIAL. IVP SCH (13:47)
[2021-07-24 15:00] VITALS: BP 107/57
--- NOTE | 2021-07-24 15:09 | NUR ---
SW following. Discussed with RN, pt Flu and COVID positive. 6 minute walk showed pt needing 2L with exertion and rest, however pt not ready to discharge now. Pt's granddaughter aware of the $120 per month cost for oxygen. SW will continue to follow.
[2021-07-24 19:00] VITALS: BP 131/67
[2021-07-24 22:40] VITALS: BP 134/69
[2021-07-25 02:43] VITALS: BP 113/59
[2021-07-25] MEDS: methylPREDNISolone SOD SUCC PF 40 MG/ML VIAL. IV SCH ×4 (06:08→23:11)
[2021-07-25] MEDS: HEPARIN for SUB-Q USE 5,000 UNIT/ML VIAL. SQ SCH ×3 (06:08→20:40)
[2021-07-25 07:00] VITALS: BP 127/65
[2021-07-25] MEDS: INSULIN LISPRO 300 UNITS/3 ML VIAL. SQ SCH ×3 (08:00→16:55)
[2021-07-25] MEDS: OSELTAMIVIR 30 MG CAPSULE PO SCH ×2 (09:01→20:33)
[2021-07-25] MEDS: IPRATROPIUM/ALBUTEROL 20/100mcg/INH INHALER. INH SCH ×4 (09:01→20:33)
[2021-07-25] MEDS: BENZONATATE 100 MG CAPSULE. PO SCH ×3 (09:01→20:33)
[2021-07-25] MEDS: LACTOBACILLUS RHAMNOSUS GG 1 CAPSULE. PO SCH ×2 (09:01→20:33)
[2021-07-25] MEDS: DOXYCYCLINE HYCLATE 100 MG TABLET PO SCH ×2 (09:01→20:33)
[2021-07-25] MEDS: FLUTICASONE/VILANTEROL 100/25 INHALER. INH SCH (09:32)
[2021-07-25 11:00] VITALS: BP 121/63
--- NOTE | 2021-07-25 11:09 | PDOC ---
[facility] [facility] PROGRESS NOTE Date of Service DOS: DATE: 07/25/21 TIME: 11:07 Chief Complaint Chief Complaint Acute respiratory failure with hypoxia - due to COPD, COVID19 and influenza A and likely gram negative pneumonia given lung disease. Wean O2 as tolerated Influenza A - 30mg tamiflu BID, is within 24 hours of symptom onset Abnormal chest CT - chronic bronchiectasis changes and pneumonia - with Greenish-brown sputum. Likely gram negative given structural lung disease with COPD history Acute COPD exacerbation - aggressive nebs and pulm toileting. IV steroids Sepsis - due to pneumonia, given empiric fluids, antibiotics Abnormal UA - will f/u culture results Smoker - counseled on cessation, offered nicotine replacement therapy COVID 19 - early dx, will start remdesivir, cont steroids. May be prudent to observe given her early symptoms may progress UTI - E. 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 Patient denies any chest pain. Has had cough and fever as well. Patient was not vaccinated for COVID-19 or influenza this year. Patient has used her pro-air inhaler at home with no relief. Her family brought her here for further treatment. Patient does continue to smoke. O2 saturations 84% on room air improved with 2 L/min nasal cannula O2 91%. Chest radiograph with chronic pulmonary opacities right greater than left With elevated d dimer underwent CTPA which was negative for pulmonary embolism shows severe emphysematous changes with evidence of chronic bronchitis worse since 2018. Labs with WBC 15.3, Hb 14.5, platelets 261, NA 137, K4.5, BUN 21, CR 1, glucose 148, calcium 7.5, lactic acid 1.5, phosphorus 3, mag 2.1, LFTs within normal laboratory limits, high-sensitivity troponin is 19, NT proBNP is 416, urinalysis with positive leuk esterase and nitrites, rapid COVID-19 negative, rapid influenza positive for flu a. Admitted for further care. 07/23: Still hypoxic. Breathing is little improved today. Labs stable. No chest pain. Cough is productive of greenish-brown sputum 07/24: COVID-19 returned positive. Requiring 2 L/min on exertion and at rest on 6 minute walk. Discussed with pharmacy to initiate remdesivir. Patient and granddaughter asking about discharge timing, but patient states she is feeling worse today, more short of breath, decreased appetite. 07/25: Seen a little more short of breath on exertion still on 2 L/min nasal cannula saturations 91%. Discussed with granddaughter as cabin service agent over the phone due to lack of cabin service agent availability. On Rocephin for E. coli UTI. Vitals/I&O Vitals/I&O: Vital Signs Date Time Temp Pulse Resp B/P (MAP) Pulse Ox O2 Delivery O2 Flow Rate FiO2 07/25/21 07:00 97.7 62 24 127/65 (85) 98 Nasal Cannula 2.0 97.7 I & O 07/24/21 07/24/21 07/25/21 15:00 23:00 07:00 Intake Total 3301 ml 200 ml Output Total 600 ml Balance 3301 ml -400 ml Physical Exam General: Alert, Oriented X3, Cooperative, moderate distress Lungs: Clear Abdomen: Normal bowel sounds, Soft, No tenderness, No hepatosplenomegaly, No masses Extremities: No clubbing, No cyanosis, No edema, Normal pulses, No tenderness/swelling Skin: No rashes, No breakdown, No significant lesion Labs Labs: Laboratory Tests Test 07/24/21 11:42 07/24/21 16:58 07/25/21 07:31 Glucose (Fingerstick) 161 mg/dL (70-99) 131 mg/dL (70-99) 116 mg/dL (70-99) Assessment and Plan Assessmemt and Plan Problems Medical Problems: (1) COPD (chronic obstructive pulmonary disease) Status: Acute (2) Influenza A Status: Acute Comment Review of Relevant I have reviewed the following items floyd (where applicable) has been applied. Medications: Current Medications Medications (Trade) Dose Ordered Sig/Nhan Route PRN Reason Start Time Stop Time Status Last Admin Dose Admin Ceftriaxone Sodium (Rocephin) 1 gm Q24H IVP 07/24/21 12:00 07/24/21 13:47 Remdesivir 200 mg/ Sodium Chloride 210 ml @ 210 mls/hr 1X ONCE IV 07/24/21 13:00 07/24/21 13:59 DC 07/24/21 13:46 Justifications for Admission Other Justification HUMERA YORK MD Jul 25, 2021 11:08
--- NOTE | 2021-07-25 12:23 | NUR ---
SS following up with discharge planning. SS reviewed pt chart and discussed with pt RN. Pt is currently requiring oxygen at two liters nasal canula. Six minute walk completed and pt needing two liters of oxygen at rest and with exertion. COVID19 positive and Flu positive. Pt on IV Remdesivir and IV Rocephin. Discharge plan is currently to home when medically ready for discharge. Self pay. Med Assist following. Pt's family aware of private pay cost of oxygen. Per physician, probable discharge to home tomorrow. SS will continue to follow for discharge planning.
[2021-07-25] MEDS: REMDESIVIR 100mg in NORMAL SALINE 250ML X 4 DAYS IV SCH (12:42)
[2021-07-25] MEDS: cefTRIAXone IV Push 1 GM VIAL. IVP SCH (12:43)
[2021-07-25 15:00] VITALS: BP 118/68
[2021-07-25] MEDS: CIPROFLOXACIN 400MG PREMIX 200 ML IV SCH (18:04)
[2021-07-25 19:00] VITALS: BP 129/64
[2021-07-25 23:02] VITALS: BP 119/68
[2021-07-26] MEDS: HEPARIN for SUB-Q USE 5,000 UNIT/ML VIAL. SQ SCH ×3 (05:41→21:16)
[2021-07-26] MEDS: methylPREDNISolone SOD SUCC PF 40 MG/ML VIAL. IV SCH ×3 (05:43→21:01)
[2021-07-26 06:15] LABS: BASO % 0 % (0-3); EOS % 0 % (0-3); HEMATOCRIT 43.8 % (36.0-47.0); HEMOGLOBIN 13.7 g/dL (12.0-15.5); LYMPH # 0.7 x10^3/uL (1.0-4.8); LYMPH % 8 % (24-48); MEAN CORPUSCULAR HEMOGLOBIN 25 pg (25-35); MEAN CORPUSCULAR HGB CONC 31 g/dL (31-37); MEAN CORPUSCULAR VOLUME 80 fL (79-100); MONO # 0.3 x10^3/uL (0.0-1.1); MONO % 4 % (0-9); NEUT # 7.5 x10^3/uL (1.8-7.7); NEUT % 88 % (31-73); PLATELET COUNT 217 x10^3/uL (140-400); RED BLOOD COUNT 5.46 x10^6/uL (3.50-5.40); RED CELL DISTRIBUTION WIDTH 14.5 % (11.5-14.5); WHITE BLOOD COUNT 8.5 x10^3/uL (4.0-11.0)
[2021-07-26 06:38] LABS: ALBUMIN 2.4 g/dL (3.4-5.0); ALBUMIN/GLOBULIN RATIO 0.7 (1.0-1.7); CALCIUM 7.5 mg/dL (8.5-10.1); CREATININE 0.8 mg/dL (0.6-1.0); GFR 70.5; TOTAL BILIRUBIN 0.2 mg/dL (0.2-1.0)
[2021-07-26 07:00] VITALS: BP 116/62
[2021-07-26] MEDS: INSULIN LISPRO 300 UNITS/3 ML VIAL. SQ SCH ×3 (08:00→17:00)
[2021-07-26] MEDS: IPRATROPIUM/ALBUTEROL 20/100mcg/INH INHALER. INH SCH ×4 (08:50→21:00)
[2021-07-26] MEDS: DOXYCYCLINE HYCLATE 100 MG TABLET PO SCH ×2 (08:50→21:01)
[2021-07-26] MEDS: OSELTAMIVIR 30 MG CAPSULE PO SCH ×2 (08:50→21:01)
[2021-07-26] MEDS: FLUTICASONE/VILANTEROL 100/25 INHALER. INH SCH (08:50)
[2021-07-26] MEDS: CIPROFLOXACIN 400MG PREMIX 200 ML IV SCH ×2 (08:50→21:00)
[2021-07-26] MEDS: BENZONATATE 100 MG CAPSULE. PO SCH ×3 (08:50→21:01)
[2021-07-26] MEDS: LACTOBACILLUS RHAMNOSUS GG 1 CAPSULE. PO SCH ×2 (08:50→21:01)
[2021-07-26 11:00] VITALS: BP 108/52
[2021-07-26] MEDS: REMDESIVIR 100mg in NORMAL SALINE 250ML X 4 DAYS IV SCH (11:58)
--- NOTE | 2021-07-26 13:31 | NUR ---
SW following. Discussed with RN, pt from home with family, 6 minute walk showed 2L continuous. Pt on day 2 of Remdesivir. Pt not ready to discharge. Flu and COVID-19 positive. SW will continue to follow.
--- NOTE | 2021-07-26 14:07 | PDOC ---
[facility] [facility] PROGRESS NOTE Date of Service DOS: DATE: 07/26/21 TIME: 14:06 Chief Complaint Chief Complaint Acute respiratory failure with hypoxia - due to COPD, COVID19 and influenza A and likely gram negative pneumonia given lung disease. Wean O2 as tolerated Influenza A - 30mg tamiflu BID, is within 24 hours of symptom onset Abnormal chest CT - chronic bronchiectasis changes and pneumonia - with Greenish-brown sputum. Likely gram negative given structural lung disease with COPD history Acute COPD exacerbation - aggressive nebs and pulm toileting. IV steroids Sepsis - due to pneumonia, given empiric fluids, antibiotics Abnormal UA - will f/u culture results Smoker - counseled on cessation, offered nicotine replacement therapy COVID 19 - early dx, will start remdesivir, cont steroids. May be prudent to observe given her early symptoms may progress UTI - E. 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 Patient denies any chest pain. Has had cough and fever as well. Patient was not vaccinated for COVID-19 or influenza this year. Patient has used her pro-air inhaler at home with no relief. Her family brought her here for further treatment. Patient does continue to smoke. O2 saturations 84% on room air improved with 2 L/min nasal cannula O2 91%. Chest radiograph with chronic pulmonary opacities right greater than left With elevated d dimer underwent CTPA which was negative for pulmonary embolism shows severe emphysematous changes with evidence of chronic bronchitis worse since 2018. Labs with WBC 15.3, Hb 14.5, platelets 261, NA 137, K4.5, BUN 21, CR 1, glucose 148, calcium 7.5, lactic acid 1.5, phosphorus 3, mag 2.1, LFTs within normal laboratory limits, high-sensitivity troponin is 19, NT proBNP is 416, urinalysis with positive leuk esterase and nitrites, rapid COVID-19 negative, rapid influenza positive for flu a. Admitted for further care. 07/23: Still hypoxic. Breathing is little improved today. Labs stable. No chest pain. Cough is productive of greenish-brown sputum 07/24: COVID-19 returned positive. Requiring 2 L/min on exertion and at rest on 6 minute walk. Discussed with pharmacy to initiate remdesivir. Patient and granddaughter asking about discharge timing, but patient states she is feeling worse today, more short of breath, decreased appetite. 07/25: Seen a little more short of breath on exertion still on 2 L/min nasal cannula saturations 91%. Discussed with granddaughter as health program manager over the phone due to lack of health program manager availability. On Rocephin for E. coli UTI. 07/26: Seen bedside on 2 L nasal cannula saturations 89%. E. coli resistant to cephalosporins changes ciprofloxacin. Day 3 of remdesivir. Vitals/I&O Vitals/I&O: Vital Signs Date Time Temp Pulse Resp B/P (MAP) Pulse Ox O2 Delivery O2 Flow Rate FiO2 07/26/21 11:00 97.8 60 17 108/52 (70) 92 Nasal Cannula 3.0 97.8 I & O 07/25/21 07/25/21 07/26/21 15:00 23:00 07:00 Intake Total 480 ml 670 ml Balance 480 ml 670 ml Physical Exam General: Alert, Oriented X3, Cooperative, moderate distress Lungs: Clear Abdomen: Normal bowel sounds, Soft, No tenderness, No hepatosplenomegaly, No masses Extremities: No clubbing, No cyanosis, No edema, Normal pulses, No tenderness/swelling Skin: No rashes, No breakdown, No significant lesion Labs Labs: Laboratory Tests Test 07/25/21 16:26 07/25/21 20:30 07/26/21 05:40 07/26/21 07:42 Glucose (Fingerstick) 112 mg/dL (70-99) 154 mg/dL (70-99) 133 mg/dL (70-99) White Blood Count 8.5 x10^3/uL (4.0-11.0) Red Blood Count 5.46 x10^6/uL (3.50-5.40) Hemoglobin 13.7 g/dL (12.0-15.5) Hematocrit 43.8 % (36.0-47.0) Mean Corpuscular Volume 80 fL (79-100) Mean Corpuscular Hemoglobin 25 pg (25-35) Mean Corpuscular Hemoglobin Concent 31 g/dL (31-37) Red Cell Distribution Width 14.5 % (11.5-14.5) Platelet Count 217 x10^3/uL (140-400) Neutrophils (%) (Auto) 88 % (31-73) Lymphocytes (%) (Auto) 8 % (24-48) Monocytes (%) (Auto) 4 % (0-9) Eosinophils (%) (Auto) 0 % (0-3) Basophils (%) (Auto) 0 % (0-3) Neutrophils # (Auto) 7.5 x10^3/uL (1.8-7.7) Lymphocytes # (Auto) 0.7 x10^3/uL (1.0-4.8) Monocytes # (Auto) 0.3 x10^3/uL (0.0-1.1) Eosinophils # (Auto) 0.0 x10^3/uL (0.0-0.7) Basophils # (Auto) 0.0 x10^3/uL (0.0-0.2) Sodium Level 146 mmol/L (136-145) Potassium Level 4.0 mmol/L (3.5-5.1) Chloride Level 106 mmol/L (98-107) Carbon Dioxide Level 32 mmol/L (21-32) Anion Gap 8 (6-14) Blood Urea Nitrogen 29 mg/dL (7-20) Creatinine 0.8 mg/dL (0.6-1.0) Estimated GFR (Cockcroft-Gault) 70.5 BUN/Creatinine Ratio 36 (6-20) Glucose Level 147 mg/dL (70-99) Calcium Level 7.5 mg/dL (8.5-10.1) Total Bilirubin 0.2 mg/dL (0.2-1.0) Aspartate Amino Transf (AST/SGOT) 25 U/L (15-37) Alanine Aminotransferase (ALT/SGPT) 32 U/L (14-59) Alkaline Phosphatase 58 U/L (46-116) Total Protein 6.0 g/dL (6.4-8.2) Albumin 2.4 g/dL (3.4-5.0) Albumin/Globulin Ratio 0.7 (1.0-1.7) Test 07/26/21 11:55 Glucose (Fingerstick) 200 mg/dL (70-99) Assessment and Plan Assessmemt and Plan Problems Medical Problems: (1) COPD (chronic obstructive pulmonary disease) Status: Acute (2) Influenza A Status: Acute Comment Review of Relevant I have reviewed the following items floyd (where applicable) has been applied. Medications: Current Medications Medications (Trade) Dose Ordered Sig/Nhan Route PRN Reason Start Time Stop Time Status Last Admin Dose Admin Ciprofloxacin/ Dextrose 200 ml @ 200 mls/hr Q12HR IV 07/25/21 18:00 07/26/21 08:50 Justifications for Admission Other Justification HUMERA YORK MD Jul 26, 2021 14:07
[2021-07-26 15:00] VITALS: BP 127/67
[2021-07-26 19:20] VITALS: BP 131/61
[2021-07-27] MEDS: HEPARIN for SUB-Q USE 5,000 UNIT/ML VIAL. SQ SCH ×3 (06:10→20:45)
[2021-07-27] MEDS: methylPREDNISolone SOD SUCC PF 40 MG/ML VIAL. IV SCH ×3 (06:11→20:49)
[2021-07-27 07:00] VITALS: BP 137/86
[2021-07-27] MEDS: INSULIN LISPRO 300 UNITS/3 ML VIAL. SQ SCH ×3 (08:00→18:21)
[2021-07-27] MEDS: FLUTICASONE/VILANTEROL 100/25 INHALER. INH SCH ×2 (08:34→20:47)
[2021-07-27] MEDS: IPRATROPIUM/ALBUTEROL 20/100mcg/INH INHALER. INH SCH ×4 (08:35→20:49)
[2021-07-27] MEDS: BENZONATATE 100 MG CAPSULE. PO SCH ×3 (08:35→20:49)
[2021-07-27] MEDS: DOXYCYCLINE HYCLATE 100 MG TABLET PO SCH ×2 (08:35→20:49)
[2021-07-27] MEDS: LACTOBACILLUS RHAMNOSUS GG 1 CAPSULE. PO SCH ×2 (08:35→20:49)
[2021-07-27] MEDS: OSELTAMIVIR 30 MG CAPSULE PO SCH (08:36)
[2021-07-27] MEDS: CIPROFLOXACIN 400MG PREMIX 200 ML IV SCH ×2 (08:37→20:46)
[2021-07-27 10:52] VITALS: BP 123/63
--- NOTE | 2021-07-27 11:03 | PDOC ---
[facility] [facility] PROGRESS NOTE Date of Service DOS: DATE: 07/27/21 TIME: 11:01 Chief Complaint Chief Complaint Acute respiratory failure with hypoxia - due to COPD, COVID19 and influenza A and likely gram negative pneumonia given lung disease. Wean O2 as tolerated Influenza A - 30mg tamiflu BID, is within 24 hours of symptom onset Abnormal chest CT - chronic bronchiectasis changes and pneumonia - with Greenish-brown sputum. Likely gram negative given structural lung disease with COPD history Acute COPD exacerbation - aggressive nebs and pulm toileting. IV steroids Sepsis - due to pneumonia, given empiric fluids, antibiotics Abnormal UA - will f/u culture results Smoker - counseled on cessation, offered nicotine replacement therapy COVID 19 - early dx, will start remdesivir, cont steroids. May be prudent to observe given her early symptoms may progress UTI - E. 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 Patient denies any chest pain. Has had cough and fever as well. Patient was not vaccinated for COVID-19 or influenza this year. Patient has used her pro-air inhaler at home with no relief. Her family brought her here for further treatment. Patient does continue to smoke. O2 saturations 84% on room air improved with 2 L/min nasal cannula O2 91%. Chest radiograph with chronic pulmonary opacities right greater than left With elevated d dimer underwent CTPA which was negative for pulmonary embolism shows severe emphysematous changes with evidence of chronic bronchitis worse since 2018. Labs with WBC 15.3, Hb 14.5, platelets 261, NA 137, K4.5, BUN 21, CR 1, glucose 148, calcium 7.5, lactic acid 1.5, phosphorus 3, mag 2.1, LFTs within normal laboratory limits, high-sensitivity troponin is 19, NT proBNP is 416, urinalysis with positive leuk esterase and nitrites, rapid COVID-19 negative, rapid influenza positive for flu a. Admitted for further care. 07/23: Still hypoxic. Breathing is little improved today. Labs stable. No chest pain. Cough is productive of greenish-brown sputum 07/24: COVID-19 returned positive. Requiring 2 L/min on exertion and at rest on 6 minute walk. Discussed with pharmacy to initiate remdesivir. Patient and granddaughter asking about discharge timing, but patient states she is feeling worse today, more short of breath, decreased appetite. 07/25: Seen a little more short of breath on exertion still on 2 L/min nasal cannula saturations 91%. Discussed with granddaughter as offset machine operator over the phone due to lack of offset machine operator availability. On Rocephin for E. coli UTI. 07/26: Seen bedside on 2 L nasal cannula saturations 89%. E. coli resistant to cephalosporins changes ciprofloxacin. Day 3 of remdesivir. 07/27: Now on 2.5 L nasal cannula saturations 91%. Still with cough. Appetite is okay no significant diarrhea. Day 4 of remdesivir today. Vitals/I&O Vitals/I&O: Vital Signs Date Time Temp Pulse Resp B/P (MAP) Pulse Ox O2 Delivery O2 Flow Rate FiO2 07/27/21 10:52 97.6 70 18 123/63 (83) 93 Nasal Cannula 2.5 97.6 I & O 07/26/21 07/26/21 07/27/21 15:00 23:00 07:00 Intake Total 240 ml 100 ml Balance 240 ml 100 ml Physical Exam General: Alert, Oriented X3, Cooperative, moderate distress Lungs: Clear Abdomen: Normal bowel sounds, Soft, No tenderness, No hepatosplenomegaly, No masses Extremities: No clubbing, No cyanosis, No edema, Normal pulses, No tenderness/swelling Skin: No rashes, No breakdown, No significant lesion Labs Labs: Laboratory Tests Test 07/26/21 11:55 07/26/21 17:17 07/26/21 19:47 07/27/21 07:58 Glucose (Fingerstick) 200 mg/dL (70-99) 120 mg/dL (70-99) 182 mg/dL (70-99) 148 mg/dL (70-99) Assessment and Plan Assessmemt and Plan Problems Medical Problems: (1) COPD (chronic obstructive pulmonary disease) Status: Acute (2) Influenza A Status: Acute Comment Review of Relevant I have reviewed the following items floyd (where applicable) has been applied. Justifications for Admission Other Justification HUMERA YORK MD Jul 27, 2021 11:03
[2021-07-27] MEDS: REMDESIVIR 100mg in NORMAL SALINE 250ML X 4 DAYS IV SCH (12:15)
[2021-07-27 15:00] VITALS: BP 130/71
[2021-07-27 19:00] VITALS: BP 127/66
[2021-07-27 22:37] VITALS: BP 122/64
[2021-07-28 02:43] VITALS: BP 129/74
[2021-07-28] MEDS: methylPREDNISolone SOD SUCC PF 40 MG/ML VIAL. IV SCH (05:41)
[2021-07-28] MEDS: HEPARIN for SUB-Q USE 5,000 UNIT/ML VIAL. SQ SCH ×3 (05:42→20:52)
[2021-07-28 07:00] VITALS: BP 127/74
[2021-07-28 07:33] LABS: ALBUMIN 2.8 g/dL (3.4-5.0); ALBUMIN/GLOBULIN RATIO 0.7 (1.0-1.7); CALCIUM 7.9 mg/dL (8.5-10.1); CREATININE 0.8 mg/dL (0.6-1.0); GFR 70.5; POTASSIUM 3.9 mmol/L (3.5-5.1); TOTAL BILIRUBIN 0.4 mg/dL (0.2-1.0); TOTAL PROTEIN 6.6 g/dL (6.4-8.2)
[2021-07-28] MEDS: IPRATROPIUM/ALBUTEROL 20/100mcg/INH INHALER. INH SCH ×4 (08:00→20:52)
[2021-07-28] MEDS: BENZONATATE 100 MG CAPSULE. PO SCH ×3 (08:39→20:52)
[2021-07-28] MEDS: LACTOBACILLUS RHAMNOSUS GG 1 CAPSULE. PO SCH ×2 (08:39→20:52)
[2021-07-28] MEDS: CIPROFLOXACIN 400MG PREMIX 200 ML IV SCH (08:40)
[2021-07-28] MEDS: INSULIN LISPRO 300 UNITS/3 ML VIAL. SQ SCH ×3 (10:15→17:10)
[2021-07-28 11:00] VITALS: BP 117/72
[2021-07-28] MEDS: REMDESIVIR 100mg in NORMAL SALINE 250ML X 4 DAYS IV SCH (11:58)
--- NOTE | 2021-07-28 13:29 | PDOC ---
[facility] PROGRESS NOTE Date of Service DOS: DATE: 07/28/21 TIME: 13:28 Chief Complaint Chief Complaint Acute respiratory failure with hypoxia - due to COPD, COVID19 and influenza A and likely gram negative pneumonia given lung disease. Wean O2 as tolerated Influenza A - 30mg tamiflu BID, is within 24 hours of symptom onset Abnormal chest CT - chronic bronchiectasis changes and pneumonia - with Greenish-brown sputum. Likely gram negative given structural lung disease with COPD history Acute COPD exacerbation - aggressive nebs and pulm toileting. IV steroids Sepsis - due to pneumonia, given empiric fluids, antibiotics Abnormal UA - will f/u culture results Smoker - counseled on cessation, offered nicotine replacement therapy COVID 19 - early dx, will start remdesivir, cont steroids. May be prudent to observe given her early symptoms may progress UTI - E. coli, will keep on ciprofloxacin based on sensitivities FEN - General diet PPX - Heparin FULL Code Dispo - inpatient History of Present Illness History of Present Illness Ms Clement is a 70 year old female with PMHX COPD, Chuukese speaking only with grand-daughter present as screen maker as [employer] screen maker services do not have [employer] screen maker available, comes to ED c/o sudden onset shortness of breath with cough for the past day prior to admission. Patient denies any chest pain. Has had cough and fever as well. Patient was not vaccinated for COVID-19 or influenza this year. Patient has used her pro-air inhaler at home with no relief. Her family brought her here for further treatment. Patient does continue to smoke. O2 saturations 84% on room air improved with 2 L/min nasal cannula O2 91%. Chest radiograph with chronic pulmonary opacities right greater than left With elevated d dimer underwent CTPA which was negative for pulmonary embolism shows severe emphysematous changes with evidence of chronic bronchitis worse since 2018. Labs with WBC 15.3, Hb 14.5, platelets 261, NA 137, K4.5, BUN 21, CR 1, glucose 148, calcium 7.5, lactic acid 1.5, phosphorus 3, mag 2.1, LFTs within normal laboratory limits, high-sensitivity troponin is 19, NT proBNP is 416, urinalysis with positive leuk esterase and nitrites, rapid COVID-19 negative, rapid influenza positive for flu a. Admitted for further care. 07/23: Still hypoxic. Breathing is little improved today. Labs stable. No chest pain. Cough is productive of greenish-brown sputum 07/24: COVID-19 returned positive. Requiring 2 L/min on exertion and at rest on 6 minute walk. Discussed with pharmacy to initiate remdesivir. Patient and granddaughter asking about discharge timing, but patient states she is feeling worse today, more short of breath, decreased appetite. 07/25: Seen a little more short of breath on exertion still on 2 L/min nasal cannula saturations 91%. Discussed with granddaughter as screen maker over the phone due to lack of screen maker availability. On Rocephin for E. coli UTI. 07/26: Seen bedside on 2 L nasal cannula saturations 89%. E. coli resistant to cephalosporins changes ciprofloxacin. Day 3 of remdesivir. 07/27: Now on 2.5 L nasal cannula saturations 91%. Still with cough. Appetite is okay no significant diarrhea. Day 4 of remdesivir today. 07/28: Still hypoxic and weak. Left upper lobe crackles. Final dose of remdesivir today still requiring IV steroids will try to transition to p.o. tomorrow on plan for discharge. Will need repeat 6-minute walk given initial 6-minute walk was done prior to COVID-19 diagnosis and her oxygen needs increased initially. Vitals/I&O Vitals/I&O: Vital Signs Date Time Temp Pulse Resp B/P (MAP) Pulse Ox O2 Delivery O2 Flow Rate FiO2 07/28/21 11:00 98.0 18 117/72 (87) 93 Room Air 98.0 07/28/21 07:00 59 2.0 I & O 07/27/21 07/27/21 07/28/21 15:00 23:00 07:00 Intake Total 600 ml Output Total 700 ml Balance 600 ml -700 ml Physical Exam General: Alert, Oriented X3, Cooperative, moderate distress Lungs: Clear Abdomen: Normal bowel sounds, Soft, No tenderness, No hepatosplenomegaly, No masses Extremities: No clubbing, No cyanosis, No edema, Normal pulses, No tenderness/swelling Skin: No rashes, No breakdown, No significant lesion Labs Labs: Laboratory Tests Test 07/27/21 16:48 07/27/21 18:45 07/28/21 06:35 07/28/21 08:04 Glucose (Fingerstick) 189 mg/dL (70-99) 208 mg/dL (70-99) 154 mg/dL (70-99) Sodium Level 144 mmol/L (136-145) Potassium Level 3.9 mmol/L (3.5-5.1) Chloride Level 103 mmol/L (98-107) Carbon Dioxide Level 31 mmol/L (21-32) Anion Gap 10 (6-14) Blood Urea Nitrogen 22 mg/dL (7-20) Creatinine 0.8 mg/dL (0.6-1.0) Estimated GFR (Cockcroft-Gault) 70.5 BUN/Creatinine Ratio 28 (6-20) Glucose Level 159 mg/dL (70-99) Calcium Level 7.9 mg/dL (8.5-10.1) Total Bilirubin 0.4 mg/dL (0.2-1.0) Aspartate Amino Transf (AST/SGOT) 23 U/L (15-37) Alanine Aminotransferase (ALT/SGPT) 37 U/L (14-59) Alkaline Phosphatase 74 U/L (46-116) Total Protein 6.6 g/dL (6.4-8.2) Albumin 2.8 g/dL (3.4-5.0) Albumin/Globulin Ratio 0.7 (1.0-1.7) Test 07/28/21 11:19 Glucose (Fingerstick) 190 mg/dL (70-99) Assessment and Plan Assessmemt and Plan Problems Medical Problems: (1) COPD (chronic obstructive pulmonary disease) Status: Acute (2) Influenza A Status: Acute Comment Review of Relevant I have reviewed the following items floyd (where applicable) has been applied. Justifications for Admission Other Justification HUMERA YORK MD Jul 28, 2021 13:29
[2021-07-28 15:00] VITALS: BP 132/72
[2021-07-28 19:00] VITALS: BP 156/75
[2021-07-28 22:39] VITALS: BP 140/81
[2021-07-29 03:04] VITALS: BP 138/80
[2021-07-29] MEDS: HEPARIN for SUB-Q USE 5,000 UNIT/ML VIAL. SQ SCH ×2 (05:44→13:54)
[2021-07-29 07:30] VITALS: BP 131/74
[2021-07-29] MEDS: INSULIN LISPRO 300 UNITS/3 ML VIAL. SQ SCH ×3 (08:00→17:00)
[2021-07-29] MEDS: IPRATROPIUM/ALBUTEROL 20/100mcg/INH INHALER. INH SCH ×3 (08:21→16:00)
[2021-07-29] MEDS: FLUTICASONE/VILANTEROL 100/25 INHALER. INH SCH (08:22)
[2021-07-29] MEDS: LACTOBACILLUS RHAMNOSUS GG 1 CAPSULE. PO SCH (08:23)
[2021-07-29] MEDS: BENZONATATE 100 MG CAPSULE. PO SCH ×2 (08:24→13:53)
[2021-07-29] MEDS ORDERED: predniSONE 20 MG TABLET PO SCH (09:00)
[2021-07-29 11:00] VITALS: BP 125/71
[2021-07-29] MEDS ORDERED: FLUT1AER2 INH (12:06)
[2021-07-29] MEDS ORDERED: PRED20TA PO (12:06)
--- NOTE | 2021-07-29 12:08 | PDOC3 ---
[facility]-Discharge Summary Date of Admission: Date of Admission: Jul 22, 2021 Date of Discharge: Date of Discharge: Jul 29, 2021 Admission Diagnosis: Problems: (1) Influenza A (2) COPD (chronic obstructive pulmonary disease) Hospital Course: Hospital Course: Chief Complaint Acute respiratory failure with hypoxia - due to COPD, COVID19 and influenza A and likely gram negative pneumonia given lung disease. Wean O2 as tolerated Influenza A - 30mg tamiflu BID, is within 24 hours of symptom onset Abnormal chest CT - chronic bronchiectasis changes and pneumonia - with Greenish-brown sputum. Likely gram negative given structural lung disease with COPD history Acute COPD exacerbation - aggressive nebs and pulm toileting. IV steroids Sepsis - due to pneumonia, given empiric fluids, antibiotics Abnormal UA - will f/u culture results Smoker - counseled on cessation, offered nicotine replacement therapy COVID 19 - early dx, will start remdesivir, cont steroids. May be prudent to observe given her early symptoms may progress UTI - E. 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 Patient denies any chest pain. Has had cough and fever as well. Patient was not vaccinated for COVID-19 or infl uenza this year. Patient has used her pro-air inhaler at home with no relief. Her family brought her here for further treatment. Patient does continue to smoke. O2 saturations 84% on room air improved with 2 L/min nasal cannula O2 91%. Chest radiograph with chronic pulmonary opacities right greater than left With elevated d dimer underwent CTPA which was negative for pulmonary embolism shows severe emphysematous changes with evidence of chronic bronchitis worse since 2018. Labs with WBC 15.3, Hb 14.5, platelets 261, NA 137, K4.5, BUN 21, CR 1, glucose 148, calcium 7.5, lactic acid 1.5, phosphorus 3, mag 2.1, LFTs within normal laboratory limits, high-sensitivity troponin is 19, NT proBNP is 416, urinalysis with positive leuk esterase and nitrites, rapid COVID-19 negative, rapid influenza positive for flu a. Admitted for further care. 07/23: Still hypoxic. Breathing is little improved today. Labs stable. No chest pain. Cough is productive of greenish-brown sputum 07/24: COVID-19 returned positive. Requiring 2 L/min on exertion and at rest on 6 minute walk. Discussed with pharmacy to initiate remdesivir. Patient and granddaughter asking about discharge timing, but patient states she is feeling worse today, more short of breath, decreased appetite. 07/25: Seen a little more short of breath on exertion still on 2 L/min nasal cannula saturations 91%. Discussed with granddaughter as precision aircraft systems assembler over the phone due to lack of precision aircraft systems assembler availability. On Rocephin for E. coli UTI. 07/26: Seen bedside on 2 L nasal cannula saturations 89%. E. coli resistant to cephalosporins changes ciprofloxacin. Day 3 of remdesivir. 07/27: Now on 2.5 L nasal cannula saturations 91%. Still with cough. Appetite is okay no significant diarrhea. Day 4 of remdesivir today. 07/28: Still hypoxic and weak. Left upper lobe crackles. Final dose of remdesivir today still requiring IV steroids will try to transition to p.o. tomorrow on plan for discharge. Will need repeat 6-minute walk given initial 6-minute walk was done prior to COVID-19 diagnosis and her oxygen needs increased initially. 07/29 Patient evaluate examined at bedside. Doing well improving. 6-minute walk today. Can DC her walk. Complete steroids at home. Greater than 30 minutes spent on discharge. 21 minutes advance care planning. Disposition: Disposition/Orders: D/C to Home Activity: Activity: Resume previous activity Diet: Diet: other (ada) Medications: Home Meds Active Scripts Levofloxacin (LEVOFLOXACIN) 500 Mg Tablet, 1 TAB PO DAILY for UTI, #7 TAB Prov:PARK COBOS MD 02/23/21 Guaifenesin/Dextromethorphan (GUAIFENESIN DM SYRUP) 5 Ml Syrup, 10 ML PO PRN Q6HRS PRN for COUGH for 10 Days, #200 MISC Prov:PARK COBOS MD 02/23/21 Benzonatate (BENZONATATE) 100 Mg Capsule, 100 MG PO TID for bronchitis for 10 Days, #30 CAP Prov:PARK COBOS MD 02/23/21 Doxycycline Hyclate (DOXYCYCLINE HYCLATE) 100 Mg Tablet, 100 MG PO BID for bronchitis for 10 Days, #20 TAB Prov:PARK COBOS MD 02/23/21 Albuterol Sulfate (PROAIR HFA INHALER) 8.5 Gm Hfa.aer.ad, 2 PUFF IH PRN Q4-6HRS PRN for wheezing for 21 Days, #1 INHALER 0 Refills Prov:ALO BARNEY MD 06/21/19 Ipratropium Ennice (ATROVENT HFA) 12.9 Gm Hfa.aer.ad, 2 PUFF IH QID, #12.9 GM 0 Refills Prov:ROCHELLE MAN DO 06/05/18 Reported Medications Prednisone (PREDNISONE) 20 Mg Tablet, 20 MG PO DAILY for Breathing for 7 Days, #7 TAB 02/24/21 Scheduled Benzonatate (Benzonatate), 100 MG PO TID Doxycycline Hyclate (Doxycycline Hyclate), 100 MG PO BID Ipratropium Ennice (Atrovent Hfa), 2 PUFF IH QID Levofloxacin (Levofloxacin), 1 TAB PO DAILY Prednisone (Prednisone), 20 MG PO DAILY, (Reported) Scheduled PRN Albuterol Sulfate (Proair Hfa Inhaler), 2 PUFF IH PRN Q4-6HRS PRN for wheezing Guaifenesin/Dextromethorphan (Guaifenesin Dm Syrup), 10 ML PO PRN Q6HRS PRN for COUGH Justicifation of Admission Dx: Justifications for Admission: Justification of Admission Dx: Yes Sepsis: Hypoxemia HUMERA PIZANO MD Jul 29, 2021 12:07
--- NOTE | 2021-07-29 12:27 | NUR ---
SW following. Discussed with RN, pt can discharge home after repeat 6 minute walk. Awaiting result. BASS[facility] will continue to follow. Addendum: 07/29/21 at 1619 by RUDDY BANEGAS BASSAM faxed 6 minute walk and script to [facility]. [facility] contacted [facility] and advised pt already has home oxygen arranged at home through them but has an outstanding balance of about $600. [facility] approved to give tank for discharge home, and will attempt to call family for payment. BASSAM tried to call family before this information and went straight to voicemail. [facility]ASSAM notified RN to have family contact [facility] when they get home. Discharge order for home with self care.
[2021-07-29 15:14] VITALS: BP 135/74
--- NOTE | 2021-07-29 17:52 | NUR ---
patient discharged to home with family in personal vehicle. taken out by wheelchair. Gave discharge instructions to family member picking patient up. O2 hard copy prescription in patients chart.
== END 2021-07-29 17:00 | disposition home or self-care (01) | DRG 871 ==
LOC: ER 18:22 → 5 SOUTH 21:25
PROVIDERS: ADMIT Internal Medicine; ATTEND Internal Medicine
PROC: XW033E5 Introduction of Remdesivir Anti-infective into Peripheral Vein, Percutaneous Approach, New Technology Group 5 (ICD-10-PCS; principal; 2021-07-22)
DX: A41.89 Other specified sepsis (principal); J10.08 Influenza due to other identified influenza virus with other specified pneumonia; J15.6 Pneumonia due to other Gram-negative bacteria; J96.01 Acute respiratory failure with hypoxia; U07.1 COVID-19; J44.0 Chronic obstructive pulmonary disease with (acute) lower respiratory infection; J44.1 Chronic obstructive pulmonary disease with (acute) exacerbation; N39.0 Urinary tract infection, site not specified; B96.20 Unspecified Escherichia coli [E. coli] as the cause of diseases classified elsewhere; F17.210 Nicotine dependence, cigarettes, uncomplicated
CPT/HCPCS: 36415; 71045; 71275; 80048; 80053; 81001; 82962; 83605; 83735; 83880; 84100; 84145; 84484; 85007; 85025; 85379; 87040; 87077; 87086; 87186; 87428; 93005; 94618; 94760; J0696; J0744; J1100; J1644; J1815; J2920; J7030; J7050; J7512; U0003; 99285-25; G0378

== ENCOUNTER 2021-10-15 05:21 | Inpatient (IN) | payer SELFPAY ==
[~2021-10-15] VITALS: Ht 167.6 cm; Wt 63.8 kg
[~2021-10-15 05:21] MED LIST changes: +FLUT1AER2 INH
--- NOTE | 2021-10-15 05:40 | PHYS DOC ---
Past Medical History Past Medical History: Asthma, COPD Past Surgical History: No Surgical History Smoking Status: Former Smoker Alcohol Use: None Drug Use: None Adult General Chief Complaint Chief Complaint: SHORTNESS OF BREATH HPI HPI Patient is a 70 year old female presenting to the emergency department for evaluation of worsening dyspnea. Patient is Irish speaking only and family is present translating says that she has been more short of breath and coughing for the past 2 days. She denies any production of the cough and there has been no pain fevers chills nausea vomiting or other systemic symptoms. Patient has a history of COPD but does not require oxygen. She has stopped smoking 20 years ago. She has an oxygen saturation of 85% and appears to be dyspneic but nontoxic. Review of Systems Review of Systems Constitutional: Denies fever or chills [] Eyes: Denies change in visual acuity, redness, or eye pain [] HENT: Denies nasal congestion or sore throat [] Respiratory: Positive cough and shortness of breath Cardiovascular: No additional information not addressed in HPI [] GI: Denies abdominal pain, nausea, vomiting, bloody stools or diarrhea [] : Denies dysuria or hematuria [] Musculoskeletal: Denies back pain or joint pain [] Integument: Denies rash or skin lesions [] Neurologic: Denies headache, focal weakness or sensory changes [] All other systems were reviewed and found to be within normal limits, except as documented in this note. Current Medications Current Medications Current Medications Medications (Trade) Dose Ordered Sig/Nhan Start Time Stop Time Status Last Admin Dose Admin Albuterol/ Ipratropium (Duoneb) 3 ml 1X ONCE 10/15/21 06:00 10/15/21 06:01 DC 10/15/21 05:59 3 ML Azithromycin (Zithromax) 500 mg 1X ONCE 10/15/21 06:15 10/15/21 06:16 Ceftriaxone Sodium (Rocephin) 1 gm 1X ONCE 10/15/21 06:15 10/15/21 06:16 Methylprednisolone Sodium Succinate (SOLU-Medrol 125MG VIAL) 125 mg 1X ONCE 10/15/21 06:00 10/15/21 06:01 DC 10/15/21 05:59 125 MG Ondansetron HCl (Zofran) 4 mg PRN Q8HRS PRN 10/15/21 06:00 10/16/21 05:59 Allergies Allergies Allergies Coded Allergies Type Severity Reaction Last Updated Verified No Known Drug Allergies 10/15/21 No Physical Exam Physical Exam Constitutional: Well developed, well nourished, no acute distress, non-toxic appearance. [] HENT: Normocephalic, atraumatic, bilateral external ears normal, oropharynx moist, no oral exudates, nose normal. [] Eyes: PERRLA, EOMI, conjunctiva normal, no discharge. [] Neck: Normal range of motion, no tenderness, supple, no stridor. [] Cardiovascular:Heart rate regular rhythm, no murmur [] Lungs & Thorax: Diminished breath sounds in all lung garcia with inspiratory expiratory wheezing. Abdomen: Bowel sounds normal, soft, no tenderness, no masses, no pulsatile masses. [] Skin: Warm, dry, no erythema, no rash. [] Back: No tenderness, no CVA tenderness. [] Extremities: No tenderness, no cyanosis, no clubbing, ROM intact, no edema. [] Neurologic: Alert and oriented X 3, normal motor function, normal sensory function, no focal deficits noted. [] Current Patient Data Vital Signs Vital Signs Date Time Temp Pulse Resp B/P (MAP) Pulse Ox O2 Delivery O2 Flow Rate FiO2 10/15/21 06:00 92 Nasal Cannula 2.0 10/15/21 05:48 98.5 96 31 138/67 (90) 98.5 Lab Values Laboratory Tests Test 10/15/21 05:46 White Blood Count 16.7 x10^3/uL (4.0-11.0) H Red Blood Count 5.11 x10^6/uL (3.50-5.40) Hemoglobin 13.3 g/dL (12.0-15.5) Hematocrit 40.5 % (36.0-47.0) Mean Corpuscular Volume 79 fL (79-100) Mean Corpuscular Hemoglobin 26 pg (25-35) Mean Corpuscular Hemoglobin Concent 33 g/dL (31-37) Red Cell Distribution Width 13.9 % (11.5-14.5) Platelet Count 313 x10^3/uL (140-400) Neutrophils (%) (Auto) 85 % (31-73) H Lymphocytes (%) (Auto) 8 % (24-48) L Monocytes (%) (Auto) 5 % (0-9) Eosinophils (%) (Auto) 1 % (0-3) Basophils (%) (Auto) 0 % (0-3) Neutrophils # (Auto) 14.3 x10^3/uL (1.8-7.7) H Lymphocytes # (Auto) 1.3 x10^3/uL (1.0-4.8) Monocytes # (Auto) 0.9 x10^3/uL (0.0-1.1) Eosinophils # (Auto) 0.2 x10^3/uL (0.0-0.7) Basophils # (Auto) 0.1 x10^3/uL (0.0-0.2) Platelet Estimate Pending Laboratory Tests 10/15/21 05:46 EKG EKG [] Radiology/Procedures Radiology/Procedures [] Course & Med Decision Making Course & Med Decision Making Patient will be admitted for hypoxia and COPD exacerbation. Patient admitted in guarded condition to the telemetry floor. She has been given breathing treatments steroids and antibiotics. Dragon Disclaimer Dragon Disclaimer This electronic medical record was generated, in whole or in part, using a voice recognition dictation system. Departure Departure Impression: Primary Impression: COPD with acute exacerbation Disposition: ADMITTED INPATIENT Admitting Physician: RENETTA Nichole) Condition: GUARDED Referrals: BRIDGETTE KATZ APRN (PCP) DANIEL AGUILAR DO October 15, 2021 05:40
[2021-10-15 05:58] LABS: BASO # 0.1 x10^3/uL (0.0-0.2); BASO % 0 % (0-3); EOS # 0.2 x10^3/uL (0.0-0.7); EOS % 1 % (0-3); HEMATOCRIT 40.5 % (36.0-47.0); HEMOGLOBIN 13.3 g/dL (12.0-15.5); LYMPH # 1.3 x10^3/uL (1.0-4.8); LYMPH % 8 % (24-48); MEAN CORPUSCULAR HEMOGLOBIN 26 pg (25-35); MEAN CORPUSCULAR HGB CONC 33 g/dL (31-37); MEAN CORPUSCULAR VOLUME 79 fL (79-100); MONO # 0.9 x10^3/uL (0.0-1.1); MONO % 5 % (0-9); NEUT # 14.3 x10^3/uL (1.8-7.7); NEUT % 85 % (31-73); PLATELET COUNT 313 x10^3/uL (140-400); RED BLOOD COUNT 5.11 x10^6/uL (3.50-5.40); RED CELL DISTRIBUTION WIDTH 13.9 % (11.5-14.5); WHITE BLOOD COUNT 16.7 x10^3/uL (4.0-11.0)
[2021-10-15] MEDS ORDERED: methylPREDNISolone SOD SUCC PF 125 MG/2 ML VIAL. IV ONE (06:00)
[2021-10-15] MEDS ORDERED: IPRATRPIUM/ALBUTEROL 0.5/2.5MG 3 ML NEBU. NEB ONE (06:00)
[2021-10-15] MEDS ORDERED: ONDANSETRON PF 4 MG/2 ML VIAL. IVP PRN ×2 (06:00→07:15)
[2021-10-15 06:14] LABS: CALCIUM 8.4 mg/dL (8.5-10.1); CREATININE 0.8 mg/dL (0.6-1.0); GFR 70.5; POTASSIUM 4.3 mmol/L (3.5-5.1)
[2021-10-15] MEDS ORDERED: cefTRIAXone IV Push 1 GM VIAL. IVP ONE (06:15)
[2021-10-15] MEDS ORDERED: AZITHROMYCIN 250 MG TABLET. PO ONE (06:15)
[2021-10-15 06:20] LABS: ALBUMIN 3.2 g/dL (3.4-5.0); ALBUMIN/GLOBULIN RATIO 0.7 (1.0-1.7); TOTAL BILIRUBIN 1.1 mg/dL (0.2-1.0); TOTAL PROTEIN 7.9 g/dL (6.4-8.2)
[2021-10-15 06:25] LABS: INFLUENZA A PATIENT NEGATIVE (NEGATIVE); INFLUENZA B PATIENT NEGATIVE (NEGATIVE)
[2021-10-15 06:36] LABS: % BANDS 1 % (0-9); % BASOS 1 % (0-3); % LYMPHS 5 % (24-48); % MONOS 5 % (0-10); % SEGS 88 % (35-66)
[2021-10-15 06:37] LABS: PLT ESTIMATE ADEQUATE (ADEQUATE)
[2021-10-15] MEDS ORDERED: ALBUTEROL SULFATE 2.5 MG/3 ML NEBU. NEB PRN (07:15)
[2021-10-15] MEDS ORDERED: NICOTINE 21MG PATCH. TD PRN (07:15)
[2021-10-15] MEDS ORDERED: traMADol 50 MG TABLET PO PRN (07:15)
[2021-10-15] MEDS ORDERED: ACETAMINOPHEN 325 MG TABLET. PO PRN (07:15)
[2021-10-15] MEDS ORDERED: guaiFENesin DM 200MG/20MG 10 ML SYRUP PO PRN (07:15)
[2021-10-15] MEDS ORDERED: fentaNYL PF VIAL 100 MCG/2 ML VIAL IVP PRN (07:15)
--- NOTE | 2021-10-15 07:19 | PDOC1 ---
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 media theorist and author of available, comes to ED c/o progressive shortness of breath with cough for the past day prior to ED arrival. She denies any chest pain. Has had cough and nausea as well. Patient was not vaccinated for COVID-19 or influenza this year. Patient has used her pro-air inhaler at home with no relief. Her family brought her here for further treatment. Patient says she very recently stopped smoking. O2 saturations 85% on room air improved with 2 L/min nasal cannula O2 92%. Chest radiograph on my interpretation hyperexpansion. Right apical granuloma noted. No other interstitial and alveolar opacities with the same as prior to the bronchial sexton no discrete consolidation noted. EKG on my interpretation sinus rhythm rate 93 bpm T wave flattening in I, III, V5 V6 no ST segment elevations, QTC 418. Unchanged from prior EKG in July and February WBC 16.7, Hb 13.3, platelets 313, NA 140, K4.3, BUN 13, CR 0.8, glucose 113, calcium 8.4, bilirubin 1.1, albumin 3.2, high-sensitivity troponin is 8, NT proBNP is 158, rapid COVID-19 negative, influenza negative. Past Medical History Pulmonary: Asthma, Bronchitis Hepatobiliary: Other Infectious disease: No pertinent hx Endocrine: No pertinent hx Past Surgical History Past Surgical History: No pertinent history Family History Family History: High Cholestrol Social History Smoke: Quit (2021) ALCOHOL: none Drugs: None Current Problem List Problem List Problems Medical Problems: (1) COPD with acute exacerbation Status: Acute Current Medications Current Medications Current Medications Albuterol/ Ipratropium (Duoneb) 3 ml 1X ONCE NEB Last administered on 10/15/21at 05:59; Start 10/15/21 at 06:00; Stop 10/15/21 at 06:01; Status DC Methylprednisolone Sodium Succinate (SOLU-Medrol 125MG VIAL) 125 mg 1X ONCE IV Last administered on 10/15/21at 05:59; Start 10/15/21 at 06:00; Stop 10/15/21 at 06:01; Status DC Ondansetron HCl (Zofran) 4 mg PRN Q8HRS PRN IVP NAUSEA/VOMITING 1ST CHOICE; Start 10/15/21 at 06:00; Stop 10/16/21 at 05:59 Ceftriaxone Sodium (Rocephin) 1 gm 1X ONCE IVP Last administered on 10/15/21at 06:15; Start 10/15/21 at 06:15; Stop 10/15/21 at 06:16; Status DC Azithromycin (Zithromax) 500 mg 1X ONCE PO Last administered on 10/15/21at 06 :15; Start 10/15/21 at 06:15; Stop 10/15/21 at 06:16; Status DC Ondansetron HCl (Zofran) 4 mg PRN Q4HRS PRN IVP NAUSEA/VOMITING; Start 10/15/21 at 07:15; Status UNV Tramadol HCl (Ultram) 50 mg PRN Q6HRS PRN PO PAIN; Start 10/15/21 at 07:15; Status UNV Guaifenesin (Robitussin Dm) 10 ml PRN Q6HRS PRN PO COUGH; Start 10/15/21 at 07:15; Status UNV Budesonide (Pulmicort) 0.5 mg RTBID NEB ; Start 10/15/21 at 08:00; Status UNV Nicotine (Nicoderm Cq 21mg) 1 patch PRN DAILY PRN TD SMOKING CESSATION; Start 10/15/21 at 07:15; Status UNV Enoxaparin Sodium (Lovenox 40mg Syringe) 40 mg Q24H SQ ; Start 10/15/21 at 07:15; Status UNV Fentanyl Citrate (Fentanyl 2ml Vial) 25 mcg PRN Q3HRS PRN IVP SEVERE PAIN 7-10; Start 10/15/21 at 07:15; Status UNV Albuterol/ Ipratropium (Duoneb) 3 ml RTQID NEB ; Start 10/15/21 at 08:00; Status UNV Albuterol Sulfate (Ventolin Neb Soln) 2.5 mg PRN Q4HRS PRN NEB SHORTNESS OF BREATH; Start 10/15/21 at 07:15; Status UNV Acetaminophen (Tylenol) 650 mg PRN Q6HRS PRN PO MILD PAIN / TEMP > 100.3'F; Start 10/15/21 at 07:15; Status UNV Methylprednisolone Sodium Succinate (SOLU-Medrol 40MG VIAL) 80 mg Q8HRS IV ; Start 10/15/21 at 14:00; Status UNV Active Scripts Active Breo Ellipta 100-25 Mcg INH (Fluticasone/Vilanterol) 1 Each Blst.w.dev 1 Puff INH DAILY 30 Days Prednisone 20 Mg Tablet 20 Mg PO DAILY 5 Days Guaifenesin Dm Syrup (Guaifenesin/Dextromethorphan) 5 Ml Syrup 10 Ml PO PRN Q6HRS PRN 10 Days Benzonatate 100 Mg Capsule 100 Mg PO TID 10 Days Proair Hfa Inhaler (Albuterol Sulfate) 8.5 Gm Hfa.aer.ad 2 Puff IH PRN Q4-6HRS PRN 21 Days Atrovent Hfa (Ipratropium [place]) 12.9 Gm Hfa.aer.ad 2 Puff IH QID Allergies Allergies: Coded Allergies: No Known Drug Allergies (Unverified , 10/15/21) ROS General: YES: Fatigue, Malaise; No: Chills, Night Sweats, Appetite, Other PSYCHOLOGICAL ROS: No: Anxiety, Behavioral Disorder, Concentration difficultie, Decreased libido, Depression, Disorientation, Hallucinations, Hostility, Irritablity, Memory difficulties, Mood Swings, Obsessive thoughts, Physical abuse, Sexual abuse, Sleep disturbances, Suicidal ideation, Other Eyes: No Blurry vision, No Decreased vision, No Double vision, No Dry eyes, No Excessive tearing, No Eye Pain, No Itchy Eyes, No Loss of vision, No Photophobia, No Scotomata, No Uses contacts, No Uses glasses, No Other HEENT: No: Heacaches, Visual Changes, Hearing change, Nasal congestion, Nasal discharge, Oral lesions, Sinus pain, Sore Throat, Epistaxis, Sneezing, Snoring, Tinnitus, Vertigo, Vocal changes, Other ALLERGY AND IMMUNOLOGY: No: Hives, Insect Bite Sensitivity, Itchy/Watery Eyes, Nasal Congestion, Post Nasal Drip, Seasonal Allergies, Other Hematological and Lymphatic: No: Bleeding Problems, Blood Clots, Blood Transfusions, Brusing, Night Sweats, Pallor, Swollen Lymph Nodes, Other ENDOCRINE: No: Breast Changes, Galactorrhea, Hair Pattern Changes, Hot Flashes, Malaise/lethargy, Mood Swings, Palpitations, Polydipsia/polyuria, Skin Changes, Temperature Intolerance, Unexpected Weight Changes, Other Breast: No New/Changing Breast Lumps, No Nipple changes, No Nipple discharge, No Other Respiratory: YES: Cough, Shortness of breath, SOB with excertion, Tachypnea, Wheezing; No: Hemoptysis, Orthopnea, Pleuritic Pain, Sputum Changes, Stridor, Other Cardiovascular: No Chest Pain, No Palpitations, No Orthopnea, No Paroxysmal Noc. Dyspnea, No Edema, No Lt Headedness, No Other Gastrointestinal: Yes Nausea; No Vomiting, No Abdominal Pain, No Diarrhea, No Constipation, No Melena, No Hematochezia, No Other Genitourinary: No Dysuria, No Frequency, No Incontinence, No Hematuria, No Retention, No Discharge, No Urgency, No Pain, No Flank Pain, No Other, No , No , No , No , No , No , No Musculoskeletal: No Gait Disturbance, No Joint Pain, No Joint Stiffness, No Joint Swelling, No Muscle Pain, No Muscular Weakness, No Pain In:, No Swelling In:, No Other Neurological: No Behavorial Changes, No Bowel/Bladder ControlChng, No Confusion, No Dizziness, No Gait Disturbance, No Headaches, No Impaired Coord/balance, No Memory Loss, No Numbness/Tingling, No Seizures, No Speech Problems, No Tremors, No Visual Changes, No Weakness, No Other Skin: No Dry Skin, No Eczema, No Hair Changes, No Lumps, No Mole Changes, No Mottling, No Nail Changes, No Pruritus, No Rash, No Skin Lesion Changes, No Other, No Acne Physical Exam General: Alert, Oriented X3, Cooperative, mild distress HEENT: Atraumatic, PERRLA, EOMI, Mucous membr. moist/pink Lungs: Other (Bilateral wheezing) Heart: S1S2, RRR, no thrills, no rubs, no gallops, no murmurs Abdomen: Normal bowel sounds, Soft, No tenderness, No hepatosplenomegaly, No masses Rectal Exam: not examined Extremities: No clubbing, No cyanosis, No edema, Normal pulses, No tenderness/ swelling Skin: No rashes, No breakdown, No significant lesion Neuro: Normal gait, Normal speech, Strength at 5/5 X4 ext, Normal tone, Sensation intact, Cranial nerves 3-12 NL, Reflexes 2+ Psych/Mental Status: Mental status NL, Mood NL Vitals Vitals Vital Signs Date Time Temp Pulse Resp B/P (MAP) Pulse Ox O2 Delivery O2 Flow Rate FiO2 10/15/21 06:00 92 Nasal Cannula 2.0 10/15/21 05:48 98.5 96 31 138/67 (90) 98.5 Labs Labs Laboratory Tests Test 10/15/21 05:46 10/15/21 06:03 White Blood Count 16.7 x10^3/uL (4.0-11.0) Red Blood Count 5.11 x10^6/uL (3.50-5.40) Hemoglobin 13.3 g/dL (12.0-15.5) Hematocrit 40.5 % (36.0-47.0) Mean Corpuscular Volume 79 fL (79-100) Mean Corpuscular Hemoglobin 26 pg (25-35) Mean Corpuscular Hemoglobin Concent 33 g/dL (31-37) Red Cell Distribution Width 13.9 % (11.5-14.5) Platelet Count 313 x10^3/uL (140-400) Neutrophils (%) (Auto) 85 % (31-73) Lymphocytes (%) (Auto) 8 % (24-48) Monocytes (%) (Auto) 5 % (0-9) Eosinophils (%) (Auto) 1 % (0-3) Basophils (%) (Auto) 0 % (0-3) Neutrophils # (Auto) 14.3 x10^3/uL (1.8-7.7) Lymphocytes # (Auto) 1.3 x10^3/uL (1.0-4.8) Monocytes # (Auto) 0.9 x10^3/uL (0.0-1.1) Eosinophils # (Auto) 0.2 x10^3/uL (0.0-0.7) Basophils # (Auto) 0.1 x10^3/uL (0.0-0.2) Segmented Neutrophils % 88 % (35-66) Band Neutrophils % 1 % (0-9) Lymphocytes % 5 % (24-48) Monocytes % 5 % (0-10) Basophils % 1 % (0-3) Platelet Estimate Adequate (ADEQUATE) Sodium Level 140 mmol/L (136-145) Potassium Level 4.3 mmol/L (3.5-5.1) Chloride Level 100 mmol/L (98-107) Carbon Dioxide Level 29 mmol/L (21-32) Anion Gap 11 (6-14) Blood Urea Nitrogen 13 mg/dL (7-20) Creatinine 0.8 mg/dL (0.6-1.0) Estimated GFR (Cockcroft-Gault) 70.5 BUN/Creatinine Ratio 16 (6-20) Glucose Level 113 mg/dL (70-99) Calcium Level 8.4 mg/dL (8.5-10.1) Total Bilirubin 1.1 mg/dL (0.2-1.0) Aspartate Amino Transf (AST/SGOT) 26 U/L (15-37) Alanine Aminotransferase (ALT/SGPT) 19 U/L (14-59) Alkaline Phosphatase 91 U/L (46-116) Troponin I High Sensitivity 8 ng/L (4-50) LB-Tcd-Y-Type Natriuretic Peptide 158 pg/mL (0-124) Total Protein 7.9 g/dL (6.4-8.2) Albumin 3.2 g/dL (3.4-5.0) Albumin/Globulin Ratio 0.7 (1.0-1.7) Influenza Type A Antigen Negative (NEGATIVE) Influenza Type B Antigen Negative (NEGATIVE) SARS-CoV-2 Antigen (Rapid) Negative (NEGATIVE) Laboratory Tests Test 10/15/21 05:46 10/15/21 06:03 White Blood Count 16.7 x10^3/uL (4.0-11.0) Red Blood Count 5.11 x10^6/uL (3.50-5.40) Hemoglobin 13.3 g/dL (12.0-15.5) Hematocrit 40.5 % (36.0-47.0) Mean Corpuscular Volume 79 fL (79-100) Mean Corpuscular Hemoglobin 26 pg (25-35) Mean Corpuscular Hemoglobin Concent 33 g/dL (31-37) Red Cell Distribution Width 13.9 % (11.5-14.5) Platelet Count 313 x10^3/uL (140-400) Neutrophils (%) (Auto) 85 % (31-73) Lymphocytes (%) (Auto) 8 % (24-48) Monocytes (%) (Auto) 5 % (0-9) Eosinophils (%) (Auto) 1 % (0-3) Basophils (%) (Auto) 0 % (0-3) Neutrophils # (Auto) 14.3 x10^3/uL (1.8-7.7) Lymphocytes # (Auto) 1.3 x10^3/uL (1.0-4.8) Monocytes # (Auto) 0.9 x10^3/uL (0.0-1.1) Eosinophils # (Auto) 0.2 x10^3/uL (0.0-0.7) Basophils # (Auto) 0.1 x10^3/uL (0.0-0.2) Segmented Neutrophils % 88 % (35-66) Band Neutrophils % 1 % (0-9) Lymphocytes % 5 % (24-48) Monocytes % 5 % (0-10) Basophils % 1 % (0-3) Platelet Estimate Adequate (ADEQUATE) Sodium Level 140 mmol/L (136-145) Potassium Level 4.3 mmol/L (3.5-5.1) Chloride Level 100 mmol/L (98-107) Carbon Dioxide Level 29 mmol/L (21-32) Anion Gap 11 (6-14) Blood Urea Nitrogen 13 mg/dL (7-20) Creatinine 0.8 mg/dL (0.6-1.0) Estimated GFR (Cockcroft-Gault) 70.5 BUN/Creatinine Ratio 16 (6-20) Glucose Level 113 mg/dL (70-99) Calcium Level 8.4 mg/dL (8.5-10.1) Total Bilirubin 1.1 mg/dL (0.2-1.0) Aspartate Amino Transf (AST/SGOT) 26 U/L (15-37) Alanine Aminotransferase (ALT/SGPT) 19 U/L (14-59) Alkaline Phosphatase 91 U/L (46-116) Troponin I High Sensitivity 8 ng/L (4-50) MH-Vxh-K-Type Natriuretic Peptide 158 pg/mL (0-124) Total Protein 7.9 g/dL (6.4-8.2) Albumin 3.2 g/dL (3.4-5.0) Albumin/Globulin Ratio 0.7 (1.0-1.7) Influenza Type A Antigen Negative (NEGATIVE) Influenza Type B Antigen Negative (NEGATIVE) SARS-CoV-2 Antigen (Rapid) Negative (NEGATIVE) Images Images Chest radiograph on my interpretation hyperexpansion. Right apical granuloma noted. No other interstitial and alveolar opacities with the same as prior to the bronchial sexton no discrete consolidation noted. VTE Prophylaxis Ordered VTE Prophylaxis Devices: No VTE Pharmacological Prophylaxi: Yes Assessment/Plan Assessment/Plan Acute respiratory failure with hypoxia - due to COPD and continued smoking. Wean O2 as tolerated. F/u COVID 19 results Acute bronchitis - historically with chronic bronchiectasis changes and pneumonia - with Greenish-brown sputum. Likely gram negative given structural lung disease with COPD history Acute COPD exacerbation - aggressive nebs and pulm toileting. IV steroids Leukocytosis - due to acute bronchitis, given empiric fluids, antibiotics Smoker - counseled on cessation, offered nicotine replacement therapy FEN - General diet PPX - Heparin FULL Code Dispo - inpatient Justifications for Admission Other Justification HUMERA YORK MD October 15, 2021 07:19
[2021-10-15 07:30] VITALS: BP 108/60
[2021-10-15 07:59] VITALS: BP 108/60
[2021-10-15] MEDS: IPRATRPIUM/ALBUTEROL 0.5/2.5MG 3 ML NEBU. NEB SCH ×4 (08:00→20:00)
[2021-10-15] MEDS ORDERED: MONT10TA49 PO (08:02)
[2021-10-15] MEDS: BUDESONIDE 0.5 MG/2 ML NEBU. NEB SCH ×2 (08:19→20:00)
[2021-10-15] MEDS: ENOXAPARIN 40 MG/0.4 ML SYRINGE. SQ SCH (09:02)
[2021-10-15 10:36] VITALS: BP 103/62
[2021-10-15] MEDS ORDERED: PIP/TAZO PER PHARMACY MC PRN (11:45)
[2021-10-15] MEDS ORDERED: cefTRIAXone IV Push 1 GM VIAL. IVP SCH (12:00)
--- NOTE | 2021-10-15 12:22 | EKG ---
[facility] [address] [place] [address] Test Date: 2021-10-15 Test Time: 06:11:12 Pat Name: MARLEY TUCKER Department: Room: [facility] Gender: F Milieu Counselor: : 1950 Requested By: DANIEL AGUILAR Order Number: [id number] Reading MD: oNel Reese Measurements Intervals [place] Rate: 93 P: 59 RI: 136 QRS: 52 QRSD: 80 T: 30 QT: 334 QTc: 418 Interpretive Statements SINUS RHYTHM T ABNORMALITY IN ANTERIOR LEADS Electronically Signed On 10-16-2021 17:13:15 CDT by Noel Reese
--- NOTE | 2021-10-15 12:22 | CONS ---
DATE OF CONSULTATION: 10/15/2021 PULMONARY CONSULTATION ATTENDING PHYSICIAN: Dr. Qiu. REASON FOR CONSULTATION: Abnormal chest x-ray and prior CT chest. HISTORY OF PRESENT ILLNESS: The patient is a 70-year-old female who is from [facility]. The patient does not speak Palauan. I was able to talk to family member on the phone who gave much of the history. The patient was brought into the hospital with complaint of a cough. The patient denies any chest pain. There was some shortness of breath. The patient is not vaccinated for COVID-19 or influenza this year. The patient was placed on 2 liters of oxygen and saturations were 92%. Room air saturations were 85%. I have reviewed the chest x-ray. There were some mildly prominent interstitial markings. I also reviewed her CT chest from 07/22/2021. The patient has evidence of bronchiectasis, especially in the lower lobes. There is evidence of emphysema. The infiltrates were seen in the lower lobes, they were nodular and tree-in-bud type. They had increased compared to 2018. I have been asked to see her for further evaluation. PAST MEDICAL HISTORY: History of asthma, bronchitis, COPD. PAST SURGICAL HISTORY: None recently. FAMILY HISTORY: Dyslipidemia. MEDICATIONS: Reviewed as listed in the MRAD including IV Solu-Medrol, DuoNebs. She received Rocephin. REVIEW OF SYSTEMS: Limited, but pertinent positives discussed in my history of present illness. PHYSICAL EXAMINATION: VITAL SIGNS: She is not in any distress. T-max of 100.6. Pulse ox 95% on 2 liters. Blood pressure 103 systolic. NECK: Supple. LUNGS: With diminished breath sounds. CARDIOVASCULAR: With a regular rate. ABDOMEN: Soft, nontender. EXTREMITIES: With no pitting edema. LABORATORY DATA: Reviewed. Influenza negative. COVID negative. BUN 13, creatinine 0.8. ProBNP 158. White cell count 16.7, hemoglobin 13.3 and platelets are 313. IMPRESSION: 1. Acute hypoxic respiratory failure along with fever in a patient who has reticulonodular interstitial infiltrates in July of this year, along with bronchiectasis. She now comes in with fever and likely has a flare of bronchiectasis with suspected gram-negative pneumonia. She is also at risk for Mycobacterium avium complex infection, but denies any chronicity of symptoms. No weight loss, no fever, or night sweats. 2. Underlying chronic obstructive pulmonary disease. 3. Abnormal chest x-ray. Will benefit from a followup CT chest and compare from July. RECOMMENDATIONS: 1. Discussed with the patient's family member. We will add Zosyn for gram-negative coverage and especially to cover pseudomonas. 2. Continue DuoNebs. 3. Taper steroids. 4. Lovenox for DVT prophylaxis. 5. Monitor the clinical response. 6. Followup CT chest. JOHANA DR: Yeyo TID: [id number]
--- NOTE | 2021-10-15 12:23 | RAD ---
XR CHEST 1V Clinical Indication: Reason: soa / Spl. Instructions: / History: Comparison: AP chest 07/22/2021. Findings: The cardiomediastinal silhouette is normal. Chronic interstitial opacities in the lungs are unchanged . Interstitial opacities in the right lung base are improved from prior study. There is no pneumothor ax. No pleural effusion is appreciated. No acute bone abnormality. IMPRESSION: Interstitial infiltrate in the right lung base is improved from prior study. Electronically signed by: Chris Diehl MD (10/15/2021 6:26 AM) [facility]
[2021-10-15] MEDS: PIPERACILLIN/TAZOBACTAM 3.375 GM in IV NORMAL SALINE 50ML 50 ML IV SCH ×3 (14:56→23:13)
[2021-10-15] MEDS: methylPREDNISolone SOD SUCC PF 125 MG/2 ML VIAL. IV SCH ×2 (14:57→21:36)
[2021-10-15 15:00] VITALS: BP 102/65
--- NOTE | 2021-10-15 15:28 | NUR ---
SS following for discharge planning. SS reviewed pt chart and discussed with pt RN. Pt is from home and is currently requiring oxygen at 1.5. liters nasal canula. COVID19 negative. Pt on IV Solu-Medrol and IV Zosyn. Pulmonology following. Self pay. Med Assist following. SS will continue to follow for discharge planning.
--- NOTE | 2021-10-15 17:29 | RAD ---
CT chest without contrast dated 10/15/2021. COMPARISON: 07/22/2021. INDICATION: Bronchiectasis. TECHNIQUE: Contiguous axial imaging the chest was performed without the administration of intravenous contrast. One or more of the following individualized dose reduction techniques were utilized for this examinat ion: 1. Automated exposure control 2. Adjustment of the mA and/or kV according to patient size 3. Use of iterative reconstruction technique. FINDINGS: Heart size is upper limits of normal. No pericardial effusion. No significant coronary calcifications . There are borderline enlarged right hilar lymph nodes measuring up to 10 mm short axis, unchanged. There is also a mildly enlarged precarinal lymph node measuring 10 mm short axis. No definite left hi lar adenopathy. There are couple of borderline enlarged left paratracheal lymph nodes. No axillary or supraclavicular lymphadenopathy. Nodular focus of the right lobe thyroid gland measuring 1.4 cm maxi mum dimension. Central airways are patent. There is diffuse bronchial wall thickening with mild bronchiectasis, rhona lar to slightly improved. Superimposed moderate emphysema. There are a few scattered calcified granul natividad. Linear bands of increased density in the bilateral lower lobes, similar slightly improved. No si gnificant pleural effusion or pneumothorax. Scattered reticular nodular tree-in-bud opacities, simila r slightly improved. Images of the upper abdomen are unremarkable. No significant bony abnormality. Multilevel spondylosis . Mild superior endplate wedge compression deformity of T11, unchanged. IMPRESSION: 1. Mild improvement in diffuse bronchial wall thickening, bronchiectasis and mucous plugging. There i s also been improvement in reticular nodular tree-in-bud opacities in the bilateral lower lobes. Cons ider improving bronchopneumonia and/or improving atypical mycobacterial infection. Chronic aspiration is another consideration. 2. Moderate emphysema. 3. Mediastinal and right hilar lymphadenopathy, not significant changed. 4. Indeterminate nodular focus in the right lobe thyroid gland. If indicated, thyroid ultrasound bett er evaluate. Electronically signed by: Rene Moore MD (10/15/2021 5:26 PM) [id number]
[2021-10-15 19:00] VITALS: BP 124/70
[2021-10-15 23:00] VITALS: BP 106/63
[2021-10-16 03:00] VITALS: BP 101/56
[2021-10-16] MEDS: methylPREDNISolone SOD SUCC PF 125 MG/2 ML VIAL. IV SCH ×3 (05:26→21:05)
[2021-10-16] MEDS: PIPERACILLIN/TAZOBACTAM 3.375 GM in IV NORMAL SALINE 50ML 50 ML IV SCH ×4 (05:26→23:48)
[2021-10-16 07:00] VITALS: BP 113/61
[2021-10-16] MEDS: IPRATRPIUM/ALBUTEROL 0.5/2.5MG 3 ML NEBU. NEB SCH ×4 (07:37→19:50)
[2021-10-16] MEDS: BUDESONIDE 0.5 MG/2 ML NEBU. NEB SCH ×2 (07:37→19:50)
[2021-10-16 07:40] LABS: BASO % 0 % (0-3); EOS % 0 % (0-3); HEMATOCRIT 39.1 % (36.0-47.0); HEMOGLOBIN 12.5 g/dL (12.0-15.5); LYMPH # 0.7 x10^3/uL (1.0-4.8); LYMPH % 4 % (24-48); MEAN CORPUSCULAR HEMOGLOBIN 26 pg (25-35); MEAN CORPUSCULAR HGB CONC 32 g/dL (31-37); MEAN CORPUSCULAR VOLUME 80 fL (79-100); MONO # 0.3 x10^3/uL (0.0-1.1); MONO % 2 % (0-9); NEUT # 16.2 x10^3/uL (1.8-7.7); NEUT % 94 % (31-73); PLATELET COUNT 271 x10^3/uL (140-400); RED BLOOD COUNT 4.91 x10^6/uL (3.50-5.40); WHITE BLOOD COUNT 17.2 x10^3/uL (4.0-11.0)
[2021-10-16] MEDS: ENOXAPARIN 40 MG/0.4 ML SYRINGE. SQ SCH (08:06)
[2021-10-16 08:12] LABS: GFR 54.5; POTASSIUM 3.7 mmol/L (3.5-5.1)
--- NOTE | 2021-10-16 10:43 | PDOC ---
PULMONARY PROGRESS NOTES DATE: 10/16/21 TIME: 10:39 Subjective Patient feels better. Denies any shortness of breath. Vitals Vital Signs Date Time Temp Pulse Resp B/P (MAP) Pulse Ox O2 Delivery O2 Flow Rate FiO2 10/16/21 07:37 92 Nasal Cannula 1.0 10/16/21 07:00 97.5 85 18 113/61 (78) 97.5 General: Alert, No acute distress Lungs: Clear Cardiovascular: S1 Abdomen: Soft Extremities: No Edema Labs Laboratory Tests Test 10/15/21 05:46 10/15/21 06:03 10/16/21 06:15 10/16/21 06:20 White Blood Count 16.7 x10^3/uL (4.0-11.0) 17.2 x10^3/uL (4.0-11.0) Red Blood Count 5.11 x10^6/uL (3.50-5.40) 4.91 x10^6/uL (3.50-5.40) Hemoglobin 13.3 g/dL (12.0-15.5) 12.5 g/dL (12.0-15.5) Hematocrit 40.5 % (36.0-47.0) 39.1 % (36.0-47.0) Mean Corpuscular Volume 79 fL (79-100) 80 fL (79-100) Mean Corpuscular Hemoglobin 26 pg (25-35) 26 pg (25-35) Mean Corpuscular Hemoglobin Concent 33 g/dL (31-37) 32 g/dL (31-37) Red Cell Distribution Width 13.9 % (11.5-14.5) 14.0 % (11.5-14.5) Platelet Count 313 x10^3/uL (140-400) 271 x10^3/uL (140-400) Neutrophils (%) (Auto) 85 % (31-73) 94 % (31-73) Lymphocytes (%) (Auto) 8 % (24-48) 4 % (24-48) Monocytes (%) (Auto) 5 % (0-9) 2 % (0-9) Eosinophils (%) (Auto) 1 % (0-3) 0 % (0-3) Basophils (%) (Auto) 0 % (0-3) 0 % (0-3) Neutrophils # (Auto) 14.3 x10^3/uL (1.8-7.7) 16.2 x10^3/uL (1.8-7.7) Lymphocytes # (Auto) 1.3 x10^3/uL (1.0-4.8) 0.7 x10^3/uL (1.0-4.8) Monocytes # (Auto) 0.9 x10^3/uL (0.0-1.1) 0.3 x10^3/uL (0.0-1.1) Eosinophils # (Auto) 0.2 x10^3/uL (0.0-0.7) 0.0 x10^3/uL (0.0-0.7) Basophils # (Auto) 0.1 x10^3/uL (0.0-0.2) 0.0 x10^3/uL (0.0-0.2) Segmented Neutrophils % 88 % (35-66) Band Neutrophils % 1 % (0-9) Lymphocytes % 5 % (24-48) Monocytes % 5 % (0-10) Basophils % 1 % (0-3) Platelet Estimate Adequate (ADEQUATE) Sodium Level 140 mmol/L (136-145) 142 mmol/L (136-145) Potassium Level 4.3 mmol/L (3.5-5.1) 3.7 mmol/L (3.5-5.1) Chloride Level 100 mmol/L (98-107) 103 mmol/L (98-107) Carbon Dioxide Level 29 mmol/L (21-32) 27 mmol/L (21-32) Anion Gap 11 (6-14) 12 (6-14) Blood Urea Nitrogen 13 mg/dL (7-20) 19 mg/dL (7-20) Creatinine 0.8 mg/dL (0.6-1.0) 1.0 mg/dL (0.6-1.0) Estimated GFR (Cockcroft-Gault) 70.5 54.5 BUN/Creatinine Ratio 16 (6-20) Glucose Level 113 mg/dL (70-99) 176 mg/dL (70-99) Calcium Level 8.4 mg/dL (8.5-10.1) 9.0 mg/dL (8.5-10.1) Total Bilirubin 1.1 mg/dL (0.2-1.0) Aspartate Amino Transf (AST/SGOT) 26 U/L (15-37) Alanine Aminotransferase (ALT/SGPT) 19 U/L (14-59) Alkaline Phosphatase 91 U/L (46-116) Troponin I High Sensitivity 8 ng/L (4-50) CO-Fha-V-Type Natriuretic Peptide 158 pg/mL (0-124) Total Protein 7.9 g/dL (6.4-8.2) Albumin 3.2 g/dL (3.4-5.0) Albumin/Globulin Ratio 0.7 (1.0-1.7) Influenza Type A Antigen Negative (NEGATIVE) Influenza Type B Antigen Negative (NEGATIVE) SARS-CoV-2 Antigen (Rapid) Negative (NEGATIVE) Laboratory Tests Test 10/16/21 06:15 10/16/21 06:20 White Blood Count 17.2 x10^3/uL (4.0-11.0) Red Blood Count 4.91 x10^6/uL (3.50-5.40) Hemoglobin 12.5 g/dL (12.0-15.5) Hematocrit 39.1 % (36.0-47.0) Mean Corpuscular Volume 80 fL (79-100) Mean Corpuscular Hemoglobin 26 pg (25-35) Mean Corpuscular Hemoglobin Concent 32 g/dL (31-37) Red Cell Distribution Width 14.0 % (11.5-14.5) Platelet Count 271 x10^3/uL (140-400) Neutrophils (%) (Auto) 94 % (31-73) Lymphocytes (%) (Auto) 4 % (24-48) Monocytes (%) (Auto) 2 % (0-9) Eosinophils (%) (Auto) 0 % (0-3) Basophils (%) (Auto) 0 % (0-3) Neutrophils # (Auto) 16.2 x10^3/uL (1.8-7.7) Lymphocytes # (Auto) 0.7 x10^3/uL (1.0-4.8) Monocytes # (Auto) 0.3 x10^3/uL (0.0-1.1) Eosinophils # (Auto) 0.0 x10^3/uL (0.0-0.7) Basophils # (Auto) 0.0 x10^3/uL (0.0-0.2) Sodium Level 142 mmol/L (136-145) Potassium Level 3.7 mmol/L (3.5-5.1) Chloride Level 103 mmol/L (98-107) Carbon Dioxide Level 27 mmol/L (21-32) Anion Gap 12 (6-14) Blood Urea Nitrogen 19 mg/dL (7-20) Creatinine 1.0 mg/dL (0.6-1.0) Estimated GFR (Cockcroft-Gault) 54.5 Glucose Level 176 mg/dL (70-99) Calcium Level 9.0 mg/dL (8.5-10.1) Medications Active Scripts Medications Dose Route/Sig Max Daily Dose Days Date Category Montelukast Sodium Tablet (Montelukast Sodium) 10 Mg Tablet 10 Mg PO HS 10/15/21 Reported Breo Ellipta 100-25 Mcg INH (Fluticasone/Vilanterol) 1 Each Blst.w.dev 1 Puff INH DAILY 30 07/29/21 Rx Prednisone 20 Mg Tablet 20 Mg PO DAILY 5 07/29/21 Rx Guaifenesin Dm Syrup (Guaifenesin/Dextromethorphan) 5 Ml Syrup 10 Ml PO PRN Q6HRS PRN 10 02/23/21 Rx Benzonatate 100 Mg Capsule 100 Mg PO TID 10 02/23/21 Rx Proair Hfa Inhaler (Albuterol Sulfate) 8.5 Gm Hfa.aer.ad 2 Puff IH PRN Q4-6HRS PRN 21 06/21/19 Rx Atrovent Hfa (Ipratropium [place]) 12.9 Gm Hfa.aer.ad 2 Puff IH QID 06/05/18 Rx Impression . 1. Acute hypoxic respiratory failure along with fever in a patient who has reticulonodular interstitial infiltrates in July of this year, along with bronchiectasis. She now comes in with fever and likely has a flare of bronchiectasis with suspected gram-negative pneumonia. She is also at risk for Mycobacterium avium complex infection, but denies any chronicity of symptoms. No weight loss, no fever, or night sweats. 2. Underlying chronic obstructive pulmonary disease. 3. CT chest reviewed 10/15/2021 when compared with the previous CT chest. There has been mild improvement in the reticulonodular interstitial infiltrates. There is mild reactive mediastinal adenopathy. Bronchiectasis appears to be unchanged without any significant mucous plugging. Plan . 1. Discussed with the patient's family member. Zosyn added for gram-negative coverage and especially to cover pseudomonas. 2. Continue DuoNebs. 3. Taper steroids. 4. Lovenox for DVT prophylaxis. 5. Monitor the clinical response. 6. CT chest reviewed 10/15/2021 when compared with the previous CT chest. There has been mild improvement in the reticulonodular interstitial infiltrates. There is mild reactive mediastinal adenopathy. Bronchiectasis appears to be unchanged without any significant mucous plugging. 7. Clinically improving. Fever appears to have resolved. Clinically less likely Mycobacterium avium complex infection as there is no chronicity of symptoms and there is radiographic improvement in the lower lobes. 8. Hopefully discharge in next 24- 48 hours on oral quinolones. KARIN COLEMAN MD October 16, 2021 10:43
[2021-10-16 11:00] VITALS: BP 106/57
--- NOTE | 2021-10-16 13:49 | NUR ---
SS following up with discharge planning. SS reviewed pt chart and discussed with pt RN. Pt is currently requiring oxygen at one liters nasal canula. COVID19 negative. Pt on IV Solu-Medrol and IV Zosyn. Pulmonology following. Self pay. Med Assist following. SS will continue to follow for discharge planning.
--- NOTE | 2021-10-16 14:58 | PDOC ---
[facility] PROGRESS NOTE Date of Service DOS: DATE: 10/16/21 TIME: 14:57 Chief Complaint Chief Complaint Assessment/Plan Acute respiratory failure with hypoxia - due to COPD and continued smoking. Wean O2 as tolerated. F/u COVID 19 results Acute bronchitis - historically with chronic bronchiectasis changes and pneumonia - with Greenish-brown sputum. Likely gram negative given structural lung disease with COPD history Acute COPD exacerbation - aggressive nebs and pulm toileting. 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 She denies any chest pain. Has had cough and nausea as well. Patient was not vaccinated for COVID-19 or influenza this year. Patient has used her pro-air inhaler at home with no relief. Her family brought her here for further treatment. Patient says she very recently stopped smoking. O2 saturations 85% on room air improved with 2 L/min nasal cannula O2 92%. Chest radiograph on my interpretation hyperexpansion. Right apical granuloma noted. No other interstitial and alveolar opacities with the same as prior to the bronchial sexton no discrete consolidation noted. EKG on my interpretation sinus rhythm rate 93 bpm T wave flattening in I, III, V5 V6 no ST segment elevations, QTC 418. Unchanged from prior EKG in July and February WBC 16.7, Hb 13.3, platelets 313, NA 140, K4.3, BUN 13, CR 0.8, glucose 113, calcium 8.4, bilirubin 1.1, albumin 3.2, high-sensitivity troponin is 8, NT proBNP is 158, rapid COVID-19 negative, influenza negative. 10/16/2021 No acute events overnight. Patient seen examined bedside. Saturating 92% on 1 L nasal cannula. No dyspnea upon my encounter. Symptomatically feels better. Patient's daughter also on the phone and translating. Counseled on smoking cessation. Patient's chart, labs, images were reviewed and discussed with RN Vitals/I&O Vitals/I&O: Vital Signs Date Time Temp Pulse Resp B/P (MAP) Pulse Ox O2 Delivery O2 Flow Rate FiO2 10/16/21 11:15 92 Nasal Cannula 1.0 10/16/21 11:00 98.3 70 18 106/57 (73) 98.3 I & O 10/15/21 10/15/21 10/16/21 15:00 23:00 07:00 Intake Total 480 ml 440 ml 240 ml Balance 480 ml 440 ml 240 ml Physical Exam General: Alert, Oriented X3, Cooperative, mild distress Lungs: Clear Abdomen: Normal bowel sounds, Soft, No tenderness, No hepatosplenomegaly, No masses Extremities: No clubbing, No cyanosis, No edema, Normal pulses, No tenderness/swelling Skin: No rashes, No breakdown, No significant lesion Labs Labs: Laboratory Tests Test 10/16/21 06:15 10/16/21 06:20 White Blood Count 17.2 x10^3/uL (4.0-11.0) Red Blood Count 4.91 x10^6/uL (3.50-5.40) Hemoglobin 12.5 g/dL (12.0-15.5) Hematocrit 39.1 % (36.0-47.0) Mean Corpuscular Volume 80 fL (79-100) Mean Corpuscular Hemoglobin 26 pg (25-35) Mean Corpuscular Hemoglobin Concent 32 g/dL (31-37) Red Cell Distribution Width 14.0 % (11.5-14.5) Platelet Count 271 x10^3/uL (140-400) Neutrophils (%) (Auto) 94 % (31-73) Lymphocytes (%) (Auto) 4 % (24-48) Monocytes (%) (Auto) 2 % (0-9) Eosinophils (%) (Auto) 0 % (0-3) Basophils (%) (Auto) 0 % (0-3) Neutrophils # (Auto) 16.2 x10^3/uL (1.8-7.7) Lymphocytes # (Auto) 0.7 x10^3/uL (1.0-4.8) Monocytes # (Auto) 0.3 x10^3/uL (0.0-1.1) Eosinophils # (Auto) 0.0 x10^3/uL (0.0-0.7) Basophils # (Auto) 0.0 x10^3/uL (0.0-0.2) Sodium Level 142 mmol/L (136-145) Potassium Level 3.7 mmol/L (3.5-5.1) Chloride Level 103 mmol/L (98-107) Carbon Dioxide Level 27 mmol/L (21-32) Anion Gap 12 (6-14) Blood Urea Nitrogen 19 mg/dL (7-20) Creatinine 1.0 mg/dL (0.6-1.0) Estimated GFR (Cockcroft-Gault) 54.5 Glucose Level 176 mg/dL (70-99) Calcium Level 9.0 mg/dL (8.5-10.1) Assessment and Plan Assessmemt and Plan Problems Medical Problems: (1) COPD with acute exacerbation Status: Acute Comment Review of Relevant I have reviewed the following items floyd (where applicable) has been applied. Justifications for Admission Other Justification ERNST ROBERTSON MD October 16, 2021 14:58
[2021-10-16 15:00] VITALS: BP 110/59
[2021-10-16 19:00] VITALS: BP 98/60
[2021-10-16 23:49] VITALS: BP 98/48
[2021-10-17] VITALS: BP 104/50
[2021-10-17 03:00] VITALS: BP 102/56
[2021-10-17] MEDS: PIPERACILLIN/TAZOBACTAM 3.375 GM in IV NORMAL SALINE 50ML 50 ML IV SCH ×2 (05:51→12:23)
[2021-10-17] MEDS: methylPREDNISolone SOD SUCC PF 125 MG/2 ML VIAL. IV SCH ×2 (05:51→14:00)
[2021-10-17 07:00] VITALS: BP 100/49
[2021-10-17] MEDS: BUDESONIDE 0.5 MG/2 ML NEBU. NEB SCH (07:25)
[2021-10-17] MEDS: IPRATRPIUM/ALBUTEROL 0.5/2.5MG 3 ML NEBU. NEB SCH ×3 (07:26→15:22)
[2021-10-17] MEDS: ENOXAPARIN 40 MG/0.4 ML SYRINGE. SQ SCH (08:23)
--- NOTE | 2021-10-17 09:38 | PDOC ---
PULMONARY PROGRESS NOTES DATE: 10/17/21 TIME: 09:38 Subjective Spoke on the phone with daughter who interpreted patient feels better not more short of air Vitals Vital Signs Date Time Temp Pulse Resp B/P (MAP) Pulse Ox O2 Delivery O2 Flow Rate FiO2 10/17/21 07:28 94 Nasal Cannula 1.5 10/17/21 07:00 97.3 62 18 100/49 (66) 97.3 ROS: No Nausea, No Chest Pain, No Abdominal Pain, No Increase Cough General: Alert, No acute distress Lungs: Clear Cardiovascular: S1 Abdomen: Soft Extremities: No Edema Labs Laboratory Tests Test 10/16/21 06:15 10/16/21 06:20 White Blood Count 17.2 x10^3/uL (4.0-11.0) Red Blood Count 4.91 x10^6/uL (3.50-5.40) Hemoglobin 12.5 g/dL (12.0-15.5) Hematocrit 39.1 % (36.0-47.0) Mean Corpuscular Volume 80 fL (79-100) Mean Corpuscular Hemoglobin 26 pg (25-35) Mean Corpuscular Hemoglobin Concent 32 g/dL (31-37) Red Cell Distribution Width 14.0 % (11.5-14.5) Platelet Count 271 x10^3/uL (140-400) Neutrophils (%) (Auto) 94 % (31-73) Lymphocytes (%) (Auto) 4 % (24-48) Monocytes (%) (Auto) 2 % (0-9) Eosinophils (%) (Auto) 0 % (0-3) Basophils (%) (Auto) 0 % (0-3) Neutrophils # (Auto) 16.2 x10^3/uL (1.8-7.7) Lymphocytes # (Auto) 0.7 x10^3/uL (1.0-4.8) Monocytes # (Auto) 0.3 x10^3/uL (0.0-1.1) Eosinophils # (Auto) 0.0 x10^3/uL (0.0-0.7) Basophils # (Auto) 0.0 x10^3/uL (0.0-0.2) Sodium Level 142 mmol/L (136-145) Potassium Level 3.7 mmol/L (3.5-5.1) Chloride Level 103 mmol/L (98-107) Carbon Dioxide Level 27 mmol/L (21-32) Anion Gap 12 (6-14) Blood Urea Nitrogen 19 mg/dL (7-20) Creatinine 1.0 mg/dL (0.6-1.0) Estimated GFR (Cockcroft-Gault) 54.5 Glucose Level 176 mg/dL (70-99) Calcium Level 9.0 mg/dL (8.5-10.1) Medications Active Scripts Medications Dose Route/Sig Max Daily Dose Days Date Category Montelukast Sodium Tablet (Montelukast Sodium) 10 Mg Tablet 10 Mg PO HS 10/15/21 Reported Breo Ellipta 100-25 Mcg INH (Fluticasone/Vilanterol) 1 Each Blst.w.dev 1 Puff INH DAILY 30 07/29/21 Rx Prednisone 20 Mg Tablet 20 Mg PO DAILY 5 07/29/21 Rx Guaifenesin Dm Syrup (Guaifenesin/Dextromethorphan) 5 Ml Syrup 10 Ml PO PRN Q6HRS PRN 10 02/23/21 Rx Benzonatate 100 Mg Capsule 100 Mg PO TID 10 02/23/21 Rx Proair Hfa Inhaler (Albuterol Sulfate) 8.5 Gm Hfa.aer.ad 2 Puff IH PRN Q4-6HRS PRN 21 06/21/19 Rx Atrovent Hfa (Ipratropium [place]) 12.9 Gm Hfa.aer.ad 2 Puff IH QID 06/05/18 Rx Impression . 1. Acute hypoxic respiratory failure multifactorial, acute bronchiectasis 2. Underlying chronic obstructive pulmonary disease. 3. CT chest reviewed 10/15/2021 when compared with the previous CT chest. There has been mild improvement in the reticulonodular interstitial infiltrates. There is mild reactive mediastinal adenopathy. Bronchiectasis appears to be unchanged without any significant mucous plugging. Plan . Updated 10/17 Discharge home today on Levaquin 6-minute walk prior to discharge Spoke with Sharyn she should follow-up with me in 4 to 6 weeks KAVON GAMBINO MD October 17, 2021 09:38
[2021-10-17 11:00] VITALS: BP 107/62
[2021-10-17] MEDS ORDERED: PRED20TA PO (14:50)
[2021-10-17] MEDS ORDERED: LEVO500T9 PO (14:50)
--- NOTE | 2021-10-17 14:54 | NUR ---
SS following up with discharge planning. SS reviewed pt chart and discussed with pt RN. Pt is currently requiring oxygen at two to three liters nasal canula. Six minute walk completed and script received for oxygen. Script and referral sent to [facility], ; fax [phone]. Pt is self pay. Pt's family spoke with Lio at [facility] about payment for oxygen. Tank provided for home. Pt's RN notified.
--- NOTE | 2021-10-17 14:54 | DISCH ---
DISCHARGE INSTRUCTIONS Condition on Discharge Condition on Discharge: Stable Activity After Discharge Activity Instructions for Disc: Activity as tolerated Lifting Instructions after Dis: No heavy lifting, No pulling or pushing Exercise Instruction after Dis: Walk 10 min, 3 x per day Driving Instructions after Dis: Do not drive today Weight Bearing Status after Di: No restrictions Diet after Discharge Diet after Discharge: Cardiac, Regular Diet Texture: Regular Liquid Texture: Thin Liquid Wound Incision Care Wound/Incision Care: No wound care needed Checks after Discharge Checks after discharge: Check blood press - daily, Check your Temp as needed, Weigh Yourself Daily Contacting the DR. after DC Call your doctor for: If your condition worsens Follow-Up Follow up with: PCP within 2 weeks of discharge Follow Up With: Pulmonary as scheduled or as needed. Treatment/Equipment after DC Adaptive Equipment Issued: None Discharge Respiratory Equipmen: Oxygen ERNST ROBERTSON MD October 17, 2021 14:54
--- NOTE | 2021-10-17 16:37 | NUR ---
Discharge Note: [facility] Discharge instructions and discharge home medications reviewed with Patient and daughter and a copy given. All questions have been answered and understanding verbalized. The following instructions and handouts were given: f/u with Dr. Bower within 4 weeks. Discontinued lines and drains: Peripheral IV intact. Patient discharged to Home or Self Care with Family Member via Wheelchair
[2021-10-17] MEDS ORDERED: PIPERACILLIN/TAZOBACTAM 4.5 GM in IV DEXTROSE 5% 100ML 100 ML IV SCH (18:00)
--- NOTE | 2021-10-20 12:49 | PDOC3 ---
[facility]-Discharge Summary Date of Admission: Date of Admission: October 15, 2021 Date of Discharge: Date of Discharge: October 16, 2021 Discharge Diagnosis: Discharge Diagnosis: Acute respiratory failure with hypoxia - due to COPD and continued smoking. Wean O2 as tolerated. F/u COVID 19 results Acute bronchitis - historically with chronic bronchiectasis changes and pneumonia - with Greenish-brown sputum. Likely gram negative given structural lung disease with COPD history Acute COPD exacerbation - aggressive nebs and pulm toileting. 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 She denies any chest pain. Has had cough and nausea as well. Patient was not vaccinated for COVID-19 or influenza this year. Patient has used her pro-air inhaler at home with no relief. Her family brought her here for further treatment. Patient says she very recently stopped smoking. O2 saturations 85% on room air improved with 2 L/min nasal cannula O2 92%. Chest radiograph on my interpretation hyperexpansion. Right apical granuloma noted. No other interstitial and alveolar opacities with the same as prior to the bronchial sexton no discrete consolidation noted. EKG on my interpretation sinus rhythm rate 93 bpm T wave flattening in I, III, V5 V6 no ST segment elevations, QTC 418. Unchanged from prior EKG in July and February WBC 16.7, Hb 13.3, platelets 313, NA 140, K4.3, BUN 13, CR 0.8, glucose 113, calcium 8.4, bilirubin 1.1, albumin 3.2, high-sensitivity troponin is 8, NT proBNP is 158, rapid COVID-19 negative, influenza negative. 10/16/2021 No acute events overnight. Patient seen examined bedside. Saturating 92% on 1 L nasal cannula. No dyspnea upon my encounter. Symptomatically feels better. Patient's daughter also on the phone and translating. Counseled on smoking cessation. Patient's chart, labs, images were reviewed and discussed with RN By day of discharge patient was clinically stable and ready for discharge. Please see pulmonary recommendations above. Patient will continue 7-day course of Levaquin and steroid taper. Rest of hospital course was uneventful. Disposition: Disposition/Orders: D/C to Home Activity: Activity: Resume previous activity Diet: Diet: Cardiac Medications: Home Meds Active Scripts Levofloxacin (LEVOFLOXACIN) 500 Mg Tablet, 500 MG PO DAILY for pneumonia, #14 TAB Prov:ERNST ROBERTSON MD 10/17/21 Prednisone (PREDNISONE) 20 Mg Tablet, 1 TAB PO DAILY for copd flare for 5 Days, #5 TAB Prov:ERNST ROBERTSON MD 10/17/21 Fluticasone/Vilanterol (Breo Ellipta 100-25 Mcg INH) 1 Each Blst.w.dev, 1 PUFF INH DAILY for copd for 30 Days, #1 INHALER Prov:HUMERA PIZANO MD 07/29/21 Guaifenesin/Dextromethorphan (GUAIFENESIN DM SYRUP) 5 Ml Syrup, 10 ML PO PRN Q6HRS PRN for COUGH for 10 Days, #200 MISC Prov:PARK COBOS MD 02/23/21 Benzonatate (BENZONATATE) 100 Mg Capsule, 100 MG PO TID for bronchitis for 10 Days, #30 CAP Prov:PARK COBOS MD 02/23/21 Albuterol Sulfate (PROAIR HFA INHALER) 8.5 Gm Hfa.aer.ad, 2 PUFF IH PRN Q4-6HRS PRN for wheezing for 21 Days, #1 INHALER 0 Refills Prov:ALO BARNEY MD 06/21/19 Ipratropium [place] (ATROVENT HFA) 12.9 Gm Hfa.aer.ad, 2 PUFF IH QID, #12.9 GM 0 Refills Prov:ROCHELLE MAN DO 06/05/18 Reported Medications Montelukast Sodium (MONTELUKAST SODIUM TABLET ) 10 Mg Tablet, 10 MG PO HS for FOR ASTHMA, TAB 0 Refills 10/15/21 Discontinued Scripts Prednisone (PREDNISONE) 20 Mg Tablet, 20 MG PO DAILY for copd for 5 Days, #5 TAB Prov:HUMERA PIZANO MD 07/29/21 Scheduled Benzonatate (Benzonatate), 100 MG PO TID Fluticasone/Vilanterol (Breo Ellipta 100-25 Mcg INH), 1 PUFF INH DAILY Ipratropium [place] (Atrovent Hfa), 2 PUFF IH QID Levofloxacin (Levofloxacin), 500 MG PO DAILY Montelukast Sodium (Montelukast Sodium Tablet ), 10 MG PO HS, (Reported) Prednisone (Prednisone), 1 TAB PO DAILY Scheduled PRN Albuterol Sulfate (Proair Hfa Inhaler), 2 PUFF IH PRN Q4-6HRS PRN for wheezing Guaifenesin/Dextromethorphan (Guaifenesin Dm Syrup), 10 ML PO PRN Q6HRS PRN for COUGH Discontinued Medications Prednisone (Prednisone), 20 MG PO DAILY Total Time: Total Time: Total time spent was 34 minutes in preparing scripts, discharge planning with SWI and RN and preparing this discharge summary Patient seen and examined on day of discharge. No acute abnormal findings. Justicifation of Admission Dx: Justifications for Admission: Justification of Admission Dx: Yes Sepsis: Hypoxemia ERNST ROBERTSON MD October 20, 2021 12:49
== END 2021-10-17 16:30 | disposition home or self-care (01) | DRG 177 ==
LOC: ER 05:21 → 5 NORTH 07:07
PROVIDERS: ADMIT Internal Medicine; ATTEND Internal Medicine
DX: J15.6 Pneumonia due to other Gram-negative bacteria (principal); J96.01 Acute respiratory failure with hypoxia; J47.0 Bronchiectasis with acute lower respiratory infection; J20.9 Acute bronchitis, unspecified; F17.200 Nicotine dependence, unspecified, uncomplicated; J43.9 Emphysema, unspecified; K04.5 Chronic apical periodontitis; T38.0X5A Adverse effect of glucocorticoids and synthetic analogues, initial encounter; Y92.89 Other specified places as the place of occurrence of the external cause; Z20.822 Contact with and (suspected) exposure to COVID-19; Z71.6 Tobacco abuse counseling; B96.5 Pseudomonas (aeruginosa) (mallei) (pseudomallei) as the cause of diseases classified elsewhere
CPT/HCPCS: 36415; 71045; 71250; 80048; 80053; 83880; 84484; 85007; 85025; 87428; 93005; 94618; 94640; 94760; 96374; 96375; J0696; J1650; J2543; J2930; 99285-25; G0378; J7626